=== PATIENT | female | born 1955 | race Caucasian/White ===

== ENCOUNTER 2018-08-01 14:04 | Outpatient (REF) | payer MEDICARE, SELFPAY ==
[2018-08-01 22:12] LABS: HGB 15.3 g/dL (12.0-15.5); Mean Corp. HGB Concentration 32.6 g/dL (32.0-36.0); Mean Corpuscular Hemoglobin 29.4 pg (27.0-33.0); Mean Corpuscular Volume 90.2 fL (80-95); Platelet Count 223 x1000/uL (130-400); RBC 5.21 m/cumm (4.00-5.20); RBC Distribution Width 12.7 % (11.7-14.6); White Blood Cell Count 7.34 k/cumm (4.4-10.8)
[2018-08-01 22:30] LABS: ALT 37 U/L (12-78); AST 24 U/L (15-37); Albumin 3.6 g/dL (3.4-5.0); Alkaline Phosphatase 99 U/L (46-116); BUN 28 mg/dL (7-18); Bilirubin, Total 0.3 mg/dL (0.2-1.0); CREATININE 1.32 mg/dL (0.55-1.02); Calcium 9.5 mg/dL (8.5-10.1); Chloride 100 mmol/L (98-107); Estimated GFR 40.91 (mL/min/1.73m2); Glucose 140 mg/dL (70-100); Potassium 4.2 mmol/L (3.5-5.1); Sodium 139 mmol/L (136-145); TSH (W/Ref FT4) 0.43 uIU/mL (0.358-3.74); Total Protein 7.1 g/dL (6.4-8.2)
== END 2018-08-01 14:24 ==
LOC: NCHCN 14:04
PROVIDERS: PCP Specialist/Technologist Athletic Trainer; Visit Provider Specialist/Technologist Athletic Trainer
DX: I25.10 Atherosclerotic heart disease of native coronary artery without angina pectoris (principal); E11.65 Type 2 diabetes mellitus with hyperglycemia; E78.00 Pure hypercholesterolemia, unspecified; E03.9 Hypothyroidism, unspecified
CPT/HCPCS: 80053; 85027; 84443

== ENCOUNTER → 2018-09-05 12:28 | Outpatient (BNVA) | payer MEDICARE, SELFPAY | PROVIDERS: PCP Specialist/Technologist Athletic Trainer; Visit Provider Internal Medicine Interventional Cardiology | DX: I25.810 Atherosclerosis of coronary artery bypass graft(s) without angina pectoris (principal); R55 Syncope and collapse; I48.91 Unspecified atrial fibrillation; I10 Essential (primary) hypertension; E78.5 Hyperlipidemia, unspecified; E11.9 Type 2 diabetes mellitus without complications; Z79.4 Long term (current) use of insulin | CPT/HCPCS: 99214; 99213 ==

== ENCOUNTER 2018-09-05 13:24 | Outpatient (CLI) | payer MEDICARE, SELFPAY ==
--- NOTE | 2018-10-03 11:14 | ZIOP_ITS ---
ZIO PATCH REPORT Date of Reading: September 27, 2018 Study Indication: Paroxysmal atrial fibrillation. Requesting Provider: Dre Burgess M.D. Findings: The patient was monitored for 13 days. The predominant underlying rhythm was sinus rhythm. Average heart rate in sinus rhythm 66 beats per minute, range of 45-126 beats per minute. There was rare ectopy. There was one atrial run lasting 10 beats, with an average heart rate of 118 beats per minute. There was one ventricular run lasting 5 beats, with an average heart rate of 122 beats per minute. There was no higher degree heart block. There were no p[ auses greater than 3 seconds. There were no patient events. Final Interpretation: Minor tachyarrhythmias.
== END 2018-09-05 13:44 ==
PROVIDERS: PCP Specialist/Technologist Athletic Trainer; Visit Provider Internal Medicine Interventional Cardiology
DX: I48.0 Paroxysmal atrial fibrillation (principal); I47.1 Supraventricular tachycardia; I47.2 Ventricular tachycardia
CPT/HCPCS: 93225; 99214; 99213

== ENCOUNTER 2018-09-27 16:14 | Outpatient (CLI) | payer MEDICARE, SELFPAY | END 2018-09-27 16:34 | PROVIDERS: PCP Specialist/Technologist Athletic Trainer; Referring Provider Internal Medicine Interventional Cardiology; Visit Provider Student in an Organized Health Care Education/Training Program | DX: I48.0 Paroxysmal atrial fibrillation (principal); I47.1 Supraventricular tachycardia; I47.2 Ventricular tachycardia | CPT/HCPCS: 0298T ==

== ENCOUNTER 2019-05-16 11:18 | Outpatient (CLI) | payer MEDICARE, SELFPAY ==
[2019-05-16 13:02] LABS: ALT 37 U/L (12-78); AST 19 U/L (15-37); Albumin 3.6 g/dL (3.4-5.0); Alkaline Phosphatase 98 U/L (46-116); Bilirubin, Total 0.5 mg/dL (0.2-1.0); Calculated LDL 95 mg/dL; Cholesterol 167 mg/dL (50-200); HDL Cholesterol 43 mg/dL (40-60); Total Protein 7.4 g/dL (6.4-8.2); Triglyceride 145 mg/dL (30-150)
[2019-05-16 13:13] LABS: Bilirubin, Direct 0.12 mg/dL (0.00-0.20)
== END 2019-05-16 11:38 ==
PROVIDERS: PCP Specialist/Technologist Athletic Trainer; Visit Provider Internal Medicine Interventional Cardiology
DX: E78.5 Hyperlipidemia, unspecified (principal); I48.91 Unspecified atrial fibrillation
CPT/HCPCS: 36415; 80061; 80076; 83721

== ENCOUNTER 2019-05-22 08:31 | Outpatient (CLI) | payer MEDICARE, SELFPAY | END 2019-05-22 08:51 | PROVIDERS: PCP Specialist/Technologist Athletic Trainer; Visit Provider Internal Medicine Interventional Cardiology | DX: I25.10 Atherosclerotic heart disease of native coronary artery without angina pectoris (principal); R55 Syncope and collapse; I48.91 Unspecified atrial fibrillation; E78.5 Hyperlipidemia, unspecified; E11.9 Type 2 diabetes mellitus without complications; I10 Essential (primary) hypertension; I63.9 Cerebral infarction, unspecified | CPT/HCPCS: 93005; 93010; 99213 ==

== ENCOUNTER → 2019-08-22 10:46 | Outpatient (BNVA) | payer MEDICARE, SELFPAY | PROVIDERS: PCP Specialist/Technologist Athletic Trainer; Referring Provider Specialist/Technologist Athletic Trainer; Visit Provider Internal Medicine Cardiovascular Disease | DX: I25.718 Atherosclerosis of autologous vein coronary artery bypass graft(s) with other forms of angina pectoris (principal); I10 Essential (primary) hypertension; I48.91 Unspecified atrial fibrillation; E11.9 Type 2 diabetes mellitus without complications; Z79.4 Long term (current) use of insulin | CPT/HCPCS: 99205; 99215 ==

== ENCOUNTER 2019-08-29 11:14 | Outpatient (CLI) | payer MEDICARE, SELFPAY ==
[2019-08-29 13:43] LABS: ALT 43 U/L (14-59); AST 17 U/L (15-37); Albumin 3.8 g/dL (3.4-5.0); Alkaline Phosphatase 107 U/L (46-116); Bilirubin, Total 0.5 mg/dL (0.2-1.0); Calculated LDL 96 mg/dL; Cholesterol 170 mg/dL (50-200); HDL Cholesterol 39 mg/dL (40-60); Total Protein 7.9 g/dL (6.4-8.2); Triglyceride 176 mg/dL (30-150)
[2019-08-29 14:23] LABS: Bilirubin, Direct 0.13 mg/dL (0.00-0.20)
== END 2019-08-29 11:34 ==
PROVIDERS: Internal Medicine Interventional Cardiology; PCP Specialist/Technologist Athletic Trainer; Visit Provider Internal Medicine Cardiovascular Disease
DX: I48.91 Unspecified atrial fibrillation (principal); E78.5 Hyperlipidemia, unspecified; I10 Essential (primary) hypertension; I25.718 Atherosclerosis of autologous vein coronary artery bypass graft(s) with other forms of angina pectoris
CPT/HCPCS: 36415; 80061; 80076

== ENCOUNTER 2019-11-21 15:27 | Outpatient (CLI) | payer MEDICARE, SELFPAY ==
[2019-11-21 16:49] LABS: COMMENT (LAB VIEW ONLY) 178.24 mg/dL
[2019-11-21 16:53] LABS: BUN 24 mg/dL (7-18); CREATININE 1.69 mg/dL (0.55-1.02); Calcium 9.7 mg/dL (8.5-10.1); Chloride 100 mmol/L (98-107); Estimated GFR 30.66 (mL/min/1.73m2); Glucose 120 mg/dL (74-106); Potassium 5.4 mmol/L (3.5-5.1); Sodium 139 mmol/L (136-145); TSH 20.47 uIU/mL (0.36-3.74)
== END 2019-11-21 15:47 ==
PROVIDERS: PCP Internal Medicine; Visit Provider Internal Medicine
DX: I10 Essential (primary) hypertension (principal); E03.9 Hypothyroidism, unspecified; E11.8 Type 2 diabetes mellitus with unspecified complications; Z79.4 Long term (current) use of insulin
CPT/HCPCS: 36415; 80048; 82043; 82570; 84443

== ENCOUNTER 2020-02-20 01:55 | Outpatient (CLI) | payer MEDICARE, SELFPAY ==
[2020-02-20 12:58] LABS: Anion Gap 9.3 mmol/L (3-11); BUN 13 mg/dL (7-18); CO2 29.7 mmol/L (21.0-32.0); CREATININE 1.28 mg/dL (0.55-1.02); Calcium 9.5 mg/dL (8.5-10.1); Chloride 101 mmol/L (98-107); Estimated GFR 42.25 (mL/min/1.73m2); Glucose 122 mg/dL (74-106); Potassium 4.4 mmol/L (3.5-5.1); Sodium 140 mmol/L (136-145); TSH (W/Ref FT4) 0.01 uIU/mL (0.36-3.74)
[2020-02-20 13:15] LABS: FREE T4 1.44 ng/dL (0.76-1.46)
== END 2020-02-20 02:15 ==
PROVIDERS: PCP Internal Medicine; Visit Provider Internal Medicine
DX: E03.9 Hypothyroidism, unspecified (principal); E87.5 Hyperkalemia; N18.9 Chronic kidney disease, unspecified
CPT/HCPCS: 36415; 80048; 84439; 84443

== ENCOUNTER 2020-04-05 01:33 | Outpatient (CLI) | payer MEDICARE, SELFPAY ==
[2020-04-05 13:31] LABS: TSH (W/Ref FT4) < 0.01 uIU/mL (0.36-3.74)
[2020-04-05 13:49] LABS: FREE T4 1.52 ng/dL (0.76-1.46)
== END 2020-04-05 01:53 ==
PROVIDERS: PCP Internal Medicine; Visit Provider Internal Medicine
DX: E03.9 Hypothyroidism, unspecified (principal); I25.718 Atherosclerosis of autologous vein coronary artery bypass graft(s) with other forms of angina pectoris; I10 Essential (primary) hypertension; E11.8 Type 2 diabetes mellitus with unspecified complications; Z79.4 Long term (current) use of insulin
CPT/HCPCS: 36410; 84439; 84443; 99213

== ENCOUNTER 2020-05-06 11:43 | Emergency (ER) | payer MEDICARE, SELFPAY ==
[2020-05-06 11:46] VITALS: BP 175/82; PULSE 71; RESP 20; TEMP 36.6; O2SAT 99
--- NOTE | 2020-05-06 11:47 | ED.GENADUL_ITS ---
Discharge Plan Disposition Patient Disposition: HOME Condition: Stable Discharge Details Chief Complaint: DentalOral Clinical Impression: Contusion of face, Complete avulsion of tooth Primary Care Provider: Lynnette Gomez ED Provider: Damaris Tovar Home Meds and New Rx's Prescriptions: Continued Qvar RediHaler 40 mcg/actuation HFA aerosol breath activated 1 puff IH BID RF: 0 cholecalciferol (vitamin D3) [Vitamin D3] 25 mcg (1,000 unit) tablet 50 mcg PO DAILY RF: 0 Levemir FlexTouch U-100 Insuln 100 unit/mL (3 mL) insulin pen 60 unit subcut BID Qty: 5 RF: 6 magnesium 250 mg tablet 500 mg PO TID RF: 0 lisinopril 20 mg tablet 20 mg PO DAILY Qty: 90 RF: 3 (DME) insulin needles (disposable) 30 X 3/4 needle See Rx Instructions .ROUTE .MEDSUPPLY Qty: 1 RF: 0 (DME) pen needle, diabetic [CareFine Pen Needle] 32 gauge x 3/16 needle See Rx Instructions .ROUTE .MEDSUPPLY Qty: 200 RF: 3 levothyroxine 137 mcg tablet 137 mcg PO DAILY Qty: 90 RF: 0 atorvastatin 80 mg tablet 80 mg PO DAILY Qty: 90 RF: 1 citalopram 20 mg tablet 20 mg PO DAILY Qty: 90 RF: 1 metoprolol tartrate 25 mg tablet 25 mg PO BID Qty: 90 RF: 1 metformin 500 mg tablet See Rx Instructions PO BID Qty: 90 RF: 0 aspirin 81 MG tablet,delayed release (DR/EC) 81 mg PO DAILY RF: 0 cyanocobalamin (vitamin B-12) 1,000 MCG tablet, sublingual 500 mcg PO DAILY RF: 0 Discharge Instructions Instructions: Acute Dental Trauma (ED), Contusion in Adults (ED) Additional Instructions: You were given a dental list for follow-up with a dentist in the area who can replace your missing tooth. Take Tylenol as needed and directed for pain. Return to the emergency department if you develop any worsening or new concerning symptoms such as fever, increased pain, redness or swelling. Discharge Data Discharge Date/Time-TO BE ENTERED AT DEPARTURE: 05/06/20 12:58 Discharge Physician: Damaris Tovar Medical Decision Making 65-year-old female presents the ED with a complaint of nose and facial pain as well as tooth avulsion after slip and fall in bathroom striking her face on the bathtub 2 days ago. She presents with request to have the tooth replaced. Denies LOC or vomiting. Tooth #8 completely avulsed with root intact and patient presents with this at bedside. Mucosa at site of former tooth without signs of infection or trauma. She has tenderness to palpation of upper jaw and tenderness to palpation with superficial abrasion to her nose. No facial deformities noted. No midline cervical spine tenderness. No focal deficits. Moving all extremities. Case discussed with [facility] who stated that as tooth has been out longer than several hours, indication is not to replace it at this time but to follow-up with the dentist as outpatient to have cosmetic dental procedure to replace her own tooth. No indication for antibiotics. A CT facial bones was obtained to rule out facial fracture and this was negative. Patient was given dental follow-up list. Usual and customary return precautions given prior to discharge. Medical Records Medical records reviewed: Yes I reviewed the patient's medical records. Imaging Data Radiologic Study: Radiologist's impression: CT FACIAL WO CLINICAL HISTORY: r/o nasal bone, upper jaw fracture. TECHNIQUE: Imaging Protocol: Axial computed tomography images with coronal and sagittal reformatted images were created and reviewed COMPARISON: No exams were available for comparison FINDINGS: Facial Bones: No definite fracture is noted in facial bones. Sinuses and Mastoids: There is mild mucosal thickening in the maxillary sinuses bilaterally. The remaining visualized paranasal sinuses are clear. No fluid levels are seen. The mastoid air cells are well pneumatized. Globes, extraocular muscles, optic nerves and retrobulbar fat: Normal. Upper aerodigestive tract: Normal. Mandible and bilateral temporomandibular joints: Normal. Soft tissues: Normal. IMPRESSION: No evidence of fracture/dislocation in facial bones. HPI General Mode of arrival: ambulatory . Date/Time Provider Initiated Documentation: 05/06/20 11:44 . Limitations to Documentation: no limitations . Information obtained by: patient . HPI Narrative: Patient is a 65-year-old female who presents with facial injury and missing tooth after slip and fall in bathroom 2 days ago. Patient states she slipped and hit her face on the bathtub causing her right front tooth to knock out completely from the root. She admits to some pain in her nose and her upper jaw but otherwise denies any headache, dizziness, blurry vision, neck pain, LOC, nausea, vomiting or any other injuries. She has taken Tylenol for some pain relief. Related Data Home Medications Medication Instructions Recorded Confirmed aspirin 81 mg PO DAILY 01/06/17 05/06/20 cyanocobalamin (vitamin B-12) 500 mcg PO DAILY 01/06/17 05/06/20 beclomethasone dipropionate 40 1 puff IH BID 05/22/19 05/06/20 mcg/actuation HFA breath activated aerosol insulin detemir U-100 100 unit/mL 60 unit SUBCUT BID #5 syringe 01/02/20 05/06/20 (3 mL) subcutaneous pen insulin needles (disposable) 30 X #1 02/08/2001/09 levothyroxine 137 mcg tablet 137 mcg PO DAILY #90 tab 02/20/20 05/06/20 pen needle, diabetic 32 gauge x #200 each 02/20/2001/21 atorvastatin 80 mg tablet 80 mg PO DAILY #90 tab 03/05/20 05/06/20 citalopram 20 mg tablet 20 mg PO DAILY #90 tab 03/05/20 05/06/20 metoprolol tartrate 25 mg tablet 25 mg PO BID #90 tab 03/05/20 05/06/20 cholecalciferol (vitamin D3) 25 50 mcg PO DAILY tab 04/05/20 05/06/20 mcg (1,000 unit) tablet lisinopril 20 mg tablet 20 mg PO DAILY #90 tab 04/05/20 05/06/20 magnesium 250 mg tablet 500 mg PO TID tab 04/05/20 05/06/20 metformin 500 mg tablet See Rx Instructions PO BID #90 tab 04/10/20 05/06/20 Previous Rx's Medication Instructions Recorded insulin detemir U-100 100 unit/mL 60 unit SUBCUT BID #5 syringe 01/02/20 (3 mL) subcutaneous pen levothyroxine 137 mcg tablet 137 mcg PO DAILY #90 tab 02/20/20 pen needle, diabetic 32 gauge x #200 each 02/20/2001/21 atorvastatin 80 mg tablet 80 mg PO DAILY #90 tab 03/05/20 citalopram 20 mg tablet 20 mg PO DAILY #90 tab 03/05/20 metoprolol tartrate 25 mg tablet 25 mg PO BID #90 tab 03/05/20 lisinopril 20 mg tablet 20 mg PO DAILY #90 tab 04/05/20 metformin 500 mg tablet See Rx Instructions PO BID #90 tab 04/10/20 Allergies Allergy/AdvReac Type Severity Reaction Status Date / Time iodine Allergy Severe Verified 04/05/20 11:07 Review of Systems All systems reviewed & are unremarkable except as noted in HPI and below Constitutional Constitutional: Reports as per HPI, Denies chills and Denies fever(s) Eyes Eyes: Denies blurry vision ENT Ears, Nose, Mouth, and Throat: Reports dental pain (dental avulsion), Denies dizziness, Denies sore throat and Denies throat swelling Cardiovascular Cardiovascular: Denies chest pain and Denies dyspnea Respiratory Respiratory: Denies cough and Denies dyspnea Gastrointestinal Gastrointestinal: Denies abdominal pain, Denies diarrhea and Denies vomiting Genitourinary Genitourinary: Denies hematuria and Denies dysuria Musculoskeletal Musculoskeletal: Denies back pain and Denies numbness Integumentary/Breasts Skin/Breast: Denies lesions and Denies rash Neurologic Neurologic: Denies dizziness, Denies localized weakness and Denies numbness Allergic/Immunologic Allergic/Immunologic: Denies throat swelling [facility] Social History Smoking/Tobacco Use Status: Former Tobacco Use Quit Date: 11/08/09 Pack-years: 15 Tobacco: How many years used: 10 Alcohol Intake: former Drug use: Never Substance use type: does not use Household members: none Housing: house Number of Children: 0 Communication Needs: None Do you need help understanding health information?: Often current occupation: Unemployed Pets and animals: Yes Pets and animals: dog(s), bird(s) and farm animals Sexually active: No Do you think of yourself as: straight/heterosexual Current gender identity: female What is your relationship status?: Panel score (0-1 are the most socially isolated patients): 0 What type of physical activity do you participate in: none Seatbelt use: always Working smoke detector in home: Yes Fire extinguisher in home: Yes Carbon monox detector in home: Yes Do you feel safe at home: Yes Do you feel safe in your relationship?: Yes Exam Const General: cooperative, healthy appearing and no acute distress HENMT Head: normal to inspection Ears: hearing grossly normal bilaterally, external ears normal and TM's normal bilaterally Face images: 1. Superficial abrasion and tenderness to palpation. No obvious deformity noted. 2. Tenderness to palpation without evidence of trauma. No edema, erythema, ecchymosis. No open wounds noted. Mouth: oral mucosae normal Teeth image: 1. Tooth #8 missing. Entire tooth including root fully intact at bedside. Mucosa appears soft without erythema, edema, lesions, ecchymoses, bleeding. Throat: posterior oropharynx normal and uvula midline Eyes General: appearance normal, both eyes and all related structures Neck Neck: normal visual inspection Resp Effort & Inspection: normal respiratory effort and able to speak in complete sentences Cardio Rate: regular rate Back/Spine/Pelvis Cervical Spine: pain with cervical ROM and No cervical spinal tenderness Skin General skin exam: no rashes or lesions noted Neuro General: patient alert, patient awake and patient oriented x3 Cranial Nerves: CN's II-XI intact bilaterally Motor: muscle tone normal throughout and strength 5/5 throughout Extrem General: normal to inspection and full ROM Psych Appearance: grossly normal Affect: normal affect
--- NOTE | 2020-05-06 12:15 | DI.CT_ITS ---
EXAM: CT FACIAL WO CLINICAL HISTORY: r/o nasal bone, upper jaw fracture. TECHNIQUE: Imaging Protocol: Axial computed tomography images with coronal and sagittal reformatted images were created and reviewed COMPARISON: No exams were available for comparison FINDINGS: Facial Bones: No definite fracture is noted in facial bones. Sinuses and Mastoids: There is mild mucosal thickening in the maxillary sinuses bilaterally. The re maining visualized paranasal sinuses are clear. No fluid levels are seen. The mastoid air cells are well pneumatized. Globes, extraocular muscles, optic nerves and retrobulbar fat: Normal. Upper aerodigestive tract: Normal. Mandible and bilateral temporomandibular joints: Normal. Soft tissues: Normal. IMPRESSION: No evidence of fracture/dislocation in facial bones. The findings were discussed with the emergency department on the date of the examination. RADIATION DOSE DELIVERED: Total DLP DATA REPOSITORY: All CT scans at this facility are submitted to the National Radiology Data Registry (NRDR) Dose Index Registry (DIR) with the [employer] (ACR). RADIATION OPTIMIZATION: All CT scans at this facility use at least one of these dose optimization te chniques: automated exposure control; mA and/or kV adjustment per patient size (includes targeted exa ms where dose is matched to clinical indication); or iterative reconstruction.
== END 2020-05-06 12:58 | disposition home or self-care (01) ==
LOC: ER 12:58
PROVIDERS: Emergency Provider Physician Assistant; PCP Internal Medicine
DX: S00.83XA Contusion of other part of head, initial encounter (principal); S03.2XXA Dislocation of tooth, initial encounter; W18.2XXA Fall in (into) shower or empty bathtub, initial encounter
CPT/HCPCS: 99284; 70486

== ENCOUNTER 2020-08-16 03:01 | Outpatient (CLI) | payer MEDICARE, SELFPAY ==
[2020-08-16 13:24] LABS: Anion Gap 7.7 mmol/L (3-11); BUN 25 mg/dL (7-18); CO2 32.3 mmol/L (21.0-32.0); Calcium 9.9 mg/dL (8.5-10.1); Calculated LDL 128 mg/dL (<100); Chloride 103 mmol/L (98-107); Cholesterol 204 mg/dL (<200); Estimated GFR 41.37 (mL/min/1.73m2); Glucose 68 mg/dL (74-106); HDL Cholesterol 49 mg/dL (40-60); Potassium 4.8 mmol/L (3.5-5.1); Sodium 143 mmol/L (136-145); TSH (W/Ref FT4) 0.02 uIU/mL (0.36-3.74); Triglyceride 135 mg/dL (<150)
[2020-08-16 14:38] LABS: FREE T4 1.33 ng/dL (0.76-1.46)
== END 2020-08-16 03:21 ==
PROVIDERS: PCP Internal Medicine; Visit Provider Internal Medicine
DX: E78.00 Pure hypercholesterolemia, unspecified (principal); I10 Essential (primary) hypertension; E03.9 Hypothyroidism, unspecified
CPT/HCPCS: 36415; 80048; 80061; 84439; 84443

== ENCOUNTER → 2021-05-27 09:25 | Outpatient (BNVA) | payer MEDICARE, SELFPAY | PROVIDERS: PCP Internal Medicine; Referring Provider Internal Medicine; Visit Provider Internal Medicine Cardiovascular Disease | DX: I25.718 Atherosclerosis of autologous vein coronary artery bypass graft(s) with other forms of angina pectoris (principal); E78.00 Pure hypercholesterolemia, unspecified; I48.91 Unspecified atrial fibrillation; I63.9 Cerebral infarction, unspecified | CPT/HCPCS: 99214; 99213 ==

== ENCOUNTER 2022-01-20 01:42 | Outpatient (CLI) | payer MEDICARE, SELFPAY ==
[2022-01-20 14:07] LABS: HCT 52.4 % (36.0-46.0); HGB 16.6 g/dL (11.2-15.7)
[2022-01-20 14:47] LABS: COMMENT (LAB VIEW ONLY) 68.94 mg/dL
[2022-01-20 15:13] LABS: Anion Gap 10.6 mmol/L (3-11); BUN 38 mg/dL (7-18); CO2 27.4 mmol/L (21.0-32.0); CREATININE 1.4 mg/dL (0.55-1.02); Calcium 9.7 mg/dL (8.5-10.1); Calculated LDL 112 mg/dL (<100); Chloride 98 mmol/L (98-107); Cholesterol 194 mg/dL (<200); Estimated GFR 37.86 (mL/min/1.73m2); Glucose 97 mg/dL (74-106); HDL Cholesterol 68 mg/dL (40-60); Potassium 4.5 mmol/L (3.5-5.1); Sodium 136 mmol/L (136-145); TSH 0.16 uIU/mL (0.36-3.74); Triglyceride 70 mg/dL (<150)
== END 2022-01-20 01:43 | disposition home or self-care (01) ==
LOC: LBO 01:42
PROVIDERS: PCP Internal Medicine; Visit Provider Internal Medicine
DX: E11.9 Type 2 diabetes mellitus without complications (principal); E03.9 Hypothyroidism, unspecified; I10 Essential (primary) hypertension; E78.00 Pure hypercholesterolemia, unspecified; N18.30 Chronic kidney disease, stage 3 unspecified
CPT/HCPCS: 80048; 80061; 82043; 82570; 84443; 85014; 85018

== ENCOUNTER 2022-02-19 01:48 | Outpatient (CLI) | payer MEDICARE, SELFPAY ==
--- NOTE | 2022-02-19 07:15 | DI.MAMMO_ITS ---
Exam(s) MAMMO SCREENING EXAM: MAMMO SCREENING CLINICAL HISTORY: screening,z12.39 TECHNIQUE: Mammograms were interpreted according to the usual protocol including computer analysis w [employer] CAD system, tomosynthesis and C-view imaging. COMPARISON: FINDINGS: The breasts are of moderate density with fairly symmetrical distribution of fibroglandular tissue. N o dominant mass or clumped microcalcification is identified in either breast. The current examinatio n is compared with of September 2017 and there has been no gross interval change in appearance in lizzy peace with the prior study. IMPRESSION: No specific evidence of malignancy at this time. Routine screening examinations are suggested at yea rly intervals in this age group according to the ACS ACR guidelines. BI-RADS Category 1 - Negative Breast Density - Category B - Scattered areas of fibroglandular density
== END 2022-02-19 02:08 ==
PROVIDERS: PCP Internal Medicine; Visit Provider Internal Medicine
DX: Z12.31 Encounter for screening mammogram for malignant neoplasm of breast (principal)
CPT/HCPCS: 77063; 77067

== ENCOUNTER 2022-05-22 01:44 | Outpatient (CLI) | payer MEDICARE, SELFPAY ==
--- OUTSIDE RECORDS SUMMARY | 2022-05-22 01:45 | XMS_ITS | Clinical Summary ---
:1955 Author Organization [facility] Address [place] [id number] Care Team Providers Name Role Phone Unknown Primary Care Provider Unavailable Allergies Active Allergy Reactions Severity Noted Date Comments Iodine Rash High 03/25/2016 Medications Medication Sig Dispensed Refills Start Date End Date Status magnesium citrate Take 100 mg by mouth 0 Active 100 mg Tablet 3 times daily. cyanocobalamin 500 Take 500 mcg by 0 Active mcg Tablet mouth daily. cholecalciferol, Take 1,000 Units by 0 Active Vitamin D3, (VITAMIN mouth daily. D) 1,000 unit Tablet levothyroxine Take 125 mcg by 0 Active (SYNTHROID) 125 mcg mouth daily. Tablet citalopram (CELEXA) Take 20 mg by mouth 0 Active 20 mg Tablet daily. lovastatin (MEVACOR) Take 80 mg by mouth 0 Active 20 mg Tablet nightly. Takes 4 - 20 mg tabs insulin detemir Inject 50 Units 0 Active (LEVEMIR) Insulin subcutaneously 2 Pen times daily. acetaminophen Take 2 tablets by 0 04/04/2016 Active (TYLENOL) 500 mg mouth every 6 hours Tablet as needed for Pain. aspirin 81 mg Take 81 mg by mouth 0 04/04/2016 Active Tablet, Chewable daily. meTOPROLOL tartrate Take 1 tablet by 120 tablet 3 04/04/2016 Active (LOPRESSOR) 25 mg mouth 2 times daily. Tablet Active Problems Problem Noted Date Diabetes mellitus type 2, uncontrolled 04/01/2016 Coronary artery disease 03/27/2016 Social History Tobacco Use Types Packs/Day Years Used Date Former Smoker 11 Alcohol Use Standard Drinks/Week Comments No 0 (1 standard drink = 0.6 oz pure alcoho l) Sex Assigned at Date Recorded Not on file Last Filed Vital Signs Vital Sign Reading Time Taken Comments Blood Pressure 160/88 05/26/2016 2:17 PM EDT Pulse 85 05/26/2016 2:17 PM EDT Temperature 37 ??C (98.6 ??F) 04/04/2016 7:29 AM EDT Respiratory Rate 14 04/04/2016 7:29 AM EDT Oxygen Saturation 96% 05/26/2016 2:17 PM EDT Inhaled Oxygen Concentration - - Weight 96.8 kg (213 lb 8 oz) 05/26/2016 2:17 PM EDT Height 160 cm (5' 3) 05/26/2016 2:17 PM EDT Body Mass Index 37.82 05/26/2016 2:17 PM EDT Plan of Treatment Health Maintenance Due Date Last Done Comments Covid-19 Vaccine (#1) 1962 DM Opthalmology Exam 1967 DM Urine Microalbumin yearly 1967 HIV screen 1975 Hepatitis C Screening 1975 Tdap adult 1976 Tetanus vaccine 1976 HPV test 1987 PAP Smear 1987 Breast Cancer Share Decision Needed 1997 Colonoscopy 2002 Breast Cancer screening 2007 Zoster vaccine (1 of 2) 2007 Advance Directive 2012 DM Hemoglobin A1c 07/01/2016 03/31/2016 DM Creatinine yearly 04/02/2017 04/02/2016, 03/31/2016, 03/26/2016 Bone Density Scan 2022 Pneumoccocal Vaccine: 65+ (1 - PCV) 2022 Influenza (Flu) vaccine (1 of - 07/09/2022 Influenza standard series) Insurance Payer Benefit Plan / Subscriber ID Effective Phone Address T ype Group Dates MEDICARE MEDICARE PART A [id number] 2012-Pres [id number] [place] [address] [facility] [id number] 2015-Prese [phone] [address] [place] [address] Advance Directives Latest Code Status on File Code Status Date Activated Date Inactivated Comments Full Code 04/03/2016 11:21 AM 04/04/2016 6:27 PM Does patient have capacity to make decision: Yes Full Code 03/30/2016 12:09 PM 04/03/2016 11:21 AM Does patient have capacity to make decision: Yes Full Code 03/29/2016 12:51 PM 03/30/2016 12:09 PM Does patient have capacity to make decision: Yes Full Code 03/26/2016 10:24 AM 03/26/2016 6:04 PM Does patient have capacity to make decision: Yes Care Teams Preparation Operator Relationship Specialty Start Date End Date Unknown PCP - General 05/13/21 None
--- OUTSIDE RECORDS SUMMARY | 2022-05-22 01:45 | XMS_ITS | Encounter Summary ---
:1955 Author Organization [facility] Address [address] [place] [address] Care Team Providers Name Role Phone Valentino Hernandez Primary Care Provider Encounter Details Date Type Department Care Team Description 05/26/2016 Hospital Encounter XRay at [facility] Narayan Camacho, S/P CABG x [address] [place] [address] [place] [address] [facility] [phone] CARDIOTHORACIC SURGERY [place], [place] [address] (Wo rk) Social History Tobacco Use Types Packs/Day Years Used Date Former Smoker 11 Alcohol Use Standard Drinks/Week Comments No 0 (1 standard drink = 0.6 oz pure alcoho l) Sex Assigned at Date Recorded Not on file documented as of this encounter Medications at Time of Discharge Medication Sig Dispensed Refills Start Date End Date acetaminophen (TYLENOL) Take 2 tablets by mouth 0 04/04/2016 500 mg Tablet every 6 hours as needed for Pain. aspirin 81 mg Tablet, Take 81 mg by mouth 0 04/04 Chewable daily. meTOPROLOL tartrate Take 1 tablet by mouth 120 tablet 3 03/09 (LOPRESSOR) 25 mg 2 times daily. Tablet insulin detemir Inject 50 Units 0 (LEVEMIR) Insulin Pen subcutaneously 2 times daily. magnesium citrate 100 Take 100 mg by mouth 3 0 mg Tablet times daily. cyanocobalamin 500 mcg Take 500 mcg by mouth 0 Tablet daily. cholecalciferol, Take 1,000 Units by 0 Vitamin D3, (VITAMIN D) mouth daily. 1,000 unit Tablet levothyroxine Take 125 mcg by mouth 0 (SYNTHROID) 125 mcg daily. Tablet citalopram (CELEXA) 20 Take 20 mg by mouth 0 mg Tablet daily. lovastatin (MEVACOR) 20 Take 80 mg by mouth 0 mg Tablet nightly. Takes 4 - 20 mg tabs documented as of this encounter Plan of Treatment Not on filedocumented as of this encounter Procedures Procedure Name Priority Date/Time Associated Diagnosis Comme nts XR CHEST PA AND Routine 05/26/2016 1:53 PM S/P CABG x 3 Result s for this LATERAL EDT procedure are i n the results section. documented in this encounter Results XR Chest PA & Lateral (Generic) (05/26/2016 1:53 PM EDT) Anatomical Region Laterality Modality Chest N/A Digital Radiography Specimen (Source) Anatomical Location Collection Method / Collectio n Time Received Time / Laterality Volume Impressions 05/26/2016 2:44 PM EDT Improved aeration expansion of the lungs. Less prominent mediastinal silhouette co mpared to 04/02/2016. I have personally reviewed the image(s) and the residents interpretation and agree with the findings, Tete kent 05/26/2016 2:44 PM Narrative 05/26/2016 2:44 PM EDT EXAMINATION: XR CHEST ROUTINE PA AND LATERAL CLINICAL HISTORY: s/p cabg TECHNIQUE: Standing PA and lateral chest COMPARISON: Chest radiograph 04/02/2016, 03/30/2016, 03/26/2016 FINDINGS: There is improved aeration and expansion of the lungs, which are clear. Unchanged mild cardiomegaly. The mediast inal silhouette appears less prominent compared to most recent prior radiograph 04/02/2016. No pleural effusion or pneumothorax. Mediastinal clips and inta ct median sternotomy cables are seen. Osseous degenerative changes. Procedure Note Tete Deleon MD - 05/26/2016Formatt ing of this note might be different from the original. EXAMINATION: XR CHEST ROUTINE PA AND LAT ERAL CLINICAL HISTORY: s/p cabg TECHNIQUE: Standing PA and lateral chest COMPARISON: Chest radiograph 04/02/2016, 03/30/2016, 03/26/2016 FINDINGS: There is improved aeration and expansion of the lungs, which are clear. Unchanged mild cardiomegaly. The mediast inal silhouette appears less prominent compared to most recent prior radiograph 04/02/2016. No pleural effusion or pneumothorax. Mediastinal clips and inta ct median sternotomy cables are seen. Osseous degenerative changes. IMPRESSION Improved aeration expansion of the lungs . Less prominent mediastinal silhouette co mpared to 04/02/2016. I have personally reviewed the image(s) and the residents interpretation and agree with the findings, Tete kent 05/26/2016 2:44 PM Narayan Camacho MD IMG DX ORDERABLES documented in this encounter Visit Diagnoses Diagnosis S/P CABG x 3 Postsurgical aortocoronary bypass status documented in this encounter Care Teams Transition Manager Relationship Specialty Start Date End Date Valentino Hernandez PA PCP - General General Internal Medicine 03/29/16 05/12/21 [address] [place] [address] documented as of this encounter
--- OUTSIDE RECORDS SUMMARY | 2022-05-22 01:45 | XMS_ITS | Encounter Summary ---
:1955 Author Organization [facility] [place] [address] Care Team Providers Name Role Phone Valentino Hernandze Primary Care Provider Encounter Details Date Type Department Care Team Description 01/06/2017 Hospital Encounter Radiology Library at Juan Burnham MD [facility] [place] [address] [place] [address] [phone] (Wo rk) Social History Tobacco Use Types [...] Name Priority Date/Time Associated Diagnosis Comme nts FILM LIBRARY Routine 01/06/2017 12:00 AM Pain Results for this STORAGE ONLY CT EST procedure ar e in SPINE the results section. documented in this encounter Results Film Library- Storage Only CT Spine (01/06/2017 12:00 AM EST) Specimen (Source) Anatomical Location Collection Method / Collectio n Time Received Time / Laterality Volume Narrative BERONICA - 01/06/2017 4:29 PM EST This exam is for storage only and is aut o-finalizing. Kurtis Burnham MD [facility] FILM LIBRARY ORDERABLES Performing Organization Address City/State/ZIP Code Phon e Number [place], [place] documented in this encounter Visit Diagnoses Diagnosis Pain Generalized pain documented in this encounter Care Teams Lead Cook Relationship Specialty Start Date End Date Valentino Hernandez PA PCP - General General Internal Medicine 03/29/16 05/12/21 [address] [place] [address] documented as of this encounter
--- OUTSIDE RECORDS SUMMARY | 2022-05-22 01:45 | XMS_ITS | Encounter Summary ---
:1955 Author Organization [facility] [place] [address] Care Team Providers Name Role Phone Valentino Hernandez Primary Care Provider Encounter Details Date Type Department Care Team Description 05/26/2016 [facility] Visit [facility] Narayan Camacho MD S/P CABG x 3 [facility] [place] [address] CARDIOTHORACIC SURGERY [phone] [place] [id number] (Wo rk) Social History Tobacco Use Types Packs/Day Years Used Date Former Smoker 11 Alcohol Use Standard Drinks/Week Comments No 0 (1 standard drink = 0.6 oz pure alcoho l) Sex Assigned at Date Recorded Not on file documented as of this encounter Last Filed Vital Signs Vital Sign Reading Time Taken Comments Blood Pressure 160/88 05/26/2016 2:17 PM EDT Pulse 85 05/26/2016 2:17 PM EDT Temperature - - Respiratory Rate - - Oxygen Saturation 96% 05/26/2016 2:17 PM EDT Inhaled Oxygen Concentration - - Weight 96.8 kg (213 lb 8 oz) 05/26/2016 2:17 PM EDT Height 160 cm (5' 3) 05/26/2016 2:17 PM EDT Body Mass Index 37.82 05/26/2016 2:17 PM EDT documented in this encounter Progress Notes Narayan Camacho MD - 05/26/2016 3:00 PM EDT Mrs. Prieto is here status post her CABG x3. She has little in the way of complaints. She has no recurrent angina or shortness of breath. Her vital signs are stable. Her wound is clean, dry and intact. Her legs have no swelling. Her chest x-ray is clear. EKG shows no acute changes. IMPRESSION: She is recovering well from surgery. She has no restrictions. She can start driving. I have encouraged her to start bathing. documented in this encounter Plan of Treatment Not on filedocumented as of this encounter Procedures Procedure Name Priority Date/Time Associated Diagnosis Comme nts EKG 12-LEAD Routine 05/26/2016 2:42 PM S/P CABG x 3 Results f or this EDT procedure are i n the results section . documented in this encounter Results EKG 12 Lead (05/26/2016 2:42 PM EDT) Component Value Ref Range Test Analysis Performed Pathologis t Method Time At Signature Ventricular rate 80 BPM MUSE SYSTEM Atrial Rate 80 BPM MUSE SYSTEM P-R Interval 166 ms MUSE SYSTEM QRS Duration 90 ms MUSE SYSTEM Q-T Interval 402 ms MUSE SYSTEM QTC Calculated 463 ms MUSE SYSTEM (Bezet) Calculated P [place] 54 degrees MUSE SYSTEM Calculated R [place] -16 degrees MUSE SYSTEM Calculated T [place] 125 degrees MUSE SYSTEM INTERPRETATION Normal sinus rhythm MUSE SYSTEM Possible Left atrial enlargement ST & T wave abnormality, consider lateral ischemia Prolonged QT Abnormal ECG When compared with ECG of 30-MAR-2016 19:03, T wave inversion now evident in Lateral leads QT has shortened Confirmed by MD Angela, Valentino Alvarez ([id number]) on 05/26/2016 3:18:36 PM Specimen Anatomical Collection Method Collection Time Receive d Time (Source) Location / / Volume Laterality 05/26/2016 2:42 PM 6 3:18 EDT PM EDT Narayan Camacho MD ECG ORDERABLES Performing Organization Address City/State/ZIP Code Phon e Number MUSE SYSTEM documented in this encounter Visit Diagnoses Diagnosis S/P CABG x 3 Postsurgical aortocoronary bypass status documented in this encounter Care Teams Director Clinical Data Relationship Specialty Start Date End Date Valentino Hernandez PA PCP - General General Internal Medicine 03/29/16 05/12/21 [address] [place] [address] (work) documented as of this encounter
--- OUTSIDE RECORDS SUMMARY | 2022-05-22 01:46 | XMS_ITS | Encounter Summary ---
:1955 [place] [address] Care Team Providers Name Role Phone Valentino Hernandez Primary Care Provider Reason for Referral Consultation (Routine) - Specialty Diagnoses / Procedures Referred By Contact Refer red To Contact Cardiac Rehabilitation Diagnoses S/P CABG x [address] [facility] [place] [address] Referral ID Status Reason Start Date Expiration Date Visits V isits Requested Authorized [id number] Consult, 04/04/2016 10/01/2016 36 36 Test & Treat Reason for Visit Auth/Cert Specialty Diagnoses / Procedures Referred By Contact Refer red To Contact Diagnoses Atherosclerotic heart disease of teller coronary artery without angina pectoris CAD Procedures PRO CABG, ARTERY-VEIN, THREE PRO CABG, ARTERIAL, SINGLE PRO ENDOSCOPY W/VIDEO-ASST VEIN HARVEST, CABG @CABG; 3 VENOUS GRAFTS & ARTERIAL GRAFT @CABG, USING ARTERIAL GRAFT;SINGLE ARTERIAL GRAFT ENDOSCOPIC HARVEST VEIN(S) FOR CABG Referral ID Status Reason Start Date Expiration Date Visits Requ ested Visits Authorized [id number] 1 1 Encounter Details Date Type Department Care Team Description 03/30/2016 - Hospital Intermediate Cardiac Felix, Coronar y artery disease, angina presence unspecified, unspecified vessel or lesion type, unspecified whether teller or transplanted heart; 04/04/2016 Encounter Care Unit Geovanna Boateng MD S/P CABG x 3 [facility] [place] [id number] [phone] Social History Tobacco Use Types Packs/Day Years Used Date Former Smoker 11 Alcohol Use Standard Drinks/Week Comments No 0 (1 standard drink = 0.6 oz pure alcoho l) Sex Assigned at Date Recorded Not on file documented as of this encounter Last Filed Vital Signs Vital Sign Reading Time Taken Comments Blood Pressure 133/85 04/04/2016 7:29 AM EDT Pulse 64 04/04/2016 5:00 AM EDT Temperature 37 ??C (98.6 ??F) 04/04/2016 7:29 AM EDT Respiratory Rate 14 04/04/2016 7:29 AM EDT Oxygen Saturation 97% 04/04/2016 7:29 AM EDT Inhaled Oxygen Concentration - - Weight 101.7 kg (224 lb 3.3 oz) 04/04/2016 5:00 AM EDT Height 161.3 cm (5' 3.5) 03/30/2016 11:31 AM EDT Body Mass Index 39.09 03/30/2016 11:31 AM EDT documented in this encounter Discharge Summaries Bronson Olmstead PA - 04/03/2016 2:26 PM EDT Inpatient - Discharge Summary Patient Name: Bernardo Peace Patient Age: 60 y.o. Birthdate: 1955 Language: Swedish Race: White Ethnicity: Not nor Admit Date: 03/30/2016 Discharge Date: 04/04/16 Attending Physician: Narayan Washington MD Follow-up Recommendations for Providers: Please continue routine management of cardiovascular risk factors including blood pressure, lipids, glucose, etc. Please note any changes to medications. Patient to follow-up with PCP, JACKELINE BARONE, in 1-2 weeks. Patient to follow-up with Presentation Specialist, Franky Serna MD, in two weeks. Patient to follow-up with Cardiac Surgery, Dr. Narayan Washington, in ~ 4 weeks with CXR and EKG. Inpatient Provider Contact Information: [facility] Section of Cardiac Surgery [facility] [address] FAX [phone] Discharge Diagnoses (Hospital Problems) Primary Diagnoses: CAD/Stable angina, S/P CABG X 3 03/30/2016. Secondary Diagnoses: Post op atrial fibrillation Discharged to: Patient discharged to home Functional and Cognitive Status: At baseline Discharge Conditions/Prognosis: Stable and improving Prior To Admission Medications Prescriptions Prior to Admission Medication Sig Dispense Refill Last Dose ??? insulin detemir (LEVEMIR) Insulin Pen Inject 50 Units subcutaneously 2 times daily. 03/29/2016 atUnknown time ??? OMEGA-3/DHA/EPA/FISH OIL (OMEGA-3 FISH OIL ORAL) Take 360 mg by mouth daily. 03/29/2016 at Unknown time ??? magnesium citrate 100 mg Tablet Take 100 mg by mouth 3 times daily. 03/29/2016 at Unknown time ??? cyanocobalamin 500 mcg Tablet Take 500 mcg by mouth daily. 03/29/2016 at Unknown time ??? Cod Liver Oil Oil Take by mouth 2 times daily. 03/27/2016 at Unknown time ??? cholecalciferol, Vitamin D3, (VITAMIN D) 1,000 unit Tablet Take 1,000 Units by mouth daily. 03/27/2016 at Unknown time ??? levothyroxine (SYNTHROID) 125 mcg Tablet Take 125 mcg by mouth daily. 03/29/2016 at Unknown time ??? citalopram (CELEXA) 20 mg Tablet Take 20 mg by mouth daily. 03/27/2016 at Unknown time ??? lisinopril (PRINIVIL;ZESTRIL) 20 mg Tablet Take 40 mg by mouth daily. 03/29/2016 at Unknown time ??? lovastatin (MEVACOR) 20 mg Tablet Take 80 mg by mouth nightly. Takes 4 - 20 mg tabs 03/29/2016 atUnknown time ??? [DISCONTINUED] aspirin 325 mg Tablet Take 650 mg by mouth daily. 03/27/2016 at Unknown time ??? [DISCONTINUED] chlorhexidine (HIBICLENS) 4 % Liquid Apply topically daily as needed. Shower fromhead to toe with Chlorhexidine the night before surgery . 120 mL 0 03/30/2016 Updated Allergies/ADRs: Allergies Allergen Reactions ??? Iodine Rash History of Presentation: Bernardo Peace is seen at the request of Vipin Paniagua for the evaluation of CAD. She is a 60 year old diabetic woman who has had a history of stable angina. She now is having progressive ESTRADA that is NYHA class III. Recently a stress test was performed and revealed anterior ischemiathat lead to a cath. She has no history of VA and no current rest pain. CATH: severe lad, om2 and occlusion, normal EF. ECHO: no significant valve disease Major Procedures/Operations: 03/30/2016 CABG times 3: MARY to LAD, SVG to diag and svg to pda, EVH from the right leg, and NUNU. Hospital Course: Bernardo Peace was [facility]. She was brought to the operating room where Dr. Narayan Washington performed the above procedures. She tolerated the procedure and was brought to the Cardiovascular Intensive CareUnit for recovery. She initially required the pharmacologic support of intravenous epinephrine. She was extubated from the ventilator on the day of surgery. All drips were weaned to off. Routine postoperative and home medications were started and a diet wasadvanced. She was started on beta blockade and this was optimized. Diuretics were started and she responded appropriately. By postoperative day # 1 she was transferred to the Intermediate Cardiac Care Unit for continued rehabilitation. All tubes, lines, and epicardial pacing wires were removed without incident. She voided normally after her Kilpatrick was removed. POD #3 patient converted into atrial fibrillation and amiodarone therapy was initiated. She resumed sinus rhythm. She was discharged on a 1 month course of amiodarone and in sinus rhythm. She was seen by Physical Therapy and Cardiac Rehabilitation. Sternal precaution education was provided. The remainder of the her hospital course was uneventful and by postoperative day #4 she had met all criteria for discharge. Pain was controlled on oral medications. She had walked 5 minutes and goneup and down stairs. She was tolerating a regular diet and had a bowel movement. Vital Signs at Discharge: Last set of vitals: BP 133/85 (BP Location (NBP): Right arm) Pulse 64 Temp 37 ??C (98.6 ??F) (Oral) Resp 14 Ht 161.3 cm (5' 3.5) Wt (!) 101.7 kg (224 lb 3.3 oz) SpO2 97% BMI 39.09 kg/m2 Patient Vitals for the past 168 hrs: Weight 04/04/16 0500 (!) 101.7 kg (224 lb 3.3 oz) 04/03/16 0619 (!) 103.9 kg (229 lb 0.9 oz) 04/02/16 0643 (!) 105.6 kg (232 lb 12.9 oz) 04/01/16 0647 (!) 106.8 kg (235 lb 6.4 oz) 03/31/16 0600 (!) 106.1 kg (233 lb 14.5 oz) 03/30/16 1131 100 kg (220 lb 6.4 oz) Current weight: 101.7 kg Admit/Preop weight: 100 kg Pertinent physical exam findings prior to discharge: General: sitting up in chair, pleasant conversant Neuro:A&O, NFD ?? Lungs: CTABL, no wheezinG, dim bases ?? Heart: RRR, NO MRG ?? Abdomen: +BS. NT, ND, Obese Ext: WWP, trace b/l LAKHWINDER Incisions: C/D/I Important Studies and Lab Data: Lab Results Component Value Date WBC 13.3 (H) 04/02/2016 RBC 3.67 (L) 04/02/2016 HGB 10.3 (L) 04/02/2016 HCT 33.2 (L) 04/02/2016 HCT 45.0 03/26/2016 PLATELET 152 04/02/2016 Recent Labs 03/30/16 1710 INR 1.6* Lab Results Component Value Date NA 142 04/02/2016 K 3.6 04/04/2016 CL 98 04/02/2016 CO2 33 (H) 04/02/2016 BUN 21 (H) 04/02/2016 CREATININE 1.25 (H) 04/02/2016 Pending Studies and Lab Data: None. Immunizations Given this Hospitalization: There is no immunization history on file for this patient. Smoking Status at Discharge: History Smoking Status ??? Former Smoker ??? Years: 11.00 Smokeless Tobacco ??? Not on file Discharge Medications: Your Medications New Medications Dose Details acetaminophen 500 mg Tab Commonly known as: TYLENOL Take 2 tablets by mouth every 6 hours as needed for Pain. 1000 mg Refills: 0 AMIOdarone 400 mg Tab Commonly known as: PACERONE Take 1 tablet by mouth daily. 400 mg Quantity: 30 tablet Refills: 0 aspirin 81 mg Chew Take 81 mg by mouth daily. Replaces: aspirin 325 mg Tab 81 mg Refills: 0 meTOPROLOL tartrate 25 mg Tab Commonly known as: LOPRESSOR Take 1 tablet by mouth 2 times daily. 25 mg Quantity: 120 tablet Refills: 3 oxyCODONE 5 mg Tab Commonly known as: ROXICODONE Take 1 tablet by mouth every 4 hours as needed for Pain. 5 mg Quantity: 40 tablet Refills: 0 senna-docusate 8.6-50 mg Tab Commonly known as: PERICOLACE Take 1 tablet by mouth daily as needed for Constipation. 1 tablet Refills: 0 Continued medications, unchanged Dose Details citalopram 20 mg Tab Commonly known as: CeleXA Take 20 mg by mouth daily. 20 mg Refills: 0 Cod Liver Oil Oil Take by mouth 2 times daily. Refills: 0 cyanocobalamin 500 mcg Tab Take 500 mcg by mouth daily. 500 mcg Refills: 0 insulin detemir Inpn Commonly known as: LEVEMIR Inject 50 Units subcutaneously 2 times daily. 50 Units Refills: 0 levothyroxine 125 mcg Tab Commonly known as: SYNTHROID Take 125 mcg by mouth daily. 125 mcg Refills: 0 lovastatin 20 mg Tab Commonly known as: MEVACOR Take 80 mg by mouth nightly. Takes 4 - 20 mg tabs 80 mg Refills: 0 magnesium citrate 100 mg Tab Take 100 mg by mouth 3 times daily. 100 mg Refills: 0 Vitamin D 1,000 unit Tab Take 1,000 Units by mouth daily. Generic drug: cholecalciferol (Vitamin D3) 1000 Units Refills: 0 STOPPED Medications aspirin 325 mg Tab Replaced by: aspirin 81 mg Chew chlorhexidine 4 % Liqd Commonly known as: HIBICLENS lisinopril 20 mg Tab Commonly known as: PRINIVIL;ZESTRIL OMEGA-3 FISH OIL ORAL Discharge Instructions: Call your doctor if: You have a fever of greater than 101 degrees, shaking chills, if you develop redness or drainage from your incision sites, or if you have questions. Please call your surgeon's office if you have any discharge or drainage from your chest incision. Your surgeon, Dr. Narayan Washington and/or the Cardiac Surgery Physician [employer] Team may be reached at . Weight: Weigh yourself daily. Please call the office if you notice increasing weight, increasing fluid retention (edema), and/or SOB. Sternal (breast bone) precautions: No lifting greater than 7-10 pounds; no pushing or pulling with upper extremities; no excessive chest stretching for the first 4 weeks. Further instructions will be given to you at your follow-up appointment. Activity level: Walk three times a day. You should continue to increase your walks by 1-2 minutes each day. It is expected that you will be walking 20-30 minutes twice a day within 3-4 weeks after discharge to home. Rest between activities and after meals. Use common sense, don't exhaust yourself. Biking: You may use a stationary bicycle whenever you are comfortable enough to permit this. Tightenthe resistance slightly. Increase the amount of time on the bicycle as you would do for your walks, a minute or two each day. No biking outside until after your return appointment with Dr. Narayan Washington. You may use a Malin Track or treadmill but avoid any pulling motion with the arms. Home activities: You may do light housework, e.g. dusting, setting the table, washing dishes, preparing a meal. Light carpentry and gardening are allowed. Avoid trying to open tight jars and stuck windows. No vacuuming, mopping, raking, shoveling, digging or hoeing until after your return visit with the surgeon. Sexual activity: You may engage in sexual activity when you feel ready. Use a position that protectsyour sternum (breastbone). Do not have your partner lie on your chest. Stairs: There are no restrictions on stair climbing. Use common sense. Don't exhaust yourself. Activities outside the home: After the first week home you may go out to dinner, visit friends, go to a movie, go to sikh, etc. Heavy activities: No hunting, skiing, jogging, snow shoveling, snowmobiling, lawn mowing, swimming, golf or tennis until after your return appointment with the surgeon. Do not ride motorcycles, [employer] [place]'s tractors or horses. Avoid the use of a rifle with kickback against the shoulder for six months. Sleep: Try to establish normal sleep patterns. Long naps during the day may make it hard for you to sleep at night. Use the pain medication at bedtime for the first week at home. If you have nightmares, contact us. Some medications make this worse and these can be changed. Smoking: It is very important that you not smoke after surgery. Smoking cessation education was provided as appropriate. If you need further assistance with this please call and you will be referred toa smoking cessation specialist. Medications: Take only those medications listed on your discharge information. Keep your pain under control so you can be active, do your coughing and breathing exercises and sleep. Contact us if the pain medication isn't working for you. Do not take any herbal preparations until after you return to see the surgeon. Special Physician Instructions: DO NOT USE ANY IBUPROFEN (ADVIL, MOTRIN, ETC) OR OTHER NSAIDS (NONSTEROIDAL ANTI-INFLAMMATORY DRUGS) FOR A TOTAL OF 10 DAYS AFTER SURGERY. PLEASE CONTACT THE CARDIOTHORACIC SURGERY OFFICE IF YOU HAVE QUESTIONS ABOUT WHICH DRUGS YOU SHOULD NOT USE. . Diet: You should follow a regular diet until your appetite returns to normal. At that point in time you should resume a low fat, low cholesterol, [place] Heart [employer] Diet/Diabetic diet. Driving: No driving until cleared by your surgeon. Avoid long trips if possible. If you must go on along trip, stop the car and walk every hour. Shower/Bath: You may shower daily. No baths, soaking, or swimming until cleared by your surgeon. Wound care: Wash your incisions daily with antibacterial soap and rinse well, pat dry. Assess for any signs of infection such as increased redness, pain, warmth or drainage. Please call your surgeon's office if you have any discharge or drainage from your chest incision. If there is a lot of swelling,apply autumn wraps during the day and remove at bedtime. Elevate your legs when you are sitting. REMOVE CHEST TUBE SUTURES ON OR AFTER 04/09/2016. Home oxygen therapy: 2 liters via nasal prongs to keep oxygen saturation greater than 90% Follow up appointments: 1. You should arrange to see your primary care physician, JACKELINE BARONE, in one-to-two weeksor as soon as possible. 2. Cardiology, Dr. Serna, in two weeks. 3. You will return to clinic to see Dr. Narayan Washington or a Cardiac Surgery PA in ~4 weeks and will have a CXR and EKG at that time. A letter will be mailed to you with your appointment information. Cardiac Rehabilitation: [facility] [place] [place] CARDIAC REHABILITATION Bernardo Peace was seen today regarding participation in the outpatient Phase [address] [facility] . The patient agrees to a referral to this program. The referral will be sent at discharge and the patient should be contacted by the ?? Program within 1- 2 weeks from discharge. ? Future Appointments and Orders Future Orders Complete By Expires EKG 12 Lead [EKG1 Custom] 05/04/2016 04/03/2017 Process Instructions: Scheduling Instructions: Questions: Which location will this be performed?: [place] Is a rhythm strip needed?: No If EKG Reason is Pre-op Evaluation, indicate diagnosis for surgery.: Should this service/procedure be billed to the research sponsor?: XR Chest PA & Lateral (Generic) [[id number] Custom] 05/04/2016 04/03/2017 Process Instructions: Scheduling Instructions: Questions: Where will study be performed?: [facility] Portable exam?: Reason for exam and clinical history: s/p cabg Other pertinent information: Stat read required?: Date of injury if applicable: Requested Time: HOME OXYGEN [EQ184 Custom] As directed Process Instructions: Check with vendor to see if additional forms need to be completed. You must submit a copy of the following documents with this Order: 1 - Official results of Pulse Oximetry at Rest and with Exercise that are less than 180 days old 2 - Official results of Nocturnal testing (if performed) 3 - Signed and dated jeig-vb-jtbg evaluation documenting the need for Oxygen Scheduling Instructions: Comments: Bernardo Peace Diagnosis: s/p CABG x 4 Duration of use: Until recovered Frequency of use: Continuous Date Signed 04/04/16 PECOS enrolled: Yes Prescriber Questions: Vendor Name/Contact information: [employer] Rate (LPM): 2 Route: Nasal Hours per day of useage: 24 # months service is needed (99= lifetime): 99 Portable needed: Yes SPO2 performed on Room Air?: Yes Resting Date (Room Air): 04/04/2016 Resting SPO2% (Room Air): 84 Exercise Date (Room Air): Exercise SPO2% (Room Air): SPO2 performed with Supplemental Oxygen?: Yes Resting Date (Supplemental Oxygen): Resting SPO2% (Supplemental Oxygen): Resting Rate - LPM (Supplemental Oxygen): Exercise Date (Supplemental Oxygen): Exercise SPO2% (Supplemental Oxygen): Exercise Rate - LPM (Supplemental Oxygen): Nocturnal testing performed?: Oxygen Conserving Device (OCD) needed?: Referral to Cardiac Rehab [KXN501 Custom] As directed Process Instructions: If no progress note charted, please enter Clinical details in comments. Scheduling Instructions: Questions: My question or request is: CABG- Cardiac rehab at [facility] Referral to Home Health - at DISCHARGE [IWK5302 CPT(R)] As directed Process Instructions: Scheduling Instructions: Comments: DOCUMENTATION FOR VNA SERVICES (INCLUDING THOSE PATIENTS WITH MEDICARE COVERAGE REQUIRING HOME VNA SERVICES AND/OR HOSPICE SERVICES) PATIENT'S LOCATION: Bernardo Peace [address] [facility] [address][note 3[facility] [id number] (home) No relevant phone numbers on file. Ammonia Solution Preparer's Name: self & In discussion with the attending physician, it is certified that this patient is under their care and that they, or a Nurse Practitioner, or Physician [employer] who is working directly with them, had aface to face encounter that meets the physician face to face encounter requirements with this patient on 03/31/2016 The encounter with the patient was in whole, or in part, for the following medical condition, which is the primary reason for home health care services: CABG X 3 on 03-30-16 In discussion with the provider, it is certified that, based on their findings, the following services are medically necessary for home health services. To provide the following care/treatments with the clinical findings supporting the need for servicesas follows: HOME HEALTH AGENCY: [facility]. PHONE: [phone] FAX: [phone] RN orders: Cardiopulmonary assessment, incisional assessment, assess vital signs, assessment of rehab progress, medication management and effectiveness, home safety evaluation. PT ORDERS: Continue rehab for endurance, gait stability and strength with mobility and transfers. Home safety evaluation. Home exercise program if appropriate. Start of Care Date: 24 to 48 hrs. Post discharge SPECIAL INSTRUCTIONS: For any follow up questions, needs, or issues please call the Cardiac Surgery Office at [phone] Home Health agencies which cover the area of patient's residence have been reviewed, either verballyor in writing, and patient/family have chosen the agency as noted. Questions: Agency name and contact information: [facility], [place], [place] Patient location post discharge: home What services are requested: Registered Nurse Physical Therapy Occupational Therapy Start date: Responsible MD post discharge contact info: Cardiac Surgery Team, [place], [place] Arrangements for VNA/home care: As above. VN RN OR PCP TO PLEASE REMOVE CHEST TUBE SUTURES ON OR AFTER 04/09/2016. Signed: Bronson Olmstead PA-C [facility] Section of Cardiac Surgery [facility] [address] FAX [phone] Date: 04/04/2016 CC: JACKELINE BARONE Nathaniel W II, MD [facility] [place] [address] documented in this encounter Discharge Instructions Patient InstructionsCote, JACKELINE Cordova - 04/04/2016 9:46 AM EDT Discharge Instructions: Call your doctor if: You have a fever of greater than 101 degrees, shaking chills, if you develop redness or drainage from your incision sites, or if you have questions. Please call your surgeon's office if you have any discharge or drainage from your chest incision. Your surgeon, Dr. Narayan Boateng. Felix and/or the Cardiac Surgery Physician [employer] Team may be reached at . Weight: Weigh yourself daily. Please call the office if you notice increasing weight, increasing fluid retention (edema), and/or SOB. Sternal (breast bone) precautions: No lifting greater than 7-10 pounds; no pushing or pulling with upper extremities; no excessive chest stretching for the first 4 weeks. Further instructions will be given to you at your follow-up appointment. Activity level: Walk three times a day. You should continue to increase your walks by 1-2 minutes each day. It is expected that you will be walking 20-30 minutes twice a day within 3-4 weeks after discharge to home. Rest between activities and after meals. Use common sense, don't exhaust yourself. Biking: You may use a stationary bicycle whenever you are comfortable enough to permit this. Tightenthe resistance slightly. Increase the amount of time on the bicycle as you would do for your walks, a minute or two each day. No biking outside until after your return appointment with Dr. Narayan Washington. You may use a Malin Track or treadmill but avoid any pulling motion with the arms. Home activities: You may do light housework, e.g. dusting, setting the table, washing dishes, preparing a meal. Light carpentry and gardening are allowed. Avoid trying to open tight jars and stuck windows. No vacuuming, mopping, raking, shoveling, digging or hoeing until after your return visit with the surgeon. Sexual activity: You may engage in sexual activity when you feel ready. Use a position that protectsyour sternum (breastbone). Do not have your partner lie on your chest. Stairs: There are no restrictions on stair climbing. Use common sense. Don't exhaust yourself. Activities outside the home: After the first week home you may go out to dinner, visit friends, go to a movie, go to sikh, etc. Heavy activities: No hunting, skiing, jogging, snow shoveling, snowmobiling, lawn mowing, swimming, golf or tennis until after your return appointment with the surgeon. Do not ride motorcycles, [employer]'s tractors or horses. Avoid the use of a rifle with kickback against the shoulder for six months. Sleep: Try to establish normal sleep patterns. Long naps during the day may make it hard for you to sleep at night. Use the pain medication at bedtime for the first week at home. If you have nightmares, contact us. Some medications make this worse and these can be changed. Smoking: It is very important that you not smoke after surgery. Smoking cessation education was provided as appropriate. If you need further assistance with this please call and you will be referred toa smoking cessation specialist. Medications: Take only those medications listed on your discharge information. Keep your pain under control so you can be active, do your coughing and breathing exercises and sleep. Contact us if the pain medication isn't working for you. Do not take any herbal preparations until after you return to see the surgeon. Special Physician Instructions: DO NOT USE ANY IBUPROFEN (ADVIL, MOTRIN, ETC) OR OTHER NSAIDS (NONSTEROIDAL ANTI-INFLAMMATORY DRUGS) FOR A TOTAL OF 10 DAYS AFTER SURGERY. PLEASE CONTACT THE CARDIOTHORACIC SURGERY OFFICE IF YOU HAVE QUESTIONS ABOUT WHICH DRUGS YOU SHOULD NOT USE. . Diet: You should follow a regular diet until your appetite returns to normal. At that point in time you should resume a low fat, low cholesterol, [place] [employer] Diet/Diabetic diet. Driving: No driving until cleared by your surgeon. Avoid long trips if possible. If you must go on along trip, stop the car and walk every hour. Shower/Bath: You may shower daily. No baths, soaking, or swimming until cleared by your surgeon. Wound care: Wash your incisions daily with antibacterial soap and rinse well, pat dry. Assess for any signs of infection such as increased redness, pain, warmth or drainage. Please call your surgeon's office if you have any discharge or drainage from your chest incision. If there is a lot of swelling,apply autumn wraps during the day and remove at bedtime. Elevate your legs when you are sitting. REMOVE CHEST TUBE SUTURES ON OR AFTER 04/09/2016. Home oxygen therapy: 2 liters via nasal prongs to keep oxygen saturation greater than 90% Follow up appointments: 1. You should arrange to see your primary care physician, JACKELINE BARONE, in one-to-two weeksor as soon as possible. 2. Cardiology, Dr. Serna, in two weeks. 3. You will return to clinic to see Dr. Narayan Washington or a Cardiac Surgery PA in ~4 weeks and will have a CXR and EKG at that time. A letter will be mailed to you with your appointment information. Cardiac Rehabilitation: [facility] [place] CARDIAC [facility]HABILITATION Bernardo Peace was seen today regarding participation in the outpatient Phase [address] [facility] . The patient agrees to a referral to this program. The referral will be sent at discharge and the patient should be contacted by the ?? Program within 1- 2 weeks from discharge. ? documented in this encounter Medications at Time of Discharge Medication Sig Dispensed Refills Start Date End Date acetaminophen Take 2 tablets by 0 04/04/2016 (TYLENOL) 500 mg mouth every 6 hours as Tablet needed for Pain. aspirin 81 mg Tablet, [...] 1,000 Units by 0 Vitamin D3, (VITAMIN mouth daily. D) 1,000 unit Tablet levothyroxine Take 125 mcg by mouth 0 (SYNTHROID) 125 mcg daily. Tablet citalopram (CELEXA) 20 Take 20 mg by mouth 0 mg Tablet daily. lovastatin (MEVACOR) Take 80 mg by mouth 0 20 mg Tablet nightly. Takes 4 - 20 mg tabs AMIOdarone (PACERONE) Take 1 tablet by mouth 30 tablet 0 05/26/2016 400 mg Tablet daily. senna-docusate Take 1 tablet by mouth 0 6 05/26/2016 (PERICOLACE) 8.6-50 mg daily as needed for Tablet Constipation. oxyCODONE (ROXICODONE) Take 1 tablet by mouth 40 tablet 0 0 04/04/2016 05/26/2016 5 mg Tablet every 4 hours as needed for Pain. Cod Liver Oil Oil Take by mouth 2 times 0 05/26/2016 daily. documented as of this encounter Progress Notes Newton Strange RN - 04/04/2016 12:07 PM EDT Discharge orders written, patient understands instructions and follow up visits, patient dischrge tohome with . Alcon Das - 04/03/2016 4:25 PM EDT [employer] Encounter Note Patient Name: Bernardo Peace : [id number] MR#: [id number] Admit Date: 03/30/2016 6:08 AM Hospital Day 4 days Narrative:Visited in response to request for [employer] services. Pt was awake, alert, oriented and in chair near to window. Pt says that she is feeling better and living with . Pt shared that her parents living near and they are living independently. Pt asked for prayers and blessings. Assessment:Patient coping positively with stresses of illness/hospitalization at this time. Pt seemscoping well and has family care and support. Pt shared that she is thankful for her who is caring. Pt family and carlotta are source of courage and strength. Intervention and Outcome: provided emotional, spiritual support and encouraging presence. Chaplaincyservices accepted.Conversation to build trusting relationship.Provided prayer.Provided pastoral presence. Follow-up: yes Time in Direct Care:25 Mins Alcon Das 04/03/2016 Zaida Rust RN - 04/03/2016 2:03 PM EDT Per request of Casandra Geller APRN. Patient on RA (SPO2 84%) Currently on 2LNC (SPO2 94%) 04/03/16 1225 04/03/16 1230 Adult Vital Signs Resp 21 19 SpO2 (!) 84 % 94 % Visual Checks Awake;In chair -- Oxygen Therapy O2 Device RA NC O2 Flow Rate (L/min) -- 2 L/min Sharon Kong RN - 04/03/2016 12:48 PM EDT CM follow up note CM called by Casandra Geller APRN that pt will need Home O2.Duyen stated she will have floorRN obtain with/without O2 rest and exercise readings CM asked pt for choice of O2 vendors. Pt chose [employer]. Orders Pended and shared for SUPPORT ASSOCIATE to sign 1300 SUPPORT ASSOCIATE paged that orders pended. Note routed to RS for [employer] entry DAYANA Jerry,BSN Francisco Bonilla MD - 04/03/2016 11:22 AM EDT Vascular and Interventional Radiology PRE-SEDATION ASSESSMENT / FOCUSED H&P Procedure: LEFT chest tube placement. The patient's history and physical exam have been reviewed and completed. There has been no intervalchange from that of the pre-operative history and physical exam done within the last 30 days. The planned procedure, its benefits and risks were discussed with the patient. The patient consentedto the procedure. I have reviewed the sedation plan for this patient???s case and concur that Fentanyl is an appropriate choice for sedation and will be provided per the protocoled order set for this case. Physical Examination: Chest: Decreased breath sound at the left lung base. Right lung clear to auscultation. Heart: normal rate, regular rhythm. Abdomen: soft, nontender, nondistended. Francisco Bonilla MD [id number] Casandra Geller APRN - 04/03/2016 10:58 AM EDT Cardiac Surgery Progress Note: ID: [id number] with hx of CAD, TIA, DM, RIGO, anxiety/depression POD#4 s/p CABG x 3. EF- 62% 24 Hour Events: AFib rates 90-130's overnight, converted after extra dose of metoprolol. SR now S: Up in chair this AM, slept well last night. No complaints of chest pain or SOB. Ambulating and using IS. Appetite improving. +BM O: Temperature Temp: 36.7 ??C (98.1 ??F) Temp: [36.6 ??C (97.9 ??F)-37.1 ??C (98.8 ??F)] Heart Rate Heart Rate: 81 Heart Rate: [61-95] Blood Pressure BP: 151/82 BP: (134-151)/(67-82) Respiratory Rate Resp: 16 Resp: [16-18] SpO2 SpO2: 93 % SpO2: [90 %-98 %] I/O last 3 completed shifts: In: 2074 [P.O.:2074] Out: 3000 [Urine:3000] I/O this shift: In: 600 [P.O.:600] Out: 1150 [Urine:1150] Admit weight 99.97 kg Current Weight Weight - Scale: (!) 103.9 kg (229 lb 0.9 oz) Physical exam: General: sitting up in chair, pleasant conversant Neuro:A&O, NFD Lungs: CTABL, no wheezinG, dim bases Heart: RRR, NO MRG Abdomen: +BS. NT, ND, Obese Ext: WWP, trace b/l LAKHWINDER Incisions: C/D/I Tubes/Lines/Drains: PIV Assessment/Plan: POD#4 s/p CABG x 3. Still requiring 3L of oxygen. Pt is ambulating. CXR yesterday shows moderate left effusion, plan to have IR u/s and place pigtail if applicable. Also pt started on po amio load, 400mg BID. Duonebs sched and pt encouraged to continue to use IS, Therapep. Neuro: Tylenol, Oxy, Celexa CV: Lopressor 25'', hydralazine prn, amio 400'' Resp: 3L NC, therapep, is, c/db, ambulation, duoneb GI: RBO's, Protonix : voiding Renal: Cr. 1.25, Lasix 20 IV'' ID: [id number] Heme: ASA 81' Endo: SSI levothyroxine 125mcg' Dispo: KAYLIN GELLER APRN Izabela An, FINISHER MACHINE - 04/03/2016 9:51 AM EDT Physical Therapy Note Patient off floor for US and possible L pigtail placement secondary to effusion. Weekend plan: increase ambulation, wean O2 and will closer to D/C for stairs and bed mobility. Izabela An PTA Beeper# [id number] Gisele Alvarez RN - 04/03/2016 9:00 AM EDT [facility] NURSING DATABASE Name: BERNARDO PEACE Date of : 1955 AGE 60 y.o. Address: [address] [address] (home) Mobile: No relevant phone numbers on file. Referring Provider: Paulo Romano II REASON FOR VISIT: U/s left chest, ? pigtail to left effusion/ S/p cabg Indication: Left pleural effusion; ongoing oxygen needs Planned Procedure: LEFT chest tube placement Chief Complaint/Diagnosis: 60 yo woman POD#3 s/p CABG x 3. Still requiring 4L of oxygen. CXR 04/02 showed moderate left pleural effusion. We have been consulted for LEFT chest tube placement. Assessment / Plan: 60 yo woman with history as above who presents for LEFT chest tube placement. Medications to discontinue: none Prophylactic antibiotic: none Planned access site / position: LEFT posterior hemithorax. Allergies Allergen Reactions ??? Iodine Rash Pertinent PMH: Patient Active Problem List Diagnosis Code ??? Coronary artery disease I25.10 ??? Diabetes mellitus type 2, uncontrolled E11.65 Pertinent PSH: Past Surgical History Procedure Laterality Date ??? Pro cabg, artery-vein, two N/A 03/30/2016 @CABG, TWO VENOUS GRAFTS & ARTERIAL GRAFT performed by Narayan Washington MD at [facility] MAIN OR ??? Pro cabg, arterial, single N/A 03/30/2016 @CABG, USING ARTERIAL GRAFT;SINGLE ARTERIAL GRAFT performed by Narayan Washington MD at [facility] MAIN OR ??? Pro endoscopy w/video-asst vein harvest, cabg Right 03/30/2016 ENDOSCOPIC HARVEST VEIN(S) FOR CABG performed by Narayan Washington MD at [facility] MAIN OR Date/Procedure Med's given/comments Laboratory Results: Lab Results Component Value Date INR 1.6 (H) 03/30/2016 Lab Results Component Value Date CREATININE 1.25 (H) 04/02/2016 Lab Results Component Value Date K 3.3 (L) 04/03/2016 Lab Results Component Value Date PLATELET 152 04/02/2016 Medications: Prior to Admission medications Medication Sig Start Date End Date Taking? Authorizing Provider insulin detemir (LEVEMIR) Insulin Pen Inject 50 Units subcutaneously 2 times daily. Yes PROVIDER, HISTORICAL OMEGA-3/DHA/EPA/FISH OIL (OMEGA-3 FISH OIL ORAL) Take 360 mg by mouth daily. Yes PROVIDER, HISTORICAL magnesium citrate 100 mg Tablet Take 100 mg by mouth 3 times daily. Yes PROVIDER, HISTORICAL cyanocobalamin 500 mcg Tablet Take 500 mcg by mouth daily. Yes PROVIDER, HISTORICAL Cod Liver Oil Oil Take by mouth 2 times daily. Yes PROVIDER, HISTORICAL cholecalciferol, Vitamin D3, (VITAMIN D) 1,000 unit Tablet Take 1,000 Units by mouth daily. Yes PROVIDER, HISTORICAL levothyroxine (SYNTHROID) 125 mcg Tablet Take 125 mcg by mouth daily. Yes PROVIDER, HISTORICAL citalopram (CELEXA) 20 mg Tablet Take 20 mg by mouth daily. Yes PROVIDER, HISTORICAL lisinopril (PRINIVIL;ZESTRIL) 20 mg Tablet Take 40 mg by mouth daily. Yes PROVIDER, HISTORICAL lovastatin (MEVACOR) 20 mg Tablet Take 80 mg by mouth nightly. Takes 4 - 20 mg tabs Yes PROVIDER, HISTORICAL Cristobal Cortes APRN - 04/03/2016 8:39 AM EDT Images from the original note were not included. PRE-PROCEDURE VIR NOTE Date of : 1955 Age: 60 y.o. PCP: JACKELINE BARONE Referring Physician (if different): FELIX Indication: Left pleural effusion; ongoing oxygen needs Planned Procedure: LEFT chest tube placement Chief Complaint/Diagnosis: 60 yo woman POD#3 s/p CABG x 3. Still requiring 4L of oxygen. CXR 04/02 showed moderate left pleural effusion. We have been consulted for LEFT chest tube placement. Pertinent Past Medical/Surgical History: Past Medical History Diagnosis Date ??? Diabetes mellitus type 2, uncontrolled 04/01/2016 Allergies Allergen Reactions ??? Iodine Rash Scheduled Meds: ??? potassium chloride 40 mEq Oral Once ??? insulin detemir 40 Units Subcutaneous Q12H ??? insulin aspart 1-12 Units Subcutaneous TID WC ??? insulin aspart 2-12 Units Subcutaneous Q4H RACH ??? meTOPROLOL 25 mg Oral 2 times per day ??? furosemide 20 mg Intravenous BID ??? sodium chloride 0.9 % 5 mL Intravenous Q8H ??? cholecalciferol (Vitamin D3) 1,000 Units Oral Daily ??? citalopram 20 mg Oral Daily ??? cyanocobalamin 500 mcg Oral Daily ??? levothyroxine 125 mcg Oral QAM ??? chlorhexidine 15 mL Oral 2 times per day ??? pantoprazole 40 mg Oral Daily Or ??? pantoprazole 40 mg Intravenous Daily ??? aspirin 81 mg Oral Daily Or ??? aspirin 300 mg Rectal Daily ??? senna-docusate 2 tablet Oral Daily ??? magnesium hydroxide 10 mL Oral Daily ??? acetaminophen 1,000 mg Oral Q6H RACH Continuous Infusions: PRN Meds:.ipratropium-albuterol, dextrose 50% OR glucagon (human recombinant), hydrALAZINE, verapamil, vancomycin, calcium chloride, cardioplegic solution, cardioplegic solution, cardioplegic solution, cefUROXime, heparin (porcine), lidocaine (PF), magnesium sulfate, bisacodyl, oxyCODONE Pertinent ROS: as per HPI Pertinent Family History: non contributory Social History: n/a Labs: Lab Results Component Value Date WBC 13.3 (H) 04/02/2016 HCT 33.2 (L) 04/02/2016 HCT 45.0 03/26/2016 PLATELET 152 04/02/2016 INR 1.6 (H) 03/30/2016 BUN 21 (H) 04/02/2016 Imaging: Assessment / Plan: 60 yo woman with history as above who presents for LEFT chest tube placement. Medications to discontinue: none Prophylactic antibiotic: none Planned access site / position: LEFT posterior hemithorax. Newton Strange RN - 04/02/2016 6:32 PM EDT Patient converted to A-fib heart rates in 90's , CT team notified. BP 124/54. Patient a-symptomatic.One time dose of metoprolol given. Geovanna Ellington RN - 04/02/2016 4:35 PM EDT Diabetes Clinical Nurse Specialist Mrs. Peace reports ~ 7 year Hx type 2 diabetes. She was initially treated with pills and switched to BID Levemir about a year ago. In addition to taking basal insulin, she tries to walk for exercise (although recent hip pain has limited this) and tries to eat a healthy diet, although her does the cooking and it's not always healthy. Reports AM BG's of ~ 100, however her HbA1c is 9.3% (average glucose 220). Explained that her post-prandial BG's are responsible for the high HbA1c and thus the recommendation to take rapid-acting insulin with meals. Pt voices her willingness to do this. Discussed hypoglycemia and weight gain as the risks of insulin. She reports one hypoglycemic episodein the past year that woke her from sleep and that she treated appropriately. Provided a copy of the Diabetes Toolkit. Will follow. Izabela An PTA - 04/02/2016 10:07 AM EDT Physical Therapy Treatment Note Visit #: 3 Patient Dx: Bernardo Peace is a 60 y.o. female of Narayan Chaves MD, admitted on 03/30/2016with Class 3 angina, 3vd. Patient underwent CABG x3 on 03/30/16. Post-op course uneventful thus far. On pathway. Precautions: Sternal (no lifting >7-10 lbs.; no pushing or pulling with UE's; no excessive chest stretching). Staff communication/Mobility Recommendations: ?? Pt. to utilize rolling walker and modified indep for ambulation with nursing. ? Please encourage up to chair for meal times as able. ? Pt encouraged to ambulate with staff, getting into the bathroom for toileting and walking out in the lubin >/= 3 times daily as able. Interval History: no acute events S: I am doing ok, I am work on the deep breathing. O: Patient seen for 23 mins for functional mobility to address goals. Pt demonstrated the following:On 3L O2 at 94%. ?? Review of therex and sternal precautions ?? Pt ed: extensive time spent with use of IS, needed verbal cues and modelling to demonstrate correctly. ?? Sit to stand indep within sternal precautions. ?? Sit to supine with HOB flat, within sternal precautions indep. ?? Positioned for comfort ?? ELECTRICAL MANUFACTURING TECHNICIAN in room for patient to shower. ?? All needs met. Pain: 02/15 Education: Pt/family education ongoing for precautions, mobility and safety A: Able to perform bed mobility indep. Continues to ambulated several times daily with nursing. Patient needed extensive pt ed for use of IS. Pt will benefit from ongoing therapeutic interventions to achieve therapy goals Physical Therapy Goals: To be achieved by 04/02/16.. 1. Pt will ambulate I'ly 300 ft. without an assistive device to allow for a safe d/c. 2. Pt will perform all post op cardiac surgery exercises adequately. MET 3. Pt will demonstrate independence with incentive spirometer and/or threshold PEP to promote lung function. MET 4. Pt will demonstrate understanding of sternal precautions to allow for a safe d/c. MET 5. Pt will be able to transfer sit <-> stand I'ly while maintaining sternal precautions to allow for a safe d/c. MET 6. Pt will be able to go supine <-> sit I'ly while maintaining sternal precautions to allow for a safe d/c. MET 7. Pt will be able to go up and down 1 flight of stairs using a rail for balance only to prepare fora safe d/c. Discharge Recommendations: Based on the current findings noted during this evaluation, patient couldbenefit from when medically ready for hospital discharge. This recommendation is based on the patient's current functional mobility and potential to make functional gains and may change based on patient progress during this hospitalization. P: Cont per POC as outlined on 03/31/16. Will see 1 more visit for stairs and ambulation without AD. Total time spent with patient: 23 minutes Total timed interventions: 23 minutes Pager: [phone] IZABELA AN PTA Physical Therapy Rehabilitation Department Casandra Geller, SUPPORT ASSOCIATE - 04/02/2016 8:54 AM EDT Cardiac Surgery Progress Note: ID: [id number] with hx of CAD, TIA, DM, RIGO, anxiety/depression POD#3 s/p CABG x 3. EF- 62% 24 Hour Events: YADIRA S: Up in chair this AM, slept well last night. No complaints of chest pain or SOB. Ambulating and using IS. Appetite improving. No BM yet. +flatus O: Temperature Temp: 37.3 ??C (99.1 ??F) Temp: [36.6 ??C (97.9 ??F)-37.3 ??C (99.1 ??F)] Heart Rate Heart Rate: 60 Heart Rate: [60-75] Blood Pressure BP: 112/57 BP: (112-143)/(57-70) Respiratory Rate Resp: 18 Resp: [16-18] SpO2 SpO2: 92 % SpO2: [90 %-97 %] I/O last 3 completed shifts: In: 1533.3 [P.O.:1335; I.V.:198.3] Out: 2875 [Urine:2875] I/O this shift: In: 350 [P.O.:350] Out: 550 [Urine:550] Admit weight 99.97 kg Current Weight Weight - Scale: (!) 105.6 kg (232 lb 12.9 oz) Physical exam: General: sitting up in chair, pleasant conversant Neuro:A&O, NFD Lungs: CTABL, no wheezinG, dim bases Heart: RRR, NO MRG Abdomen: +BS. NT, ND, Obese Ext: WWP, trace b/l LAKHWINDER Incisions: C/D/I Tubes/Lines/Drains: PIV Assessment/Plan: POD#3 s/p CABG x 3. Still requiring 4L of oxygen. Pt is ambulating, day 3 xray thisam and day 3 labs reviewed. Will give dose of metolazone this am. Encourage is/therapep use. Ambulation. Needs BM Neuro: Tylenol, Oxy, Celexa CV: Lopressor 25'', hydralazine prn, Resp: 4L NC, therapep, is, c/db, ambulation, duoneb prn GI: RBO's, Protonix : Kilpatrick Renal: Cr. 1.25, Lasix 20 IV'', one time metolazone dose ID: [id number] Heme: ASA 81' Endo: SSI levothyroxine 125mcg' Dispo: KAYLIN GELLER APRN Danna Felder APRN - 04/01/2016 3:50 PM EDT Follow Up Diabetes Consult Patient Interview Bernardo has BG levels trending down. States she is eating and tolerating diet. Objective Temp: [36.7 ??C (98.1 ??F)-37 ??C (98.6 ??F)] Heart Rate: [68-78] Resp: [16-19] BP: (113-143)/(59-76) SpO2: [92 %-93 %] Current Regimen Levemir 50 units every 12 hours Novolog 1:6 insulin to carbohydrate ratio Novolog for correction q 4 hours using custom sliding scale CF 10 Recent Glucose Levels Recent Labs 04/01/16 1434 04/01/16 1336 04/01/16 1238 04/01/16 1133 04/01/16 1033 04/01/16 0936 04/01/16 0836 04/01/16 0725 04/01/16 0628 04/01/16 0529 04/01/16 0431 04/01/16 0333 POCGLU 192 205* 210* 214* 220* 213* 148 152 140 136 124 142 ASSESSMENT Patient is a 60 y.o. years old female with PMH significant for DM (Last A1C of 9.3) who was admittedon 03/30/2016 for CABG. Diabetes suboptimally controlled and complicated by stress of surgery and lack of exercise. Currently with variability of blood glucose levels while hospitalized requiring adjustment of insulin regimen and DM medications. Decreased levemir to prevent hypoglycemia, fasting BG low. Asked Geovanna VELASQUEZ to provide teaching on how to use meal associated and sliding scale. PLAN Levemir 40 units every 12 hours Novolog 1:6 insulin to carbohydrate ratio Novolog for correction q 4 hours using custom sliding scale CF 10 Danna Perez. JAYLA Felder [facility] – [place] Endocrinology Diabetes Management 20 minutes of this 35 minute visit was spent with the patient in counseling on diabetes and treatment plan, reviewing all glucose and insulin data as well as relevant laboratory results with the patient, and coordination of care on the inpatient unit including nursing and primary team. Izabela An PTA - 04/01/2016 11:53 AM EDT Physical Therapy Treatment Note Visit #: 2 Patient Dx: Bernardo Peace is a 60 y.o. female of Narayan Chaves MD, admitted on 03/30/2016with Class 3 angina, 3vd. Patient underwent CABG x3 on 03/30/16. Post-op course uneventful thus far. On pathway. Precautions: Sternal (no lifting >7-10 lbs.; no pushing or pulling with UE's; no excessive chest stretching). Staff communication/Mobility Recommendations: ?? Pt. to utilize rolling walker and modified indep for ambulation with nursing. ? Please encourage up to chair for meal times as able. ? Pt encouraged to ambulate with staff, getting into the bathroom for toileting and walking out in the lubin >/= 3 times daily as able. Interval History: no acute events S: I am feeling the extra fluid today. O: Patient seen for 23 mins for functional mobility to address goals. Pt demonstrated the following:On 3L O2 at 94%. ?? Sit to stand X 3 without U/E indep ?? Pt had one slight LOB when standing but able to self correct ?? Ambulated 160 feet with O2 cart, with supervision, gait speed fast ?? Review therex per sheet and sternal precautions with patient. ?? Therapist demonstrated bed mobility and proper techniques, may need assist given patients body habitus. ?? Positioned for comfort ?? All needs met. Pain: 02/15 Education: Pt/family education ongoing for precautions, mobility and safety A: Improved ambulation, 1 LOB but able to self correct. Understand sternal precautions. Bed mobilitymay be challenging for patient. Pt will benefit from ongoing therapeutic interventions to achieve therapy goals Physical Therapy Goals: To be achieved by 04/02/16.. 1. Pt will ambulate I'ly 300 ft. without an assistive device to allow for a safe d/c. 2. Pt will perform all post op cardiac surgery exercises adequately. 3. Pt will demonstrate independence with incentive spirometer and/or threshold PEP to promote lung function. 4. Pt will demonstrate understanding of sternal precautions to allow for a safe d/c. 5. Pt will be able to transfer sit <-> stand I'ly while maintaining sternal precautions to allow for a safe d/c. 6. Pt will be able to go supine <-> sit I'ly while maintaining sternal precautions to allow for a safe d/c. 7. Pt will be able to go up and down 1 flight of stairs using a rail for balance only to prepare fora safe d/c. Discharge Recommendations: Based on the current findings noted during this evaluation, patient couldbenefit from when medically ready for hospital discharge. This recommendation is based on the patient's current functional mobility and potential to make functional gains and may change based on patient progress during this hospitalization. P: Cont per POC as outlined on 03/31/16. Total time spent with patient: 23 minutes Total timed interventions: 23 minutes Pager: [phone] IZABELA AN [facility] Physical Therapy Rehabilitation Department Flora Huffman PA - 04/01/2016 9:41 AM EDT Cardiac Surgery Progress Note: ID: [id number] with hx of CAD, TIA, DM, RIGO, anxiety/depression POD#2 s/p CABG x 3. EF- 62% 24 Hour Events: Transferred to [facility] S: Up in chair this AM, slept well last night. No complaints of chest pain or SOB. Ambulating and using IS. Appetite improving. No BM yet. O: Temperature Temp: 36.8 ??C (98.2 ??F) Temp: [36.7 ??C (98.1 ??F)-37.1 ??C (98.8 ??F)] Heart Rate Heart Rate: 78 Heart Rate: [68-88] Blood Pressure BP: 133/65 BP: (113-155)/(59-86) Respiratory Rate Resp: 19 Resp: [16-23] SpO2 SpO2: 92 % SpO2: [91 %-100 %] I/O last 3 completed shifts: In: 7465.8 [P.O.:810; I.V.:5955.8; Other:500; IV Piggyback:200] Out: 5605 [Urine:5035; Other:570] I/O this shift: In: - Out: 250 [Urine:250] Admit weight 99.97 kg Current Weight Weight - Scale: (!) 106.8 kg (235 lb 6.4 oz) Patient Vitals for the past 168 hrs: Weight 04/01/16 0647 (!) 106.8 kg (235 lb 6.4 oz) 03/31/16 0600 (!) 106.1 kg (233 lb 14.5 oz) 03/30/16 1131 100 kg (220 lb 6.4 oz) Physical exam: General: A&Ox3. NAD Neuro: CN2-12 intact PERRLA Lungs: CTABL, no wheezing Heart: RRR Abdomen: +hypoactive BS. NT, ND, Obese Ext: moves all extremities. Incisions: C/D/I Tubes/Lines/Drains: PIV, Kilpatrick LABS: Recent Labs 03/31/16 03403/30/16 2300 03/30/16 1710 03/30/16 1610 WBC 10.2* -- 17.7* -- HGB 11.1* 12.2 9.0* -- HCT 35.1 -- 28.7* -- PLATELET 141* -- 158 161 PT -- -- 19.6* -- INR -- -- 1.6* -- PTT -- -- 31 -- FIBRINOGEN -- -- 162* 158* Recent Labs 03/31/16 0340 03/30/16 2300 K 5.0 4.6 BUN 20* -- CREATININE 1.46* -- ABG (Arterial Blood Gas) No results found for: PHART, PO2ART, DTA5ORE Assessment/Plan: POD#2 s/p CABG x 3. Transferred to [facility]U yesterday. Will discontinue kilpatrick and PW's today. Encourage aggressive IS use. Encourage ambulation. Neuro: Tylenol, Oxy, Celexa CV: Lopressor 25'', hydralazine prn, Resp: HFNC, wean as sukhwinder GI: RBO's, Protonix : Kilpatrick Renal: Cr. 1.46 (at baseline), Lasix 20 IV'' ID: Periop cefuroxime Heme: ASA 81', Endo: Insulin gtt, endocrine consult, levothyroxine 125mcg' Dispo: [facility], poss transfer to [facility] this afternoon DW Attending Surgeon on rounds. Signed: JACKELINE Fisher [facility] Section of Cardiac Surgery Date: 04/01/2016 Charisse Burnham RN - 03/31/2016 12:59 PM EDT Office of Care Management (OCM) / Machine Silk Screen Printer(CM)/ Initial Assessment Discussed patient with Provider Team and in multidisciplinary discharge-planning rounds. Reviewed record and interviewed patient. Introduced/reviewed CM role and services accepted. REASON for HOSPITALIZATION: CABG X 3 on 03-30-16 No past medical history on file. No past surgical history on file. PREVIOUS FUNCTIONAL STATUS: physically & cognitively independent CURRENT FUNCTIONAL STATUS: 2 assist/pivot to chair, cognitively independent SOCIAL / FAMILY SUPPORTS: Patient lives with her [place] in single family home, 1 flight stairs in home, 4 steps up deck to enter. Her is retired and available to assist with her care. Her parents live close by and are support persons in her life as well as neighbors & friends. ADVANCE DIRECTIVES: None on file in [facility] [place], pt would like help from TRESTLE MECHANIC to complete prior to discharge HEALTH /PRESCRIPTION COVERAGE: [facility] CURRENT HOME/COMMUNITY SERVICES/EQUIPMENT: none TRESTLE MECHANIC REFERRAL: Paola Pantoja Notified for assistance with [place] Advance Directives PRIMARY CARE PHYSICIAN: JACKELINE BARONE [address] / [place] [address] POTENTIAL DISCHARGE NEEDS: Patient will need VNA services at discharge: [facility] Care [employer] [facility]. PHONE: [phone] FAX: [phone] ANTICIPATED BARRIERS TO DISCHARGE: none anticipated at this time TRANSPORTATION @ D/C: Private vehicle transport to home with Edward PLAN: CM will continue to monitor progress, follow for continuity of care and assist with discharge planning while hospitalized CM Charisse Burnham RN, BS, pager [phone] . Abdifatah Montana MD - 03/31/2016 10:44 AM EDT STAFF PROGRESS NOTE Critical Care Medicine Author: ABDIFATAH MONTANA MD Patient seen and examined on critical care rounds. Bernardo Peace is a 60 y.o. female with the following active issues:: Active Hospital Problems Diagnosis ??? Coronary artery disease Resolved Hospital Problems Diagnosis Date Resolved No resolved problems to display. ASSESSMENT, MANAGEMENT, and DECISION MAKING: POD1 from CABG with hypoxemia on high flow 02 at 50%. Resolving metabolic acidosis Requiring nicardipine, now off Hypoxemia, follow this AM, is improving with OOB and early mobility EXAM: Physical Exam Constitutional: No distress. Eyes: Pupils are equal, round, and reactive to light. Cardiovascular: Normal rate. Exam reveals friction rub. Pulmonary/Chest: Effort normal. No respiratory distress. She has no wheezes. She has no rales. She exhibits tenderness. Abdominal: Soft. She exhibits no distension. Musculoskeletal: She exhibits edema. Neurological: She is alert. She has normal strength. Skin: Skin is warm. No erythema. Last value Range last 24 hrs Temperature Temp: 36.8 ??C (98.2 ??F) Temp: [36.1 ??C (97 ??F)-37.3 ??C (99.1 ??F)] Heart Rate Heart Rate: 85 Heart Rate: [58-93] Blood Pressure BP: 155/86 BP: (98-180)/(48-86) Respiratory Rate Resp: 20 Resp: [12-29] SpO2 SpO2: 94 % SpO2: [92 %-100 %] Art BP BP (Arterial Line): 139/66 BP (Arterial Line): (95-162)/(50-72) Last Ht 03/30/16 161.3 cm (5' 3.5) Last Wt 03/31/16 (!) 106.1 kg (233 lb 14.5 oz) Body mass index is 40.79 kg/(m^2). IS PATIENT CRITICALLY ILL ? Is there a high potential of sudden, clinically significant, or life threatening deterioration? Yes Is there a need for direct personal assessment and management to treat/prevent multiple vital organfailure/deterioration? Yes If this patient is not critically ill, the reason for continued hospitalization is cardiac surgery. PATIENT IS CRITICALLY ILL WITH THESE DIAGNOSES BEING MANAGED BY [facility] TEAM: Acidosis Metabolic Hypertension/Hypertensive Postoperative Respiratory Failure Acute with hypoxia Postprocedural, Acute I personally performed .. of aggregate critical care time exclusive of procedures and teaching. Thisincludes time spent during direct patient evaluation and reassessment, interpreting diagnostic tests, directing life and/or organ supporting interventions and documentation on the unit. ABDIFATAH MONTANA MD 03/31/2016 Zac Collier PA - 03/31/2016 8:41 AM EDT Cardiac Surgery Progress Note: ID: [id number] EF- 62% 24 Hour Events: Extubated this AM at 0530. Initial resp acidosis resolved with bicarb admin. On nicardipine this AM, weaned off after lopressor and lasix began. S: Feels okay this AM. Groggy. Breathing is OK. Coughing up thick pink sputum. Sukhwinder ice chips. -Flatus/BM. Denies n/v, fever, chills, SOB, Abd pain. O: Temperature Temp: 37.1 ??C (98.8 ??F) Temp: [36.1 ??C (97 ??F)-37.3 ??C (99.1 ??F)] Heart Rate Heart Rate: 89 Heart Rate: [58-93] Blood Pressure BP: 147/79 BP: (98-180)/(48-82) Respiratory Rate Resp: 21 Resp: [12-29] SpO2 SpO2: 96 % SpO2: [92 %-100 %] I/O last 3 completed shifts: In: 6469 [I.V.:5869; Other:500; IV Piggyback:100] Out: 0 [Urine:1610; Other:270] Admit weight 99.97 kg Current Weight Weight - Scale: (!) 106.1 kg (233 lb 14.5 oz) Patient Vitals for the past 168 hrs: Weight 03/31/16 0600 (!) 106.1 kg (233 lb 14.5 oz) 03/30/16 1131 100 kg (220 lb 6.4 oz) Physical exam: General: A&Ox3. NAD Neuro: CN2-12 intact PERRLA Lungs: CTABL Heart: RRR Abdomen: +hypoactive BS. NT, ND, Obese Ext: moves all extremities. Incisions: C/D/I Tubes/Lines/Drains: PIV, Shonna bland, CT's, PW LABS: Recent Labs 03/31/16 0340 03/30/16 2300 03/30/16 1710 03/30/16 1610 WBC 10.2* -- 17.7* -- HGB 11.1* 12.2 9.0* -- HCT 35.1 -- 28.7* -- PLATELET 141* -- 158 161 PT -- -- 19.6* -- INR -- -- 1.6* -- PTT -- -- 31 -- FIBRINOGEN -- -- 162* 158* Recent Labs 03/31/16 0340 03/30/16 2300 K 5.0 4.6 BUN 20* -- CREATININE 1.46* -- ABG (Arterial Blood Gas) Lab Results Component Value Date PH ART 7.37 03/31/2016 PO2 ART 67 (L) 03/31/2016 PCO2 ART 48 (H) 03/31/2016 Assessment/Plan: POD#1 s/p CABG x 3. Extubated this AM. Will plan on removing CT's this afternoon. Off nicardipine. Begin lopressor 25'', Lasix 20 IV'', hydralazine prn. [facility] [place] [facility] afternoonif stable and off HFNC. Neuro: Tylenol, Oxy, Celexa CV: Lopressor 25'', hydralazine prn, Resp: HFNC, wean as sukhwinder GI: RBO's, Protonix : Kilpatrick Renal: Cr. 1.46 (at baseline), Lasix 20 IV'' ID: Periop cefuroxime Heme: ASA 81', Endo: Insulin gtt, endocrine consult, levothyroxine 125mcg' Dispo: [facility], poss transfer to [facility] this afternoon DW Attending Surgeon on rounds. Signed: JACKELINE RODRIGUEZ [facility] Section of Cardiac Surgery Date: 03/31/2016 Domingo Flores RCP - 03/31/2016 2:31 AM EDT Received PT this shift on SIMV Vol + PS 450 x 14 + 5 PEEP on 100% FiO2. AB.28/38/229/17. Weaned FiO2 to 40%. PT is orally intubated with size 8 ETT secured 22 @ the teeth. CTICU protocol: yes CXR: Tube placement confirmed. Medications: No respiratory meds at this time. BS: Diminished bilaterally. 0000 AB.25/45/78/19 on 40% FiO2. Increased VT to 500 as per MD order. 0425: initiated SBT on PS 5/5. PT is awake and alert following commands. ?? ABG on SBT: 7.36/47/66/26 on 40% FiO2. Order placed to extubate. 0510: PT extubated to 6L/min NC without complications. Transitioned to 50% venti mask to keep sats > 92%. Had + cuff leak, no post extubatory stridor and was able to phonate. PT has weak congested cough and has moderate amount of oral secretions. THERAPY COORDINATOR will continue to monitor closely. Vipin Fritz RCP - 03/30/2016 6:20 PM EDT 03/30/16 1807 Ventilator Settings Servo I Ventilator Mode SIMV Vol + PS Resp. Rate Set 14 Tidal Volume Set 450 VT/Kg 8 Set FiO2 100 % Received pt from OR s/p CABG X 3 and placed on the above vent settings documented in this encounter H&P Notes Narayan Washington MD - 03/30/2016 12:08 PM EDT No interval change, pt ready for surgery. Source Note - Narayan Washington MD - 03/30/2016 7:13 AM EDT Cardiothoracic Surgery H and P Bernardo Peace is seen at the request of Vipin Paniagua for the evaluation of CAD. HPI: Bernardo Peace is a 60 y.o. year old female who has had a history of stable angina. She now is having progressive ESTRADA that is NYHA class III. Recently a stress test was performed and revealed anteriorischemia that lead to a cath. She has no history of VA and no current rest pain. Problem List: Patient Active Problem List Diagnosis ??? Coronary artery disease Past Medical History: No past medical history on file. Past Surgical History: No past surgical history on file. Family History: No family history on file. Social History: History Social History ??? Marital status: Spouse name: N/A ??? Number of children: N/A ??? Years of education: N/A Social History Main Topics ??? Smoking status: Former Smoker Years: 11.00 ??? Smokeless tobacco: Not on file ??? Alcohol use: No ??? Drug use: No ??? Sexual activity: Not on file Other Topics Concern ??? Not on file Social History Narrative Review of Systems: Constitutional - no weakness, fatigue, fevers HEENT - no visual changes; no hearing changes; no recent URI sx Neck - no new pain, limitation of motion Cardiovascular - no mur Pulmonary - no dyspnea, cough, bronchitis, pneumonias GI - no abdominal pain, constipation, diarrhea - no frequency, nocturia, dysuria Musculoskeletal - no muscle pain, new limitation of motion Extremities - no edema Neuro - no confusion, weakness, syncope, paresthesias Hematologic - no bruising, excessive bleeding Allergies: Allergies Allergen Reactions ??? Iodine Rash Meds: Outpatient Prescriptions Marked as Taking for the 03/30/16 encounter (Hospital Encounter) Medication Sig Dispense Refill ??? aspirin 325 mg Tablet Take 650 mg by mouth daily. ??? Cod Liver Oil Oil Take by mouth 2 times daily. ??? cholecalciferol, Vitamin D3, (VITAMIN D) 1,000 unit Tablet Take 1,000 Units by mouth daily. ??? citalopram (CELEXA) 20 mg Tablet Take 20 mg by mouth daily. Physical Exam: There were no vitals filed for this visit. @LASTENCWT@ Constitutional:Well appearing in no acute distress. Skin: Warm, well perfused. HEENT: within normal limits. NC/AT EOMI Neck: supple, no JVD, no bruit. Heart: regular rate and rhythm, without murmurs. Lungs: clear bilaterally. Abdomen: soft, nontender, active bowel sounds, no masses noted. Extremities: full range of motion; no clubbing, cyanosis, or edema. Neuro exam: Alert and oriented x 3. Strength grossly normal. Diagnositcs: No results for input(s): WBC, NA, K, CL, CO2, GLUCOSE in the last 72 hours. Invalid input(s): HBG, HCT, PLATELETS, , BUN, CREATININE, TROP CATH: severe lad, om2 and occlusion., nl ef ECHO: no sig valve disease Assessment and Plan: Bernardo Peace is a young obese diabetic who has severe symptomatic 3VD. We had a long discussion regarding the risks and benefits of surgery. The risks include but are not limited to stroke, damage to any organ (heart, lung, liver, kidneys, brain, etc.), infection, need for blood transfusion with the concomitant risks of AIDS and hepatitis, renal failure resulting in dialysis, prolonged respiratory failure requiring mechanical ventilation, graft failure, and the possibility of . She seems to understand and wishes to proceed. Narayan Washington MD - 03/30/2016 7:13 AM EDT Cardiothoracic Surgery H and P Bernardo Peace is seen at the request of Vipin Paniagua for the evaluation of CAD. HPI: Bernardo Peace is a 60 y.o. year old female who has had a history of stable angina. She now is having progressive ESTRADA that is NYHA class III. Recently a stress test was performed and revealed anteriorischemia that lead to a cath. She has no history of VA and no current rest pain. Problem List: Patient Active Problem List Diagnosis ??? Coronary artery disease Past Medical History: No past medical history on file. Past Surgical History: No past surgical history on file. Family History: No family history on file. Social History: History Social History ??? Marital status: Spouse name: N/A ??? Number of children: N/A ??? Years of education: N/A Social History Main Topics ??? Smoking status: Former Smoker Years: 11.00 ??? Smokeless tobacco: Not on file ??? Alcohol use: No ??? Drug use: No ??? Sexual activity: Not on file Other Topics Concern ??? Not on file Social History Narrative Review of Systems: Constitutional - no weakness, fatigue, fevers HEENT - no visual changes; no hearing changes; no recent URI sx Neck - no new pain, limitation of motion Cardiovascular - no mur Pulmonary - no dyspnea, cough, bronchitis, pneumonias GI - no abdominal pain, constipation, diarrhea - no frequency, nocturia, dysuria Musculoskeletal - no muscle pain, new limitation of motion Extremities - no edema Neuro - no confusion, weakness, syncope, paresthesias Hematologic - no bruising, excessive bleeding Allergies: Allergies Allergen Reactions ??? Iodine Rash Meds: Outpatient Prescriptions Marked as Taking for the 03/30/16 encounter (Hospital Encounter) Medication Sig Dispense Refill ??? aspirin 325 mg Tablet Take 650 mg by mouth daily. ??? Cod Liver Oil Oil Take by mouth 2 times daily. ??? cholecalciferol, Vitamin D3, (VITAMIN D) 1,000 unit Tablet Take 1,000 Units by mouth daily. ??? citalopram (CELEXA) 20 mg Tablet Take 20 mg by mouth daily. Physical Exam: There were no vitals filed for this visit. @LASTENCWT@ Constitutional:Well appearing in no acute distress. Skin: Warm, well perfused. HEENT: within normal limits. NC/AT EOMI Neck: supple, no JVD, no bruit. Heart: regular rate and rhythm, without murmurs. Lungs: clear bilaterally. Abdomen: soft, nontender, active bowel sounds, no masses noted. Extremities: full range of motion; no clubbing, cyanosis, or edema. Neuro exam: Alert and oriented x 3. Strength grossly normal. Diagnositcs: No results for input(s): WBC, NA, K, CL, CO2, GLUCOSE in the last 72 hours. Invalid input(s): HBG, HCT, PLATELETS, , BUN, CREATININE, TROP CATH: severe lad, om2 and occlusion., nl ef ECHO: no sig valve disease Assessment and Plan: Bernardo Peace is a young obese diabetic who has severe symptomatic 3VD. We had a long discussion regarding the risks and benefits of surgery. The risks include but are not limited to stroke, damage to any organ (heart, lung, liver, kidneys, brain, etc.), infection, need for blood transfusion with the concomitant risks of AIDS and hepatitis, renal failure resulting in dialysis, prolonged respiratory failure requiring mechanical ventilation, graft failure, and the possibility of . She seems to understand and wishes to proceed. documented in this encounter Nursing Notes Gina Dee RN - 03/30/2016 3:50 PM EDT Defibrillator pads applied to patient prior to induction. 20ml Nitroglycerin (200mcg/ml) diluted with 20ml NS and delivered to the surgical field to bed used PRN topically by MD Felix. documented in this encounter Miscellaneous Notes Plan of Care - Free, Kerry Gann RN - 04/04/2016 4:53 AM EDT Problem: Skin Integrity Impairment, Risk/Actual (Adult, Obstetrics) Intervention: Pressure Reduction Techniques 04/04/16450 Skin Interventions Pressure Reduction Techniques heels elevated off bed Intervention: Wound Healing Promotion 04/04/16450 Skin Interventions Wound Healing Promotion adequate fluids provided Goal: Skin Integrity/Wound Healing Patient will demonstrate the desired outcomes. 04/04/16450 Skin Integrity Impairment, Risk/Actual (Adult, Obstetrics) Skin Integrity/Wound Healing achieves outcome Comments: OUTCOME EVALUATION NOTE: OUTCOME SUMMARY: PLAN MOVING FORWARD: INDIVIDUALIZED FALL PREVENTION INTERVENTIONS: Patient-specific fall risk factors per assessment: [current deficits]: Assistance [level of assistance required for transfers and ambulation]: Supervision [direct monitoring required during toileting and ADLs]: Surveillance [continuous indirect monitoring]: Patient-specific fall prevention interventions for sensory deficits provided, if applicable: CPG GOAL OUTCOME EVALUATION: Plan of Care - Zaida Rust RN - 04/03/2016 5:39 PM EDT Problem: General Plan of Care Goal: Plan of Care Review 03/31/16 0556 04/03/16 1100 Plan of Care Review Plan of Care Outcome Status ongoing (interventions implemented as appropriate) -- Coping/Psychosocial Response Interventions Plan of Care Reviewed with -- patient Goal: Fall Prevention-Safe Patient Handling 03/31/16 1945 04/02/16 0700 04/02/16 2030 Safety Interventions Safety Precautions/Fall Reduction -- -- -- Activity and Safety Assistive Device -- Standard walker -- Musculoskeletal Interventions Activity/Level of Assistance -- -- ambulated;with stand by assist Positioning independent -- -- Self-Care Promotion -- -- -- Briseno Fall Risk History of Falling -- -- -- Secondary Diagnosis -- -- -- Ambulatory Aids -- -- -- Intravenous Therapy/Heparin/Saline Lock -- -- -- Gait/Transferring -- -- -- Mental Status -- -- -- Score -- -- -- OTHER Briseno Fall Risk -- -- -- 04/03/16 1000 04/03/16 1733 Safety Interventions Safety Precautions/Fall Reduction lighting adjusted for task/safety;low bed;muscle strengthening facilitated;nonskid shoes/slippers when out of bed;room near unit station -- Activity and Safety Assistive Device -- -- Musculoskeletal Interventions Activity/Level of Assistance -- -- Positioning -- -- Self-Care Promotion -- toileting scheduled;toileting offered Briseno Fall Risk History of Falling 0 -- Secondary Diagnosis 15 -- Ambulatory Aids 0 -- Intravenous Therapy/Heparin/Saline Lock 20 -- Gait/Transferring 0 -- Mental Status 0 -- Score 35 -- OTHER Briseno Fall Risk Med -- OUTCOME EVALUATION NOTE: OUTCOME SUMMARY: SR/ST on tele w/ rare pvs/pacs. Remains on 2LNC. Ambulated several times throughout the day, with only minor fatigued noted. Patient able to have several bowel movements today. PLAN MOVING FORWARD: D/c this ? Continue CT pathway INDIVIDUALIZED FALL PREVENTION INTERVENTIONS: Patient-specific fall risk factors per assessment: [current deficits]: Weakness, Telemetry, Oxygen Assistance [level of assistance required for transfers and ambulation]: SBA Supervision [direct monitoring required during toileting and ADLs]: Call landis within reach, rings approprietly Surveillance [continuous indirect monitoring]: Continue purposeful hourly rounding Patient-specific fall prevention interventions for sensory deficits provided, if applicable: Yes CPG GOAL OUTCOME EVALUATION: Consult Note - Christel Mobley RN - 04/03/2016 10:15 AM EDT [facility] [place] [place] CARDIAC REHABILITATION Bernardo Peace was seen today regarding participation in the outpatient Phase [address] [facility] . The patient agrees to a referral to this program. The referral will be sent at discharge and the patient should be contacted by the Program within 1- 2 weeks from discharge. Plan of Care - Kerry Hamlin RN - 04/03/2016 3:12 AM EDT Problem: General Plan of Care Goal: Fall Prevention-Safe Patient Handling 03/31/16 1945 04/02/16 0700 04/02/162029 Safety Interventions Safety Precautions/Fall Reduction -- -- assistive device;lighting adjusted for task/safety;sensory aid;product safety compliance leader Activity and Safety Assistive Device -- Standard walker -- Briseno Fall Risk History of Falling -- -- 0 Secondary Diagnosis -- -- 15 Ambulatory Aids -- -- 0 Intravenous Therapy/Heparin/Saline Lock -- -- 20 Gait/Transferring -- -- 0 Mental Status -- -- 0 Score -- -- 35 OTHER Briseno Fall Risk -- -- Med Musculoskeletal Interventions Activity/Level of Assistance -- -- ambulated;with stand by assist Positioning independent -- -- Comments: OUTCOME EVALUATION NOTE: OUTCOME SUMMARY: pt. Ambulated with staff. Pt. Continues to use IS and therapep. Pt tolerated being wean down to 3 Lof oxygen. PLAN MOVING FORWARD: pt. Will continue to be wean off oxygen. Increase mobility. Increase bowel regiment to aid in patient having a BM . INDIVIDUALIZED FALL PREVENTION INTERVENTIONS: Patient-specific fall risk factors per assessment: [current deficits]: No current deficits Assistance [level of assistance required for transfers and ambulation]: sba Supervision [direct monitoring required during toileting and ADLs]: sba Surveillance [continuous indirect monitoring]: sba Patient-specific fall prevention interventions for sensory deficits provided, if applicable: Pt. Will use call landis if needs assisatance CPG GOAL OUTCOME EVALUATION: Pt. Vital signs were stable . Pt. Converted from afib to sinus rhythm. MD aware. Pt. Denies chest pain . Plan of Care - Newton Strange RN - 04/02/2016 5:46 PM EDT Problem: General Plan of Care Goal: Plan of Care Review Outcome: Ongoing (Interventions Implemented as Appropriate) 03/31/16 0556 04/01/16 1950 Plan of Care Review Plan of Care Outcome Status ongoing (interventions implemented as appropriate) -- Coping/Psychosocial Response Interventions Plan of Care Reviewed with -- patient OUTCOME EVALUATION NOTE: OUTCOME SUMMARY: Patient post op day 3 from a CABG times 3 ambulates unit with 3 units of oxygen and tolerates well. Patients pain under control, voids ample amounts in hat. Patient does desat on room air. PLAN MOVING FORWARD: Cont to try and wean patient off oxygen using the therapep and incentive spirometer. Patient also needs a bowel movement INDIVIDUALIZED FALL PREVENTION INTERVENTIONS: Patient-specific fall risk factors per assessment: [current deficits]: Patient at risk to fall whilebeing hooked to oxygen and tubing. Assistance [level of assistance required for transfers and ambulation]: Standby assist. Supervision [direct monitoring required during toileting and ADLs]: Call landis Surveillance [continuous indirect monitoring]: Hourly rounds Patient-specific fall prevention interventions for sensory deficits provided, if applicable: CPG GOAL OUTCOME EVALUATION: Plan of Care - Kerry Hamlin RN - 04/01/2016 11:08 PM EDT Problem: General Plan of Care Goal: Plan of Care Review 03/31/1655504/01/161949 Plan of Care Review Plan of Care Outcome Status ongoing (interventions implemented as appropriate) -- Coping/Psychosocial Response Interventions Plan of Care Reviewed with -- patient Goal: Fall Prevention-Safe Patient Handling 03/31/16194404/01/16 1400 04/01/161949 Safety Interventions Safety Precautions/Fall Reduction -- -- assistive device;product safety compliance leader;low bed Activity and Safety Assistive Device -- Front wheel walker -- Briseon Fall Risk History of Falling -- -- 0 Secondary Diagnosis -- -- 15 Ambulatory Aids -- -- 15 Intravenous Therapy/Heparin/Saline Lock -- -- 20 Gait/Transferring -- -- 0 Mental Status -- -- 0 Score -- -- 50 OTHER Briseno Fall Risk -- -- Med Musculoskeletal Interventions Activity/Level of Assistance -- -- ambulated;with walker;with 1-person assist Positioning independent -- -- Goal: Infection Control 03/31/16194404/01/161949 Safety Interventions Isolation Precautions -- standard precautions maintained Infection Prevention -- rest/sleep promoted;promote handwashing;nutrition promoted;hydration promoted Coping/Psychosocial Response Interventions Counseling emotional support provided -- Goal: Discharge Needs Assessment 04/01/16 0434 Discharge Needs Assessment Concerns to be Addressed no discharge needs identified Readmission Within the Last 30 Days no previous admission in last 30 days Equipment Needed After Discharge none Current Health Anticipated Changes Related to Illness inability to care for self;inability to care for someone else;inability to work Self-Care Equipment Currently Used at Home none Living Environment Transportation Available family or friend will provide;agency transportation Problem: Cardiac Surgery (Adult) Intervention: Pacer Wire Maintenance 04/01/16 1700 Cardiac Interventions Pacer Wire Maintenance other (see comments) (wires removed today) Intervention: Airway/Ventilation Management 04/01/161949 Respiratory Interventions Airway/Ventilation Management bronchial hygiene promoted;activity adjusted to patient tolerance;hydration promoted Intervention: Bowel Function Promotion 04/01/16 0800 Gastrointestinal Interventions Bowel Function Promotion activity promoted;laxative given Intervention: Skin/Mucous Membrane Protection 03/31/161944 Skin Interventions Skin/Mucous Membrane Protection incontinence pad utilized;tubing/devices free from under/on patient Problem: Skin Integrity Impairment, Risk/Actual (Adult, Obstetrics) Intervention: Pressure Reduction Devices 03/31/161944 Skin Interventions Pressure Reduction Devices pressure-redistributing mattress utilized Intervention: Wound Healing Promotion 03/31/161944 Skin Interventions Wound Healing Promotion adequate fluids provided;adequate nutrition provided;glycemic control maintained;sleep/rest promoted Goal: Identify Signs and Symptoms and Related Risk Factors Signs and symptoms and related risk factors are identified upon initiation of Human Response Clinical Practice Guideline (CPG) 03/31/1655504/01/16 0434 Skin Integrity Impairment, Risk/Actual Personal Related Risk Factors (Skin Integrity Impairment, Risk/Actual) -- sleep deprivation;stress Physiological Related Risk Factors (Skin Integrity Impairment, Risk/Actual) edema -- Treatment Related Related Risk Factors (Skin Integrity Impairment, Risk/Actual) invasive catheters -- Goal: Skin Integrity/Wound Healing Patient will demonstrate the desired outcomes. 03/31/16555 Skin Integrity Impairment, Risk/Actual (Adult, Obstetrics) Skin Integrity/Wound Healing making progress toward outcome Comments: OUTCOME EVALUATION NOTE: OUTCOME SUMMARY INCREASE AMBULATION AND USE INCENTIVE SPIROMETER PLAN MOVING FORWARD: XRAY TODAY WEAN OFF OXYGEN INDIVIDUALIZED FALL PREVENTION INTERVENTIONS: Patient-specific fall risk factors per assessment: [current deficits]: Equipment Assistance [level of assistance required for transfers and ambulation]: SBA with walker Supervision [direct monitoring required during toileting and ADLs]: SBA Surveillance [continuous indirect monitoring]: SBA Patient-specific fall prevention interventions for sensory deficits provided, if applicable: Pt. Uses the call landis to call for assistance. SBA CPG GOAL OUTCOME EVALUATION: Pt. Vital signs remained stable. Pt. Used the incentive spirometry with encouragement . Today we will begin wean patient off oxygen. Pt. Denies pain. Pt. Pulse Read 95-97 % on ear. Pt. Was sinus rhythm with rare pvc Plan of Care - Tish Kelolgg RN - 04/01/2016 4:45 AM EDT Problem: General Plan of Care Goal: Plan of Care Review Outcome: Ongoing (Interventions Implemented as Appropriate) 03/31/1655503/31/161944 Plan of Care Review Plan of Care Outcome Status ongoing (interventions implemented as appropriate) -- Coping/Psychosocial Response Interventions Plan of Care Reviewed with -- patient OUTCOME EVALUATION NOTE: OUTCOME SUMMARY: Pt has been SR w/ rates 70-80's. Pt denies CP, SOB and mid-sternal pain. Pacing wires are intact andcapped. Pt has been Q1 BS check per insulin gtt protocol; gtt has been titrated per orders. PLAN MOVING FORWARD: Continue pathway. Begin bowel meds. INDIVIDUALIZED FALL PREVENTION INTERVENTIONS: Patient-specific fall risk factors per assessment: [current deficits]: Post surgery Assistance [level of assistance required for transfers and ambulation]: SBA Supervision [direct monitoring required during toileting and ADLs]: Purposeful hourly rounding. Callbell w/i reach. Q1 BS check; Q4 vitals. Surveillance [continuous indirect monitoring]: Telemetry Patient-specific fall prevention interventions for sensory deficits provided, if applicable: Yes CPG GOAL OUTCOME EVALUATION: Goal: Fall Prevention-Safe Patient Handling Outcome: Ongoing (Interventions Implemented as Appropriate) 03/31/16194404/01/16433 Safety Interventions Safety Precautions/Fall Reduction room near unit station;nonskid shoes/slippers when out of bed;low bed;lighting adjusted for task/safety;fall reduction program maintained;environmental modification -- Activity and Safety Assistive Device -- Oxygen Briseno Fall Risk History of Falling 0 -- Secondary Diagnosis 15 -- Ambulatory Aids 0 -- Intravenous Therapy/Heparin/Saline Lock 20 -- Gait/Transferring 0 -- Mental Status 0 -- Score 35 -- OTHER Briseno Fall Risk Med -- Musculoskeletal Interventions Activity/Level of Assistance up in lubin;up in room;with stand by assist (minimal assistance needed. very good on feet.) -- Positioning independent -- Goal: Infection Control Outcome: Ongoing (Interventions Implemented as Appropriate) 03/31/161944 Safety Interventions Isolation Precautions standard precautions maintained Infection Prevention rest/sleep promoted;blood glucose management;hydration promoted;nutrition promoted Coping/Psychosocial Response Interventions Counseling emotional support provided Goal: Discharge Needs Assessment Outcome: Ongoing (Interventions Implemented as Appropriate) 04/01/16433 Discharge Needs Assessment Concerns to be Addressed no discharge needs identified Readmission Within the Last 30 Days no previous admission in last 30 days Equipment Needed After Discharge none Current Health Anticipated Changes Related to Illness inability to care for self;inability to care for someone else;inability to work Self-Care Equipment Currently Used at Home none Living Environment Transportation Available family or friend will provide;agency transportation Problem: Cardiac Surgery (Adult) Goal: Signs and symptoms of listed potential problems will be absent or manageable (reference (Cardiac Surgery (Adult)) CPG) Outcome: Ongoing (Interventions Implemented as Appropriate) 03/31/16 0556 Cardiac Surgery Problems Assessed (Cardiac Surgery) acute pain;electrolyte imbalance;hemodynamic instability;hypoxia/hypoxemia Problem: Skin Integrity Impairment, Risk/Actual (Adult, Obstetrics) Goal: Identify Signs and Symptoms and Related Risk Factors Signs and symptoms and related risk factors are identified upon initiation of Human Response Clinical Practice Guideline (CPG) Outcome: Ongoing (Interventions Implemented as Appropriate) 03/31/16 0556 04/01/16 0434 Skin Integrity Impairment, Risk/Actual Personal Related Risk Factors (Skin Integrity Impairment, Risk/Actual) -- sleep deprivation;stress Physiological Related Risk Factors (Skin Integrity Impairment, Risk/Actual) edema -- Treatment Related Related Risk Factors (Skin Integrity Impairment, Risk/Actual) invasive catheters -- Goal: Skin Integrity/Wound Healing Patient will demonstrate the desired outcomes. Outcome: Ongoing (Interventions Implemented as Appropriate) 03/31/16 0556 Skin Integrity Impairment, Risk/Actual (Adult, Obstetrics) Skin Integrity/Wound Healing making progress toward outcome Initial Assessments - Ashlee Montana, PT - 03/31/2016 10:30 PM EDT Physical Therapy Evaluation Cardiac Surgery Patient Profile: Bernardo Peace is a 60 y.o. female of Narayan Chaves MD, admitted on 03/30/2016 with Class 3 angina, 3vd. Patient underwent CABG x3 on 03/30/16. Post-op course uneventful thus far. On pathway. Precautions: sternal (no lifting >7-10 lbs.; no pushing or pulling with UE's; no excessive chest stretching). PMH: No past medical history on file. Past Surgical History Procedure Laterality Date ??? Pro cabg, artery-vein, two N/A 03/30/2016 @CABG, TWO VENOUS GRAFTS & ARTERIAL GRAFT performed by Narayan Washington MD at [facility] MAIN OR ??? Pro cabg, arterial, single N/A 03/30/2016 @CABG, USING ARTERIAL GRAFT;SINGLE ARTERIAL GRAFT performed by Narayan Washington MD at [facility] MAIN OR ??? Pro endoscopy w/video-asst vein harvest, cabg Right 03/30/2016 ENDOSCOPIC HARVEST VEIN(S) FOR CABG performed by Narayan Washington MD at [facility] MAIN OR Social History: Patient lives with her Stairs: 4 steps on deck and 1 flight within home Baseline Mobility:independent Equipment at home:none Subjective: I don't have any pain. Objective: pt seen this pm for initial evaluation Pain: denies Vital Signs/Cardiopulmonary Status: SpO2:95 % on 4L NC HR:70's-80's BP:has been stable this afternoon 120's/60's Incentive Spirometer: Volume:1000 ml Quality: fair, good cough, dry Mental Status/Behavior: alert, oriented, motivated Skin: incision (chest and R medial knee) with dressing c/d/i Sensation: normal ROM: wnl Strength: wnl Bed Mobility: Supine to Sit: NT Sit to Supine: NT Transfers: Sit to Stand:supervision Stand to Sit: supervision Pt needed cues to maintain sternal precautions. Gait: Distance: 150 ft Device used: pushed IV pole (light support) Level of assist: supervision Gait pattern:normal Balance:good Informed Consent: The patirent agrees to and understands the PT treatment plan and goals. Education: Pt was educated on post-op sternal precautions, use of incentive spirometer, the importance of deep breathing, and post-op cardiac exercises. Pt performed 3-5 reps of the following exercises today: head nod, head twist, shoulder flexion, kneeextension, ankle circles, and ankle pumps. Pt was given a written list of exercises and precautions. Pt's status, treatment, and mobility recommendations were discussed with the nursing staff. Assessment: Pt is s/p cabg. Functional mobility is limited by sternal precautions, general discomfort. Pt would benefit from continued physical therapy to maximize functional mobility, independence andsafety. Pt has goodrehab potential. Expect she will progress quickly from a PT standpoint and be able to return home. Equipment needs:none Goals: To be achieved by 04/02/16.. 1. Pt will ambulate I'ly 300 ft. without an assistive device to allow for a safe d/c. 2. Pt will perform all post op cardiac surgery exercises adequately. 3. Pt will demonstrate independence with incentive spirometer and/or threshold PEP to promote lung function. 4. Pt will demonstrate understanding of sternal precautions to allow for a safe d/c. 5. Pt will be able to transfer sit <-> stand I'ly while maintaining sternal precautions to allow for a safe d/c. 6. Pt will be able to go supine <-> sit I'ly while maintaining sternal precautions to allow for a safe d/c. 7. Pt will be able to go up and down 1 flight of stairs using a rail for balance only to prepare fora safe d/c. Treatment Plan: Pt to be seen 1-2 more times for patient and family/caregiver education and trainingon sternal precautions, functional mobility, gait, stairs, exercise, safety awareness, endurance & energy conservation, and d/c planning. outpt cardiac rehab Tentative D/C Plan: Discharge Recommendations: Based on the current findings noted during this evaluation, patient could benefit from when medically ready for hospital discharge. This recommendation is based on the patient's current functional mobility and potential to make functional gains and may change based on patient progress during this hospitalization. Consult Recommendations: none Equipment needs: none Pt understands and agrees with PT plan, goals, and tentative discharge plan: yes Total time spent with patient: 36 minutes Total timed interventions: 0 minutes ASHLEE MONTANA PT Pager:[phone] Physical Therapy Rehabilitation Department Consult Note - Danna Felder APRN - 03/31/2016 10:19 AM EDT Diabetes Management Team Inpatient Consult Date of Consultation: 03/31/2016 Consult Requested by: cardiac surgery Reason for Consultation: Bernardo Peace is a 60 y.o. years old female with PMH significant for CAD,T2DM, TIA (reports 2 strokes in 2008 and 2009) who was admitted on 03/30/2016 currently being treatedfor CABG. We are being consulted to assist with diabetes management and to provide a review of supervisor intermediates diabetes care. Diabetes History: Bernardo Peace has had diabetes for about 4 years.She was on januvia and metformin until this past July when these were both stopped and levemir was started. She checks her BG every morning, her BG levels range 95 - 105. She has had one low of 57 she attributes to skipping dinner. She uses the insulin pens. Current outpatient diabetes regimen: Medications: levemir 50 units twice daily Monitoring is done once a day Most recent HA1c was done on 03/31/16 and was 9.4%, suggesting an average glucose of 220 mg/dL for the past 6-8 weeks. Typical diet is: 3 meals and no snacks a day Breakfast- 2 slices of toast with butter and water Lunch- a yogurt or a slice of ham Supper- meat rice and veggie Typical exercise regimen is none due to ESTRADA plans on starting Trouble with hypoglycemia as above Diabetes Complications Status: Eyes: None known, last eye exam 2010 Kidneys: CKD Feet: None Sensory: None Autonomic: None Cardiac: ASCVD Current Hospital Diabetes Care: Medications: Continuous insulin infusion Monitoring: q 1 hour Diet: level 2 carb control ROS: Constitutional: No recent weight change Endocrine: No increased thirst or urination Eyes: No recent vision change ENT: No dysphagia, dental issues Cardiovascular: No chest pain Respiratory: No wheezing , shortness of breath GI: No nausea, vomiting, diarrhea, constipation : No frequent urinary tract infections Neurological: No weakness or numbness PMH No past medical history on file. Current Hospital Medications: ??? meTOPROLOL 25 mg Oral 2 times per day ??? furosemide 20 mg Intravenous BID ??? cholecalciferol (Vitamin D3) 1,000 Units Oral Daily ??? citalopram 20 mg Oral Daily ??? cyanocobalamin 500 mcg Oral Daily ??? levothyroxine 125 mcg Oral QAM ??? insulin aspart 3-6 Units Subcutaneous TID WC ??? chlorhexidine 15 mL Oral 2 times per day ??? pantoprazole 40 mg Oral Daily Or ??? pantoprazole 40 mg Intravenous Daily ??? aspirin 81 mg Oral Daily Or ??? aspirin 300 mg Rectal Daily ??? senna-docusate 2 tablet Oral Daily ??? [START ON 04/01/2016] magnesium hydroxide 10 mL Oral Daily ??? cefUROXime 750 mg Intravenous Q8H ??? acetaminophen 1,000 mg Oral Q6H RACH ??? insulin regular human 0.5-16 Units/hr Intravenous Change bag every evening Infusions: ??? dexmedetomidine ??? sodium chloride 0.9% 200 mL/hr (03/31/16 0800) ??? propofol Stopped (03/31/16 0400) ??? fentaNYL Stopped (03/31/16 0845) ??? nitroGLYcerin Stopped (03/31/16 0730) ??? NORepinephrine NS 1 mcg/min (03/31/16 0400) PRN: hydrALAZINE, verapamil, vancomycin, calcium chloride, cardioplegic solution, cardioplegic solution, cardioplegic solution, cefUROXime, heparin (porcine), lidocaine (PF), magnesium sulfate, dextrose 50%, sodium chloride 0.9%, sodium chloride 0.9%, ondansetron, [START ON 04/02/2016] bisacodyl, fentaNYL Citrate (PF) OR fentaNYL, fentaNYL (PF) OR fentaNYL, insulin regular human, potassium chlorideOR potassium chloride OR potassium chloride, oxyCODONE Allergy: Allergies Allergen Reactions ??? Iodine Rash Social history: History Substance Use Topics ??? Smoking status: Former Smoker Years: 11.00 ??? Smokeless tobacco: Not on file ??? Alcohol use: No Family history: No family history on file. Vitals Last value Range last 24 hrs Temperature Temp: 36.8 ??C (98.2 ??F) Temp: [36.1 ??C (97 ??F)-37.3 ??C (99.1 ??F)] Heart Rate Heart Rate: 82 Heart Rate: [58-93] Blood Pressure BP: 156/74 BP: (98-180)/(48-82) Respiratory Rate Resp: 21 Resp: [12-29] SpO2 SpO2: 95 % SpO2: [92 %-100 %] Physical Exam: Gen: NAD, talking in clear sentences. Laying in bed comfortably HEENT: no LAD, oral mucus membranes moist no obvious inflammation NECK: no thyromegaly Heart: RRR, no murmurs. Radial pulses +2. Lungs: CTAB, breathing non-labored. No wheezes or rhonchi. Good aeration Abd: Soft, non-distended, non-tender x4 quadrants, +bs SKIN: No open areas or redness to both feet Neuro: Moving all extremities. Grossly non-focal Labs: Recent Labs 03/31/16 0340 03/30/16 2300 03/30/16 1710 03/30/16 1610 03/26/16 1635 WBC 10.2* -- 17.7* -- 6.9 HGB 11.1* 12.2 9.0* -- 15.4 HCT 35.1 -- 28.7* -- 46.6* PLATELET 141* -- 158 161 226 NEUTROABS 8.96* -- -- -- 5.73 Recent Labs 03/31/16 0340 03/30/16 2300 03/26/16 1635 NA -- -- 138 K 5.0 4.6 4.6 CL -- -- 100 CO2 -- -- 23 BUN 20* -- 29* CREATININE 1.46* -- 1.45* GLUCOSE -- -- 135 Recent Labs 03/26/16 1635 CALCIUM 9.6 No results for input(s): PROT, ALBUMIN, AST, ALT, ALKPHOS, BILITOT, BILIDIR in the last 168 hours. Recent Labs 03/30/16 1710 INR 1.6* PT 19.6* PTT 31 Recent Labs 03/31/16 0340 TROPONINT 1.02* CK 427* Recent Labs 03/26/16 1635 GLUCOSE 135 [id number]: Patient is a 60 y.o. years old female with PMH significant for DM (Last A1C of 9.3) who was admittedon 03/30/2016 for CABG. Diabetes suboptimally controlled and complicated by stress of surgery and lack of exercise. Currently with variability of blood glucose levels while hospitalized requiring adjustment of insulin regimen and DM medications. Using the insulin infusion for dose finding, from midnight to 4 am her insulin infusion requirementswere 4 units per hour suggesting a basal requirement of 96 units. Will start with 40 units of levemir and continue infusion overnight. Plan: 1. Levemir 40 units tonight 2. Continue insulin infusion group home diabetes care: Medications - Outpatient treatment regimen recommendations pending based on the hospital course. Monitoring - continue BG tid ac & hs Diet - low fat/low carb diet Exercise - weight-bearing exercise 30 min/day, as tolerated Thank you for allowing us to provide care for your patient Plan of Care - Zach Reardon RN - 03/31/2016 6:29 AM EDT Problem: General Plan of Care Goal: Plan of Care Review Outcome: Ongoing (Interventions Implemented as Appropriate) 03/31/16 05 Plan of Care Review Plan of Care Outcome Status ongoing (interventions implemented as appropriate) Coping/Psychosocial Response Interventions Plan of Care Reviewed with patient;spouse OUTCOME EVALUATION NOTE: OUTCOME SUMMARY:Severe metabolic acidosis which was resolved with insulin drip and sodium bicarb. Needed NTG drip when awakening pt For hypertension which created shunting effect. Extubated to 50% venturi face mask. Spo2 92-94%. Pt alert orientated but extremely anxious Pt trying very hard to improve her resp. Status with lots of coughing up of thick pink tinged mucus.Weaned off levophed and epinephrine with excellent CI, 2hrs after being off epi . Chest tube drain sero sang drainage no air leaks. Urine output 50-75cc/hr. Fentanyl for pain with adequate relief. PLAN MOVING FORWARD:Good pain control,good pulmonary toilet,OOB to chair, INDIVIDUALIZED FALL PREVENTION INTERVENTIONS: Patient-specific fall risk factors per assessment: [current deficits]: surgery Assistance [level of assistance required for transfers and ambulation]: [email or web address] Supervision [direct monitoring required during toileting and ADLs]: Assist with ADL'S Surveillance [continuous indirect monitoring]: Close observation Patient-specific fall prevention interventions for sensory deficits provided, if applicable: Yes CPG GOAL OUTCOME EVALUATION: Goal: Fall Prevention-Safe Patient Handling 03/31/16 05 Safety Interventions Safety Precautions/Fall Reduction environmental modification;nonskid shoes/slippers when out of bed Goal: Infection Control Outcome: Ongoing (Interventions Implemented as Appropriate) 03/31/16 05 Safety Interventions Isolation Precautions standard precautions maintained Infection Prevention environmental surveillance;blood glucose management;rest/sleep promoted Problem: Cardiac Surgery (Adult) Goal: Signs and symptoms of listed potential problems will be absent or manageable (reference (Cardiac Surgery (Adult)) CPG) Outcome: Ongoing (Interventions Implemented as Appropriate) 03/31/16 05 Cardiac Surgery Problems Assessed (Cardiac Surgery) acute pain;electrolyte imbalance;hemodynamic instability;hypoxia/hypoxemia Problem: Skin Integrity Impairment, Risk/Actual (Adult, Obstetrics) Goal: Identify Signs and Symptoms and Related Risk Factors Signs and symptoms and related risk factors are identified upon initiation of Human Response Clinical Practice Guideline (CPG) Outcome: Ongoing (Interventions Implemented as Appropriate) 03/31/16 0556 Skin Integrity Impairment, Risk/Actual Physiological Related Risk Factors (Skin Integrity Impairment, Risk/Actual) edema Treatment Related Related Risk Factors (Skin Integrity Impairment, Risk/Actual) invasive catheters Goal: Skin Integrity/Wound Healing Patient will demonstrate the desired outcomes. Outcome: Ongoing (Interventions Implemented as Appropriate) 03/31/16 0556 Skin Integrity Impairment, Risk/Actual (Adult, Obstetrics) Skin Integrity/Wound Healing making progress toward outcome Op Note - Narayan Washington MD - 03/30/2016 5:19 PM EDT 03/30/2016 Bernardo Martinez Ida 1955 [id number] Preoperative Diagnosis: Coronary artery disease Unstable Angina Postoperative Diagnosis: Coronary artery diseaseUnstable Angina Procedure: CABG times 3: MARY to LAD, SVG to diag and svg to pda. Endoscopic vein harvest Surgeon: Narayan Washington M.D. [employer]ode [employer] Tube Salvage Processor: David PEREZ Anesthesia: General endotracheal anesthesia Drains: Two mediastinal tubes Pacing Wires: Two A-wires, two V-wires. EBL: 300 mL Findings: small diseased targets, preserved function, om branch was a poor target Procedure: The patient was taken to the Operating Room and had a radial A-line placed. All the proper lines and monitors were placed by Anesthesia. The patient was then prepped and draped in the normalsterile fashion. The right leg was used to harvest the greater saphenous vein using an endoscopic technique. A vertical incision was made on the medial aspect of the knee. The [employer] XB7 system was used to dissect out the vein anterior and posteriorly. All the side branches were cauterized. The vein was ligated distally and proximally. It was removed through the incision at the knee. The vein was flushed with heparinized saline in a reverse direction. All the side branches were clipped. The vein was untwisted and striped with a sterile pen. The leg had a SUNDEEP drain placed in it. It was irrigated out with antibiotic solution and closed immediately. The chest was opened along the midline. Cautery was used on the sternal edges and bone wax was lightly applied to the divided marrow of the sternum. The left bhaskar-sternum was elevated. The pleura were taken down, and the mammary artery was dissected free clipping all side branches. Heparin was given. Several minutes later the distal end of the mammary was clipped and tied on the chest wall, and the bleeding end had a bulldog placed across it. It was prepared for bypass by spatulating it open, injecting it with verapamil, and rolling it up into a nitroglycerin-soaked sponge. The MECHE had excellent flow. The Rultract was removed. Two antibiotic-soaked towels were used to bumper the sternum. The sternal retractor was used to openthe sternum. The overlying pericardium was opened in an inverse-T fashion and hung to the edge of the sternal retractor. Full-dose heparin was given. The aorta was cannulated. The right atrium had the venous cannula placed through the IVC. A retrograde was placed through the right atrium into the coronary sinus. The antegrade was place mid ascending aorta which also doubled as the root vent. With theACT above 450, we went on bypass. The targets were inspected. The aorta was crossclamped and the heart was arrested with cold blood cardioplegia antegrade and retrograde. We drifted to 32 degrees Celsius. The bypasses were as follows: The pda target was identified and opened and in an end to side fashion the SVG was anastomosed with a running 7.0 prolene. Cardiopelegia was given down the graft and there were no leaks. The heart was filled and the graft was measured for length and trimmed. A punch was made in the aorta and a proximal anastomosis was created with a 6-0. A washer was used to identify the proximal. The same procedures was completed for diag and cardioplegia was given between all bypasses. The meche was taken out of the left chest and a slit was created in the L side of the pericardium making sure to identify the L phrenic nerve. The meche was anastomosed to the LAD with a running 8-0 prolene. The bulldog was removed to test the graft then replaced. At this point, hotshots were given. The heart began beating in a sinus rhythm. The crossclamp was removed. The grafts were inspected. The heart was allowed to re-perfuse. The retrograde was removed andoversewn; so was the antegrade. An angled chest tube was placed behind the heart. Both chests were suctioned out, and the lungs were re-inflated. After a period of rewarming and allowing the heart to re-perfuse, we from bypass. The venous cannula was removed and the pursestring was tied downand oversewn. Protamine was given. The aortic cannula was removed. Both pursestrings were tied down and oversewn. We had no further bleeding. A straight chest tube was placed in front of the heart. Vanco paste was applied to the sternum. Interrupted steel cables were used to close the chest, several layers of Vicryl, and a 4-0 Monocryl were used to close the overlying soft tissue. Glue and clean dry sterile dressings were applied. The patient was transported to the CV on epi. All counts were correct. OR Attestation - Narayan Washington MD - 03/30/2016 5:19 PM EDT Attestation: Case Date: 03/30/2016 I was present and I participated during the entire procedure (does not need to include opening and closing). 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 Findings: small diseased targets, om extremely poor target, preserved function Complications: none Fluids: 1L ns Estimated Blood Loss: * No values recorded between 03/30/2016 2:18 PM and 03/30/2016 5:17 PM * Drains: 2 med tubes Disposition: taken directly to the ICU, intubated and in a critical condition. Condition: doing well without problems (Please see the Surgical Encounter Summary for any Implant and Specimen details pertinent to this patient.) Infection Bundle used? No documented in this encounter Plan of Treatment Scheduled Referrals Name Type Priority Associated Diagnoses Order S chedule Referral to Outpatient Referral Routine S/P CABG x 3 Ordered: Cardiac Rehab 04/04/2016 documented as of this encounter Procedures Procedure Name Priority Date/Time Associated Diagnosis Comme nts LAB SCAN 04/05/2016 12:00 AM EDT ASSISTANT MANAGER AIRSIDE OPERATIONS SCAN 04/05/2016 12:00 AM EDT POCT GLUCOSE Routine 04/04/2016 12:11 Results for this PM EDT procedure are i n the results section. POCT GLUCOSE Routine 04/04/2016 7:32 AM Results f or this EDT procedure are i n the results section. POTASSIUM Routine 04/04/2016 5:32 AM Results f or this EDT procedure are i n the results section. POCT GLUCOSE Routine 04/04/2016 5:16 AM Results f or this EDT procedure are i n the results section. POCT GLUCOSE Routine 04/03/2016 11:23 Results for this PM EDT procedure are i n the results section. POCT GLUCOSE Routine 04/03/2016 8:32 PM Results f or this EDT procedure are i n the results section. POCT GLUCOSE Routine 04/03/2016 3:28 PM Results f or this EDT procedure are i n the results section. POCT GLUCOSE Routine 04/03/2016 12:12 Results for this PM EDT procedure are i n the results section. IR OTHER RELATED Routine 04/03/2016 12:08 Results for this PROCEDURES PM EDT procedure are i n the results section. POCT GLUCOSE Routine 04/03/2016 8:29 AM Results f or this EDT procedure are i n the results section. POTASSIUM Routine 04/03/2016 5:34 AM Results f or this EDT procedure are i n the results section. POCT GLUCOSE Routine 04/03/2016 5:27 AM Results f or this EDT procedure are i n the results section. POCT GLUCOSE Routine 04/03/2016 3:58 AM Results f or this EDT procedure are i n the results section. POCT GLUCOSE Routine 04/03/2016 3:38 AM Results f or this EDT procedure are i n the results section. POCT GLUCOSE Routine 04/02/2016 11:25 Results for this PM EDT procedure are i n the results section. POCT GLUCOSE Routine 04/02/2016 8:16 PM Results f or this EDT procedure are i n the results section. POCT GLUCOSE Routine 04/02/2016 4:15 PM Results f or this EDT procedure are i n the results section. POCT GLUCOSE Routine 04/02/2016 11:47 Results for this AM EDT procedure are i n the results section. POCT GLUCOSE Routine 04/02/2016 7:41 AM Results f or this EDT procedure are i n the results section. XR CHEST PA AND Routine 04/02/2016 7:39 AM Result s for this LATERAL EDT procedure are i n the results section. POCT GLUCOSE Routine 04/02/2016 3:49 AM Results f or this EDT procedure are i n the results section. HEMOGRAM Routine 04/02/2016 3:26 AM Results f or this EDT procedure are i n the results section. DIFFERENTIAL, Routine 04/02/2016 3:26 AM Results for this AUTOMATED EDT procedure are i n the results section. CBC (WITH DIFF) Routine 04/02/2016 3:26 AM EDT BASIC METABOLIC PANEL Routine 04/02/2016 3:26 AM Results for this (NON-FASTING) EDT procedure are in the results section. POCT GLUCOSE Routine 04/01/2016 11:22 Results for this PM EDT procedure are i n the results section. POCT GLUCOSE Routine 04/01/2016 8:04 PM Results f or this EDT procedure are i n the results section. POCT GLUCOSE Routine 04/01/2016 3:43 PM Results f or this EDT procedure are i n the results section. POCT GLUCOSE Routine 04/01/2016 2:34 PM Results f or this EDT procedure are i n the results section. POCT GLUCOSE Routine 04/01/2016 1:36 PM Results f or this EDT procedure are i n the results section. POCT GLUCOSE Routine 04/01/2016 12:38 Results for this PM EDT procedure are i n the results section. POCT GLUCOSE Routine 04/01/2016 11:33 Results for this AM EDT procedure are i n the results section. POCT GLUCOSE Routine 04/01/2016 10:33 Results for this AM EDT procedure are i n the results section. POCT GLUCOSE Routine 04/01/2016 9:36 AM Results f or this EDT procedure are i n the results section. POCT GLUCOSE Routine 04/01/2016 8:36 AM Results f or this EDT procedure are i n the results section. POCT GLUCOSE Routine 04/01/2016 7:25 AM Results f or this EDT procedure are i n the results section. POCT GLUCOSE Routine 04/01/2016 6:28 AM Results f or this EDT procedure are i n the results section. POCT GLUCOSE Routine 04/01/2016 5:29 AM Results f or this EDT procedure are i n the results section. POCT GLUCOSE Routine 04/01/2016 4:31 AM Results f or this EDT procedure are i n the results section. POCT GLUCOSE Routine 04/01/2016 3:33 AM Results f or this EDT procedure are i n the results section. POCT GLUCOSE Routine 04/01/2016 2:28 AM Results f or this EDT procedure are i n the results section. POCT GLUCOSE Routine 04/01/2016 1:34 AM Results f or this EDT procedure are i n the results section. POCT GLUCOSE Routine 04/01/2016 12:45 Results for this AM EDT procedure are i n the results section. POCT GLUCOSE Routine 03/31/2016 11:28 Results for this PM EDT procedure are i n the results section. POCT GLUCOSE Routine 03/31/2016 10:37 Results for this PM EDT procedure are i n the results section. POCT GLUCOSE Routine 03/31/2016 9:23 PM Results f or this EDT procedure are i n the results section. POCT GLUCOSE Routine 03/31/2016 8:09 PM Results f or this EDT procedure are i n the results section. POCT GLUCOSE Routine 03/31/2016 6:18 PM Results f or this EDT procedure are i n the results section. POCT GLUCOSE Routine 03/31/2016 5:29 PM Results f or this EDT procedure are i n the results section. POCT GLUCOSE Routine 03/31/2016 4:07 PM Results f or this EDT procedure are i n the results section. POCT GLUCOSE Routine 03/31/2016 2:42 PM Results f or this EDT procedure are i n the results section. POCT GLUCOSE Routine 03/31/2016 12:24 Results for this PM EDT procedure are i n the results section. POCT GLUCOSE Routine 03/31/2016 10:28 Results for this AM EDT procedure are i n the results section. POCT GLUCOSE Routine 03/31/2016 8:06 AM Results f or this EDT procedure are i n the results section. POCT GLUCOSE Routine 03/31/2016 7:03 AM Results f or this EDT procedure are i n the results section. POCT GLUCOSE Routine 03/31/2016 5:43 AM Results f or this EDT procedure are i n the results section. EXTUBATE Routine 03/31/2016 5:03 AM EDT BLOOD GAS 2 ARTERIAL Routine 03/31/2016 4:53 AM R esults for this EDT procedure are i n the results section. POCT GLUCOSE Routine 03/31/2016 3:41 AM Results f or this EDT procedure are i n the results section. HEMOGRAM Routine 03/31/2016 3:40 AM Results f or this EDT procedure are i n the results section. DIFFERENTIAL, Routine 03/31/2016 3:40 AM Results for this AUTOMATED EDT procedure are i n the results section. CARDIAC ENZYMES Routine 03/31/2016 3:40 AM Result s for this ([facility] [place] EDT procedure are i n the results section. CREATININE Routine 03/31/2016 3:40 AM Results f or this EDT procedure are i n the results section. CBC (WITH DIFF) Routine 03/31/2016 3:40 AM EDT BUN Routine 03/31/2016 3:40 AM Results f or this EDT procedure are i n the results section. POTASSIUM Routine 03/31/2016 3:40 AM Results f or this EDT procedure are i n the results section. HEMOGLOBIN A1C Routine 03/31/2016 3:40 AM Results for this EDT procedure are i n the results section. GLUCOSE, FASTING Routine 03/31/2016 3:40 AM Resul ts for this EDT procedure are i n the results section. BLOOD GAS 2 ARTERIAL Routine 03/31/2016 3:01 AM R esults for this EDT procedure are i n the results section. POCT GLUCOSE Routine 03/31/2016 2:59 AM Results f or this EDT procedure are i n the results section. POCT GLUCOSE Routine 03/31/2016 2:01 AM Results f or this EDT procedure are i n the results section. POCT GLUCOSE Routine 03/31/2016 1:15 AM Results f or this EDT procedure are i n the results section. BLOOD GAS 2 VENOUS Routine 03/31/2016 12:33 Resul ts for this AM EDT procedure are i n the results section. POCT GLUCOSE Routine 03/31/2016 12:08 Results for this AM EDT procedure are i n the results section. BLOOD GAS 2 ARTERIAL Routine 03/31/2016 12:04 Res ults for this AM EDT procedure are i n the results section. POCT GLUCOSE Routine 03/30/2016 11:04 Results for this PM EDT procedure are i n the results section. HEMOGLOBIN Routine 03/30/2016 11:00 Results for this PM EDT procedure are i n the results section. POTASSIUM Routine 03/30/2016 11:00 Results for this PM EDT procedure are i n the results section. POCT GLUCOSE Routine 03/30/2016 9:57 PM Results f or this EDT procedure are i n the results section. BLOOD GAS 2 ARTERIAL Routine 03/30/2016 9:53 PM R esults for this EDT procedure are i n the results section. POCT GLUCOSE Routine 03/30/2016 9:23 PM Results f or this EDT procedure are i n the results section. POCT GLUCOSE Routine 03/30/2016 8:08 PM Results f or this EDT procedure are i n the results section. EKG 12-LEAD STAT 03/30/2016 7:03 PM S/P CABG x 3 Results f or this EDT procedure are i n the results section. XR CHEST ONE VIEW STAT 03/30/2016 6:39 PM Resu lts for this EDT procedure are i n the results section. BLOOD GAS 2 ARTERIAL Routine 03/30/2016 6:31 PM R esults for this EDT procedure are i n the results section. BLOOD GAS 2 ARTERIAL Routine 03/30/2016 5:11 PM R esults for this EDT procedure are i n the results section. HEMOGRAM STAT 03/30/2016 5:10 PM Results f or this EDT procedure are i n the results section. APTT STAT 03/30/2016 5:10 PM Results f or this EDT procedure are i n the results section. PROTHROMBIN TIME STAT 03/30/2016 5:10 PM Resul ts for this EDT procedure are i n the results section. FIBRINOGEN STAT 03/30/2016 5:10 PM Results f or this EDT procedure are i n the results section. ANTITHROMBIN STAT 03/30/2016 5:10 PM Results f or this EDT procedure are i n the results section. BLOOD GAS 2 ARTERIAL Routine 03/30/2016 4:31 PM R esults for this EDT procedure are i n the results section. @CABG,TWO VENOUS Routine 03/30/2016 4:13 PM Coronary artery GRAFTS & ARTERIAL EDT disease, angina GRAFT presence unspecified, unspecified vessel or lesion type, unspecified whether teller or transplanted heart FIBRINOGEN STAT 03/30/2016 4:10 PM Results f or this EDT procedure are i n the results section. PLATELET COUNT STAT 03/30/2016 4:10 PM Results for this EDT procedure are i n the results section. BLOOD GAS 2 ARTERIAL Routine 03/30/2016 3:50 PM R esults for this EDT procedure are i n the results section. BLOOD GAS 2 ARTERIAL Routine 03/30/2016 3:17 PM R esults for this EDT procedure are i n the results section. BLOOD GAS 2 ARTERIAL Routine 03/30/2016 2:12 PM R esults for this EDT procedure are i n the results section. ENDOSCOPIC HARVEST 03/30/2016 1:30 PM Coronary artery VEIN(S) FOR CABG EDT disease, angina (WRVU 0.31) presence unspecified, unspecified vessel or lesion type, unspecified whether teller or transplanted heart @CABG, USING ARTERIAL 03/30/2016 1:30 PM Coronary matilde ry GRAFT;SINGLE ARTERIAL EDT disease, angina GRAFT (WRVU 33.75) presence unspecified, unspecified vessel or lesion type, unspecified whether teller or transplanted heart @CABG, TWO VENOUS 03/30/2016 1:30 PM Coronary artery GRAFTS & ARTERIAL EDT disease, angina GRAFT (WRVU 7.93) presence unspecified, unspecified vessel or lesion type, unspecified whether teller or transplanted heart PREPARE RBC STAT 03/30/2016 1:10 PM Results f or this EDT procedure are i n the results section. POCT GLUCOSE Routine 03/30/2016 11:48 Results for this AM EDT procedure are i n the results section. documented in this encounter Results EKG 12 [...] 463 ms MUSE SYSTEM (Bezet) Calculated P [place] 54 degrees MUSE SYSTEM Calculated R [place] -16 degrees MUSE SYSTEM Calculated T [place] 125 degrees MUSE SYSTEM INTERPRETATION Normal sinus [...] PM 6 3:18 EDT PM EDT Narayan Washington MD ECG ORDERABLES Performing Organization Address City/State/ZIP Code Phon e Number MUSE SYSTEM XR Chest PA & Lateral (Generic) (05/26/2016 [...] interpretation and agree with the findings, Tete alvarez t 05/26/2016 2:44 PM Narayan Washington MD IMG DX ORDERABLES SCAN DOC: ASSISTANT MANAGER AIRSIDE OPERATIONS (04/05/2016 12:00 AM EDT) Narrative This result has an attachment that is no t available. Scanning Provider MEDIA MGR SCAN EXT ORDR/RSLT SCAN DOC: LAB (04/05/2016 12:00 AM EDT) Narrative This result has an attachment that is no t available. Scanning Provider MEDIA MGR SCAN EXT ORDR/RSLT POCT Glucose (04/04/2016 12:11 PM EDT) athologist Signature POC Glucose 148 65 - 199 [facility] mg/dL [facility] Comment: Supplemental ranges: <140 mg/dL before meals <180 mg/dL all other times of the day Specimen Anatomical Collection Method Collection Time Receive d Time (Source) Location / / Volume Laterality Blood specimen 04/04/2016 12:11 6 (specimen) PM EDT 12:11 PM EDT Narayan Washington MD POINT OF CARE TEST ORDERABLE S Performing Organization Address City/State/ZIP Code Phon e Number [address] POCT Glucose (04/04/2016 7:32 AM EDT) athologist Signature POC Glucose 96 65 - 199 [facility] mg/dL [facility] Comment: Supplemental ranges: <140 mg/dL before meals <180 mg/dL all other times of the day Specimen Anatomical Collection Method Collection Time Receive d Time (Source) Location / / Volume Laterality Blood specimen 04/04/2016 7:32 AM 016 7:32 (specimen) EDT AM EDT Narayan Washington MD POINT OF CARE TEST ORDERABLE S Performing Organization Address City/State/ZIP Code Phon e Number [address] Potassium (04/04/2016 5:32 AM EDT) athologist Signature Potassium 3.6 3.5 - 5.0 [facility] mmol/L [facility] Comment: Please note: ??Patients with WBC >100,00 0 may have falsely elevated Potassium levels. ??For accurate Potassium quantif ication in these patients send serum separator tube (gold top) for subsequent determinations. ??Contact the Clinical Chemistry Laboratory if there are any qu estions. Specimen Anatomical Collection Method Collection Time Receive d Time (Source) Location / / Volume Laterality Blood specimen 04/04/2016 5:32 AM 016 5:52 (specimen) EDT AM EDT Resulting Agency Comment Spec In Lab Narayan Washington MD CHEMISTRY ORDERABLES Performing Organization Address City/State/ZIP Code Phon e Number [address] POCT Glucose (04/04/2016 5:16 AM EDT) athologist Signature POC Glucose 82 65 - 199 [facility] mg/dL [facility] Comment: Supplemental ranges: <140 mg/dL before meals <180 mg/dL all other times of the day Specimen Anatomical Collection Method Collection Time Receive d Time (Source) Location / / Volume Laterality Blood specimen 04/04/2016 5:16 AM 016 5:16 (specimen) EDT AM EDT Narayan Washington MD POINT OF CARE TEST ORDERABLE S Performing Organization Address City/State/[place] [address] POCT Glucose (04/03/2016 11:23 PM EDT) athologist Signature POC Glucose 149 65 - 199 [place] mg/dL [facility] Comment: Supplemental ranges: <140 mg/dL before meals <180 mg/dL all other times of the day Specimen Anatomical Collection Method Collection Time Receive d Time (Source) Location / / Volume Laterality Blood specimen 04/03/2016 11:23 6 (specimen) PM EDT 11:23 PM EDT Narayan Washington MD POINT OF CARE TEST ORDERABLE S Performing Organization Address City/State/[place] [address] POCT Glucose (04/03/2016 8:32 PM EDT) athologist Signature POC Glucose 180 65 - 199 [place] mg/dL [facility] Comment: Supplemental ranges: <140 mg/dL before meals <180 mg/dL all other times of the day Specimen Anatomical Collection Method Collection Time Receive d Time (Source) Location / / Volume Laterality Blood specimen 04/03/2016 8:32 PM 016 8:32 (specimen) EDT PM EDT Narayan Washington MD POINT OF CARE TEST ORDERABLE S Performing Organization Address City/State/[place] [address] POCT Glucose (04/03/2016 3:28 PM EDT) athologist Signature POC Glucose 100 65 - 199 [place] mg/dL [facility] Comment: Supplemental ranges: <140 mg/dL before meals <180 mg/dL all other times of the day Specimen Anatomical Collection Method Collection Time Receive d Time (Source) Location / / Volume Laterality Blood specimen 04/03/2016 3:28 PM 016 3:28 (specimen) EDT PM EDT Narayan Washington MD POINT OF CARE TEST ORDERABLE S Performing Organization Address City/State/ZIP Code Phon e Number [address] POCT Glucose (04/03/2016 12:12 PM EDT) athologist Signature POC Glucose 92 65 - 199 [facility] Comment: Supplemental ranges: <140 mg/dL before meals <180 mg/dL all other times of the day Specimen Anatomical Collection Method Collection Time Receive d Time (Source) Location / / Volume Laterality Blood specimen 04/03/2016 12:12 6 (specimen) PM EDT 12:12 PM EDT Narayan Washington MD POINT OF CARE TEST ORDERABLE S Performing Organization Address City/[facility] [address]/[place] [address] IR other related procedures (04/03/2016 12:08 PM EDT) Anatomical Region Laterality Modality X-Ray Angiography Specimen (Source) Anatomical Location Collection Method / Collectio n Time Received Time / Laterality Volume Narrative 04/03/2016 4:19 PM EDT VIR NOTE Study: Left chest US evaluation Indication: Left pleural fluid, ongoing O2 requirement Findings: US evaluation of the left ches t demonstrated small amount of pleural fluid. Impression: Small volume of left pleural fluid. Discussed with Casandra Geller, no chest tube placed given small volume of fluid. Fellow: Bari Calvo MD(pager#[phone] ) I, Dr. Rosales, was NOT present throughou t the procedure. Narayan Washington MD IMG IR ORDERABLES POCT Glucose (04/03/2016 8:29 AM EDT) athologist Signature POC Glucose 90 65 - 199 [facility] Comment: Supplemental ranges: <140 mg/dL before meals <180 mg/dL all other times of the day Specimen Anatomical Collection Method Collection Time Receive d Time (Source) Location / / Volume Laterality Blood specimen 04/03/2016 8:29 AM 016 8:29 (specimen) EDT AM EDT Narayan Washington MD POINT OF CARE TEST ORDERABLE S Performing Organization Address City/[facility] [address]/[place] [address] (ABNORMAL) Potassium (04/03/2016 5:34 AM EDT) athologist Signature Potassium 3.3 (L) 3.5 - 5.0 [facility] mmol/L [facility] Comment: Please note: ??Patients with WBC >100,00 0 may have falsely elevated Potassium levels. ??For accurate Potassium quantif ication in these patients send serum separator tube (gold top) for subsequent determinations. ??Contact the Clinical Chemistry Laboratory if there are any qu estions. Specimen Anatomical Collection Method Collection Time Receive d Time (Source) Location / / Volume Laterality Blood specimen 04/03/2016 5:34 AM 016 5:49 (specimen) EDT AM EDT Resulting Agency Comment Spec In Lab Narayan Washington MD CHEMISTRY ORDERABLES Performing Organization Address City/[facility] [address]/[place] [address] POCT Glucose (04/03/2016 5:27 AM EDT) athologist Signature POC Glucose 108 65 - 199 [facility] mg/dL [facility] Comment: Supplemental ranges: <140 mg/dL before meals <180 mg/dL all other times of the day Specimen Anatomical Collection Method Collection Time Receive d Time (Source) Location / / Volume Laterality Blood specimen 04/03/2016 5:27 AM 016 5:27 (specimen) EDT AM EDT Narayan Washington MD POINT OF CARE TEST ORDERABLE S Performing Organization Address City/[facility] [address]/[place] [address] POCT Glucose (04/03/2016 3:58 AM EDT) athologist Signature POC Glucose 72 65 - 199 [facility] mg/dL [facility] Comment: Supplemental ranges: <140 mg/dL before meals <180 mg/dL all other times of the day Specimen Anatomical Collection Method Collection Time Receive d Time (Source) Location / / Volume Laterality Blood specimen 04/03/2016 3:58 AM 016 3:58 (specimen) EDT AM EDT Narayan Washington MD POINT OF CARE TEST ORDERABLE S Performing Organization Address City/State/[place] [address] [facility] [facility] Drive (ABNORMAL) POCT Glucose (04/03/2016 3:38 AM EDT) athologist Signature POC Glucose 55 (L) 65 - 199 [place] CAROL mg/dL [facility] Comment: Supplemental ranges: <140 mg/dL before meals <180 mg/dL all other times of the day Specimen Anatomical Collection Method Collection Time Receive d Time (Source) Location / / Volume Laterality Blood specimen 04/03/2016 3:38 AM 016 3:38 (specimen) EDT AM EDT Narayan Washington MD POINT OF CARE TEST ORDERABLE S Performing Organization Address City/State/[place] [address] POCT Glucose (04/02/2016 11:25 PM EDT) athologist Signature POC Glucose 85 65 - 199 [place] CAROL mg/dL [facility] Comment: Supplemental ranges: <140 mg/dL before meals <180 mg/dL all other times of the day Specimen Anatomical Collection Method Collection Time Receive d Time (Source) Location / / Volume Laterality Blood specimen 04/02/2016 11:25 6 (specimen) PM EDT 11:25 PM EDT Narayan Washington MD POINT OF CARE TEST ORDERABLE S Performing Organization Address City/State/[place] [address] POCT Glucose (04/02/2016 8:16 PM EDT) athologist Signature POC Glucose 129 65 - 199 [place] CAROL mg/dL [facility] Comment: Supplemental ranges: <140 mg/dL before meals <180 mg/dL all other times of the day Specimen Anatomical Collection Method Collection Time Receive d Time (Source) Location / / Volume Laterality Blood specimen 04/02/2016 8:16 PM 016 8:16 (specimen) EDT PM EDT Narayan Washington MD POINT OF CARE TEST ORDERABLE S Performing Organization Address City/State/ZIP Code Phon e Number [address] POCT Glucose (04/02/2016 4:15 PM EDT) athologist Signature POC Glucose 81 65 - 199 [place] CAROL mg/dL [facility] Comment: Supplemental ranges: <140 mg/dL before meals <180 mg/dL all other times of the day Specimen Anatomical Collection Method Collection Time Receive d Time (Source) Location / / Volume Laterality Blood specimen 04/02/2016 4:15 PM 016 4:15 (specimen) EDT PM EDT Narayan Washington MD POINT OF CARE TEST ORDERABLE S Performing Organization Address City/State/[place] [address] POCT Glucose (04/02/2016 11:47 AM EDT) athologist Signature POC Glucose 113 65 - 199 GE[place] ZAVALACAROL mg/dL [facility] Comment: Supplemental ranges: <140 mg/dL before meals <180 mg/dL all other times of the day Specimen Anatomical Collection Method Collection Time Receive d Time (Source) Location / / Volume Laterality Blood specimen 04/02/2016 11:47 6 (specimen) AM EDT 11:47 AM EDT Narayan Washington MD POINT OF CARE TEST ORDERABLE S Performing Organization Address City/State/[place] [address] POCT Glucose (04/02/2016 7:41 AM EDT) athologist Signature POC Glucose 91 65 - 199 GE[place] ZAVALACAROL mg/dL [facility] Comment: Supplemental ranges: <140 mg/dL before meals <180 mg/dL all other times of the day Specimen Anatomical Collection Method Collection Time Receive d Time (Source) Location / / Volume Laterality Blood specimen 04/02/2016 7:41 AM 016 7:41 (specimen) EDT AM EDT Narayan Washington MD POINT OF CARE TEST ORDERABLE S Performing Organization Address City/State/ZIP Code Phon e Number [place] [id number] XR Chest PA & Lateral (Generic) (04/02/2016 7:39 AM EDT) Anatomical Region Laterality Modality Chest N/A Digital Radiography Specimen (Source) Anatomical Location Collection Method / Collectio n Time Received Time / Laterality Volume Impressions 04/02/2016 7:45 AM EDT Persistent cardiac and mediastinal enlargement. Bilateral pleural effusions left greater than right. Central pulmonary va scular congestion and subsegmental atelectasis. No pneumothorax Narrative 04/02/2016 7:45 AM EDT EXAMINATION: XR CHEST ROUTINE PA AND LATERAL CLINICAL HISTORY: s/p cabg x 3 TECHNIQUE: PA and lateral chest COMPARISON: 03/26 and 03/30/2016. FINDINGS: Median sternotomy wires are intact. Comp ared to previous epicardial pacing wires and support tubes and lines been removed . Patient extubated. There remains cardiac and mediastinal enlargement. Pro minence of the right descending aortic segment and right atrium. Moderate-sized left pleural effusion and small to moderate right pleural effusion with flu id tracking in the minor fissure. Mild central pulmonary vascular congestion. Procedure Note Fidelia Dixon MD - 04/02/2016Forma tting of this note might be different from the original. EXAMINATION: XR CHEST ROUTINE PA AND LAT ERAL CLINICAL HISTORY: s/p cabg x 3 TECHNIQUE: PA and lateral chest COMPARISON: 03/26 and 03/30/2016. FINDINGS: Median sternotomy wires are intact. Comp ared to previous epicardial pacing wires and support tubes and lines been removed . Patient extubated. There remains cardiac and mediastinal enlargement. Pro minence of the right descending aortic segment and right atrium. Moderate-sized left pleural effusion and small to moderate right pleural effusion with flu id tracking in the minor fissure. Mild central pulmonary vascular congestion. IMPRESSION Persistent cardiac and mediastinal enlar gement. Bilateral pleural effusions left greater than right. Central pulmonary va scular congestion and subsegmental atelectasis. No pneumothorax Narayan Washington MD IMG DX ORDERABLES POCT Glucose (04/02/2016 3:49 AM EDT) P athologist Signature POC Glucose 88 65 - 199 [facility] mg/dL [facility] Comment: Supplemental ranges: <140 mg/dL before meals <180 mg/dL all other times of the day Specimen Anatomical Collection Method Collection Time Receive d Time (Source) Location / / Volume Laterality Blood specimen 04/02/2016 3:49 AM 016 3:49 (specimen) EDT AM EDT Narayan Washington MD POINT OF CARE TEST ORDERABLE S Performing Organization Address City/State/[place] [address] (ABNORMAL) Differential, Automated (04/02/2016 3:26 AM EDT) Patholo gist Method Time Signature Neutrophils % 84.0 % [facility] Neutr Abs (ANC) 11.20 (H) 1.50 - [facility] 6.30 [facility] x10(3)/[facility] L LABORATORY Lymphocytes % 6.1 % [facility] Lymphocytes Abs 0.8 (L) 1.0 - 3.6 [facility] x10(3)/[facility] LABORATORY Monocytes % 9.5 % [facility] Monocyte Abs 1.3 (H) 0.2 - 1.0 [facility] x10(3)/[facility] LABORATORY Eosinophils % 0.0 % [facility] Eosinophils Abs 0.0 0.0 - 0.5 [facility] x10(3)/[facility] LABORATORY Basophils % 0.1 % [facility] Basophils Abs 0.0 0.0 - 0.2 [facility] x10(3)/[facility] LABORATORY Immature Gran % 0.30 % [facility] Comment: Immature granulocytes(IG's)percentage an d absolute count will include metamyelocytes, myelocytes, and promyelo cytes. Blood smears from CBCs yielding IG's will be scanned manually for concor dance. If this scan disagrees with the automated IG or if promyelocytes are not ed, a manual differential will be performed. Chandni Gran Abs 0.04 0.00 - 0.05 x10(3)/[facility] MAR Y [facility] Specimen Anatomical Collection Method Collection Time Receive d Time (Source) Location / / Volume Laterality Blood specimen 04/02/2016 3:26 AM 016 4:02 (specimen) EDT AM EDT Resulting Agency Comment Spec In Lab Narayan Washington MD HEMATOLOGY ORDERABLES Performing Organization Address City/State/[place] [address] (ABNORMAL) Hemogram (04/02/2016 3:26 AM EDT) athologist Signature WBC 13.3 (H) 4.0 - 10.0 [facility]ATORY RBC 3.67 (L) 3.93 - [facility] 5.22 [facility] x10(6)/[facility] LABORATORY Hemoglobin 10.3 (L) 11.2 - [facility] 15.7 gm/dL [facility] Hematocrit 33.2 (L) 34.0 - [facility] 45.0 % [facility] MCV 90.5 79.0 - [facility] 94.0 [facility] LABORATORY MCH 28.1 26.6 - [facility] 32.2 pg [facility] MCHC 31.0 (L) 32.0 - [facility] 36.5 gm/dL [facility] Platelets 152 145 - 370 [facility] x10(3)/[facility] LABORATORY RDWSD 47.3 (H) 35.0 - [facility] 46.0 [facility] LABORATORY RDWCV 14.4 10.9 - [facility] CAROL 14.4 % [facility] MPV 11.8 9.0 - 12.0 [facility] Specimen Anatomical Collection Method Collection Time Receive d Time (Source) Location / / Volume Laterality Blood specimen 04/02/2016 3:26 AM 016 4:02 (specimen) EDT AM EDT Resulting Agency Comment Spec In Lab Narayan Washington MD HEMATOLOGY ORDERABLES Performing Organization Address City/[facility] [address]/[place] [address] (ABNORMAL) Basic Metabolic Panel (non-fasting) (04/02/2016 3:26 AM EDT) P athologist Signature Glucose Lvl 92 65 - 199 [facility] mg/dL [facility] Comment: Diabetes: >=200 mg/dL plus symp toms BUN 21 (H) 8 - 18 mg/dL [facility] Creatinine 1.25 (H) 0.70 - 1.20 mg/dL [facility] Comment: Please note that the pediatric reference intervals supplied above were not validated at [facility] [place]. Results from pediatri c patients should be interpreted in conjunction to the patient's age, height and muscle mass. Sodium 142 135 - 145 mmol/L [facility] Potassium 3.5 3.5 - 5.0 mmol/L [facility] Comment: result rechecked-[id number] Please note: ??Patients with WBC >100,00 0 may have falsely elevated Potassium levels. ??For accurate Potassium quantif ication in these patients send serum separator tube (gold top) for subsequent determinations. ??Contact the Clinical Chemistry Laboratory if there are any qu estions. Chloride 98 98 - 107 mmol/L [facility] CO2 33 (H) 22 - 31 mmol/L [facility] Anion Gap 11 5 - 15 mmol/L [facility] Calcium 8.2 (L) 8.5 - 10.5 mg/dL [facility] Estimated GFR 44 (L) >=60 [facility] Comment: This estimated GFR (eGFR) value was calc ulated using the MDRD equation which has been validated on patients between t he ages of 18 and 70. The MDRD should not be used to assess kidney function in patients < 18 years of age or in patients with extremes of body mass, or in patients with acute kidney failure. This value should be multiplied by 1.2 f or patients. For further information please copy and past e the following links into your internet browser. [email or web address] [email or web address] Specimen Anatomical Collection Method Collection Time Receive d Time (Source) Location / / Volume Laterality Blood specimen 04/02/2016 3:26 AM 016 4:02 (specimen) EDT AM EDT Resulting Agency Comment Spec In Lab Narayan Washington MD CHEMISTRY ORDERABLES Performing Organization Address City/State/ZIP Code Phon e Number [address] POCT Glucose (04/01/2016 11:22 PM EDT) athologist Signature POC Glucose 96 65 - 199 [place] CAROL mg/dL [facility] Comment: Supplemental ranges: <140 mg/dL before meals <180 mg/dL all other times of the day Specimen Anatomical Collection Method Collection Time Receive d Time (Source) Location / / Volume Laterality Blood specimen 04/01/2016 11:22 6 (specimen) PM EDT 11:22 PM EDT Narayan Washington MD POINT OF CARE TEST ORDERABLE S Performing Organization Address City/[facility] [address]/ZIP Code Phon e Number [address] POCT Glucose (04/01/2016 8:04 PM EDT) athologist Signature POC Glucose 87 65 - 199 [facility] mg/dL [facility] Comment: Supplemental ranges: <140 mg/dL before meals <180 mg/dL all other times of the day Specimen Anatomical Collection Method Collection Time Receive d Time (Source) Location / / Volume Laterality Blood specimen 04/01/2016 8:04 PM 016 8:04 (specimen) EDT PM EDT aNrayan Washington MD POINT OF CARE TEST ORDERABLE S Performing Organization Address City/State/ZIP Code Phon e Number [address] POCT Glucose (04/01/2016 3:43 PM EDT) athologist Signature POC Glucose 179 65 - 199 [place] CAROL mg/dL [facility] Comment: Supplemental ranges: <140 mg/dL before meals <180 mg/dL all other times of the day Specimen Anatomical Collection Method Collection Time Receive d Time (Source) Location / / Volume Laterality Blood specimen 04/01/2016 3:43 PM 016 3:43 (specimen) EDT PM EDT Narayan Washington MD POINT OF CARE TEST ORDERABLE S Performing Organization Address City/State/[place] [address] POCT Glucose (04/01/2016 2:34 PM EDT) athologist Signature POC Glucose 192 65 - 199 [place] CAROL mg/dL [facility] Comment: Supplemental ranges: <140 mg/dL before meals <180 mg/dL all other times of the day Specimen Anatomical Collection Method Collection Time Receive d Time (Source) Location / / Volume Laterality Blood specimen 04/01/2016 2:34 PM 016 2:34 (specimen) EDT PM EDT Narayan Washington MD POINT OF CARE TEST ORDERABLE S Performing Organization Address City/State/[place] [address] (ABNORMAL) POCT Glucose (04/01/2016 1:36 PM EDT) athologist Signature POC Glucose 205 (H) 65 - 199 [place] CAROL mg/dL [facility] Comment: Supplemental ranges: <140 mg/dL before meals <180 mg/dL all other times of the day Specimen Anatomical Collection Method Collection Time Receive d Time (Source) Location / / Volume Laterality Blood specimen 04/01/2016 1:36 PM 016 1:36 (specimen) EDT PM EDT Narayan Washington MD POINT OF CARE TEST ORDERABLE S Performing Organization Address City/State/[place] [address] (ABNORMAL) POCT Glucose (04/01/2016 12:38 PM EDT) athologist Signature POC Glucose 210 (H) 65 - 199 [place] CAROL mg/dL [facility] Comment: Supplemental ranges: <140 mg/dL before meals <180 mg/dL all other times of the day Specimen Anatomical Collection Method Collection Time Receive d Time (Source) Location / / Volume Laterality Blood specimen 04/01/2016 12:38 6 (specimen) PM EDT 12:38 PM EDT Narayan Washington MD POINT OF CARE TEST ORDERABLE S Performing Organization Address City/State/[place] [address] (ABNORMAL) POCT Glucose (04/01/2016 11:33 AM EDT) P athologist Signature POC Glucose 214 (H) 65 - 199 [place] CAROL mg/dL [facility] Comment: Supplemental ranges: <140 mg/dL before meals <180 mg/dL all other times of the day Specimen Anatomical Collection Method Collection Time Receive d Time (Source) Location / / Volume Laterality Blood specimen 04/01/2016 11:33 6 (specimen) AM EDT 11:33 AM EDT Narayan Washington MD POINT OF CARE TEST ORDERABLE S Performing Organization Address City/State/[place] [address] (ABNORMAL) POCT Glucose (04/01/2016 10:33 AM EDT) P athologist Signature POC Glucose 220 (H) 65 - 199 [place] CAROL mg/dL [facility] Comment: Supplemental ranges: <140 mg/dL before meals <180 mg/dL all other times of the day Specimen Anatomical Collection Method Collection Time Receive d Time (Source) Location / / Volume Laterality Blood specimen 04/01/2016 10:33 6 (specimen) AM EDT 10:33 AM EDT Narayan Washington MD POINT OF CARE TEST ORDERABLE S Performing Organization Address City/State/[place] [address] (ABNORMAL) POCT Glucose (04/01/2016 9:36 AM EDT) P athologist Signature POC Glucose 213 (H) 65 - 199 [place] CAROL mg/dL [facility] Comment: Supplemental ranges: <140 mg/dL before meals <180 mg/dL all other times of the day Specimen Anatomical Collection Method Collection Time Receive d Time (Source) Location / / Volume Laterality Blood specimen 04/01/2016 9:36 AM 016 9:36 (specimen) EDT AM EDT Narayan Washington MD POINT OF CARE TEST ORDERABLE S Performing Organization Address City/State/ZIP Code Phon e Number [address] POCT Glucose (04/01/2016 8:36 AM EDT) athologist Signature POC Glucose 148 65 - 199 [place] CAROL mg/dL [facility] Comment: Supplemental ranges: <140 mg/dL before meals <180 mg/dL all other times of the day Specimen Anatomical Collection Method Collection Time Receive d Time (Source) Location / / Volume Laterality Blood specimen 04/01/2016 8:36 AM 016 8:36 (specimen) EDT AM EDT Narayan Washington MD POINT OF CARE TEST ORDERABLE S Performing Organization Address City/State/ZIP Code Phon e Number [address] POCT Glucose (04/01/2016 7:25 AM EDT) athologist Signature POC Glucose 152 65 - 199 [place] CAROL mg/dL [facility] Comment: Supplemental ranges: <140 mg/dL before meals <180 mg/dL all other times of the day Specimen Anatomical Collection Method Collection Time Receive d Time (Source) Location / / Volume Laterality Blood specimen 04/01/2016 7:25 AM 016 7:25 (specimen) EDT AM EDT Narayan Washington MD POINT OF CARE TEST ORDERABLE S Performing Organization Address City/State/ZIP Code Phon e Number [address] POCT Glucose (04/01/2016 6:28 AM EDT) athologist Signature POC Glucose 140 65 - 199 [facility] mg/dL [facility] Comment: Supplemental ranges: <140 mg/dL before meals <180 mg/dL all other times of the day Specimen Anatomical Collection Method Collection Time Receive d Time (Source) Location / / Volume Laterality Blood specimen 04/01/2016 6:28 AM 016 6:28 (specimen) EDT AM EDT Narayan Washington MD POINT OF CARE TEST ORDERABLE S Performing Organization Address City/State/ZIP Code Phon e Number [address] POCT Glucose (04/01/2016 5:29 AM EDT) athologist Signature POC Glucose 136 65 - 199 [place] CAROL mg/dL [facility] Comment: Supplemental ranges: <140 mg/dL before meals <180 mg/dL all other times of the day Specimen Anatomical Collection Method Collection Time Receive d Time (Source) Location / / Volume Laterality Blood specimen 04/01/2016 5:29 AM 016 5:29 (specimen) EDT AM EDT Narayan Washington MD POINT OF CARE TEST ORDERABLE S Performing Organization Address City/State/ZIP Code Phon e Number [address] POCT Glucose (04/01/2016 4:31 AM EDT) athologist Signature POC Glucose 124 65 - 199 [place] CAROL mg/dL [facility] Comment: Supplemental ranges: <140 mg/dL before meals <180 mg/dL all other times of the day Specimen Anatomical Collection Method Collection Time Receive d Time (Source) Location / / Volume Laterality Blood specimen 04/01/2016 4:31 AM 016 4:31 (specimen) EDT AM EDT Narayan Washington MD POINT OF CARE TEST ORDERABLE S Performing Organization Address City/State/ZIP Code Phon e Number [address] POCT Glucose (04/01/2016 3:33 AM EDT) athologist Signature POC Glucose 142 65 - 199 [place] CAROL mg/dL [facility] Comment: Supplemental ranges: <140 mg/dL before meals <180 mg/dL all other times of the day Specimen Anatomical Collection Method Collection Time Receive d Time (Source) Location / / Volume Laterality Blood specimen 04/01/2016 3:33 AM 016 3:33 (specimen) EDT AM EDT Narayan Washington MD POINT OF CARE TEST ORDERABLE S Performing Organization Address City/State/ZIP Code Phon e Number [address] POCT Glucose (04/01/2016 2:28 AM EDT) athologist Signature POC Glucose 180 65 - 199 [place] CAROL mg/dL [facility] Comment: Supplemental ranges: <140 mg/dL before meals <180 mg/dL all other times of the day Specimen Anatomical Collection Method Collection Time Receive d Time (Source) Location / / Volume Laterality Blood specimen 04/01/2016 2:28 AM 016 2:28 (specimen) EDT AM EDT Narayan Washington MD POINT OF CARE TEST ORDERABLE S Performing Organization Address City/State/[place] [address] POCT Glucose (04/01/2016 1:34 AM EDT) athologist Signature POC Glucose 154 65 - 199 [place] CAROL mg/dL [facility] Comment: Supplemental ranges: <140 mg/dL before meals <180 mg/dL all other times of the day Specimen Anatomical Collection Method Collection Time Receive d Time (Source) Location / / Volume Laterality Blood specimen 04/01/2016 1:34 AM 016 1:34 (specimen) EDT AM EDT Narayan Washington MD POINT OF CARE TEST ORDERABLE S Performing Organization Address City/State/ZIP Code Phon e Number [address] POCT Glucose (04/01/2016 12:45 AM EDT) athologist Signature POC Glucose 164 65 - 199 [place] CAROL mg/dL [facility] Comment: Supplemental ranges: <140 mg/dL before meals <180 mg/dL all other times of the day Specimen Anatomical Collection Method Collection Time Receive d Time (Source) Location / / Volume Laterality Blood specimen 04/01/2016 12:45 6 (specimen) AM EDT 12:45 AM EDT Narayan Washington MD POINT OF CARE TEST ORDERABLE S Performing Organization Address City/State/[place] [address] POCT Glucose (03/31/2016 11:28 PM EDT) athologist Signature POC Glucose 184 65 - 199 [place] CAROL mg/dL [facility] Comment: Supplemental ranges: <140 mg/dL before meals <180 mg/dL all other times of the day Specimen Anatomical Collection Method Collection Time Receive d Time (Source) Location / / Volume Laterality Blood specimen 03/31/2016 11:28 6 (specimen) PM EDT 11:28 PM EDT Narayan Washington MD POINT OF CARE TEST ORDERABLE S Performing Organization Address City/State/[place] [address] (ABNORMAL) POCT Glucose (03/31/2016 10:37 PM EDT) athologist Signature POC Glucose 202 (H) 65 - 199 [place] CAROL mg/dL [facility] Comment: Supplemental ranges: <140 mg/dL before meals <180 mg/dL all other times of the day Specimen Anatomical Collection Method Collection Time Receive d Time (Source) Location / / Volume Laterality Blood specimen 03/31/2016 10:37 6 (specimen) PM EDT 10:37 PM EDT Narayan Washington MD POINT OF CARE TEST ORDERABLE S Performing Organization Address City/State/[place] [address] POCT Glucose (03/31/2016 9:23 PM EDT) athologist Signature POC Glucose 193 65 - 199 [place] CAROL mg/dL [facility] Comment: Supplemental ranges: <140 mg/dL before meals <180 mg/dL all other times of the day Specimen Anatomical Collection Method Collection Time Receive d Time (Source) Location / / Volume Laterality Blood specimen 03/31/2016 9:23 PM 016 9:23 (specimen) EDT PM EDT Narayan Washington MD POINT OF CARE TEST ORDERABLE S Performing Organization Address City/State/ZIP Code Phon e Number [address] POCT Glucose (03/31/2016 8:09 PM EDT) athologist Signature POC Glucose 187 65 - 199 [place] CAROL mg/dL [facility] Comment: Supplemental ranges: <140 mg/dL before meals <180 mg/dL all other times of the day Specimen Anatomical Collection Method Collection Time Receive d Time (Source) Location / / Volume Laterality Blood specimen 03/31/2016 8:09 PM 016 8:09 (specimen) EDT PM EDT Narayan Washington MD POINT OF CARE TEST ORDERABLE S Performing Organization Address City/[facility] [address]/[place] [address] POCT Glucose (03/31/2016 6:18 PM EDT) athologist Signature POC Glucose 163 65 - 199 GEOV[place]NA CAROL mg/dL [facility] Comment: Supplemental ranges: <140 mg/dL before meals <180 mg/dL all other times of the day Specimen Anatomical Collection Method Collection Time Receive d Time (Source) Location / / Volume Laterality Blood specimen 03/31/2016 6:18 PM 016 6:18 (specimen) EDT PM EDT Narayan Washington MD POINT OF CARE TEST ORDERABLE S Performing Organization Address City/State/ZIP Code Phon e Number [address] POCT Glucose (03/31/2016 5:29 PM EDT) athologist Signature POC Glucose 130 65 - 199 GEOVANNA CAROL mg/dL [facility] Comment: Supplemental ranges: <140 mg/dL before meals <180 mg/dL all other times of the day Specimen Anatomical Collection Method Collection Time Receive d Time (Source) Location / / Volume Laterality Blood specimen 03/31/2016 5:29 PM 016 5:29 (specimen) EDT PM EDT Narayan Washington MD POINT OF CARE TEST ORDERABLE S Performing Organization Address City/State/ZIP Code Phon e Number [address] POCT Glucose (03/31/2016 4:07 PM EDT) athologist Signature POC Glucose 136 65 - 199 GE[place]ANNA CAROL mg/dL [facility] Comment: Supplemental ranges: <140 mg/dL before meals <180 mg/dL all other times of the day Specimen Anatomical Collection Method Collection Time Receive d Time (Source) Location / / Volume Laterality Blood specimen 03/31/2016 4:07 PM 016 4:07 (specimen) EDT PM EDT Narayan Washington MD POINT OF CARE TEST ORDERABLE S Performing Organization Address City/[facility] [address]/[place] [address] POCT Glucose (03/31/2016 2:42 PM EDT) athologist Signature POC Glucose 135 65 - 199 GEOVANNA CAROL mg/dL [facility] Comment: Supplemental ranges: <140 mg/dL before meals <180 mg/dL all other times of the day Specimen Anatomical Collection Method Collection Time Receive d Time (Source) Location / / Volume Laterality Blood specimen 03/31/2016 2:42 PM 016 2:42 (specimen) EDT PM EDT Narayan Washington MD POINT OF CARE TEST ORDERABLE S Performing Organization Address City/State/[place] [address] POCT Glucose (03/31/2016 12:24 PM EDT) athologist Signature POC Glucose 139 65 - 199 GEOVANNA CAROL mg/dL [facility] Comment: Supplemental ranges: <140 mg/dL before meals <180 mg/dL all other times of the day Specimen Anatomical Collection Method Collection Time Receive d Time (Source) Location / / Volume Laterality Blood specimen 03/31/2016 12:24 6 (specimen) PM EDT 12:24 PM EDT Narayan Washington MD POINT OF CARE TEST ORDERABLE S Performing Organization Address City/State/ZIP Code Phon e Number [address] POCT Glucose (03/31/2016 10:28 AM EDT) athologist Signature POC Glucose 118 65 - 199 GEOVANNA ZAVALACAROL mg/dL [facility] Comment: Supplemental ranges: <140 mg/dL before meals <180 mg/dL all other times of the day Specimen Anatomical Collection Method Collection Time Receive d Time (Source) Location / / Volume Laterality Blood specimen 03/31/2016 10:28 6 (specimen) AM EDT 10:28 AM EDT Narayan Washington MD POINT OF CARE TEST ORDERABLE S Performing Organization Address City/State/[place] [address] POCT Glucose (03/31/2016 8:06 AM EDT) athologist Signature POC Glucose 116 65 - 199 GEOVANNA ZAVALACAROL mg/dL [facility] Comment: Supplemental ranges: <140 mg/dL before meals <180 mg/dL all other times of the day Specimen Anatomical Collection Method Collection Time Receive d Time (Source) Location / / Volume Laterality Blood specimen 03/31/2016 8:06 AM 016 8:06 (specimen) EDT AM EDT Narayan Washington MD POINT OF CARE TEST ORDERABLE S Performing Organization Address City/State/ZIP Code Phon e Number [address] POCT Glucose (03/31/2016 7:03 AM EDT) athologist Signature POC Glucose 128 65 - 199 [facility] CAROL mg/dL [facility] Comment: Supplemental ranges: <140 mg/dL before meals <180 mg/dL all other times of the day Specimen Anatomical Collection Method Collection Time Receive d Time (Source) Location / / Volume Laterality Blood specimen 03/31/2016 7:03 AM 05/24/2 016 7:03 (specimen) EDT AM EDT Narayan Washington MD POINT OF CARE TEST ORDERABLE S Performing Organization Address City/State/[place] [address] POCT Glucose (03/31/2016 5:43 AM EDT) P athologist Signature POC Glucose 143 65 - 199 [facility] mg/dL [facility] Comment: Supplemental ranges: <140 mg/dL before meals <180 mg/dL all other times of the day Specimen Anatomical Collection Method Collection Time Receive d Time (Source) Location / / Volume Laterality Blood specimen 03/31/2016 5:43 AM 016 5:43 (specimen) EDT AM EDT Narayan Washington MD POINT OF CARE TEST ORDERABLE S Performing Organization Address City/[facility] [address]/[place] [address] (ABNORMAL) BLOOD GAS 2 ARTERIAL (03/31/2016 4:53 AM EDT) Analysis Performed At Patho logist Time Signature pH Art 7.37 7.35 - [facility] 7.45 [facility] pCO2 Art 48 (H) 35 - 45 [facility] LABORATORY pO2 Art 67 (L) 85 - 104 [facility] LABORATORY HCO3 Art 26.7 (H) 20.0 - [facility] 26.0 [facility] mmol/L [facility] BE Art 1.4 -3.0 - 3.0 [facility] mmol/L [facility] Hgb Blood Gas 12.6 11.2 - [facility] 15.7 gm/dL [facility] O2HB Art 90.9 (L) 94.0 - [facility] 97.0 % [facility] COHB Art 0.7 % [facility] Comment: Nonsmokers: 0.5-1.5% COHB Smokers: Variable, but usually less than 10% Toxic: 20-30% COHB Lethal: Greater than 60% COHB METHB Art 0.8 <=1.5 % [facility] Na Whole Blood 141 135 - 145 mmol/L [facility] K Whole Blood 4.4 3.5 - 5.0 mmol/L [facility] Comment: Please note: Patients with WBC >100,000 may have falsely elevated Potassium levels. Contact the Clinical Chemistry L aboratory if there are any questions. ICa Whole Blood 1.10 (L) 1.15 - 1.33 mmol/L [facility] Comment: Note: ??Total bilirubin higher than 20 m g/dL may lead to falsely low ionized calcium. CL Whole Blood 104 98 - 107 mmol/L [facility] Gluc Whole Bld 172 65 - 199 mg/dL [facility] Comment: Diabetes: >=200 mg/dL plus symp toms. Lactate WB 2.9 (H) 0.5 - 2.2 mmol/L [facility] FIO2 Art 40 % [facility] PF Ratio Art 168 [facility] Specimen Anatomical Collection Method Collection Time Receive d Time (Source) Location / / Volume Laterality Blood specimen 03/31/2016 4:53 AM 016 4:53 (specimen) EDT AM EDT Narayan Washington MD CHEMISTRY ORDERABLES Performing Organization Address City/State/ZIP Code Phon e Number [address] POCT Glucose (03/31/2016 3:41 AM EDT) P athologist Signature POC Glucose 178 65 - 199 [facility] mg/dL [facility] Comment: Supplemental ranges: <140 mg/dL before meals <180 mg/dL all other times of the day Specimen Anatomical Collection Method Collection Time Receive d Time (Source) Location / / Volume Laterality Blood specimen 03/31/2016 3:41 AM 016 3:41 (specimen) EDT AM EDT Narayan Washington MD POINT OF CARE TEST ORDERABLE S Performing Organization Address City/State/[place] [address] (ABNORMAL) Hemoglobin A1c (03/31/2016 3:40 AM EDT) Analysis Performed At Patho logist Time Signature Hemoglobin A1C 9.3 (H) 4.3 - 5.6 [facility] Comment: Reference Range: 4.3 - 5.6% 5.7 - 6.4% - Increased Risk of Developin g Diabetes Mellitus >= 6.5% - Consistent with diagnosis of D iabetes Mellitus In the absence of hyperglycemia (i.e. pl asma glucose > 200 mg/dL) or classic symptoms of hyperglycemia a repeat measu rement of HbA1c should be performed on a separate sample to confirm the diagnos is. Diagnosis and Classification of Diabetes Mellitus, Diabetes Care 2013; 36: Suppl. 1, S67-20 Est Avg Gluc 220 mg/dL [facility] Comment: eAG equivalents for HbA1c percentages: HbA1c(%) ?eAG(mg/dL) 6.0 ?126 6.5 ?140 7.0 ?154 7.5 ?169 8.0 ?183 8.5 ?197 9.0 ?212 9.5 ?226 10.0 ? 240 Limitations: The eAG calculation has not been validated on women, individuals below 18 years old and above 70 years old, and individuals with hemoglobinopathies. Additional resources are available on [facility] website: [email or web address] [place] Kaveh GALLARDO, Cindy J, Uriel R, et al. ??Tr anslating the A1C assay into estimated average glucose values. ??Diabetes Care 2008:31(8):9731-5448. Specimen Anatomical Collection Method Collection Time Receive d Time (Source) Location / / Volume Laterality Blood specimen Venous Draw / 03/31/2016 3:40 AM 2015 (specimen) Unknown EDT 10:39 AM EDT Resulting Agency Comment Spec In Lab Narayan Washington MD CHEMISTRY ORDERABLES Performing Organization Address City/State/[place] [address] (ABNORMAL) Differential, Automated (03/31/2016 3:40 AM EDT) [facility] Method Time Signature Neutrophils % 87.6 % [facility]ORY Neutr Abs (ANC) 8.96 (H) 1.50 - [facility] 6.30 [facility] x10(3)/[facility] L LABORATORY Lymphocytes % 4.2 % [facility] LABORATORY Lymphocytes Abs 0.4 (L) 1.0 - 3.6 [facility] x10(3)/[facility] LABORATORY Monocytes % 7.8 % [facility] LABORATORY Monocyte Abs 0.8 0.2 - 1.0 [facility] x10(3)/[facility] LABORATORY Eosinophils % 0.0 % [facility] LABORATORY Eosinophils Abs 0.0 0.0 - 0.5 [facility] x10(3)/[facility] LABORATORY Basophils % 0.2 % [facility] LABORATORY Basophils Abs 0.0 0.0 - 0.2 [facility] x10(3)/[facility] LABORATORY Immature Gran % 0.20 % [facility] Comment: Immature granulocytes(IG's)percentage an d absolute count will include metamyelocytes, myelocytes, and promyelo cytes. Blood smears from CBCs yielding IG's will be scanned manually for concor dance. If this scan disagrees with the automated IG or if promyelocytes are not ed, a manual differential will be performed. Chandni Gran Abs 0.02 0.00 - 0.05 x10(3)/[facility] MAR Y [facility] LABORATORY Specimen Anatomical Collection Method Collection Time Receive d Time (Source) Location / / Volume Laterality Blood specimen 03/31/2016 3:40 AM 016 3:50 (specimen) EDT AM EDT Resulting Agency Comment Spec In Lab Narayan Washington MD HEMATOLOGY ORDERABLES Performing Organization Address City/State/[place] [address] (ABNORMAL) Hemogram (03/31/2016 3:40 AM EDT) athologist Signature WBC 10.2 (H) 4.0 - 10.0 [place] CAROL x10(3)/[facility] LABORATORY RBC 3.98 3.93 - [place] CAROL 5.22 [facility] x10(6)/[facility] LABORATORY Hemoglobin 11.1 (L) 11.2 - GE[place]NA CAROL 15.7 gm/dL [facility] Hematocrit 35.1 34.0 - GE[place]NA CAROL 45.0 % [facility] MCV 88.2 79.0 - [place] CAROL 94.0 [facility] LABORATORY MCH 27.9 26.6 - GE[place]NA CAROL 32.2 pg [facility] MCHC 31.6 (L) 32.0 - [place] CAROL 36.5 gm/dL [facility] Platelets 141 (L) 145 - 370 GE[place]ANNA CAROL x10(3)/[facility] LABORATORY RDWSD 44.9 35.0 - GE[place] CAROL 46.0 [facility] LABORATORY RDWCV 13.9 10.9 - GE[place]NA CAROL 14.4 % [facility] MPV 11.2 9.0 - 12.0 [place] CAROL [facility] LABORATORY Specimen Anatomical Collection Method Collection Time Receive d Time (Source) Location / / Volume Laterality Blood specimen 03/31/2016 3:40 AM 016 3:50 (specimen) EDT AM EDT Resulting Agency Comment Spec In Lab Narayan Washington MD HEMATOLOGY ORDERABLES Performing Organization Address City/[facility] [address]/[place] [address] (ABNORMAL) Cardiac Enzymes (03/31/2016 3:40 AM EDT) athologist Signature Troponin-T 1.02 (H) <=0.03 [employer] ng/mL [facility] Comment: 0.03 ng/mL: Represents the 99th percenti le upper reference limit for normals. >0.03 ng/mL: Elevated cardiac troponin T level indicative of myocardial damage. Diagnosis of acute, evolving or recent M I requires a typical rise and gradual fall of cTnT with at least ONE of the fo llowing: a) Ischemic symptoms b) Development of pathologic Q waves on the ECG c) ECG changes indicative of eschemia (S -T segment elevation/depression) d) Coronary artery intervention Serial bloods should be obtained for drea ting on admission, at 6 to 9 hrs and again at 12 to 24 hrs if earlier samples are negative and the clinical index of suspicion is high. Reference: [Myocardial infarction redefined? a consensus document of the Joint Society of Cardiology/[place] [employer] f [employer] Committee for the redefinition of myocardial infarction. ? ?Journal of the [place] [employer] 2000; 36: 959-969] CK, Total 427 (H) 0 - 160 unit/L [facility] LABORATORY Specimen Anatomical Collection Method Collection Time Receive d Time (Source) Location / / Volume Laterality Blood specimen 03/31/2016 3:40 AM 016 3:50 (specimen) EDT AM EDT Resulting Agency Comment Spec In Lab Narayan Washington MD CHEMISTRY ORDERABLES Performing Organization Address City/[facility] [address]/[place] [address] Potassium (03/31/2016 3:40 AM EDT) athologist Signature Potassium 5.0 3.5 - 5.0 [facility] mmol/L [facility] Comment: Please note: ??Patients with WBC >100,00 0 may have falsely elevated Potassium levels. ??For accurate Potassium quantif ication in these patients send serum separator tube (gold top) for subsequent determinations. ??Contact the Clinical Chemistry Laboratory if there are any qu estions. Specimen Anatomical Collection Method Collection Time Receive d Time (Source) Location / / Volume Laterality Blood specimen 03/31/2016 3:40 AM 016 3:50 (specimen) EDT AM EDT Resulting Agency Comment Spec In Lab Narayan Washington MD CHEMISTRY ORDERABLES Performing Organization Address City/[facility] [address]/[place] [address] (ABNORMAL) Glucose, fasting (03/31/2016 3:40 AM EDT) athologist Signature Glucose 200 (H) 65 - 99 [facility] Fasting mg/dL [facility] Comment: ?Fasting* Glucose Interpretive C riteria Normal ?65-99 mg/dL Impaired Fasting glucose ?100-125 mg/dL Consistent with Diabetes Mellitus ? >or= 126 mg/dL *Fasting is defined as no caloric intake for at least 8 hours In the absence of unequivocal hypergly cemia a plasma glucose value of >or= 126 mg/dL should be repeated on a subseq uent day. Diagnosis and Classification of Diabetes Mellitus, Position Statement from the [place] [employer]. ??Diabete s Care, Volume 33, Supplement 1, Nov 2009 Specimen Anatomical Collection Method Collection Time Receive d Time (Source) Location / / Volume Laterality Blood specimen 03/31/2016 3:40 AM 016 3:50 (specimen) EDT AM EDT Resulting Agency Comment Spec In Lab Narayan Washington MD CHEMISTRY ORDERABLES Performing Organization Address City/State/ZIP Code Phon e Number [place] [id number] [address] (ABNORMAL) Creatinine (03/31/2016 3:40 AM EDT) athologist Signature Creatinine 1.46 (H) 0.70 - GE[place]NA CAROL 1.20 mg/dL [facility] Comment: Please note that the pediatric reference intervals supplied above were not validated at [facility] [place] [place]. Results from pediatri c patients should be interpreted in conjunction to the patient's age, height and muscle mass. Estimated GFR 37 (L) >=60 [facility] Comment: This estimated GFR (eGFR) value was calc ulated using the MDRD equation which has been validated on patients between t he ages of 18 and 70. The MDRD should not be used to assess kidney function in patients < 18 years of age or in patients with extremes of body mass, or in patients with acute kidney failure. This value should be multiplied by 1.2 f or patients. For further information please copy and past e the following links into your internet browser. [email or web address] [email or web address] Specimen Anatomical Collection Method Collection Time Receive d Time (Source) Location / / Volume Laterality Blood specimen 03/31/2016 3:40 AM 016 3:50 (specimen) EDT AM EDT Resulting Agency Comment Spec In Lab Narayan Washington MD CHEMISTRY ORDERABLES Performing Organization Address City/[facility] [address]/ZIP Code Phon e Number [address] (ABNORMAL) BUN (03/31/2016 3:40 AM EDT) athologist Signature BUN 20 (H) 8 - 18 [facility] Specimen Anatomical Collection Method Collection Time Receive d Time (Source) Location / / Volume Laterality Blood specimen 03/31/2016 3:40 AM 016 3:50 (specimen) EDT AM EDT Resulting Agency Comment Spec In Lab Narayan Washington MD CHEMISTRY ORDERABLES Performing Organization Address City/[facility] [address]/ZIP [facility] [place] [address] (ABNORMAL) BLOOD GAS 2 ARTERIAL (03/31/2016 3:01 AM EDT) athologist Signature pH Art 7.42 7.35 - [facility] 7.45 [facility] pCO2 Art 39 35 - 45 [facility] mmHg [facility] pO2 Art 85 85 - 104 [facility] LABORATORY HCO3 Art 24.8 20.0 - [facility] 26.0 [facility] mmol/L [facility] LABOR[facility] BE Art 0.4 -3.0 - 3.0 [facility] mmol/L [facility] Hgb Blood Gas 12.3 11.2 - [facility] 15.7 gm/dL [facility] O2HB Art 95.1 94.0 - [facility] 97.0 % [facility] COHB Art 0.6 % [facility] Comment: Nonsmokers: 0.5-1.5% COHB Smokers: Variable, but usually less than 10% Toxic: 20-30% COHB Lethal: Greater than 60% COHB METHB Art 0.8 <=1.5 % [facility] Na Whole Blood 139 135 - 145 mmol/L [facility] K Whole Blood 4.9 3.5 - 5.0 mmol/L [facility] Comment: Please note: Patients with WBC >100,000 may have falsely elevated Potassium levels. Contact the Clinical Chemistry L aboratory if there are any questions. ICa Whole Blood 1.07 (L) 1.15 - 1.33 mmol/L [facility] Comment: Note: ??Total bilirubin higher than 20 m g/dL may lead to falsely low ionized calcium. CL Whole Blood 103 98 - 107 mmol/L [facility] LABORATORY Gluc Whole Bld 207 (H) 65 - 199 mg/dL [facility] Comment: Diabetes: >=200 mg/dL plus symp toms. Lactate WB 3.7 (H) 0.5 - 2.2 mmol/L [facility]ORY FIO2 Art 40 % [facility] PF Ratio Art 212 [facility]ORY Specimen Anatomical Collection Method Collection Time Receive d Time (Source) Location / / Volume Laterality Blood specimen 03/31/2016 3:01 AM 016 3:01 (specimen) EDT AM EDT Narayan Washington MD CHEMISTRY ORDERABLES Performing Organization Address City/State/[place] [address] POCT Glucose (03/31/2016 2:59 AM EDT) athologist Signature POC Glucose 184 65 - 199 [facility] mg/dL [facility] Comment: Supplemental ranges: <140 mg/dL before meals <180 mg/dL all other times of the day Specimen Anatomical Collection Method Collection Time Receive d Time (Source) Location / / Volume Laterality Blood specimen 03/31/2016 2:59 AM 016 2:59 (specimen) EDT AM EDT Narayan Washington MD POINT OF CARE TEST ORDERABLE S Performing Organization Address City/[facility] [address]/[place] [address] (ABNORMAL) POCT Glucose (03/31/2016 2:01 AM EDT) athologist Signature POC Glucose 200 (H) 65 - 199 [facility] mg[facility]dL [facility] Comment: Supplemental ranges: <140 mg/dL before meals <180 mg/dL all other times of the day Specimen Anatomical Collection Method Collection Time Receive d Time (Source) Location / / Volume Laterality Blood specimen 03/31/2016 2:01 AM 016 2:01 (specimen) EDT AM EDT Narayan Washington MD POINT OF CARE TEST ORDERABLE S Performing Organization Address City/[facility] [address]/[place] [address] (ABNORMAL) POCT Glucose (03/31/2016 1:15 AM EDT) athologist Signature POC Glucose 219 (H) 65 - 199 [facility] mg/dL [facility] Comment: Supplemental ranges: <140 mg/dL before meals <180 mg/dL all other times of the day Specimen Anatomical Collection Method Collection Time Receive d Time (Source) Location / / Volume Laterality Blood specimen 03/31/2016 1:15 AM 016 1:15 (specimen) EDT AM EDT Narayan Washington MD POINT OF CARE TEST ORDERABLE S Performing Organization Address City/[facility] [address]/[place] [address] (ABNORMAL) BLOOD GAS 2 VENOUS (03/31/2016 12:33 AM EDT) athologist Signature pH Dequan 7.24 7.32 - [facility] (Critical) 7.42 [facility] Comment: Noted by instrumentation and controls technician. pCO2 Dequan 50 41 - 51 mmHg [facility]ORY pO2 Dequan 39 25 - 40 mmHg [facility] LAB[facility]ORY HCO3 Dequan 20.8 mmol/L [facility] BE Dequan -6.7 mmol/L [facility] Hgb Blood Gas 12.7 11.2 - 15.7 gm/dL [facility] Comment: Reference Interval: Total Hemoglobin (in g/dL) Based [facility] [place] [place] He matology Ranges: ? Age Less than 3 days ?14.5 ? 22.5 3 days to 2 weeks ? 12.5 ? 20.5 2 weeks to 1 month ?10.0 ? 18.0 1 to 6 months ? 9.4 ? 14.0 6 months to 2 years ? 10.5 ? 13.5 2 to 6 years ?11.5 ? 13.5 6 to 12 years ? 11.5 - 15.5 12 to 18 years ?female ?12.0 ? 16.0 ?male ?13.0 ? 16.0 Greater than 18 years ?female ?11.2 ? 15.7 ?male ?13.7 ? 17.5 O2HB Dequan 67.4 % [facility] COHB Dequan 1.2 % [facility] Comment: Nonsmokers: 0.5-1.5% COHB Smokers: Variable, but usually less than 10% Toxic: 20-30% COHB Lethal: Greater than 60% COHB METHB Dequan 0.9 <=1.5 % [facility] Na Whole Blood 138 135 - 145 mmol/L [facility] K Whole Blood 4.7 3.5 - 5.0 mmol/L [facility] Comment: Please note: Patients with WBC >100,000 may have falsely elevated Potassium levels. Contact the Clinical Chemistry L aboratory if there are any questions. ICa Whole Blood 1.09 (L) 1.15 - 1.33 mmol/L [facility] Comment: Note: ??Total bilirubin higher than 20 m g/dL may lead to falsely low ionized calcium. CL Whole Blood 103 98 - 107 mmol/L [facility] Gluc Whole Bld 271 (H) 65 - 199 mg/dL [facility] Comment: Diabetes: >=200 mg/dL plus symp toms Lactate WB 5.7 (Critical) 0.5 - 2.2 mmol/L [facility] Comment: Noted by instrumentation and controls technician. FIO2 Dequan 40 % [facility] BGas Source Mixed Venous [facility] Specimen Anatomical Collection Method Collection Time Receive d Time (Source) Location / / Volume Laterality Blood specimen 03/31/2016 12:33 6 (specimen) AM EDT 12:33 AM EDT Narayan Washington MD CHEMISTRY ORDERABLES Performing Organization Address City/State/[place] [address] (ABNORMAL) POCT Glucose (03/31/2016 12:08 AM EDT) athologist Signature POC Glucose 240 (H) 65 - 199 [facility] mg/dL [facility] Comment: Supplemental ranges: <140 mg/dL before meals <180 mg/dL all other times of the day Specimen Anatomical Collection Method Collection Time Receive d Time (Source) Location / / Volume Laterality Blood specimen 03/31/2016 12:08 6 (specimen) AM EDT 12:08 AM EDT Narayan Washington MD POINT OF CARE TEST ORDERABLE S Performing Organization Address City/State/[place] [address] (ABNORMAL) BLOOD GAS 2 ARTERIAL (03/31/2016 12:04 AM EDT) athologist Signature pH Art 7.25 7.35 - [facility] (Critical) 7.45 [facility] Comment: Noted by instrumentation and controls technician. pCO2 Art 45 35 - 45 mmHg [facility] pO2 Art 78 (L) 85 - 104 mmHg [facility] HCO3 Art 19.2 (L) 20.0 - 26.0 mmol/L [facility] BE Art -8.1 (L) -3.0 - 3.0 mmol/L [facility] Hgb Blood Gas 12.8 11.2 - 15.7 gm/dL [facility] O2HB Art 91.9 (L) 94.0 - 97.0 % [facility] COHB Art 1.0 % [facility] Comment: Nonsmokers: 0.5-1.5% COHB Smokers: Variable, but usually less than 10% Toxic: 20-30% COHB Lethal: Greater than 60% COHB METHB Art 0.9 <=1.5 % [facility] Na Whole Blood 138 135 - 145 mmol/L [facility] K Whole Blood 4.7 3.5 - 5.0 mmol/L [facility] Comment: Please note: Patients with WBC >100,000 may have falsely elevated Potassium levels. Contact the Clinical Chemistry L aboratory if there are any questions. ICa Whole Blood 1.09 (L) 1.15 - 1.33 mmol/L [facility] Comment: Note: ??Total bilirubin higher than 20 m g/dL may lead to falsely low ionized calcium. CL Whole Blood 103 98 - 107 mmol/L [facility] Gluc Whole Bld 264 (H) 65 - 199 mg/dL [facility] Comment: Diabetes: >=200 mg/dL plus symp toms. Lactate WB 5.7 (Critical) 0.5 - 2.2 mmol/L [facility] Comment: Noted by instrumentation and controls technician. FIO2 Art 40 % [facility] PF Ratio Art 195 [facility] Temp Art 37.0 Celsius [facility] Specimen Anatomical Collection Method Collection Time Receive d Time (Source) Location / / Volume Laterality Blood specimen 03/31/2016 12:04 6 (specimen) AM EDT 12:04 AM EDT Narayan Washington MD CHEMISTRY ORDERABLES Performing Organization Address City/[facility] [address]/ZIP Code Phon e Number [address] (ABNORMAL) POCT Glucose (03/30/2016 11:04 PM EDT) athologist Signature POC Glucose 244 (H) 65 - 199 [facility] Comment: Supplemental ranges: <140 mg/dL before meals <180 mg/dL all other times of the day Specimen Anatomical Collection Method Collection Time Receive d Time (Source) Location / / Volume Laterality Blood specimen 03/30/2016 11:04 6 (specimen) PM EDT 11:04 PM EDT Narayan Washington MD POINT OF CARE TEST ORDERABLE S Performing Organization Address City/[facility] [address]/[place] [address] Hemoglobin (03/30/2016 11:00 PM EDT) athologist Signature Hemoglobin 12.2 11.2 - 15.7 [facility] gm/dL [facility] Specimen Anatomical Collection Method Collection Time Receive d Time (Source) Location / / Volume Laterality Blood specimen 03/30/2016 11:00 6 (specimen) PM EDT 11:07 PM EDT Resulting Agency Comment Spec In Lab Narayan Washington MD HEMATOLOGY ORDERABLES Performing Organization Address City/[facility] [address]/[place] [address] Potassium (03/30/2016 11:00 PM EDT) athologist Signature Potassium 4.6 3.5 - 5.0 [facility]/L [facility] Comment: Please note: ??Patients with WBC >100,00 0 may have falsely elevated Potassium levels. ??For accurate Potassium quantif ication in these patients send serum separator tube (gold top) for subsequent determinations. ??Contact the Clinical Chemistry Laboratory if there are any qu estions. Specimen Anatomical Collection Method Collection Time Receive d Time (Source) Location / / Volume Laterality Blood specimen 03/30/2016 11:00 6 (specimen) PM EDT 11:07 PM EDT Resulting Agency Comment Spec In Lab Narayan Washington MD CHEMISTRY ORDERABLES Performing Organization Address City/[facility] [address]/[place] [address] POCT Glucose (03/30/2016 9:57 PM EDT) athologist Signature POC Glucose 199 65 - 199 [facility] mg/dL [facility] Comment: Supplemental ranges: <140 mg/dL before meals <180 mg/dL all other times of the day Specimen Anatomical Collection Method Collection Time Receive d Time (Source) Location / / Volume Laterality Blood specimen 03/30/2016 9:57 PM 016 9:57 (specimen) EDT PM EDT Narayan Washington MD POINT OF CARE TEST ORDERABLE S Performing Organization Address City/[facility] [address]/[place] [address] (ABNORMAL) BLOOD GAS 2 ARTERIAL (03/30/2016 9:53 PM EDT) athologist Signature pH Art 7.24 7.35 - [facility] (Critical) 7.45 [facility] Comment: Noted by instrumentation and controls technician. pCO2 Art 39 35 - 45 mmHg [facility] pO2 Art 92 85 - 104 mmHg [facility] HCO3 Art 16.3 (L) 20.0 - 26.0 mmol/L [facility] BE Art -11.1 (L) -3.0 - 3.0 mmol/L [facility] Hgb Blood Gas 14.0 11.2 - 15.7 gm/dL [facility] O2HB Art 94.1 94.0 - 97.0 % [facility] COHB Art 1.0 % [facility] Comment: Nonsmokers: 0.5-1.5% COHB Smokers: Variable, but usually less than 10% Toxic: 20-30% COHB Lethal: Greater than 60% COHB METHB Art 0.9 <=1.5 % [facility] Na Whole Blood 137 135 - 145 mmol/L [facility] K Whole Blood 4.2 3.5 - 5.0 mmol/L [facility] Comment: Please note: Patients with WBC >100,000 may have falsely elevated Potassium levels. Contact the Clinical Chemistry L aboratory if there are any questions. ICa Whole Blood 1.10 (L) 1.15 - 1.33 mmol/L [facility] Comment: Note: ??Total bilirubin higher than 20 m g/dL may lead to falsely low ionized calcium. CL Whole Blood 104 98 - 107 mmol/L [facility] Gluc Whole Bld 308 (H) 65 - 199 mg/dL [facility] Comment: Diabetes: >=200 mg/dL plus symp toms. Lactate WB 6.6 (Critical) 0.5 - 2.2 mmol/L [facility] Comment: Noted by instrumentation and controls technician. FIO2 Art 40 % [facility] PF Ratio Art 230 [facility] Specimen Anatomical Collection Method Collection Time Receive d Time (Source) Location / / Volume Laterality Blood specimen 03/30/2016 9:53 PM 016 9:53 (specimen) EDT PM EDT Narayan Washington MD CHEMISTRY ORDERABLES Performing Organization Address City/State/[place] [address] (ABNORMAL) POCT Glucose (03/30/2016 9:23 PM EDT) athologist Signature POC Glucose 255 (H) 65 - 199 [facility] mg/dL [facility] Comment: Supplemental ranges: <140 mg/dL before meals <180 mg/dL all other times of the day Specimen Anatomical Collection Method Collection Time Receive d Time (Source) Location / / Volume Laterality Blood specimen 03/30/2016 9:23 PM 016 9:23 (specimen) EDT PM EDT Narayan Washington MD POINT OF CARE TEST ORDERABLE S Performing Organization Address City/State/ZIP Code Phon e Number [address] (ABNORMAL) POCT Glucose (03/30/2016 8:08 PM EDT) P athologist Signature POC Glucose 257 (H) 65 - 199 [facility] mg/dL [facility] Comment: Supplemental ranges: <140 mg/dL before meals <180 mg/dL all other times of the day Specimen Anatomical Collection Method Collection Time Receive d Time (Source) Location / / Volume Laterality Blood specimen 03/30/2016 8:08 PM 016 8:08 (specimen) EDT PM EDT Narayan Washington MD POINT OF CARE TEST ORDERABLE S Performing Organization Address [facility] [address] [facility] [place] [address] EKG 12 Lead (03/30/2016 7:03 PM EDT) Component Value Ref Range Test Analysis Performed Pathologis t Method Time At Signature Ventricular rate 81 BPM MUSE SYSTEM Atrial Rate 81 BPM MUSE SYSTEM P-R Interval 182 ms MUSE SYSTEM QRS Duration 94 ms MUSE SYSTEM Q-T Interval 448 ms MUSE SYSTEM QTC Calculated 520 ms MUSE SYSTEM (Bezet) Calculated P [place] 55 degrees MUSE SYSTEM Calculated R [place] -24 degrees MUSE SYSTEM Calculated T [place] 108 degrees MUSE SYSTEM INTERPRETATION Normal sinus rhythm MUSE SYSTEM Nonspecific ST and T wave abnormality Prolonged QT Abnormal ECG When compared with ECG of 26-MAR-2016 10:16, Vent. rate has increased BY ??28 BPM QT has lengthened Confirmed by MD RUSSELL, ESE ([id number]) on 03/31/2016 6:41:37 AM Specimen Anatomical Collection Method Collection Time Receive d Time (Source) Location / / Volume Laterality 03/30/2016 7:03 PM 6 6:41 EDT AM EDT Narayan Washington MD ECG ORDERABLES Performing Organization Address City/[facility] [address]/ZIP Code Phon e Number MUSE SYSTEM XR Chest Pa or AP- 1 View (03/30/2016 6:39 PM EDT) Anatomical Region Laterality Modality Chest N/A Digital Radiography Specimen (Source) Anatomical Location Collection Method / Collectio n Time Received Time / Laterality Volume Impressions 03/30/2016 6:51 PM EDT 1. ??No tube or line malposition, status post interval median sternotomy. 2. ??Mild lung hypoinflation. 3. ??Diffuse widening of the cardiomedia stinal silhouette; details above. Attention to this on follow-up studies i s recommended. Narrative 03/30/2016 6:51 PM EDT EXAMINATION: XR CHEST PA OR AP 1 VIEW CLINICAL HISTORY: s/p cabg x 3 TECHNIQUE: Semiupright portable chest at 1830 hours COMPARISON: 03/26/2016 FINDINGS: There has been interval median sternotom y, with multiple mediastinal surgical clips now present, epicardial pacing wir e and mediastinal drainage tube. Nasogastric tube tip is within the stoma ch, with the proximal side-port at the GE junction. Endotracheal tube tip termi nates approximately 4 cm above the janessa. Right internal jugular Malone-Anton catheter tip terminates in the mid right pulmonary artery. No definite pneu mothorax. Right percutaneous pacer/defibrillator pad is in place, obs curing part of the right hemithorax. Lungs are mildly hypoinflated. Allowing for this, with resultant crowding, no superimposed alveolar or interstitial pr ocess is identified. No layering pleural effusions are seen. Diffuse enlargement of the cardio-perica rdial silhouette is likely a combination of radiographic technique, near supine p osition, and postsurgical change. Procedure Note Sandra Thibodeaux MD - 03/30/2016Formatt ing of this note might be different from the original. EXAMINATION: XR CHEST PA OR AP 1 VIEW CLINICAL HISTORY: s/p cabg x 3 TECHNIQUE: Semiupright portable chest at 1830 hours COMPARISON: 03/26/2016 FINDINGS: There has been interval median sternotom y, with multiple mediastinal surgical clips now present, epicardial pacing wir e and mediastinal drainage tube. Nasogastric tube tip is within the stoma ch, with the proximal side-port at the GE junction. Endotracheal tube tip termi nates approximately 4 cm above the janessa. Right internal jugular Malone-Anton catheter tip terminates in the mid right pulmonary artery. No definite pneu mothorax. Right percutaneous pacer/defibrillator pad is in place, obs curing part of the right hemithorax. Lungs are mildly hypoinflated. Allowing for this, with resultant crowding, no superimposed alveolar or interstitial pr ocess is identified. No layering pleural effusions are seen. Diffuse enlargement of the cardio-perica rdial silhouette is likely a combination of radiographic technique, near supine p osition, and postsurgical change. IMPRESSION 1. No tube or line malposition, status p ost interval median sternotomy. 2. Mild lung hypoinflation. 3. Diffuse widening of the cardiomediast inal silhouette; details above. Attention to this on follow-up studies i s recommended. Narayan Washington MD IMG DX ORDERABLES (ABNORMAL) BLOOD GAS 2 ARTERIAL (03/30/2016 6:31 PM EDT) [facility] Method Time Signature pH Art 7.28 7.35 - [facility] (Critical) 7.45 [facility] pCO2 Art 38 35 - 45 [facility] mmHg [facility] pO2 Art 229 (H) 85 - 104 [facility] mmHg [facility] HCO3 Art 17.8 (L) 20.0 - [facility] 26.0 [facility] mmol/L [facility] BE Art -8.9 (L) -3.0 - 3.0 [facility] mmol/L [facility] Hgb Blood Gas 13.1 11.2 - [facility] 15.7 gm/dL [facility] O2HB Art 97.4 (H) 94.0 - [facility] 97.0 % [facility] COHB Art 0.7 % [facility] Comment: Nonsmokers: 0.5-1.5% COHB Smokers: Variable, but usually less than 10% Toxic: 20-30% COHB Lethal: Greater than 60% COHB METHB Art 0.9 <=1.5 % [facility] Na Whole Blood 135 135 - 145 mmol/L [facility] K Whole Blood 3.8 3.5 - 5.0 mmol/L [facility] Comment: Please note: Patients with WBC >100,000 may have falsely elevated Potassium levels. Contact the Clinical Chemistry L aboratory if there are any questions. ICa Whole Blood 1.08 (L) 1.15 - 1.33 mmol/L [facility] Comment: Note: ??Total bilirubin higher than 20 m g/dL may lead to falsely low ionized calcium. CL Whole Blood 103 98 - 107 mmol/L [facility] Gluc Whole Bld 262 (H) 65 - 199 mg/dL [facility] Comment: Diabetes: >=200 mg/dL plus symp toms. Lactate WB 2.7 (H) 0.5 - 2.2 mmol/L [facility] FIO2 Art 100 % [facility] PF Ratio Art 229 [facility] Specimen Anatomical Collection Method Collection Time Receive d Time (Source) Location / / Volume Laterality Blood specimen 03/30/2016 6:31 PM 016 6:31 (specimen) EDT PM EDT Narayan Washington MD CHEMISTRY ORDERABLES Performing Organization Address City/State/[place] [address] (ABNORMAL) BLOOD GAS 2 ARTERIAL (03/30/2016 5:11 PM EDT) Analysis Performed At Patho logist Time Signature pH Art 7.33 (L) 7.35 - [facility] 7.45 [facility] pCO2 Art 43 35 - 45 [facility] pO2 Art 74 (L) 85 - 104 [facility] HCO3 Art 22.3 20.0 - [facility] 26.0 [facility] mmol/L [facility] BE Art -3.6 (L) -3.0 - 3.0 [facility] mmol/L [facility] Hgb Blood Gas 9.8 (L) 11.2 - [facility] 15.7 gm/dL [facility] O2HB Art 93.1 (L) 94.0 - [facility] 97.0 % [facility] COHB Art 0.5 % [facility] Comment: Nonsmokers: 0.5-1.5% COHB Smokers: Variable, but usually less than 10% Toxic: 20-30% COHB Lethal: Greater than 60% COHB METHB Art 0.2 <=1.5 % [facility] Na Whole Blood 131 (L) 135 - 145 mmol/L [facility] K Whole Blood 4.2 3.5 - 5.0 mmol/L [facility] Comment: Please note: Patients with WBC >100,000 may have falsely elevated Potassium levels. Contact the Clinical Chemistry L aboratory if there are any questions. ICa Whole Blood 1.13 (L) 1.15 - 1.33 mmol/L [facility] Comment: Note: ??Total bilirubin higher than 20 m g/dL may lead to falsely low ionized calcium. CL Whole Blood 102 98 - 107 mmol/L [facility] Gluc Whole Bld 276 (H) 65 - 199 mg/dL [facility] Comment: Diabetes: >=200 mg/dL plus symp toms. FIO2 Art 71 % [facility] PF Ratio Art 104 [facility] Specimen Anatomical Collection Method Collection Time Receive d Time (Source) Location / / Volume Laterality Blood specimen 03/30/2016 5:11 PM 016 5:11 (specimen) EDT PM EDT Narayan Washington MD CHEMISTRY ORDERABLES Performing Organization Address City/[facility] [address]/[place] [address] (ABNORMAL) Antithrombin (03/30/2016 5:10 PM EDT) athologist Signature Antithrombin 49 (L) 80 - 120 % [facility] Comment: OR16 Called by: IDA, Read back by: GEOVANNA Montano, Date/Time:03/30/16 17:30. Specimen Anatomical Collection Method Collection Time Receive d Time (Source) Location / / Volume Laterality Blood specimen Venous Draw / 03/30/2016 5:10 PM 2015 5:15 (specimen) Unknown EDT PM EDT Resulting Agency Comment Spec In Lab Gentry De Los Santos MD HEMATOLOGY ORDERABLES Performing Organization Address City/[facility] [address]/[place] [address] (ABNORMAL) Hemogram (03/30/2016 5:10 PM EDT) athologist Signature WBC 17.7 (H) 4.0 - 10.0 [facility] x10(3)/[facility] Comment: WBC, H-H and Plt called to Geovanna Okeefe (OR16) @ 17:21 5-23-16. RBC 3.21 (L) 3.93 - 5.22 x10(6)/[facility] LABORATORY Hemoglobin 9.0 (L) 11.2 - 15.7 gm/dL [facility] Hematocrit 28.7 (L) 34.0 - 45.0 % [facility] MCV 89.4 79.0 - 94.0 fL [facility] MCH 28.0 26.6 - 32.2 pg [facility] MCHC 31.4 (L) 32.0 - 36.5 gm/dL [facility] Platelets 158 145 - 370 x10(3)/[facility] LABORATORY RDWSD 45.4 35.0 - 46.0 fL [facility] RDWCV 13.8 10.9 - 14.4 % [facility] MPV 11.3 9.0 - 12.0 fL [facility] Specimen Anatomical Collection Method Collection Time Receive d Time (Source) Location / / Volume Laterality Blood specimen 03/30/2016 5:10 PM 016 5:15 (specimen) EDT PM EDT Resulting Agency Comment Spec In Lab Gentry De Los Santos MD HEMATOLOGY ORDERABLES Performing Organization Address City/State/[place] [address] APTT (03/30/2016 5:10 PM EDT) athologist Signature PTT 31 25 - 35 sec [facility] Comment: The recommended therapeutic range for fu ll dose, unfractionated heparin at [facility] [place] [place] is 80 ? 114 seconds. The use of the anti-Xa (heparin) level rather than the PTT is recommended for monitoring anticoagul ation intensity in critically ill patients receiving unfractionated hepari n by continuous IV infusion. Specimen Anatomical Collection Method Collection Time Receive d Time (Source) Location / / Volume Laterality Blood specimen 03/30/2016 5:10 PM 016 5:15 (specimen) EDT PM EDT Resulting Agency Comment Spec In Lab Gentry De Los Santos MD HEMATOLOGY ORDERABLES Performing Organization Address City/[facility] [address]/[place] [address] (ABNORMAL) Prothrombin Time (03/30/2016 5:10 PM EDT) P athologist Signature PT 19.6 (H) 12.0 - 15.0 [facility] LABORATORY Comment: An INR <2.0 indicates adequate procoagul ant activity for hemostasis in most patients without underlying bleeding dis orders, though the INR may not adequately reflect hemostatic capacity i n patients with liver disease and synthetic impairment. The recommended ta rget INR range for therapeutic anticoagulation is 2.0 ? 3.0 for most applications, though lower and higher ranges may be appropriate depending on c linical circumstances. INR 1.6 (H) 0.9 - 1.1 [facility] Specimen Anatomical Collection Method Collection Time Receive d Time (Source) Location / / Volume Laterality Blood specimen 03/30/2016 5:10 PM 016 5:15 (specimen) EDT PM EDT Resulting Agency Comment Spec In Lab Gentry De Los Santos MD HEMATOLOGY ORDERABLES Performing Organization Address City/[facility] [address]/[facility] [place] [address] (ABNORMAL) Fibrinogen (03/30/2016 5:10 PM EDT) P athologist Signature Fibrinogen 162 (L) 175 - 450 [facility] mg/dL [facility] Comment: [id number] Called by: IDA, Read back by: GEOVANNA Montano, Date/Time:03/30/16 17:30. A fibrinogen level >100 mg/dL is adequat e for hemostasis in most patients without underlying bleeding disorders. Specimen Anatomical Collection Method Collection Time Receive d Time (Source) Location / / Volume Laterality Blood specimen 03/30/2016 5:10 PM 016 5:15 (specimen) EDT PM EDT Resulting Agency Comment Spec In Lab Gentry De Los Santos MD HEMATOLOGY ORDERABLES Performing Organization Address City/State/[place] [address] (ABNORMAL) BLOOD GAS 2 ARTERIAL (03/30/2016 4:31 PM EDT) Analysis Performed At Patho logist Time Signature pH Art 7.35 (L) 7.35 - [facility] 7.45 [facility] pCO2 Art 41 35 - 45 [facility] mmHg [facility] pO2 Art 201 (H) 85 - 104 [facility] LABORATORY HCO3 Art 21.8 20.0 - [facility] 26.0 [facility] mmol/L [facility] BE Art -3.9 (L) -3.0 - 3.0 [facility] mmol/L [facility] Hgb Blood Gas 9.3 (L) 11.2 - [facility] 15.7 gm/dL [facility] O2HB Art 98.2 (H) 94.0 - [facility] 97.0 % [facility] COHB Art 0.7 % [facility] Comment: Nonsmokers: 0.5-1.5% COHB Smokers: Variable, but usually less than 10% Toxic: 20-30% COHB Lethal: Greater than 60% COHB METHB Art 0.2 <=1.5 % [facility] Na Whole Blood 125 (L) 135 - 145 mmol/L [facility] K Whole Blood 6.4 (Critical) 3.5 - 5.0 mmol/L [facility] Comment: Please note: Patients with WBC >100,000 may have falsely elevated Potassium levels. Contact the Clinical Chemistry L aboratory if there are any questions. ICa Whole Blood 1.19 1.15 - 1.33 mmol/L [facility] Comment: Note: ??Total bilirubin higher than 20 m g/dL may lead to falsely low ionized calcium. CL Whole Blood 99 98 - 107 mmol/L [facility] Gluc Whole Bld 282 (H) 65 - 199 mg/dL [facility] Comment: Diabetes: >=200 mg/dL plus symp toms. Specimen Anatomical Collection Method Collection Time Receive d Time (Source) Location / / Volume Laterality Blood specimen 03/30/2016 4:31 PM 016 4:31 (specimen) EDT PM EDT Narayan Washington MD CHEMISTRY ORDERABLES Performing Organization Address City/[facility] [address]/[place] [address] Platelet count (03/30/2016 4:10 PM EDT) athologist Signature Platelets 161 145 - 370 [facility] x10(3)/[facility] Comment: CALL TO SAM POTTER (OR 16) @ 16:30 03-30-16. Specimen Anatomical Collection Method Collection Time Receive d Time (Source) Location / / Volume Laterality Blood specimen 03/30/2016 4:10 PM 016 4:17 (specimen) EDT PM EDT Resulting Agency Comment Spec In Lab Narayan Washington MD HEMATOLOGY ORDERABLES Performing Organization Address City/[facility] [address]/[place] [address] (ABNORMAL) Fibrinogen (03/30/2016 4:10 PM EDT) P athologist Signature Fibrinogen 158 (L) 175 - 450 [facility]dL [facility] Comment: A fibrinogen level >100 mg/dL is adequat e for hemostasis in most patients without underlying bleeding disorders. Specimen Anatomical Collection Method Collection Time Receive d Time (Source) Location / / Volume Laterality Blood specimen 03/30/2016 4:10 PM 016 4:17 (specimen) EDT PM EDT Resulting Agency Comment Spec In Lab Narayan Washington MD HEMATOLOGY ORDERABLES Performing Organization Address City/[facility] [address]/[place] [address] (ABNORMAL) BLOOD GAS 2 ARTERIAL (03/30/2016 3:50 PM EDT) Analysis Performed At Patho logist Time Signature pH Art 7.38 7.35 - [facility] 7.45 [facility] pCO2 Art 43 35 - 45 [facility] pO2 Art 286 (H) 85 - 104 [facility] HCO3 Art 24.4 20.0 - [facility] 26.0 [facility] mmol/L [facility] BE Art -0.8 -3.0 - 3.0 [facility] mmol/L [facility] Hgb Blood Gas 10.0 (L) 11.2 - [facility] 15.7 gm/dL [facility] O2HB Art 98.7 (H) 94.0 - [facility] 97.0 % [facility] COHB Art 0.6 % [facility] Comment: Nonsmokers: 0.5-1.5% COHB Smokers: Variable, but usually less than 10% Toxic: 20-30% COHB Lethal: Greater than 60% COHB METHB Art 0.3 <=1.5 % [facility] Na Whole Blood 129 (L) 135 - 145 mmol/L [facility] K Whole Blood 5.7 (H) 3.5 - 5.0 mmol/L [facility] Comment: Please note: Patients with WBC >100,000 may have falsely elevated Potassium levels. Contact the Clinical Chemistry L aboratory if there are any questions. ICa Whole Blood 0.92 (Critical) 1.15 - 1.33 mmol/L [facility] Comment: Note: ??Total bilirubin higher than 20 m g/dL may lead to falsely low ionized calcium. CL Whole Blood 100 98 - 107 mmol/L [facility] Gluc Whole Bld 217 (H) 65 - 199 mg/dL [facility] Comment: Diabetes: >=200 mg/dL plus symp toms. Specimen Anatomical Collection Method Collection Time Receive d Time (Source) Location / / Volume Laterality Blood specimen 03/30/2016 3:50 PM 016 3:50 (specimen) EDT PM EDT Narayan Washington MD CHEMISTRY ORDERABLES Performing Organization Address City/State/[place] [address] (ABNORMAL) BLOOD GAS 2 ARTERIAL (03/30/2016 3:17 PM EDT) Analysis Performed At Patho logist Time Signature pH Art 7.34 (L) 7.35 - [facility] 7.45 [facility] pCO2 Art 42 35 - 45 [facility] mmHg [facility] pO2 Art 262 (H) 85 - 104 [facility] mmHg [facility] HCO3 Art 21.9 20.0 - [facility] 26.0 [facility] mmol/L [facility] BE Art -3.8 (L) -3.0 - 3.0 [facility] mmol/L [facility] Hgb Blood Gas 11.8 11.2 - [facility] 15.7 gm/dL [facility] O2HB Art 98.5 (H) 94.0 - [facility] 97.0 % [facility] COHB Art 0.9 % [facility] Comment: Nonsmokers: 0.5-1.5% COHB Smokers: Variable, but usually less than 10% Toxic: 20-30% COHB Lethal: Greater than 60% COHB METHB Art 0.3 <=1.5 % [facility] Na Whole Blood 134 (L) 135 - 145 mmol/L [facility] K Whole Blood 4.1 3.5 - 5.0 mmol/L [facility] Comment: Please note: Patients with WBC >100,000 may have falsely elevated Potassium levels. Contact the Clinical Chemistry L aboratory if there are any questions. ICa Whole Blood 1.04 (L) 1.15 - 1.33 mmol/L [facility] Comment: Note: ??Total bilirubin higher than 20 m g/dL may lead to falsely low ionized calcium. CL Whole Blood 102 98 - 107 mmol/L [facility] Gluc Whole Bld 123 65 - 199 mg/dL [facility] Comment: Diabetes: >=200 mg/dL plus symp toms. Specimen Anatomical Collection Method Collection Time Receive d Time (Source) Location / / Volume Laterality Blood specimen 03/30/2016 3:17 PM 016 3:17 (specimen) EDT PM EDT Narayan Washington MD CHEMISTRY ORDERABLES Performing Organization Address City/State/[place] [address] (ABNORMAL) BLOOD GAS 2 ARTERIAL (03/30/2016 2:12 PM EDT) Analysis Performed At Patho logist Time Signature pH Art 7.40 7.35 - [facility] 7.45 [facility] pCO2 Art 42 35 - 45 [facility] pO2 Art 428 (H) 85 - 104 [facility] HCO3 Art 25.4 20.0 - [facility] 26.0 [facility] mmol/L [facility] BE Art 0.6 -3.0 - 3.0 [facility] mmol/L [facility] Hgb Blood Gas 15.0 11.2 - [facility] 15.7 gm/dL [facility] O2HB Art 98.6 (H) 94.0 - [facility] 97.0 % [facility] COHB Art 1.0 % [facility] Comment: Nonsmokers: 0.5-1.5% COHB Smokers: Variable, but usually less than 10% Toxic: 20-30% COHB Lethal: Greater than 60% COHB METHB Art 0.3 <=1.5 % [facility] Na Whole Blood 137 135 - 145 mmol/L [facility] K Whole Blood 4.3 3.5 - 5.0 mmol/L [facility] Comment: Please note: Patients with WBC >100,000 may have falsely elevated Potassium levels. Contact the Clinical Chemistry L aboratory if there are any questions. ICa Whole Blood 1.22 1.15 - 1.33 mmol/L [facility] Comment: Note: ??Total bilirubin higher than 20 m g/dL may lead to falsely low ionized calcium. CL Whole Blood 103 98 - 107 mmol/L [facility] Gluc Whole Bld 102 65 - 199 mg/dL [facility] Comment: Diabetes: >=200 mg/dL plus symp toms. FIO2 Art 92 % [facility] PF Ratio Art 465 [facility] Specimen Anatomical Collection Method Collection Time Receive d Time (Source) Location / / Volume Laterality Blood specimen 03/30/2016 2:12 PM 016 2:12 (specimen) EDT PM EDT Authorizing Provider Result Annie Washington MD CHEMISTRY ORDERABLES Performing Organization Address City/[facility] [address]/ZIP Code Phon e Number [address] Prepare RBC (03/30/2016 1:10 PM EDT) athologist Signature Dispensed? Yes [facility] Specimen Anatomical Collection Method Collection Time Receive d Time (Source) Location / / Volume Laterality Blood specimen 03/30/2016 1:10 PM 016 1:09 (specimen) EDT PM EDT Narayan Washington MD BLOOD BANK ORDERABLES Performing Organization Address [facility] [address]/ZIP [facility] [place] [address] POCT Glucose (03/30/2016 11:48 AM EDT) athologist Signature POC Glucose 91 65 - 199 [facility] mg/dL [facility] Comment: Supplemental ranges: <140 mg/dL before meals <180 mg/dL all other times of the day Specimen Anatomical Collection Method Collection Time Receive d Time (Source) Location / / Volume Laterality Blood specimen 03/30/2016 11:48 6 (specimen) AM EDT 11:48 AM EDT Authorizing Provider Result Annie Washington MD POINT OF CARE TEST ORDERABLE S Performing Organization Address City/[facility] [address]/ZIP Code Phon e Number [address] documented in this encounter Visit Diagnoses Diagnosis Coronary artery disease, angina presence unspecified, unspecified vessel or lesion type, unspecified whether teller or thurman splanted heart S/P CABG x 3 Postsurgical aortocoronary bypass status Diabetes mellitus type 2, uncontrolled Type II or unspecified type diabetes ana maría litus without mention of complication, uncontrolled S/P CABG x 3 Postsurgical aortocoronary bypass status documented in this encounter Admitting Diagnoses Diagnosis Coronary artery disease Coronary atherosclerosis of unspecified type of vessel, teller or graft documented in this encounter Administered Medications Inactive Administered Medications - up to 3 most recent administrations Medication Order MAR Action Action Date Dose Rate Site acetaminophen (OFIRMEV) Given 03/30/2016 11:35 PM 1,000 mg 400 mL/hr injection 1,000 mg EDT 1,000 mg, Intravenous, at 400 mL/hr, EVERY 6 HOURS SCHEDULED, 1 dose, First dose on Wed03/30/16 at 2000, Maximum dose of acetaminophen is 4000 mg from all sources in 24 hours., Routine acetaminophen (TYLENOL) tablet 1,000 mg Given 04/04/2016 12:31 PM EDT 1,000 mg 1,000 mg, Oral, EVERY 6 HOURS SCHEDULED, First dose on Wed03/31/16 at 0000, Until Discontinued, For pain when taking by mouth , Routine Given 04/04/2016 5:52 AM EDT 1,000 mg Given 04/04/2016 1:17 AM EDT 1,000 mg albumin, human 5% 250 mL bottle Given 03/30/2016 10:30 PM EDT 25 g Intravenous, ONCE, 1 dose, On Wed03/30/16 at 1830, PRN as needed for volume replacement to maintain cardiac index greater than or equal to 2.0 L/min/M2, Recovery (Recovery-Hospital Unit), STAT AMIOdarone (CORDARONE; PACERONE) tablet 400 Given 04/04/2016 8:51 AM EDT 400 mg mg 400 mg, Oral, 2 TIMES DAILY, First dose on Wed04/03/16 at 0945, Until Discontinued, Routine Given 04/03/2016 8:50 PM EDT 400 mg Given 04/03/2016 10:10 AM EDT 400 mg aspirin 81 mg chewable tablet 1 dose, Starting on Wed03/31/16 at 0757, Until 03/09 at 0808, DIEGO HERMOSILLO: cabinet override aspirin chewable tablet 81 mg Given 04/04/2016 8:52 AM EDT 81 mg 81 mg, Oral, DAILY, First dose on Wed03/31/16 at 0900, Until Discontinued, Start on post-op day 1 in the AM., Routine Given 04/03/2016 8:32 AM EDT 81 mg Given 04/02/2016 8:10 AM EDT 81 mg aspirin suppository 300 mg 300 mg, Rectal, DAILY, First dose on Wed03/31/16 at 0900, Until Discontinued, Start on post-op day 1 in the AM, Routine cefUROXime (ZINACEF) 750mg vial Given 03/31/2016 8:17 PM EDT 750 mg 200 mL/hr attach to sodium chloride 0.9% 100 mL Mini-Bag Plus 750 mg, Intravenous, EVERY 8 HOURS, 3 doses, First dose on Wed03/31/16 at 0100, Last dose on Wed03/31/16 at 1700, Administer over 30 Minutes, Attach to 100 mL sodium Chloride Mini-bag Plus. Give first dose at 8 hours after dose in operating room., Indication for (Active or Suspected): Prophylaxis Given 03/31/2016 8:09 AM EDT 750 mg 200 mL/hr Given 03/31/2016 1:18 AM EDT 750 mg 200 mL/hr chlorhexidine (PERIDEX) 0.12 % oral solution Given 8:48 PM EDT 15 mLs 15 mL 15 mL, Oral, EVERY 12 HOURS SCHEDULED (2 times per day), First dose on Wed03/30/16 at 2100, Until Discontinued, [place] teeth, Routine Given 04/03/2016 9:00 AM EDT 15 mLs Given 04/02/2016 8:38 PM EDT 15 mLs cholecalciferol (Vitamin D3) tablet Given 04/04/2016 8:51 AM EDT 1,000 Units 1,000 Units 1,000 Units, Oral, DAILY, First dose on Wed03/31/16 at 0900, Until Discontinued, Routine Given 04/03/2016 8:31 AM EDT 1,000 Units Given 04/02/2016 8:09 AM EDT 1,000 Units citalopram (CeleXA) tablet 20 mg Given 04/04/2016 8:51 AM EDT 20 mg 20 mg, Oral, DAILY, First dose on Wed03/31/16 at 0900, Until Discontinued, Routine Given 04/03/2016 8:31 AM EDT 20 mg Given 04/02/2016 8:09 AM EDT 20 mg cyanocobalamin (vitamin B-12) tablet 500 mcg Given 04/04/2016 8:51 AM EDT 500 mcg 500 mcg, Oral, DAILY, First dose on Wed03/31/16 at 0900, Until Discontinued, Routine Given 04/03/2016 8:30 AM EDT 500 mcg Given 04/02/2016 8:09 AM EDT 500 mcg dextrose 50% injection 25-50 mL 25-50 mL (12.5-25 g), Intravenous, EVERY 1 HOUR PRN, S tarting on 04/01/16 at 1557, Until 04/04/16 at 1827, Low blo od sugar, For BG 50-70: 120 mL Juice or Regular (not diet) soda OR 12.5 gram (25 mL) Dextrose 50% IV OR, if no IV access, 1 mg Glucagon IM. Recheck BG in 30 minut es. May repeat juice, dextrose or glucagon once per episode For BG less than 50: 240 mL Juice or Regular (not diet) soda OR 25 grams (50 mL) Dextrose 50% IV OR, if no IV access, 1 mg Glucagon IM. Recheck BG in 30 minutes. May repeat juice, dext tee, or glucagon once per episode. To avoid extravasation, push Dextrose 50% SLOWLY (3 mL ov er 1 minute) in a patent, running IV, preferably a central line. For persisten t hypoglycemia, consider longer-acting treatment for the duration of the active insulin., Routine EPINEPHrine 2 mg in Rate/Dose Verify 03/30/2016 11:00 PM 1 mcg/min 7 .5 mL/hr dextrose 5% 250 mL EDT infusion 0-2 mcg/min (0-15 mL/hr), Intravenous, CONTINUOUS, Starting on Wed03/30/16 at 1830, Until Wed03/31/16 at 0718, Titrate to keep systolic blood pressure greater than 90 mmHg. Start at 1 mcg/min, adjust by 1 mcg/min every 3 minutes. Dose not to exceed 10 mcg/min. Use if phenylephrine or vasopressin or norepinephrine is ineffective. Call pager # [phone] if initiated. Rate/Dose Change 03/30/2016 10:00 PM EDT 1 mcg/min 7.5 mL/hr Rate/Dose Verify 03/30/2016 9:00 PM EDT 2 mcg/min 15 mL/hr fentaNYL 50 mcg/mL Rate/Dose Verify 03/31/2016 8:00 AM 25 mcg/hr 0.5 mL/hr infusion EDT 0-100 mcg/hr (0-2 mL/hr), Intravenous, CONTINUOUS, Starting on Wed03/30/16 at 1830, Until Wed03/31/16 at 1326, Titrate to patient comfort, pain scale 1-3. Start at 25 mcg/hr, adjust by 25 mcg/hr every 15 minutes. Dose not to exceed 100 mcg/hour. Rate/Dose Verify 03/31/2016 7:00 AM EDT 25 mcg/hr 0.5 mL/hr Rate/Dose Verify 03/31/2016 6:00 AM EDT 25 mcg/hr 0.5 mL/hr fentaNYL 50 mcg/mL multi-dose injection 25-50 mcg, Intravenous, EVERY 5 MIN PRN, Starting on Wed04/03/16 at 1114, Until Wed04/04/16 at 1827, Pain, per unit protocol , - Start dose 50 mcg (reduce dose to 25 mcg if history of sedation sensitivity). - Titration dose 25-50 mcg IV, (based on patient response) every 3 minutes PRN, t o maintain procedural pain less than 2 per pain Scale. Maximum dose: 50 mcg/dose, 250 mcg/hour Fo r use in Interventional Radiology (IR) only for procedural sedat ion with direct provider supervision and verbal order., Angio/IR (Intra-Procedure), Routine flumazenil (ROMAZICON) injection 0.2 mg 0.2 mg, Intravenous, EVERY 2 MIN PRN, 5 doses, Startin g on Wed04/03/16 at 1114, Until 04/04/16 at 1827, for respiratory rate less t mercer 8, SpO2 less than 90% despite supplement O2, or patient unable to arouse., Give every 2 minutes IV PRN for total of 5 doses for respiratory rat e less than 8, SpO2 less than 90% despite supplement O2, or patient unable to arouse. , Routine furosemide (LASIX) injection 20 mg Given 04/04/2016 8:56 AM EDT 20 mg 20 mg, Intravenous, 2 TIMES DAILY, First dose on Wed03/31/16 at 0745, Until Discontinued Given 04/03/2016 4:55 PM EDT 20 mg Given 04/03/2016 8:33 AM EDT 20 mg glucagon (human recombinant) injection 1 mg 1 mg, Intramuscular, EVERY 1 HOUR PRN, L ow blood sugar, Starting on Wed04/01/16 at 1557, Until 04/04/16 at 1827, For B G 50-70: 120 mL Juice or Regular (not diet) soda OR 12.5 gram (25 mL) Dextrose 50% I V OR, if no IV access, 1 mg Glucagon IM. Recheck BG in 30 minutes. May repeat j uice, dextrose or glucagon once per episode For BG less than 50: 240 mL Juice or R egular (not diet) soda OR 25 grams (50 mL) Dextrose 50% IV OR, if no IV access, 1 m g Glucagon IM. Recheck BG in 30 minutes. May repeat juice, dextrose, or glucagon once per episode. To avoid extravasation, push Dextrose 50% SLOWLY (3 mL over 1 mi nute) in a patent, running IV, preferably a central line. For persistent hypoglyce wicho, consider longer-acting treatment for the duration of the active insulin. hydrALAZINE (APRESOLINE) injection 10 mg 10 mg, Intravenous, EVERY 2 HOURS PRN, S tarting on Wed03/31/16 at 0723, Until 04/04/16 at 1827, for sbp > 150 insulin aspart (NovoLOG) VIAL injection 1-12 Given 8:47 AM EDT 2 Units Units 1-12 Units, Subcutaneous, 3 TIMES DAILY WITH MEALS, First dose (after last modification) on Wed04/01/16 at 1200, Until Discontinued, ME[employer] 1 unit of insulin for every 6 grams of carbohydrates Hold if not eating Given 04/03/2016 4:55 PM EDT 4 Units Given 04/03/2016 12:44 PM EDT 3 Units insulin aspart (NovoLOG) VIAL injection Given 04/04/2016 12:31 P M EDT 2 Units 2-12 Units 2-12 Units, Subcutaneous, EVERY 4 HOURS SCHEDULED, First dose on Wed04/01/16 at 1630, Until Discontinued, Correction Factor 10 BG 140 - 160 Give 2 units BG 161 - 180 Give 4 units BG 181 - 200 Give 6 units BG 201 - 220 Give 8 units BG 221 - 240 Give 10 units BG greater than 240, give 12 units and recheck BG in 2 hours. If BG remains greater than 240, GIVE 12 (twelve)units (no more than TWO times) & call for new basal insulin orders. If less than 240 after two hours, give no insulin and resume prior schedule. Given 04/04/2016 1:18 AM EDT 2 Units Given 04/03/2016 8:51 PM EDT 4 Units insulin aspart (NovoLOG) VIAL injection 3-6 Given 03/09 8:49 AM EDT 6 Units Units 3-6 Units, Subcutaneous, 3 TIMES DAILY WITH MEALS, First dose on Wed03/30/16 at 2000, Until Discontinued, If 50% or less of the meal is eaten, give 3 units immediately following the meal. If more than 50% of the meal is eaten, give 6 units immediately following the meal. insulin aspart (NovoLOG) VIAL injection 8 Given 04/01/2016 2:10 PM EDT 8 Units Units 8 Units, Subcutaneous, ONCE, On Wed04/01/16 at 1400, 1 dose insulin detemir (LEVEMIR) VIAL injection 30 Given 03/09 8:47 AM EDT 30 Units Units 30 Units, Subcutaneous, EVERY 12 HOURS, First dose (after last modification) on Wed04/03/16 at 2100, Until Discontinued, Please continue insulin infusion, Routine Given 04/03/2016 8:52 PM EDT 30 Units insulin detemir (LEVEMIR) VIAL injection 40 Given 03/09 9:48 PM EDT 40 Units Units 40 Units, Subcutaneous, NIGHTLY, First dose on Wed03/31/16 at 2100, Until Discontinued, Please continue insulin infusion, Routine insulin detemir (LEVEMIR) VIAL injection 40 Given 03/09 8:49 AM EDT 40 Units Units 40 Units, Subcutaneous, EVERY 12 HOURS, First dose (after last modification) on Wed04/01/16 at 0900, Until Discontinued, Please continue insulin infusion, Routine insulin detemir (LEVEMIR) VIAL injection 40 Given 03/09 8:33 AM EDT 40 Units Units 40 Units, Subcutaneous, EVERY 12 HOURS, First dose (after last modification) on Wed04/02/16 at 2100, Until Discontinued, Please continue insulin infusion, Routine Given 04/02/2016 8:38 PM EDT 40 Units insulin detemir (LEVEMIR) VIAL injection 50 Given 03/09 8:08 AM EDT 50 Units Units 50 Units, Subcutaneous, EVERY 12 HOURS, First dose (after last modification) on Wed04/01/16 at 2100, Until Discontinued, Please continue insulin infusion, Routine Given 04/01/2016 9:11 PM EDT 50 Units insulin regular human Bolus from Bag 03/31/2016 12:17 AM EDT 8 Units (HumuLIN;NovoLIN) 1 unit/mL 150 Units in sodium chloride 0.9%150 mL BOLUS 0-16 Units 0-16 Units, Intravenous, PER INSULIN PROTOCOL, Starting on Wed03/30/16 at 1812, Until Wed04/01/16 at 1556, Per Protocol, BOLUS order. Type 2 No Initial bolus. Adjustment bolus per insulin infusion protocol: IV insulin Bolus scale: For BG in mg/dL (250-299 = 8 units, 300-359 = 12 units, greater than 360 = 16 units), Routine Bolus from Bag 03/30/2016 11:15 PM EDT 8 Units insulin regular human Rate/Dose Change 04/01/2016 10:36 2.5 Units/hr 2.5 mL/hr (HumuLIN;NovoLIN) AM EDT 1unit/mL 150 Units in sodium chloride 0.9% 150 mL infusion 0.5-16 Units/hr (0.5-16 mL/hr), Intravenous, CHANGE BAG EVERY EVENING, First dose on Wed03/30/16 at 1830, Until Discontinued, Type 2 diabetes. Current blood glucose 140 - 179 Titration- aim for target range of 140 - 180 mg/dL. Check BG every hour unless otherwise indicated. [[ No initial bolus. Begin continuous infusion at 2 units/hour. ]] Current BG less than 80 - Stop insulin. Re-check BG in 30 minutes and as soon as BG is greater than 80, restart with rate 50% of previous rate. If BG less than 70, treat per hypoglycemia protocol. If infusion stopped after previous rate had been 0.5 unit/hour, recheck every hour and when BG greater than 100 and higher than last test restart at 0.5 unit/hour. Current BG 80 - 139 - If BG dropped 10 mg/dL or more since last test, decrease rate by 50% and re-check in 30 minutes. Otherwise, decrease rate by 0.5 units/hour. Current BG 140 - 180 - If BG dropped 50 mg/dL or more since last test, decrease rate by 1 unit/hour. Otherwise, maintain same rate. Current BG 181 - 220 - If BG is lower than last test, maintain same rate. Otherwise, increase rate by 0.5 units/hour. Current BG 221 - 250 - If BG dropped 30 mg/dL or more since last test, maintain same rate. Otherwise, increase rate by 1 unit/hour. Current BG greater than 250 - Increase rate by 1 unit/hour AND bolus with Regular insulin IV as per IV Bolus Scale. Re-check BG in 30 minutes., Routine Rate/Dose Change 04/01/2016 9:38 AM EDT 2 Units/hr 2 mL/hr Rate/Dose Change 04/01/2016 5:31 AM EDT 1.5 Units/hr 1.5 mL/hr ipratropium-albuterol (DUONEB) 0.5 mg-3 mg(2.5 Given 0 04/04/2016 5:51 AM EDT 3 mLs mg base)/3 mL nebulizer solution 3 mL 3 mL, Nebulization, EVERY 4 HOURS, First dose (after last modification) on Wed04/03/16 at 1000, Until Discontinued, Routine Given 04/04/2016 1:17 AM EDT 3 mLs Given 04/03/2016 9:00 PM EDT 3 mLs levothyroxine (SYNTHROID) tablet 125 mcg Given 04/04/2016 5:52 AM EDT 125 mcg 125 mcg, Oral, EVERY MORNING, First dose on Wed03/31/16 at 0600, Until Discontinued, Routine Given 04/03/2016 6:51 AM EDT 125 mcg Given 04/02/2016 5:47 AM EDT 125 mcg magnesium hydroxide (MILK OF MAGNESIA) oral Given 04/03/2016 8:33 AM EDT 10 mLs suspension 10 mL 10 mL, Oral, DAILY, First dose on Wed04/01/16 at 0900, Until Discontinued, Post-op day 2. Do not use with renal insufficiency., Routine Given 04/02/2016 8:11 AM EDT 10 mLs Given 04/01/2016 8:55 AM EDT 10 mLs metolazone (ZAROXOLYN) tablet 2.5 mg Given 04/02/2016 10:16 AM EDT 2.5 mg 2.5 mg, Oral, ONCE, 1 dose, On Wed04/02/16 at 0900, Routine meTOPROLOL (LOPRESSOR) injection 5 mg Given 03/31/2016 7:07 AM EDT 5 mg 5 mg, Intravenous, ONCE, 1 dose, On Wed03/31/16 at 0715 meTOPROLOL tartrate (LOPRESSOR) tablet 2 5 mg Given 04/03/2016 8:31 AM EDT 25 mg 25 mg, Oral, EVERY 12 HOURS SCHEDULED (2 times per day), First dose on Wed03/31/16 at 0745, Until Discontinued, Hold for sbp < 90 or HR < 50, Routine Given 04/02/2016 8:38 PM EDT 25 mg Given 04/02/2016 8:11 AM EDT 25 mg meTOPROLOL tartrate (LOPRESSOR) tablet 2 5 mg Given 04/02/2016 6:26 PM EDT 25 mg 25 mg, Oral, ONCE, 1 dose, On Maggie 04/02/16 at 1845, Routine meTOPROLOL tartrate (LOPRESSOR) tablet 2 5 mg Given 04/04/2016 5:52 AM EDT 25 mg 25 mg, Oral, EVERY 8 HOURS SCHEDULED, First dose (after last modification) on Wed04/03/16 at 1500, Until Discontinued, Hold for sbp < 90 or HR < 50, Routine Given 04/03/2016 9:00 PM EDT 25 mg Given 04/03/2016 3:29 PM EDT 25 mg nalOXone (NARCAN) injection 0.1 mg 0.1 mg, Intravenous, EVERY 2 MIN PRN, St arting on Wed04/03/16 at 1114, Until 04/04/16 at 1827, Opioid Reversal, Give e very 2 minutes PRN for opioid reversal, for respiratory rate less than 8 per minute, SpO2 less than 90% despite supplement O2, or patient unable to arouse. Maximum dose of 0.8 mg in tra-procedure. , Routine nitroGLYcerin 50 mg in Rate/Dose Verify 03/31/2016 7:00 AM 50 mcg/min 15 mL/hr dextrose 5% 250 mL EDT infusion 0-200 mcg/min (0-60 mL/hr), Intravenous, CONTINUOUS, Starting on Wed03/30/16 at 1830, Until Wed03/31/16 at 1326, For hypertension. Titrate to keep systolic blood pressure less than 120 mmHg. Initiate at 25 mcg/min. Adjust by 25 mcg/min every 5 minutes. Dose not to exceed 200 mcg/minute., Routine Rate/Dose Verify 03/31/2016 6:00 AM EDT 50 mcg/min 15 mL/hr Rate/Dose Change 03/31/2016 5:00 AM EDT 50 mcg/min 15 mL/hr NORepinephrine 16 mcg/mL Rate/Dose Verify 03/31/2016 4:00 AM 1 mcg/ min 3.8 mL/hr (standard ADULT and Barbara EDT greater than 20 kg) infusion 0-30 mcg/min (0-112.5 mL/hr), Intravenous, CONTINUOUS, Starting on Wed03/30/16 at 1830, Until Wed03/31/16 at 1326, Titrate to keep systolic blood pressure greater than 90 mmHg. Start at 2 mcg/minute and adjust by 2 mcg/min every 3 minutes. Dose not to exceed 30 mcg/minute. Begin if phenyleprine and/or vasopressin ineffective.Call pager # [phone] if initiated., Routine Rate/Dose Verify 03/31/2016 3:00 AM EDT 1 mcg/min 3.8 mL/hr Rate/Dose Verify 03/31/2016 2:00 AM EDT 1 mcg/min 3.8 mL/hr oxyCODONE (ROXICODONE) immediate release Given 04/01/2016 6:14 P M EDT 10 mg tablet 5-10 mg 5-10 mg, Oral, EVERY 4 HOURS PRN, Starting on Wed03/30/16 at 1812, Until 04/04/16 at 1827, Pain, Give 5 mg 1 tab PO Q 4 hours PRN for pain >/= to 3-5/10. Give 5 mg 2 tabs PO Q 4 hours PRN for pain >/= to 6-10/10. Call provider for new pain management orders if pain not relieved after an appropriate amount of time or if regimen is not tolerated. Hold if patient appears over sedated. , Routine Given 04/01/2016 6:41 AM EDT 10 mg Given 03/31/2016 1:33 PM EDT 10 mg pantoprazole (PROTONIX) injection 40 mg Given 03/31/2016 8:12 AM EDT 40 mg 40 mg, Intravenous, DAILY, First dose on Wed03/30/16 at 2000, Until Discontinued, Reconstitute with 10 mL of normal saline to a concentration of 4 mg/mL and infuse slowly over 2 minutes., Routine Given 03/30/2016 9:39 PM EDT 40 mg pantoprazole (PROTONIX) tablet 40 mg Given 04/04/2016 8:52 AM EDT 40 mg 40 mg, Oral, DAILY, First dose on Wed03/30/16 at 2000, Until Discontinued, DO NOT CRUSH OR OPEN If unable to take PO, may give IV, Routine Given 04/03/2016 8:31 AM EDT 40 mg Given 04/02/2016 8:10 AM EDT 40 mg potassium chloride (K-DUR/KLOR-CON) extended Given 12:46 PM EDT 20 mEq release tablet 20 mEq 20 mEq, Oral, ONCE, 1 dose, On Wed04/02/16 at 1200, Routine potassium chloride (K-DUR/KLOR-CON) extended Given 6:52 AM EDT 30 mEq release tablet 30 mEq 30 mEq, Oral, ONCE, 1 dose, On Wed04/02/16 at 0700, Routine potassium chloride (K-DUR/KLOR-CON) extended Given 8:32 AM EDT 40 mEq release tablet 40 mEq 40 mEq, Oral, ONCE, 1 dose, On Wed04/03/16 at 0800, Routine potassium chloride (K-DUR/KLOR-CON) extended Given 10:10 AM EDT 40 mEq release tablet 40 mEq 40 mEq, Oral, ONCE, 1 dose, On Wed04/03/16 at 1100, Routine propofol (DIPRIVAN) infusion New Bag 03/31/2016 3:34 AM EDT 30 mcg/kg/min 18 mL/hr 0-50 mcg/kg/min ? 100 kg (0-30 mL/hr), Intravenous, CONTINUOUS, Starting on Wed03/30/16 at 1830, Until Wed03/31/16 at 1326, Titrate to sedation level of RASS Goal (-) 1. Start at 10 mcg/kg/min, adjust rate by 5 mcg/kg/min every 3 minutes. Dose not to exceed 50 mcg/kg/minute. Discontinue upon extubation., Routine Rate/Dose Verify 03/31/2016 3:00 AM EDT 45 mcg/kg/min 27 mL/hr Rate/Dose Verify 03/31/2016 2:00 AM EDT 45 mcg/kg/min 27 mL/hr senna-docusate (PERICOLACE) 8.6-50 mg per Given 2015 8:48 PM EDT 2 tablets tablet 2 tablet 2 tablet, Oral, DAILY, First dose on Wed03/31/16 at 2100, Until Discontinued, Post-op day 1, Routine Given 04/02/2016 8:38 PM EDT 2 tablets Given 04/01/2016 9:10 PM EDT 2 tablets sodium bicarbonate 1 mEq/mL (8.4 %) IV Given 03/30/2016 10:29 PM EDT 100 mEq solution 100 mEq 100 mEq, Intravenous, ONCE, 1 dose, On Wed03/30/16 at 2230, Routine sodium bicarbonate 1 mEq/mL (8.4 %) IV Given 03/31/2016 1:17 AM EDT 100 mEq solution 100 mEq 100 mEq, Intravenous, ONCE, 1 dose, On Wed03/31/16 at 0045, Routine sodium bicarbonate 1 mEq/mL (8.4 %) IV Given 03/30/2016 6:59 PM EDT 50 mEq solution 50 mEq 50 mEq, Intravenous, ONCE, 1 dose, On Wed03/30/16 at 1900, Routine sodium chloride 0.9 % flush 5 mL Given 04/04/2016 5:45 AM EDT 5 mLs 5 mL, Intravenous, EVERY 8 HOURS, First dose on Wed03/31/16 at 1345, Until Discontinued, Routine Given 04/03/2016 8:52 PM EDT 5 mLs Given 04/03/2016 12:51 PM EDT 5 mLs sodium chloride 0.9% Rate/Dose Verify 03/31/2016 8:00 AM 200 mL/hr 2 00 mL/hr infusion EDT 0-500 mL/hr, Intravenous, CONTINUOUS, Starting on Wed03/30/16 at 1830, Until Wed03/31/16 at 1326, Bolus 250 mL every 5 minutes as needed for volume replacement to maintain cardiac index greater than or equal to 2.0 L/min/M2. Maximum volume 2 L. Call house mover helper for additional fluid orders: pager #[phone]. New Bag 03/30/2016 8:55 PM EDT 200 mL/hr 200 mL/hr sodium chloride 0.9% Rate/Dose Verify 03/31/2016 8:00 AM 30 mL/hr 3 0 mL/hr infusion EDT 10-30 mL/hr, Intravenous, DAILY PRN, Starting on Wed03/30/16 at 1812, Until Wed03/31/16 at 1326, Side port TKO rate, per [facility] nursing protocol. Rate/Dose Verify 03/31/2016 7:00 AM EDT 30 mL/hr 30 mL/hr Rate/Dose Verify 03/31/2016 6:00 AM EDT 30 mL/hr 30 mL/hr sodium chloride 0.9% Rate/Dose Verify 03/31/2016 8:00 AM 30 mL/hr 3 0 mL/hr infusion EDT 10-30 mL/hr, Intravenous, DAILY PRN, Starting on Wed03/30/16 at 1812, Until Wed03/31/16 at 1326, Side port TKO rate, per [facility] nrusing protocol. Rate/Dose Verify 03/31/2016 7:00 AM EDT 30 mL/hr 30 mL/hr Rate/Dose Verify 03/31/2016 6:00 AM EDT 30 mL/hr 30 mL/hr documented in this encounter Active and Recently Administered Medications Times are shown in EDT. Scheduled Medication Order 04/02/2016 04/03/2016 04/04/2016 acetaminophen (TYLENOL) tablet 1,000 mg 0547 (Given - Provider: Kerry Gann RN)1146 (Given - Provider: Newton Strange RN)1808 (Given - Provider: Newton Strange RN)2338 (Given - Provider: Kerry Gann RN) 0528 (Given - Provider: Kerry Gann RN)1244 (Given - Provider: Zaida Rust RN)1753 (Given - Provider: Zaida Rust RN) 0117 (Given - Provider: Kerry Gann RN)0552 (Given - Provider: Kerry Hamlin I, DAYANA)1231 (Given - Provider: Newton Strange RN) 1,000 mg, Oral, EVERY 6 HOURS SCHEDULED, First dose on Wed03/31/16 at 0000, Until Discontinued, For pain when taking by mouth , Routine AMIOdarone (CORDARONE; PACERONE) tablet 400 mg 1010 (Given - Provider: Zaida Rust RN)2050 (Given - Provider: Kerry Gann RN) 0851 (Given - Provider: Newton Strange RN) 400 mg, Oral, 2 TIMES DAILY, First dose on Wed04/03/16 at 0945, Until Discontinued, Routine aspirin chewable tablet 81 mg(Linked Group 1) 0810 (Gi dequan - Provider: Newton Srtange RN) 0832 (Given - Provider: Zaida Rust RN) 0852 (Give n - Provider: Newton Strange RN) 81 mg, Oral, DAILY, First dose on Wed at 0900, Until Discontinued, Start on post-op day 1 in the AM., Routine aspirin suppository 300 mg(Linked Group 1) 0810 (See A lternative - Provider: Newton Strange RN) 0832 (See Alternative - Provider: Zaida Rust RN) 0852 (See Alternative - Provider: Newton Strange RN) 300 mg, Rectal, DAILY, First dose on Wed03/31/16 at 0900, Until Discontinued, Start on post-op day 1 in the AM, Routine chlorhexidine (PERIDEX) 0.12 % oral solution 15 mL 090 0 (Not Given - Provider: Newton Strange RN - Reason: Patient/family refused)2037 (Given - Provider: Kerry Gann RN) 0900 (Given - Provider: Zaida Rust RN)2047 (Given - Provider: Kerry Gann RN) 0900 (Not Given - Provider: Newton salmeron RN - Reason: Patient/family refused) 15 mL, Oral, EVERY 12 HOURS SCHEDULED (2 times per day), First dose on Wed03/30/16 at 2100, Until Discontinued, [place] teeth, Routine cholecalciferol (Vitamin D3) tablet 1,000 Units 08 ( Given - Provider: Newton Strange RN) 0831 (Given - Provider: Zaida Rust RN) 0851 (Give n - Provider: Newton Strange RN) 1,000 Units, Oral, DAILY, First dose on Wed03/31/16 at 0900, Until Discontinued, Routine citalopram (CeleXA) tablet 20 mg 0809 (Given - Provider: Suzanne Strange RN) 0831 (Given - Provider: Zaida Rust RN) 0851 (Given - Provider: Newton Strange RN) 20 mg, Oral, DAILY, First dose on Wed at 0900, Until Discontinued, Routine cyanocobalamin (vitamin B-12) tablet 500 mcg 0809 (Giv en - Provider: Newton Strange RN) 0830 (Given - Provider: Zaida Rust RN) 0851 (Give n - Provider: Newton Strange RN) 500 mcg, Oral, DAILY, First dose on Wed03/31/16 at 0900, Until Discontinued, Routine furosemide (LASIX) injection 20 mg 0806 (Given - Provi olga: Newton Strange RN)1637 (Given - Provider: Newton Strange RN) 0833 (Given - Provider: Zaida Rust RN)1655 (Given - Provider: Zaida Rust RN) 0856 (Given - Provider: Newton Strange RN) 20 mg, Intravenous, 2 TIMES DAILY, First dose on Wed03/31/16 at 0745, Until Discontinued insulin aspart (NovoLOG) VIAL injection 1-12 Units 080 0 (Not Given - Provider: Newton Strange RN - Reason: Order parameters not met)1200 (Not Given - Provider: Newton Strange RN - Reason: Order parameters not met)1725 (Given - Provider: Newton Strange RN) 0834 (Given - Provider: Zaida Rust RN)1244 (Given - Provider: Zaida Rust RN)1655 (Given - Provider: Zaida Rust RN) 0847 (Given - Provider: Newton Strange RN)1200 (Not Given - Provider: Newton Strange RN - Reason: Order parameters not met) 1-12 Units, Subcutaneous, 3 TIMES DAILY WITH MEALS, First dose on Wed04/01/16 at 1200, Until Discontinued, [employer] 1 unit of insulin for every 6 grams of carbohydrates Hold if not eating, Routine insulin aspart (NovoLOG) VIAL injection 2-12 Units(Jaylin presley Group 2) 0000 (Not Given - Provider: Kerry Gann RN - Reason: See comment)0400 (Not Given - Provider: Kerry Gann RN - Reason: Order parameters not met)0800 (Not Given - Provider: Newton Strange RN - Reason: Order parameters not met) 0000 (Not Given - Provider: Kerry Gann RN - Reason: Order parameters not met)0400 (Not Given - Provider: Kerry Gann RN - Reason: Order parameters not met)0800 (Not Given - Provider: Zaida Rust RN - Reason: Order parameters not met) 0118 (Given - Provider: Kerry Gann RN)0400 (Not Given - Provider: Kerry Gann RN - Reason: Order parameters not met)0800 (Not Given - Provider: Newton Strange RN - Reason: Order parameters not met) 2-12 Units, Subcutaneous, EVERY 4 HOURS SCHEDULED, First dose on Wed04/01/16 at 1630, Until Discontinued, Correction Factor 10 BG 140 - 160 Give 2 units BG 161 - 180 Give 4 units BG 181 - 200 Give 6 uni 1200 (Not Given - Provider: Newton Strange RN - Reason: Order parameters not met)1600 (Not Given - Provider: Newton Strange RN - Reason: Order parameters not met) 1200 (Not Given - Provider: Zaida Rust RN - Reason: Order parameters not met)1600 (Not Given - Provider: Zaida Rust RN - Reason: Order parameters not met)205 (Given - Provider: Kerry Gann RN) 1231 (Given - Provider: Newton Strange RN)1600 (Due) ts BG 201 - 220 Give 8 units BG 221 - 24 0 Give 10 units BG greater than 240, give 12 units and recheck BG in 2 hours. If BG remains greater than 240, GIVE 12 (twelve)units (no more than TWO times) & 2000 (Not Given - Provider: Kerry Gann RN - Reason: Order parameters not met) call for new basal insulin orders. If l ess than 240 after two hours, give no insulin and resume prior schedule., Routine insulin detemir (LEVEMIR) VIAL injection 30 Units 2051 (Given - Provider: Kerry Gann RN) 0847 (Given - Provider: Newton Strange RN) 30 Units, Subcutaneous, EVERY 12 HOURS, First dose on Wed04/03/16 at 2100, Until Discontinued, Please continue insulin infusion, Routine insulin detemir (LEVEMIR) VIAL injection 40 Units (CAN CELED) 2037 (Given - Provider: Kerry Gann RN) 0833 (Given - Provider: Zaida Rust RN) 40 Units, Subcutaneous, EVERY 12 HOURS, First dose on Wed04/02/16 at 2100, Until Discontinued, Please continue insulin infusion, Routine insulin detemir (LEVEMIR) VIAL injection 50 Units (CAN CELED) 0808 (Given - Provider: Newton Strange RN) 50 Units, Subcutaneous, EVERY 12 HOURS, First dose on Wed04/01/16 at 2100, Until Discontinued, Please continue insulin infusion, Routine ipratropium-albuterol (DUONEB) 0.5 mg-3 mg(2.5 mg base)/3 mL nebulizer solution 3 mL 1011 (Given - Provider: Kenisha Rust RN)1529 (Given - Provider: Zaida Rust RN)1753 (Given - Provider: Zaida Rust RN)2100 (Given - Provider: Kerry Gann RN) 0117 (Given - Provider: Kerry Gann RN)0551 (Given - Provider: Kerry Gann RN)1000 (Not Given - Provider: Newton Strange RN - Reason: Patient/family refused)1400 (Due) 3 mL, Nebulization, EVERY 4 HOURS, First dose on Wed04/03/16 at 1000, Until Discontinued, Routine levothyroxine (SYNTHROID) tablet 125 mcg 0547 (Given - Provider: Kerry Gann RN) 0651 (Given - Provider: Kerry Gann RN) 0552 (Giv en - Provider: Kerry Gann RN) 125 mcg, Oral, EVERY MORNING, First dose on Wed03/31/16 at 0600, Until Discontinued, Routine magnesium hydroxide (MILK OF MAGNESIA) oral suspension 10 mL 0811 (Given - Provider: Newton Strange RN) 0833 (Given - Provider: Zaida Rust RN) 0900 (Not Given - Provider: Newton Strange RN - Reason: Patient/family refused) 10 mL, Oral, DAILY, First dose on Wed at 0900, Until Discontinued, Post- op day 2. Do not use with renal insufficiency., Routine metolazone (ZAROXOLYN) tablet 2.5 mg (COMPLETED) 1016 (Given - Provider: Newton Strange RN) 2.5 mg, Oral, ONCE, 1 dose, Maggie 04/02/16 at 0900, Routine meTOPROLOL tartrate (LOPRESSOR) tablet 25 mg (CANCELED ) 0811 (Given - Provider: Newton Strange RN)2037 (Given - Provider: Kerry Gann RN) 0831 (Given - Provider: Zaida Rust RN) 25 mg, Oral, EVERY 12 HOURS SCHEDULED (2 times per day), First dose on Wed03/31/16 at 0745, Until Discontinued, Hold for sbp < 90 or HR < 50, Routine meTOPROLOL tartrate (LOPRESSOR) tablet 25 mg (COMPLETE D) 1826 (Given - Provider: Newton Strange RN) 25 mg, Oral, ONCE, 1 dose, Wed04/02/16 at 1845, Routine meTOPROLOL tartrate (LOPRESSOR) tablet 25 mg 1529 (Given - Provider: Zaida Rust RN)2100 (Given - Provider: Kerry Gann RN) 0552 (Given - Provider: Kerry Gann RN)1400 (Due) 25 mg, Oral, EVERY 8 HOURS SCHEDULED, Fi rst dose on Wed04/03/16 at 1500, Until Discontinued, Hold for sbp < 90 or HR < 50, Routine pantoprazole (PROTONIX) injection 40 mg(Linked Group 3 ) 0810 (See Alternative - Provider: Newton Strange RN) 0831 (See Alternative - Provider: Zaida Rust RN) 0852 (See Alternative - Provider: Kenney Strange RN) 40 mg, Intravenous, DAILY, First dose on Wed03/30/16 at 2000, Until Discontinued, Reconstitute with 10 mL of normal saline to a concentration of 4 mg/mL and infuse slowly over 2 minutes., Routine pantoprazole (PROTONIX) tablet 40 mg(Linked Group 3) 0 810 (Given - Provider: Newton Strange RN) 0831 (Given - Provider: Zaida Rust RN) 0852 (Give n - Provider: Newton Strange RN) 40 mg, Oral, DAILY, First dose on Wed at 2000, Until Discontinued, DO NOT CRUSH OR OPEN If unable to take PO, may give IV, Routine potassium chloride (K-DUR/KLOR-CON) extended release t ablet 20 mEq (COMPLETED) 1246 (Given - Provider: Newton Strange RN) 20 mEq, Oral, ONCE, 1 dose, Wed04/02/16 at 1200, Routine potassium chloride (K-DUR/KLOR-CON) extended release t ablet 30 mEq (COMPLETED) 0652 (Given - Provider: Kerry Gann RN) 30 mEq, Oral, ONCE, 1 dose, Wed04/02/16 at 0700, Routine potassium chloride (K-DUR/KLOR-CON) extended release tablet 40 mEq (COMPLETED) 0832 (Given - Provider: Zaida Rust RN) 40 mEq, Oral, ONCE, 1 dose, Wed04/03/16 at 0800, Routine potassium chloride (K-DUR/KLOR-CON) extended release tablet 40 mEq (COMPLETED) 1010 (Given - Provider: Zaida Rust RN) 40 mEq, Oral, ONCE, 1 dose, Wed04/03/16 at 1100, Routine senna-docusate (PERICOLACE) 8.6-50 mg per tablet 2 tab let 2037 (Given - Provider: Kerry Gann RN) 2047 (Given - Provider: Kerry Gann RN) 2 tablet, Oral, DAILY, First dose on Wed03/31/16 at 2100, Until Discontinued, Post-op day 1, Routine sodium chloride 0.9 % flush 5 mL 0545 (Given - Provide r: Kerry Gann RN)1345 (Not Given - Provider: Newton Strange RN - Reason: See comment - Comment: allready flushed)2144 (Given - Provider: Kerry Gann RN) 0545 (Given - Provider: Kerry Gann RN)1251 (Given - Provider: Zaida Rust RN)2051 (Given - Provider: Kerry Gann RN) 0545 (Given - Provider: Kerry Gann RN)1345 (Due) 5 mL, Intravenous, EVERY 8 HOURS, First dose on Wed03/31/16 at 1345, Until Discontinued, Routine PRN Medication Order 04/02/2016 04/03/2016 04/04/2016 bisacodyl (DULCOLAX) suppository 10 mg 10 mg, Rectal, DAILY PRN, Starting Maggie 5 /26/16 at 0000, Until 04/04/16 at 1827, Constipation, Starting post-op day 3., Routine dextrose 50% injection 25-50 mL(Linked Group 4) 25-50 mL (12.5-25 g), Intravenous, EVERY 1 HOUR PRN, Starting 04/01/16 at 1557, Until 04/04/16 at 1827, Low blood sugar, For BG 50-70: 120 mL Juice or Regular (not diet) soda OR 12.5 gram (25 mL ) Dextrose 50% IV OR, if no IV access, 1 mg Glucagon IM. Recheck BG in 30 minutes. May repeat juice, dextrose or glucagon once per episode For BG less than 50: 240 mL Juice or Regular (not diet) sod a OR 25 grams (50 mL) Dextrose 50% IV OR , if no IV access, 1 mg Glucagon IM. Recheck BG in 30 minutes. May repeat juice, dextrose, or glucagon once per episode. To avoid extravasation, push Dextrose 50% SLOWLY (3 mL over 1 minute) in a pa tent, running IV, preferably a central line. For persistent hypoglycemia, consider longer-acting treatment for the duration of the active insulin., Routine fentaNYL 50 mcg/mL multi-dose injection 25-50 mcg, Intravenous, EVERY 5 MIN PRN, Starting Wed04/03/16 at 1114, Until 04/04/16 at 1827, Pain, per unit protocol, - Start dose 50 mcg (reduce dose to 25 mcg if history of sedation sensitivity). - Titration dose 25-50 mcg IV, (based o n patient response) every 3 minutes PRN, to maintain procedural pain less than 2 per pain Scale. Maximum dose: 50 mcg/dose, 250 mcg/hour For use in Interventional Radiology (IR) only for procedural arina tion with direct provider supervision and verbal order., Angio/IR (Intra-Procedure), Routine flumazenil (ROMAZICON) injection 0.2 mg 0.2 mg, Intravenous, EVERY 2 MIN PRN, 5 doses, Starting Wed04/03/16 at 1114, Until 04/04/16 at 1827, for respiratory rate less than 8, SpO2 less than 90% despite supplement O2, or patient unable to a rouse., Give every 2 minutes IV PRN for total of 5 doses for respiratory rate less than 8, SpO2 less than 90% despite supplement O2, or patient unable to arouse. , Routine glucagon (human recombinant) injection 1 mg(Linked Group 4) 1 mg, Intramuscular, EVERY 1 HOUR PRN, S tarting 04/01/16 at 1557, Until 04/04/16 at 1827, Low blood sugar, For BG 50-70: 120 mL Juice or Regular (not diet) soda OR 12.5 gram (25 mL) Dextrose 50% IV OR, if no IV access, 1 mg Glucagon I M. Recheck BG in 30 minutes. May repeat juice, dextrose or glucagon once per episode For BG less than 50: 240 mL Juice or Regular (not diet) soda OR 25 grams (50 mL) Dextrose 50% IV OR, if no IV acc ess, 1 mg Glucagon IM. Recheck BG in 30 minutes. May repeat juice, dextrose, or glucagon once per episode. To avoid extravasation, push Dextrose 50% SLOWLY (3 mL over 1 minute) in a patent, running IV, preferably a central line. For persistent hypoglycemia, consider longer-acting treatment for the duration of the active insulin. , Routine hydrALAZINE (APRESOLINE) injection 10 mg 10 mg, Intravenous, EVERY 2 HOURS PRN, S tarting 03/31/16 at 0723, Until 04/04/16 at 1827, for sbp > 150 nalOXone (NARCAN) injection 0.1 mg 0.1 mg, Intravenous, EVERY 2 [address]N, St arting 04/03/16 at 1114, Until 04/04/16 at 1827, Opioid Reversal, Give every 2 minutes PRN for opioid reversal, for respiratory rate less than 8 per minute, SpO2 less than 90% despite supplement O 2, or patient unable to arouse. Maximum dose of 0.8 mg intra-procedure. , Routine oxyCODONE (ROXICODONE) immediate release tablet 5-10 mg 5-10 mg, Oral, EVERY 4 HOURS PRN, Starti ng Mon 03/30/16 at 1812, Until 04/04/16 at 1827, Pain, Give 5 mg 1 tab PO Q 4 hours PRN for pain >/= to 3-5/10. Give 5 mg 2 tabs PO Q 4 hours PRN for pain &g t;/= to 6-10/10. Call provider for new p ain management orders if pain not relieved after an appropriate amount of time or if regimen is not tolerated. Hold if patient appears over sedated. , Routine Linked Groups Order Group 1: aspirin chewable tablet 81 mgJump to med 81 mg, Oral, DAILY, First dose on Wed at 0900, Until Discontinued
Start on post-op day 1 in the AM.
Routine Or aspirin suppository 300 mgJump to med 300 mg, Rectal, DAILY, First dose on Wed03/31/16 at 0900, Until Discontinued
Start on post-op day 1 in the AM
Routine Group 2: POCT Fingerstick Glucose (CANCELED) Routine, EVERY 4 HOURS, First occurrence on Wed04/01/16 at 1999, Until Specified
Consider choosing EVERY 4 HOURS as frequency for: - Type 1 Diabetes - At least 24 hours after coming off an insu jaylin drip - At least 24 hours after admis juliane for DKA - Hypoglycemia unawareness - Patients who are otherwise unstable Select the same frequency for the correction bolus insulin order And insulin aspart (NovoLOG) VIAL injection 2-12 UnitsJump to med 2-12 Units, Subcutaneous, EVERY 4 HOURS SCHEDULED, First dose on Wed04/01/16 at 1630, Until Discontinued
Correction Factor 10 BG 140 - 160 Give 2 units BG 161 - 180 Give 4 un its BG 181 - 200 Give 6 units &nbs p;BG 201 - 220 Give 8 units BG 221 - 240 Give 10 units BG greater than 240, give 12 units and recheck BG in 2 hours. If BG remains great er than 240, GIVE 12 (twelve)units (no m ore than TWO times) & call for new basal insulin orders. If less than 240 after two hours, give no insulin and resume prior schedule.
Routine Group 3: pantoprazole (PROTONIX) tablet 40 mgJump to med 40 mg, Oral, DAILY, First dose on Wed at 2000, Until Discontinued
DO NOT CRUSH OR OPEN If unable to take PO, may give IV
Routine Or pantoprazole (PROTONIX) injection 40 mgJump to med 40 mg, Intravenous, DAILY, First dose on 03/30/16 at 2000, Until Discontinued
Reconstitute with 10 mL of normal saline to a concentration of 4 mg/mL and infuse slowly over 2 minutes.
Routine Group 4: dextrose 50% injection 25-50 mLJump to med 25-50 mL (12.5-25 g), Intravenous, EVERY 1 HOUR PRN, Starting Wed04/01/16 at 1557, Until 04/04/16 at 1827, Low blood sugar
For BG 50- 70: 120 mL Juice or Regular (not t) soda OR 12.5 gram (25 mL) Dextrose 50 % IV OR, if no IV access, 1 mg Glucagon IM. Recheck BG in 30 minutes. May repeat juice, dextrose or glucagon once per epis ode For BG less than 50: 240 mL J uice or Regular (not diet) soda OR 25 grams (50 mL) Dextrose 50% IV OR, if no IV access, 1 mg Glucagon IM. Recheck BG in 30 minutes. & nbsp;May repeat juice, dextrose, or gluc agon once per episode. To avoid extravasation, push Dextrose 50% SLOWLY (3 mL over 1 minute) in a patent, running IV, preferably a central line.&nb sp;For persistent hypoglycemia, consid er longer-acting treatment for the duration of the active insulin.
Routine Or glucagon (human recombinant) injection 1 mgJump to med 1 mg, Intramuscular, EVERY 1 HOUR PRN, S tarting Wed04/01/16 at 1557, Until 04/04/16 at 1827, Low blood sugar
For BG 50-70: 120 mL Juice or Regular (not diet) soda OR 12. 5 gram (25 mL) Dextrose 50% IV OR, if no IV access, 1 mg Glucagon IM. Recheck BG in 30 minutes. May repeat juice, dextrose or glucagon once per episode * *For BG less than 50: 240 mL Juice or Re gular (not diet) soda OR 25 grams (50 mL) Dextrose 50% IV OR, if no IV access, 1 mg Glucagon IM. Recheck BG in 30 minutes. May repea t juice, dextrose, or glucagon once per episode. To avoid extravasation, push Dextrose 50% SLOWLY (3 mL over 1 minute) in a patent, running IV, preferably a central line. For persi stent hypoglycemia, consider longer-acti ng treatment for the duration of the active insulin.
Routine documented in this encounter Care Teams Practice Administrator Relationship Specialty Start Date End Date Valentino Hernandez PA PCP - General General Internal Medicine 03/29/16 05/12/21 [address] [place] [address] documented as of this encounter
--- OUTSIDE RECORDS SUMMARY | 2022-05-22 01:47 | XMS_ITS | Encounter Summary ---
:1955 Author Organization [facility] [address] Care Team Providers Name Role Phone Valentino Hernandez Primary Care Provider Reason for Visit Auth/Cert Specialty Diagnoses / Procedures Referred By Contact Refer red To Contact Diagnoses Atherosclerotic heart disease of [place] coronary artery without angina pectoris CAD Procedures PRO CABG, ARTERY-VEIN, THREE PRO CABG, ARTERIAL, SINGLE PRO ENDOSCOPY W/VIDEO-ASST VEIN HARVEST, CABG @CABG; 3 VENOUS GRAFTS & ARTERIAL GRAFT @CABG, USING ARTERIAL GRAFT;SINGLE ARTERIAL GRAFT ENDOSCOPIC HARVEST VEIN(S) FOR CABG Referral ID Status Reason Start Date Expiration Date Visits Requ ested Visits Authorized [id number] 1 1 Encounter Details Date Type Department Care Team Description 03/30/2016 Anesthesia Event Main Operating Room Anup Velasquez MD [facility] [place] [address] [facility] Arelis Flores MD [facility] [place] [address] [place] [address] Anesthesia Record Procedure Summary Procedure Name Responsible Anesthesia Start Anesthesia Stop Time Anesthesiologist Time @CABG, TWO VENOUS Anup Carrasco MD 03/30/16 1331 03/30/16 1818 GRAFTS & ARTERIAL GRAFT (WRVU 7.93) (N/A Chest) Events Date Time Event Comment 03/30/2016 1315 1331 AN Verify 1331 Start 1331 An Start Data 1334 An Induction 1340 An Intubation 1352 NUNU PROBE ONLY 1356 Anesthesia Ready 1422 Sternotomy 1440 Heparin 1509 CV Bypass init 1513 An Clamp start 1627 Rewarming 1628 Latex Fashions Designer 1630 An Clamp Remove 1647 CP Bypass Ended 1652 Protamine 1724 Chest Closed 1754 an stop data 1818 Recovery or ICU Handoff Patient care was transferred to the destination unit staff after review of the patient's medica l history, current anesthetic/surgi victoria status and plan, according to the Provider Handoff Checklist. 181 Stop Name Total Midazolam 5 mg fentaNYL 1,250 mcg Propofol 150 mg Propofol INF 153 mg PHENYLephrine 320 mcg Vecuronium 10 mg Heparin 30,000 Units Protamine 200 mg Tranexamic Acid 1,000 mg Tranexamic Acid INF 385 mg Insulin Regular Human 5 Units NORepinephrine INF 449 mcg ceFURoxime 3 g Rocuronium 100 mg EPINEPHrine INF 86 mcg Sodium Chloride 0.9% 1,000 mL Lactated Ringers 800 mL Agents Name O2 Air Isoflurane (et) Blood No blood administrations on file. Lines, Drains, and Airways Type Details Placement Removal Incision 03/30/16; sternal; 03/30/16 0000 by vertical Gina Dee RN Incision 03/30/16; knee; 03/30/16 0000 by laparoscopic puncture; Андрей Gina Dee RN of endoscopic vein harvest. Incision 03/30/16; thigh; 03/30/16 0000 by laparoscopic puncture; Gina Dee RN Site of endoscopic vein harvest. Urethral Catheter 03/30/16; Surgery longer 03/30/16 0000 by 03/09 03/23 0909 by than 2 hours, Need for Gina Dee RN Baran, Taylor M, RN intraoperative urine output monitoring; Physician order; indwelling catheter with core temperature probe; latex; 14; inserted at this facility (by DAYANA Robert.); 1; 5; 10; none; drainage bag to dependent drainage; 04/01/16; 0909 Lumbar/CSF Drain 03/30/16; Right; upper; 03/30/16 0000 by Telida, 0 03/31/16 0700 by leg; collapsible closed DAYANA Milton Veronica device; size 7mm josef drain Chris RN with bulb reservoir; 03/31/16; 0700 Chest Tube 03/30/16; Right; anterior; 03/30/16 0000 by Telida, 03/31/16 1355 by mediastinal; size 28 Geovanna C, DAYANA Boone, V eronica straight; 03/31/16; 1355 L, RN NG/OG Tube 03/30/16; Armstrong sump; 100; 03/30/16 0000 by 03/09 02/21 0500 by 03/31/16; 0500 Zach Reardon RN [place], Ve jamie Perez RN PIV 03/30/16; 1150; cephalic 03/30/16 1150 by 0921 by vein left (lateral side of Mihir Bhat RN Epic, User arm); [id number] catheter system; 20 gauge; mihir b; distraction, intradermal injection; 0; 02/21/18 (Auto removal via utility); 0921 (Auto removal via utility) Arterial Line 03/30/16; 1331; radial 03/30/16 1331 by 03/31/16 1354 by artery; 20 gauge; Rubén Flores Aaron J, MD Shanika bright MD; Sterile Prep, Sterile DAYANA Perez Gloves; 03/31/16; 1354 PA Catheter 03/30/16; 1331; Right; 03/30/16 1331 by 03/31/16 0900 by internal jugular vein; Jose Luis [facility]; 8 Fr; CVC Protocol Chris, RN Performed; MD Ricki; 03/31/16; 0900 CVC Single/Intro. 03/30/16; 1331; internal 03/30/16 1331 by 03/09 02/21 1354 by jugular vein, right; Jose Luis Montana MD Hastin Shanika Ultrasound Guidance; Yes; Chris RN 8.5 Fr; MD Ricki; NUNU; CVC Protocol Performed; no longer indicated; 03/31/16; 1354 ETT Mask Ventilation: Adjunct 03/30/16 1340 by 03/31 0512 by (2); ETT Type: Cuffed, Jose Luis Montana MD Gabe rt, Domingo Martinez, Oral; ETT Size: 8 mm; Mac VENEER SAWYER Blade: 4; Notes: Asleep, Pre-O2, Stylette; Attempts: 2 (First attempt by CA-3, second by attending); Laryngoscopy Grade: 2; ETT Placement Verified By: Auscultation, Visual, Capnometry; Secured at Teeth: 22 cm; Inserted by: MD Rubén Chest Tube 03/30/16; 1650; Left; 03/30/16 1650 by Telida, 03/09 02/21 1355 by posterior; mediastinal; DAYANA Milton Shanika size 28 angled; 03/31/16; L, DAYANA 1355 documented in this encounter Social History Tobacco Use Types Packs/Day Years Used Date Former Smoker 11 Alcohol Use Standard Drinks/Week Comments No 0 (1 standard drink = 0.6 oz pure alcoho l) Sex Assigned at Date Recorded Not on file documented as of this encounter OR Notes Anesthesia Postprocedure Evaluation - Anup Carrasco MD - 04/01/2016 6:43 AM EDT [facility] [place] Department of Anesthesiology Post-procedure Note Patient: Carrie Prieto Procedure Summary Date Anesthesia Start Anesthesia Stop Room / Location 03/30/16 1331 1818 [facility] OR [facility] MAIN OR Procedure Diagnosis Surgeon Responsible Provider @CABG, TWO VENOUS GRAFTS & ARTERIAL GRAFT (N/A Chest); @CABG, USING ARTERIAL GRAFT;SINGLE ARTERIAL GRAFT (N/A Chest); ENDOSCOPIC HARVEST VEIN(S) FOR CABG (Right Leg) Coronary artery disease, angina presence unspecified, unspecified vessel or lesion type, unspecified whether [place] or transplantedheart (CAD) Narayan Ornelas MD Clark, Jeffrey A, MD All Anesthesia Providers: Anesthesiologist: Anup Carrasco MD; Jose Luis Montana MD Tester Regulator: Arelis Flores MD Last (1hr) Vitals: BP Temp Pulse Resp SpO2 Patient Location: Floor Level of Consciousness: Awake and Alert Pain Management: Satisfactory Analgesia PONV: None Cardiovascular Status: At Baseline and Hemodynamically Stable Respiratory Status: At Baseline and Room Air Postoperative Fluid Status: Intravascular EUvolemia Possible Anesthetic Complications: NONE apparent at time of evaluation Final Primary Anesthesia Type: General (The anesthetic type performed was the same as planned.) Comments: ANUP CARRASCO MD Anesthesia Preprocedure Evaluation - Arelis Flores MD - 03/29/2016 12:56 PM EDT Pre-Anesthesia Evaluation for: Carrie ramirez 60 y.o. female. Procedure(s): @CABG; 3 VENOUS GRAFTS & ARTERIAL GRAFT @CABG, USING ARTERIAL GRAFT;SINGLE ARTERIAL GRAFT ENDOSCOPIC HARVEST VEIN(S) FOR CABG Patient Active Problem List Diagnosis ??? Coronary artery disease No past medical history on file. No past surgical history on file. History Substance Use Topics ??? Smoking status: Former Smoker Years: 11.00 ??? Smokeless tobacco: Not on file ??? Alcohol use: No History Drug Use No Allergies Allergen Reactions ??? Iodine Rash Medications: MAR and/or home medications have been reviewed. Physical Exam: There were no vitals filed for this visit. There is no height or weight on file to calculate BMI. Anesthesia Physical Exam Anesthesia Plan: ASA 4 General, with a(n) intravenous induction 60yo woman 99kg (IBW 53kg) c history of CAD to OR c Dr. Ornelas for coronary artery bypass graft Chart reviewed. Patient to be seen on day of procedure. THIS IS A PRELIMINARY NOTE BASED ON CHART REVIEW PMHx: CAD, TIA, DM, RIGO, active smoking, anxiety/depression, Cr 1.45 ECG: SB c LA deviation and ST and T wave abnormalities Echo: EF 62%, no wall motion abnormalities, mildly dilated RA, no valvular disease Cath: LAD c D1 stenosis, LCX c OM2 stenosis, and diffuse RCA disease Denies: SOB Endorses: CP Fair exercise tolerance PMH negative for RAD, liver disease, excessive bleeding No URI symptoms. No uncontrolled GERD. No history of esophageal stricture, tracheoesophageal fistula, recent esophageal surgery or esophageal trauma. Plan Pre-induction arterial line GA c ETT Central venous access Intraoperative transesophageal echocardiogram Standard ASA monitors ARELIS FLORES MD 1948 [place]-1 Region - Intrathoracic Cardiac Informed Consent: PAT Staff Note documented in this encounter Plan of Treatment Not on filedocumented as of this encounter Visit Diagnoses Not on filedocumented in this encounter Administered Medications Inactive Administered Medications - up to 3 most recent administrations Medication Order MAR Action Action Date Dose Rate Site cefUROXime (ZINACEF) injection 1.5 Given 03/30/2016 4:58 PM EDT 1.5 g g PRN, Starting on Wed03/30/16 at 1356, Until Wed03/30/16 at 1818, Anesthesia Intra-op, Routine Given 03/30/2016 1:56 PM EDT 1.5 g EPINEPHrine 2 mg in dextrose Rate/Dose Change 03/30/2016 4:50 PM 1 mcg/min 7.5 mL/hr 5% 250 mL infusion EDT CONTINUOUS PRN, Starting on Wed03/30/16 at 1616, Until Wed03/30/16 at 1818, Anesthesia Intra-op Rate/Dose Change 03/30/2016 4:45 PM EDT 4 mcg/min 30 mL/hr New Bag 03/30/2016 4:16 PM EDT 2 mcg/min 15 mL/hr fentaNYL 50 mcg/mL multi-dose injection Given 03/30/2016 4:58 PM EDT 250 mcg PRN, Starting on Wed03/30/16 at 1334, Until Wed03/30/16 at 1818, Pain, Anesthesia Intra-op, Routine Given 03/30/2016 2:22 PM EDT 250 mcg Given 03/30/2016 2:16 PM EDT 250 mcg heparin (porcine) injection Given 03/30/2016 2:49 PM EDT 25,000 Units PRN, Starting on Wed03/30/16 at 1440, Until Wed03/30/16 at 1818, Anesthesia Intra-op, Routine Given 03/30/2016 2:40 PM EDT 5,000 Units insulin regular human VIAL injection Given 03/30/2016 4:39 PM EDT 5 Units PRN, Starting on Wed03/30/16 at 1639, Until Wed03/30/16 at 1818, Anesthesia Intra-op, Routine lactated ringers infusion New Bag 03/30/2016 1:31 PM EDT CONTINUOUS PRN, Starting on Wed03/30/16 at 1331, Until Wed03/30/16 at 1818, Anesthesia Intra-op midazolam (PF) (VERSED) 1 mg/mL multi-dose Given 03/30/2016 4:53 PM EDT 2 mg injection PRN, Starting on Wed03/30/16 at 1333, Until Wed03/30/16 at 1818, Sleep, Anesthesia Intra-op, Routine Given 03/30/2016 1:33 PM EDT 3 mg NORepinephrine 16 mcg/mL Rate/Dose Change 03/30/2016 4:57 PM 4 mcg/mi n 15 mL/hr (standard ADULT and Barbara EDT greater than 20 kg) infusion CONTINUOUS PRN, Starting on Wed03/30/16 at 1350, Until Wed03/30/16 at 1818, Anesthesia Intra-op, Routine Rate/Dose Change 03/30/2016 4:53 PM EDT 1 mcg/min 3.8 mL/hr Restarted 03/30/2016 4:45 PM EDT 2 mcg/min 7.5 mL/hr PHENYLephrine HCl in NS (PF) (GIRMA-SYNEPHRINE) Given 5:19 PM EDT 80 mcg 0.8 mg/10 mL (80 mcg/mL) multi-dose injection Syrg PRN, Starting on Wed03/30/16 at 1719, Until Wed03/30/16 at 1818, Anesthesia Intra-op, Routine Given 03/30/2016 5:14 PM EDT 160 mcg Given 03/30/2016 5:08 PM EDT 80 mcg propofol (DIPRIVAN) 10 mg/mL bolus injection Given 6 2:22 PM EDT 40 mg (Anesthesia) PRN, Starting on Wed03/30/16 at 1334, Until Wed03/30/16 at 1818, Anesthesia Intra-op Given 03/30/2016 2:16 PM EDT 50 mg Given 03/30/2016 1:34 PM EDT 60 mg propofol (DIPRIVAN) infusion New Bag 03/30/2016 5:27 PM 30 mcg/kg/min 18 mL/hr CONTINUOUS PRN, Starting on Wed EDT 03/30/16 at 1727, Until Wed03/30/16 at 1818, Anesthesia Intra-op, Routine protamine injection Given 03/30/2016 4:52 PM EDT 200 mg PRN, Starting on Wed03/30/16 at 1652, Until Wed03/30/16 at 1818, Anesthesia Intra-op, Routine rocuronium (ZEMURON) multi-dose injectio n Given 03/30/2016 3:31 PM EDT 50 mg PRN, Starting on Wed03/30/16 at 1453, Until Wed03/30/16 at 1818, Anesthesia Intra-op, Routine Given 03/30/2016 2:53 PM EDT 50 mg sodium chloride 0.9% infusion New Bag 03/30/2016 5:33 PM EDT CONTINUOUS PRN, Starting on Wed03/30/16 at 1331, Until Wed03/30/16 at 1818, Anesthesia Intra-op New Bag 03/30/2016 1:31 PM EDT tranexamic acid (CYKLOKAPRON) 100 mg/mL Given 03/30/2016 1:57 PM EDT 1,000 mg bolus injection (Anesthesia) PRN, Starting on Wed03/30/16 at 1357, Until Wed03/30/16 at 1818, Anesthesia Intra-op, Routine tranexamic acid (CYKLOKAPRON) New Bag 03/30/2016 2:27 PM EDT 1 mg/ kg/hr 1 mL/hr injection CONTINUOUS PRN, Starting on Wed03/30/16 at 1427, Until Wed03/30/16 at 1818, Anesthesia Intra-op, Routine vecuronium (NORCURON) injection Given 03/30/2016 1:34 PM EDT 10 mg PRN, Starting on Wed03/30/16 at 1334, Until Wed03/30/16 at 1818, Anesthesia Intra-op, Routine documented in this encounter Care Teams Sequins Stringer Relationship Specialty Start Date End Date Valentino Hernandez PA PCP - General General Internal Medicine 03/29/16 05/12/21 [address] [place] [address] documented as of this encounter
--- OUTSIDE RECORDS SUMMARY | 2022-05-22 01:47 | XMS_ITS | Encounter Summary ---
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 [place] [id number] [phone] [id number] [phone] Social History Tobacco Use Types Packs/Day Years Used Date Former Smoker 11 Alcohol Use Standard Drinks/Week Comments No 0 (1 standard drink = 0.6 oz pure alcoho l) Sex Assigned at Date Recorded Not on file documented as of this encounter Last Filed Vital Signs Vital Sign Reading Time Taken Comments Blood Pressure 129/65 03/26/2016 1:51 PM EDT Pulse 48 03/26/2016 1:51 PM EDT Temperature 36.3 ??C (97.3 ??F) 03/26/2016 1:51 PM EDT Respiratory Rate 16 03/26/2016 1:51 PM EDT Oxygen Saturation 92% 03/26/2016 1:51 PM EDT Inhaled Oxygen Concentration - - Weight - - Height 160 cm (5' 3) 03/26/2016 10:08 AM EDT Body Mass Index - - documented in this encounter Discharge Instructions Discharge InstructionsTrish Bhat RN - 03/26/2016 2:02 PM EDT Radial Access for Heart Cath Activity If you are discharged the same day as your procedure, do not drive yourself home. Arrange to have another person drive. You may walk around when you get home, but keep your activity at a minimum until the morning. Try to avoid bending your wrist for the first 12-24 hours after the procedure to allow the artery tofully heal. Do not participate in active sports for 48 hours. Do not lift anything greater than 5 lbs. You may engage in sexual activity after 48 hours. Catheter Insertion Area Care Take the dressing off of the catheter insertion site the morning following the procedure. Leave the site open to air. If the site is oozing you may cover it with a band aid. You may take a shower if you wish. Look for signs of infection over the next several days. It is uncommon to have any visible blood at the site, any obvious bleeding is abnormal. A bruise around the wrist or small lump under the skin is normal: they generally disappear in 3-5 days. Expect some mild tenderness over the area where the catheter was inserted. You will notice this after the local anesthetic (numbing medicine) wears off. This should improve during the 24-48 hours afterthe procedure. You may use acetaminophen (tylenol) if needed. Contact your doctor if the discomfort w orsens. Problems to Watch for If there is bright red blood flowing from the catheter insertion area: *stop what you are doing *hold pressure steadily on the area for 15 minutes *call for help *if the bleeding does not stop in 15 minutes call 911 for an ambulance. If there is swelling with black and blue color at the catheter insertion site, there may be bleeding inside. Contact the doctor if there is any increase in size. Look at the insertion site for the first few days at home. Signs of infection are: *redness *swelling *yellow, white, green or brown foul smelling drainage. *increased soreness If you think there is an infection, take your temperature. Then call your doctor. The limb on the side where you had your catheterization should look and feel normal in color, sensation, and temperature. If your hand or fingers become cool, pale, blue or change color contact your doctor. If you are having numbness or tingling in your fingers or hand contact your doctor. If you feel faint or dizzy, lie down with your feet elevated. Have someone call the doctor. If you are alert, drink fluids. How to Deal with Chest Pain If you had only the cardiac catheterization, treat any angina or chest discomfort as instructed. Stop what you are doing, and sit or lie down. If prescribed, take nitroglycerin under your tongue. If the angina isn't relieved, take another nitroglycerin in 5 minutes. After another 5 minutes, a third nit roglycerin may be taken. If the angina isn't improved you should call for an ambulance to bring you to the nearest hospital emergency room. If your angina is more frequent or severe than before, contact your doctor. We usually would not expect you to have angina after an angioplasty. If you do get angina, treat it as you did before, but also contact your doctor. Return to Work The doctor will usually have told you when to return to work. If you do not perform heavy physical labor, most people can return to work in a few days. Diet Follow your previous diet unless otherwise instructed. Cardiac Risk Factor If you have coronary artery disease, it is important that you help control it by reducing your cardiac risk factors. If you smoke, we urge you to stop now. If you think this is going to be a problem, let us know so that we may help you. We have dieticians who can help you learn about a low fat, low cholesterol diet. Cardiac rehabilitation programs can help you set up a regular exercise program. Work with your doctor if you have high blood pressure or sugar diabetes to keep these under control. Medications Take your usual medications medication changes If you are taking medications prescribed by your doctor, do not take any [id number] medicines or herbal preparations without first discussing this with your doctor or pharmacist. There is the possibility of side effects and interactions when these are combined. Follow Up Care Who to call with questions or problems If there are any questions or problems that you think might be related to your cardiac cath or angioplasty, contact the mechanical technologist cement mason highways and streets by calling [facility] at . documented in this encounter Medications at Time [...] tablet 0 05/26/2016 400 mg Tablet daily. oxyCODONE (ROXICODONE) Take 1 tablet by mouth 40 tablet 0 0 04/04/2016 04/04/2016 5 mg Tablet every 4 hours as needed for Pain. senna-docusate Take 1 tablet by mouth 0 6 05/26/2016 (PERICOLACE) 8.6-50 mg daily as needed for Tablet Constipation. oxyCODONE (ROXICODONE) Take 1 tablet by mouth 40 tablet 0 0 04/04/2016 04/04/2016 5 mg Tablet every 4 hours as needed for Pain. oxyCODONE (ROXICODONE) Take 1 tablet by mouth 40 tablet 0 0 04/04/2016 05/26/2016 5 mg Tablet every 4 hours as needed for Pain. chlorhexidine Apply topically daily 120 mL 0 03/26/2016 03/30/2016 (HIBICLENS) 4 % as needed. Shower from LiquidIndications: head to toe with Coronary artery Chlorhexidine the disease, angina night before surgery . presence unspecified, unspecified vessel or lesion type, unspecified whether hamilton or transplanted heart OMEGA-3/DHA/EPA/FISH Take 360 mg by mouth 0 04/04/2016 OIL (OMEGA-3 FISH OIL daily. ORAL) aspirin 325 mg Tablet Take 650 mg by mouth 0 03/30/2016 daily. Cod Liver Oil Oil Take by mouth 2 times 0 05/26/2016 daily. lisinopril Take 40 mg by mouth 0 04/04 (PRINIVIL;ZESTRIL) 20 daily. mg Tablet documented as of this encounter H&P Notes Ella Fernandez MD - 03/26/2016 10:25 AM EDT Patient Name: Carrie Prieto Patient Age: 60 y.o. Birthdate: 1955 Admit date: 03/26/2016 Attending Physician: Paulo Romano II, MD Carrie Prieto is a 60 y.o. female who was referred for cardiac catheterization in the setting of abnormal stress test with anterior and ischemia mid-apex, LVEF 38%. There have not been any changes in health status since last seen in clinic. No fevers, no chills, no bleeding. Outpatient Prescriptions Marked as Taking for the 03/26/16 encounter (Hospital Encounter) Medication Sig Dispense Refill ??? insulin detemir (LEVEMIR) Insulin Pen Inject 50 Units subcutaneously 2 times daily. ??? OMEGA-3/DHA/EPA/FISH OIL (OMEGA-3 FISH OIL ORAL) Take 360 mg by mouth daily. ??? magnesium citrate 100 mg Tablet Take 100 mg by mouth 3 times daily. ??? aspirin 325 mg Tablet Take 650 mg by mouth daily. ??? cyanocobalamin 500 mcg Tablet Take 500 mcg by mouth daily. ??? Cod Liver Oil Oil Take by mouth 2 times daily. ??? cholecalciferol, Vitamin D3, (VITAMIN D) 1,000 unit Tablet Take 1,000 Units by mouth daily. ??? levothyroxine (SYNTHROID) 125 mcg Tablet Take 125 mcg by mouth daily. ??? citalopram (CELEXA) 20 mg Tablet Take 20 mg by mouth daily. ??? lisinopril (PRINIVIL;ZESTRIL) 20 mg Tablet Take 40 mg by mouth daily. ??? lovastatin (MEVACOR) 20 mg Tablet Take 80 mg by mouth nightly. Takes 4 - 20 mg tabs Visit Vitals ??? BP 168/75 ??? Pulse 51 ??? Temp 36.8 ??C (98.2 ??F) (Oral) ??? Resp 16 ??? Ht 160 cm (5' 3) ??? SpO2 99% PE NAD CV: RRR, S1 S2 physiologic, JVP estimated @ 8 cm H2O Pulm: CTAB, no w/r/r Abd: soft, NT, ND, +BS, no bruits Vasc: 2+ bilat radial with favorable Lam's test on the R, 2+ bilat femoral pulses, 1+ bilat DP pulses Extr: wwp, no edema Labs reviewed and notable for: Scanned in, notable for nl Hgb and creat 1.5 A/P 60 y.o. female here for cardiac catheterization. - proceed as planned, notable ALL to iodine with no pretreatment - consent signed - no obvious CI to DAPT - FULL code documented in this encounter Plan of Treatment Not on filedocumented as of this encounter Procedures Procedure Name Priority Date/Time Associated Diagnosis Comme nts ECHOCARDIOGRAM Routine 03/26/2016 3:59 ASCVD Results fo r this COMPLETE W CONTRAST PM EDT (arteriosclerotic pro cedure are in cardiovascular the results disease) section. POCT GLUCOSE Routine 03/26/2016 2:23 Results for this PM EDT procedure are i n the results section. POCT GLUCOSE Routine 03/26/2016 11:14 Results for this AM EDT procedure are i n the results section. POINT OF CARE BLOOD Routine 03/26/2016 11:12 Resu lts for this GAS HISTORICAL AM EDT procedure are in the results section. POCT GLUCOSE Routine 03/26/2016 10:31 Results for this AM EDT procedure are i n the results section. EKG 12-LEAD Routine 03/26/2016 10:16 ASCVD Results for this AM EDT (arteriosclerotic procedure are in cardiovascular the results disease) section. documented in this encounter Results ECHOCARDIOGRAM COMPLETE W CONTRAST (03/26/2016 3:59 PM EDT) P athologist Signature EF 62 HEARTLAB SYSTEM Specimen (Source) Anatomical Location Collection Method / Collectio n Time Received Time / Laterality Volume 03/26/2016 Narrative HEARTLAB SYSTEM - 03/26/2016 4:10 PM EDT Procedure: ?Transthoracic Echocardiogram Patient: ?PRIETO CARRIE ? (Age): 1955(60y) Med Rec#: ? [id number] ?Sex: ?F ? Site Loc: ? [facility] ?Ht / Wt: ??160(cm)/99.79(k Pt. Loc: ?BSA: ?2.01 Study Date: ?? 03/26/2016 ?Pt. Type: Inpatient Tape: ? Referring: MAIA CASAS Referring: Paulo Romano Reading: Elroy Mendenhall ([id number]) Ornamental Rail Installer: Liv Cedeño [facility] Diagnosis: *ICD-10-PCS Atherosclerotic heart disea se of ham[place] coronary artery without angina pectoris (I25.10) CPT Codes: *Echo Full (90742) *Spectral Doppler (63140) *Color Doppler (87340) *Optison (42604OQ) Rhythm: ? Bradycardia BP: ? 129/65 SUMMARY: 1. The left ventricular chamber size is normal. Moderate concentric left ventricular hypertrophy is observed. The re is normal global left ventricular systolic function. The quant itative left ventricular ejection fraction by biplane Lion's m ethod is 62%. There are no left ventricular segmental wall motion abnorm alities. 2. The left atrium is normal in size. 3. Right ventricular chamber size, wall thickness, and systolic function are within normal limits. 4. Pulmonary artery hypertension could n ot be assessed due to inadequate tricuspid regurgitation jet. 5. There is no hemodynamically significa nt valve disease. Findings ? : Study Quality: ? Adequate Left Ventricle: ? The left ventricul ar chamber size is normal. ?Moderate concentric left ventricul ar hypertrophy is observed. ?There is no evidence of LVOT obstr uction. ?No ventricular septal defect is vi sualized. ?There is normal global left ventri cular systolic function. ?The quantitative left ventricular ejection fraction by biplane Lion's method is 62%. ?There are no left ventricular segm ental wall motion abnormalities. ?Doppler assessment is consistent w ith normal left sided filling pressure. Left Atrium: ? The left atrium is no rmal in size. ?There is no patent foramen ovale v isualized. Right Ventricle: ? Right ventricular chamber size, wall thickness, and systolic function are within normal limi ts. ?Pulmonary artery hypertension coul d not be assessed due to inadequate tricuspid regurgitation jet. ?The estimated right atrial pressur e is 8 mmHg. Right Atrium: ? The right atrium is mildly dilated. Aortic Valve: ? The aortic valve is tricuspid. ?The aortic valve leaflets are mild ly thickened. ?Systolic excursion of the aortic v alve is normal. ?There is no evidence of aortic mattie ve stenosis. ?There is no evidence of aortic reg urgitation. Mitral Valve: ? The mitral valve adrianna ears normal in structure and function. ?There is no evidence of mitral marly nosis. ?There is trace mitral regurgitatio n present. Tricuspid Valve: ? The tricuspid mattie ve appears normal in structure and function. ?There is no evidence of tricuspid valve regurgitation present. Pulmonic Valve: ? The pulmonic valve appears normal in structure and function. ?There is trace pulmonic regurgitat ion present. Pericardium: ? The pericardium appea rs normal and there is no evidence of a pericardial effusion. ?A pericardial fat pad is visualize d. Aorta: ? The aortic root is normal i n size. ?The ascending aorta is normal in s hannahe. Pulmonary Artery: ? The main pulmona ry artery appears normal. Venous: ? The inferior vena cava adrianna ears normal in size. ?There is less than 50% respiratory change in the inferior vena cava dimension consistent with elevated right atrial pressure. Misc: ? There is no hemodynamically significant valve disease. ?See remainder of report for additi onal findings. ?Two-dimensional echo, spectral Dop pler and color Doppler performed. ?Optison contrast (one 3 ml vial) w as used to enhance endocardial definition. Excess contrast was discarde d. Chambers 2D ?Value ?Units (Range) ? IVSd (2D) ? 1.4 ?cm ? LVPWd (2D) ?1.4 ?cm ? IVS:LVPW ratio (2D) 1 ?ratio ? LVIDd (2D) ?4.9 ?cm ? LVIDs (2D) ?3.6 ?cm ? LVIDd (2D) index ?2.4 ?cm/m2 ? LVIDs (2D) index ?1.8 ?cm/m2 ? LV FS (2D) ?25 ? % ? EF Teichholz (2D) ?? 50 ? % ? Ao root diameter (2D2.9 ?cm (2.1 - 3.6) ? Ascending Ao ?3 ?cm (2 - 3.5) ? Volumes/Mass ?Value ?Units (Range) ? LA Area 4 CH ?22.1 ? cm2 (<21) ? RA AREA 4CH ? 21.1 ? cm2 ? LA ESV SP 4CH (MOD) 60 ? ml ? LA ESV SP 2CH (MOD) 52 ? ml ? LA ESV BP (MOD) ? 61 ? ml ? LA ESV BP (MOD) inde30.4 ? ml/m2 ? LV ESV SP 4CH (MOD) 51 ? ml ? LV ESV SP 2CH (MOD) 37 ? ml ? LV EDV BP ? 113 ?ml ? LV ESV BP ? 43 ? ml ? BP EF (MOD) ? 62 ? % ? LV mass (2D) ?270.9 ?g ? LV mass (2D) index ??134.8 ?g/m2 ? Diastolic/Systolic Function ?Value ?Units (Range) ? MV E-wave Vmax ?0.7 ?m/sec ? MV deceleration [id number] ?msec ? MV A-wave Vmax ?0.5 ?m/sec ? MV E:A ratio ?1.4 ?ratio ? LV septal e' Vmax ?? 0.1 ?m/sec ? LV E:e' septal ratio12.9 ? ratio ? Tricuspid Valve ?Value ?Units (Range) ? RAP ? 8 ?mmHg ? Pulmonic Valve/Qp:Qs ?Value ?Units (Range) ? AL end-diastolic Vma1.1 ?m/sec ? PA end-diastolic pre12.6 ? mmHg ? Measurement Trending Name ? 03/26/2016 ? LV EDV BP ?1 13 LVIDd (2D) ? 4. 85 LV ESV BP ?4 3 LA ESV BP (MOD) ?61 LVIDs (2D) ? 3. 62 Wall Motion: Segment Name ?Rest ? Base-Anteroseptal ?? Normal ? Base-Anterior ? Normal ? Base-Anterolateral ??Normal ? Base-Posterolateral Normal ? Base-Inferior ? Normal ? Base-Inferoseptal ?? Normal ? Mid-Anteroseptal ?Normal ? Mid-Anterior ?Normal ? Mid-Anterolateral ?? Normal ? Mid-Posterolateral ??Normal ? Mid-Inferior ?Normal ? Mid-Inferoseptal ?Normal ? [place]-Septal ? Normal ? [place]-Anterior ? Normal ? [place]-Lateral ?Normal ? [place]-Inferior ? Normal ? [place]-Tip ?Normal ? This report has been electronically sign ed by: _ Elroy Mendenhall MD ? 03/26/2016 16:09 :40 Images reviewed and interpretation verif ied [facility] Cardiac Ultrasound Laboratory Procedure Note Elroy Mendenhall MD - 03/26/2016Formattnabila quinones of this note might be different from the original. Procedure: Transthoracic Echocardiogram Patient: KOBI MAYO(Age): [birth year](60y) Med Rec#: [id number] Sex: F Site Loc: [facility] Ht / Wt: 160(cm)/99.79(k Pt. Loc: BSA: 2.01 Study Date: 03/26/2016 Pt. Type: Inpatie nt Tape: Referring: MAIA CASAS Referring: Paulo Romano Reading: Elroy Mendenhall ([id number]) Ornamental Rail Installer: Liv Cedeño [facility] Diagnosis: *ICD-10-PCS Atherosclerotic heart disea se of [place] coronary artery without angina pectoris (I25.10) CPT Codes: *Echo Full (74375) *Spectral Doppler (23076) *Color Doppler (39743) *Optison (27501LH) Rhythm: Bradycardia BP: 129/65 SUMMARY: 1. The left ventricular chamber size is normal. Moderate concentric left ventricular hypertrophy is observed. The re is normal global left ventricular systolic function. The quant itative left ventricular ejection fraction by biplane Lion's m ethod is 62%. There are no left ventricular segmental wall motion abnorm alities. 2. The left atrium is normal in size. 3. Right ventricular chamber size, wall thickness, and systolic function are within normal limits. 4. Pulmonary artery hypertension could n ot be assessed due to inadequate tricuspid regurgitation jet. 5. There is no hemodynamically significa nt valve disease. Findings : Study Quality: Adequate Left Ventricle: The left ventricular marky mber size is normal. Moderate concentric left ventricular hy pertrophy is observed. There is no evidence of LVOT obstructio n. No ventricular septal defect is visuali zed. There is normal global left ventricular systolic function. The quantitative left ventricular eject ion fraction by biplane Lion's method is 62%. There are no left ventricular segmental wall motion abnormalities. Doppler assessment is consistent with n ormal left sided filling pressure. Left Atrium: The left atrium is normal i n size. There is no patent foramen ovale visual ized. Right Ventricle: Right ventricular chamb er size, wall thickness, and systolic function are within normal limi ts. Pulmonary artery hypertension could not be assessed due to inadequate tricuspid regurgitation jet. The estimated right atrial pressure is 8 mmHg. Right Atrium: The right atrium is mildly dilated. Aortic Valve: The aortic valve is tricus pid. The aortic valve leaflets are mildly th ickened. Systolic excursion of the aortic valve is normal. There is no evidence of aortic valve st enosis. There is no evidence of aortic regurgit ation. Mitral Valve: The mitral valve appears n ormal in structure and function. There is no evidence of mitral stenosis . There is trace mitral regurgitation pre sent. Tricuspid Valve: The tricuspid valve adrianna ears normal in structure and function. There is no evidence of tricuspid valve regurgitation present. Pulmonic Valve: The pulmonic valve appea rs normal in structure and function. There is trace pulmonic regurgitation p resent. Pericardium: The pericardium appears nor mal and there is no evidence of a pericardial effusion. A pericardial fat pad is visualized. Aorta: The aortic root is normal in size . The ascending aorta is normal in size. Pulmonary Artery: The main pulmonary art tad appears normal. Venous: The inferior vena cava appears n ormal in size. There is less than 50% respiratory hirsch ge in the inferior vena cava dimension consistent with elevated right atrial pressure. Misc: There is no hemodynamically signif icant valve disease. See remainder of report for additional findings. Two-dimensional echo, spectral Doppler and color Doppler performed. Optison contrast (one 3 ml vial) was us ed to enhance endocardial definition. Excess contrast was discarde d. Chambers 2D Value Units (Range) IVSd (2D) 1.4 cm LVPWd (2D) 1.4 cm IVS:LVPW ratio (2D) 1 ratio LVIDd (2D) 4.9 cm LVIDs (2D) 3.6 cm LVIDd (2D) index 2.4 cm/m2 LVIDs (2D) index 1.8 cm/m2 LV FS (2D) 25 % EF Teichholz (2D) 50 % Ao root diameter (2D2.9 cm (2.1 - 3.6) Ascending Ao 3 cm (2 - 3.5) Volumes/Mass Value Units (Range) LA Area 4 CH 22.1 cm2 (<21) RA AREA 4CH 21.1 cm2 LA ESV SP 4CH (MOD) 60 ml LA ESV SP 2CH (MOD) 52 ml LA ESV BP (MOD) 61 ml LA ESV BP (MOD) inde30.4 ml/m2 LV ESV SP 4CH (MOD) 51 ml LV ESV SP 2CH (MOD) 37 ml LV EDV BP 113 ml LV ESV BP 43 ml BP EF (MOD) 62 % LV mass (2D) 270.9 g LV mass (2D) index 134.8 g/m2 Diastolic/Systolic Function Value Units (Range) MV E-wave Vmax 0.7 m/sec MV deceleration [id number] msec MV A-wave Vmax 0.5 m/sec MV E:A ratio 1.4 ratio LV septal e' Vmax 0.1 m/sec LV E:e' septal ratio12.9 ratio Tricuspid Valve Value Units (Range) RAP 8 mmHg Pulmonic Valve/Qp:Qs Value Units (Range) AL end-diastolic Vma1.1 m/sec PA end-diastolic pre12.6 mmHg Measurement Trending Name 03/26/2016 LV EDV BP 113 LVIDd (2D) 4.85 LV ESV BP 43 LA ESV BP (MOD) 61 LVIDs (2D) 3.62 Wall Motion: Segment Name Rest Base-Anteroseptal Normal Base-Anterior Normal Base-Anterolateral Normal Base-Posterolateral Normal Base-Inferior Normal Base-Inferoseptal Normal Mid-Anteroseptal Normal Mid-Anterior Normal Mid-Anterolateral Normal Mid-Posterolateral Normal Mid-Inferior Normal Mid-Inferoseptal Normal [place]-Septal Normal [place]-Anterior Normal [place]-Lateral Normal [place]-Inferior Normal [place]-Tip Normal This report has been electronically sign ed by: _ Elroy Mendenhall MD 03/26/2016 16:09:40 Images reviewed and interpretation verif ied [facility] Cardiac Ultrasound Laboratory Paulo Romano II, MD ECHO ORDERABLES Performing Organization Address City/State/ZIP Code Phon e Number HEARTLAB SYSTEM POCT Glucose (03/26/2016 2:23 PM EDT) athologist Signature POC Glucose 104 65 - 199 [facility] Comment: Supplemental ranges: <140 mg/dL before meals <180 mg/dL all other times of the day Specimen Anatomical Collection Method Collection Time Receive d Time (Source) Location / / Volume Laterality Blood specimen 03/26/2016 2:23 PM 016 2:23 (specimen) EDT PM EDT Paulo Romano II, MD POINT OF CARE TEST ORDERABLE S Performing Organization Address City/State/ZIP Code Phon e Number [address] POCT Glucose (03/26/2016 11:14 AM EDT) athologist Signature POC Glucose 159 65 - 199 [facility] Comment: Supplemental ranges: <140 mg/dL before meals <180 mg/dL all other times of the day Specimen Anatomical Collection Method Collection Time Receive d Time (Source) Location / / Volume Laterality Blood specimen 03/26/2016 11:14 6 (specimen) AM EDT 11:14 AM EDT Paulo Romano II, MD POINT OF CARE TEST ORDERABLE S Performing Organization Address City/State/[place] [address] (ABNORMAL) Point of Care Blood Gas Historical (03/26/2016 11:12 AM EDT) athologist Signature POC pH 7.36 7.35 - [facility] 7.45 [facility] POC PCO2 43 35 - 45 [facility] LABORATORY POC PO2 62 (L) 85 - 104 [facility] LABORATORY POC Base Excess -1.0 -3.0 - 3.0 [facility] K mmol/L [facility] POC HCO3 24.7 20.0 - [facility] 26.0 [facility] mmol/[facility] LABORATORY POC Sodium 138 135 - 145 [facility] mmol/L [facility] POC Potassium 4.1 3.5 - 5.0 [facility] mmol/L [facility] POC Ionized Ca 1.28 1.15 - [facility] 1.33 [facility] mmol/[facility] HOSPITAL LABORATORY POC [facility] 45.0 34.0 - [facility] % [facility] POC Calc Hgb 15.3 11.2 - [facility] 15.7 gm/dL [facility] LAB[facility] Comment: The calculation of hemoglobin f rom hematocrit assumes a normal MCHC. POC Bgas Loc Critical Care Educator [facility] LABORATORY Specimen Anatomical Collection Method Collection Time Receive d Time (Source) Location / / Volume Laterality Blood specimen 03/26/2016 11:12 6 3:18 (specimen) AM EDT PM EDT Paulo Romano II, MD CHEMISTRY ORDERABLES Performing Organization Address City/[facility]/ZIP [facility] Phon e Number [address] POCT Glucose (03/26/2016 10:31 AM EDT) P athologist Signature POC Glucose 78 65 - 199 [facility] mg/dL [facility] LABOR[facility]ORY Comment: Supplemental ranges: <140 mg/dL before meals <180 mg/dL all other times of the day Specimen Anatomical Collection Method Collection Time Receive d Time (Source) Location / / Volume Laterality Blood specimen 03/26/2016 10:31 6 (specimen) AM EDT 10:31 AM EDT Paulo Romano II, MD POINT OF CARE TEST ORDERABLE S Performing Organization Address City/[facility]/[place] [address] EKG 12 Lead (03/26/2016 10:16 AM EDT) Component Value Ref Range Test Analysis Performed Pathologis t Method Time At Signature Ventricular rate 53 BPM MUSE SYSTEM Atrial Rate 53 BPM MUSE SYSTEM P-R Interval 172 ms MUSE SYSTEM QRS Duration 96 ms MUSE SYSTEM Q-T Interval 456 ms MUSE SYSTEM QTC Calculated 427 ms MUSE SYSTEM (Bezet) Calculated P [place] 14 degrees MUSE SYSTEM Calculated R [place] -42 degrees MUSE SYSTEM Calculated T [place] 131 degrees MUSE SYSTEM INTERPRETATION Sinus bradycardia MUSE SY STEM Left axis deviation ST & T wave abnormality, consider lateral ischemia Abnormal ECG No previous ECGs available Confirmed by MD Anna, Juancarlos ([id number]) on 03/26/2016 1:23:07 PM Specimen Anatomical Collection Method Collection Time Receive d Time (Source) Location / / Volume Laterality 03/26/2016 10:16 03/26/2016 1:23 AM EDT PM EDT Paulo Romano II, MD ECG ORDERABLES Performing Organization Address City/State/ZIP Code Phon e Number CitySourced SYSTEM documented in this encounter Visit Diagnoses Diagnosis ASCVD (arteriosclerotic cardiovascular d isease) Unspecified cardiovascular disease documented in this encounter Administered Medications Inactive Administered Medications - up to 3 most recent administrations Medication Order MAR Action Action Date Dose Rate Site diphenhydrAMINE (BENADRYL) capsule Given 03/26/2016 10:40 AM EDT 25 mg 25 mg 25 mg, Oral, ONCE, 1 dose, On Maggie 03/26/16 at 1100, Routine nitroGLYcerin (NITROSTAT) SL tablet 0.4 mg 0.4 mg, Sublingual, EVERY 5 MIN PRN, Starting on Maggie at 1150, Until Maggie 03/26/16 at 1700, Chest pain, May repeat every 5 minutes for a total of three doses. Notify provider if chest pain not reliev ed with nitroglycerin. Do not administer nitroglycerin if the patinet has received or taken damion sphodiesterase (PDE-5) inhibitors such as sildenafil, tadalafil or vardenafil within the last 24 to 72 hours., Recovery (Recovery-Hospital Unit), Routine perflutren protein-A microspheres (OPTISON) Given 03/26/2016 4:3 5 PM EDT 3 mLs 0.22 mg/mL injection 3 mL 3 mL, Intravenous, ONCE PRN, 1 dose, Starting on Maggie 03/26/16 at 1600, Until Maggie 03/26/16 at 1635, for enhancement of sub-optimal echo images, Echo Lab (Intra-Procedure), Routine sodium chloride 0.9% infusion New Bag 03/26/2016 10:47 AM EDT 50 mL/hr 50 mL/hr 50 mL/hr, Intravenous, CONTINUOUS, Starting on Maggie 03/26/16 at 1015, Until Maggie 03/26/16 at 1148, Cath (Day of Procedure) sodium chloride 0.9% infusion New Bag 03/26/2016 12:00 PM EDT 125 mL/hr 125 mL/hr 125 mL/hr, Intravenous, CONTINUOUS, Starting on Maggie 03/26/16 at 1215, Until Maggie 03/26/16 at 1700, Recovery (Recovery-Hospital Unit) documented in this encounter Active and Recently Administered Medications Times are shown in EDT. Scheduled Medication Order 03/24/2016 03/25/2016 03/26/2016 diphenhydrAMINE (BENADRYL) capsule 25 mg (COMPLETED) 1040 (Given - Provider: Kacey Rod, DAYANA)1100 (Due) 25 mg, Oral, ONCE, 1 dose, Maggie 03/26/16 at 1100, Routine Continuous Medication Order 03/24/2016 03/25/2016 03/26/2016 sodium chloride 0.9% infusion (CANCELED) 1047 (New Bag - Provider: Kacey Rod RN) 50 mL/hr, at 50 mL/hr, Intravenous, CONT INUOUS, Starting Maggie 03/26/16 at 1015, Until Maggie 03/26/16 at 1148, Cath (Day of Procedure) sodium chloride 0.9% infusion 12 00 (New Bag - Provider: Christine Galindo RN) 125 mL/hr, at 125 mL/hr, Intravenous, CO NTINUOUS, Starting Maggie 03/26/16 at 1215, Until Maggie 03/26/16 at 1700, Recovery (Recovery-Hospital Unit) PRN Medication Order 03/24/2016 03/25/2016 03/26/2016 dextrose 50% injection (CANCELED) 1051 (Given - Provider: Billy Gerardo, DAYANA) ONCE PRN, Starting Maggie 03/26/16 at 1051, Until Maggie 03/26/16 at 1148, Cath (Intra- Procedure), Routine fentaNYL 50 mcg/mL multi-dose injection (CANCELED) 1105 (Given - Provider: Billy Gerardo, DAYANA) ONCE PRN, Starting Maggie 03/26/16 at 1105, Until Maggie 03/26/16 at 1148, Intra- Operative (Intra-Procedure), Routine heparin (porcine) injection (CANCELED) 1113 (Given - Provider: Ronny Orr RN) ONCE PRN, Starting Maggie 03/26/16 at 1113, Until Maggie 03/26/16 at 1148, Cath (Intra- Procedure), Routine hydrocortisone sodium succinate (PF) (Solu-CORTEF) injection (CA NCELED) 1101 (Given - Provider: Billy Gerardo, DAYANA) ONCE PRN, Starting Maggie 03/26/16 at 1101, Until Maggie 03/26/16 at 1148, Cath (Intra- Procedure), Routine midazolam (PF) (VERSED) 1 mg/mL multi-dose injection (CANCELED) 1105 (Given - Provider: Billy Gerardo, DAYANA) ONCE PRN, Starting Maggie 03/26/16 at 1105, Until Maggie 03/26/16 at 1148, Cath (Intra- Procedure), Routine nitroGLYcerin (NITROSTAT) SL tablet 0.4 mg 0.4 mg, Sublingual, EVERY 5 MIN PRN, Sta rting Maggie 03/26/16 at 1150, Until Maggie 03/26/16 at 1700, Chest pain, May repeat every 5 minutes for a total of three doses. Notify provider if chest pain not relieve d with nitroglycerin. Do not administer nitroglycerin if the patinet has received or taken phosphodiesterase (PDE-5) inhibitors such as sildenafil, tadalafil or vardenafil within the last 24 to 72 hours., Recovery (Recovery- Hospital Unit), Routine nitroGLYcerin 100 mcg/mL intracoronary dilution (CANCELED) 1111 (Given - Provider: Ella Fernandez MD) ONCE PRN, Starting Maggie 03/26/16 at 1111, Until Maggie 03/26/16 at 1148, Cath (Intra- Procedure), Routine perflutren protein-A microspheres (OPTIS ON) 0.22 mg/mL injection 3 mL (COMPLETED) 1635 (Given - Provid er: Liv Cedeño) 3 mL, Intravenous, ONCE PRN, 1 dose, Sta rting on Maggie 03/26/16 at 1600, Until Maggie 03/26/16 at 1635, for enhancement of sub-optimal echo images, Echo Lab (Intra- Procedure), Routine verapamil (ISOPTIN) injection (CANCELED) 1111 (Given - Provider: Ella Fernandez MD) ONCE PRN, Starting Maggie 03/26/16 at 1111, Until Maggie 03/26/16 at 1148, for 2 Minutes, Cath (Intra-Procedure) documented in this encounter Care Teams Biofuels Production Technician Relationship Specialty Start Date End Date Unknown PCP - General 03/08/16 03/28/16 None documented as of this encounter
--- OUTSIDE RECORDS SUMMARY | 2022-05-22 01:47 | XMS_ITS | Encounter Summary ---
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 ASCVD Procedures PRO CATH PLMT LEFT HEART CATH & ARTS W/INJ & ANGIO IMG S&I CARDIAC CATHETERIZATION Referral ID Status Reason Start Date Expiration Date Visits Requ ested Visits Authorized [id number] 1 1 Encounter Details Date Type Department Care Team Description 03/26/2016 Clinical Support Same Day at [facility] Coronary artery disease, [facility] angina pr [address] unspecified, [place] [address] vessel or lesion type, unspecified whe ther quechan or trans planted heart Social History Tobacco Use Types Packs/Day Years Used Date Former Smoker 11 Alcohol Use Standard Drinks/Week Comments No 0 (1 standard drink = 0.6 oz pure alcoho l) Sex Assigned at Date Recorded Not on file documented as of this encounter Last Filed Vital Signs Vital Sign Reading Time Taken Comments Blood Pressure - - Pulse - - Temperature - - Respiratory Rate - - Oxygen Saturation - - Inhaled Oxygen Concentration - - Weight 99.8 kg (220 lb) 03/26/2016 4:00 PM EDT Height - - Body Mass Index 38.97 03/26/2016 10:08 AM EDT documented in this encounter Progress Notes Flora Kline RN - 03/26/2016 4:30 PM EDT PAT questionnaire reviewed with patient and while in Pre Admission testing. No problems withanesthesia in the past. TIA in 2008 and 2010 - fully resolved. SOB with exertion. HTN and DM well controlled with medications. Pre-operative instruction booklet reviewed with patient. Reviewed importance of pain control and cough and deep breathing exercise during the post-operative period. Instructed patient on use of Hibiclens soap to shower with the night before surgery or the morning of surgery. Pt verbalizes good understanding of all information reviewed. PLAN Testing: Labs and CXR Special medication instructions: Hold Levimir on DOS - her BS went too low when she had her cath done Procedure date: 03/30/16 documented in this encounter Plan of Treatment Not on filedocumented as of this encounter Procedures Procedure Name Priority Date/Time Associated Diagnosis Comme nts XR CHEST PA AND Routine 03/26/2016 5:08 PM Coronary artery Res ults for this LATERAL EDT disease, angina procedure ar e in presence unspecified, the re sults unspecified vessel or sectio n. lesion type, unspecified whether quechan or transplanted heart HEMOGRAM Routine 03/26/2016 4:35 PM Coronary artery Result s for this EDT disease, angina procedure ar e in presence unspecified, the re sults unspecified vessel or sectio n. lesion type, unspecified whether quechan or transplanted heart DIFFERENTIAL, Routine 03/26/2016 4:35 PM Coronary artery Resul ts for this AUTOMATED EDT disease, angina procedure ar e in presence unspecified, the re sults unspecified vessel or sectio n. lesion type, unspecified whether quechan or transplanted heart TYPE AND SCREEN, Routine 03/26/2016 4:35 PM Coronary artery SDP (FUTURE EDT disease, angina SURGERY, [facility] SAME presence unspecified, DAY PROGRAM ONLY) unspecified vessel or lesion type, unspecified whether quechan or transplanted heart ABO/RH TYPING Routine 03/26/2016 4:35 PM Coronary artery Resul ts for this EDT disease, angina procedure ar e in presence unspecified, the re sults unspecified vessel or sectio n. lesion type, unspecified whether quechan or transplanted heart CBC (WITH DIFF) Routine 03/26/2016 4:35 PM Coronary artery EDT disease, angina presence unspecified, unspecified vessel or lesion type, unspecified whether quechan or transplanted heart ANTIBODY SCREEN Routine 03/26/2016 4:35 PM Coronary artery Res ults for this EDT disease, angina procedure ar e in presence unspecified, the re sults unspecified vessel or sectio n. lesion type, unspecified whether quechan or transplanted heart BASIC METABOLIC Routine 03/26/2016 4:35 PM Coronary artery Res ults for this PANEL (NON-FASTING) EDT disease, angina proce dure are in presence unspecified, the re sults unspecified vessel or sectio n. lesion type, unspecified whether quechan or transplanted heart documented in this encounter Results XR Chest PA & Lateral (Generic) (03/26/2016 5:08 PM EDT) Anatomical Region Laterality Modality Chest N/A Digital Radiography Specimen (Source) Anatomical Location Collection Method / Collectio n Time Received Time / Laterality Volume Impressions 03/26/2016 6:19 PM EDT Mild cardiomegaly. Otherwise normal chest. Narrative 03/26/2016 6:19 PM EDT EXAMINATION: XR CHEST ROUTINE PA AND LATERAL CLINICAL HISTORY: pre op TECHNIQUE: PA and lateral chest x-ray COMPARISON: None FINDINGS: The lungs are symmetrically expanded and clear. There are no pleural effusions. The heart is mildly enlarged however, th ere is no venous congestion or signs of CHF. There is multilevel degenerative di sc disease throughout the thoracic spine. Procedure Note Whitney Gillette MD - 03/08 EXAMINATION: XR CHEST ROUTINE PA AND LAT ERAL CLINICAL HISTORY: pre op TECHNIQUE: PA and lateral chest x-ray COMPARISON: None FINDINGS: The lungs are symmetrically expanded and clear. There are no pleural effusions. The heart is mildly enlarged however, th ere is no venous congestion or signs of CHF. There is multilevel degenerative di sc disease throughout the thoracic spine. IMPRESSION Mild cardiomegaly. Otherwise normal ches t. Narayan Camacho MD IMG DX ORDERABLES (ABNORMAL) Differential, Automated (03/26/2016 4:35 PM EDT) [facility] Method Time Signature Neutrophils % 83.0 % [facility] LABORATORY Neutr Abs (ANC) 5.73 1.50 - [facility] 6.30 [facility] x10(3)/[facility] LABORATORY Lymphocytes % 14.3 % [facility] LABORATORY Lymphocytes Abs 1.0 1.0 - 3.6 [facility] x10(3)/[facility] LABORATORY Monocytes % 2.0 % [facility] LABORATORY Monocyte Abs 0.1 (L) 0.2 - 1.0 [facility] x10(3)/[facility] LABORATORY Eosinophils % 0.1 % [facility] LABORATORY Eosinophils Abs 0.0 0.0 - 0.5 [facility] x10(3)/[facility] LABORATORY Basophils % 0.3 % [facility] LABORATORY Basophils Abs 0.0 0.0 - 0.2 [facility] x10(3)/[facility] LABORATORY Immature Gran % 0.30 % [facility] LABORATORY Comment: Immature granulocytes(IG's)percentage an d absolute count will include metamyelocytes, myelocytes, and promyelo cytes. Blood smears from CBCs yielding IG's will be scanned manually for concor dance. If this scan disagrees with the automated IG or if promyelocytes are not ed, a manual differential will be performed. Chandni Gran Abs 0.02 0.00 - 0.05 x10(3)/[facility] LABORATORY Specimen Anatomical Collection Method Collection Time Receive d Time (Source) Location / / Volume Laterality Blood specimen 03/26/2016 4:35 PM 016 4:41 (specimen) EDT PM EDT Resulting Agency Comment Spec In Lab Narayan Camacho MD HEMATOLOGY ORDERABLES Performing Organization Address City/State/[place] [address] (ABNORMAL) Hemogram (03/26/2016 4:35 PM EDT) athologist Signature WBC 6.9 4.0 - 10.0 [facility] x10(3)/[facility] LABORATORY RBC 5.36 (H) 3.93 - [facility] 5.22 [facility] x10(6)/[facility] LABORATORY Hemoglobin 15.4 11.2 - [facility] 15.7 gm/dL [facility] LABORATORY Hematocrit 46.6 (H) 34.0 - [facility] 45.0 % [facility] LABORATORY MCV 86.9 79.0 - [facility] 94.0 fL [facility] MCH 28.7 26.6 - [facility] 32.2 pg [facility] LABORATORY MCHC 33.0 32.0 - [facility] 36.5 gm/dL [facility] LABORATORY Platelets 226 145 - 370 [facility] x10(3)/[facility] LABORATORY RDWSD 43.3 35.0 - [facility] 46.0 [facility] LABORATORY RDWCV 13.8 10.9 - [facility] 14.4 % [facility] LABORATORY MPV 12.1 (H) 9.0 - 12.0 [facility] LABORATORY Specimen Anatomical Collection Method Collection Time Receive d Time (Source) Location / / Volume Laterality Blood specimen 03/26/2016 4:35 PM 016 4:41 (specimen) EDT PM EDT Resulting Agency Comment Spec In Lab Narayan Camacho MD HEMATOLOGY ORDERABLES Performing Organization Address [facility] [place] [address] Antibody screen (03/26/2016 4:35 PM EDT) Patholo gist Method Time Signature Ab Screen Negative [facility] LABORATORY Expires at 04/02/2016 [facility] CAR[place] [id number] on: [facility] LABORATORY Specimen Anatomical Collection Method Collection Time Receive d Time (Source) Location / / Volume Laterality Blood specimen 03/26/2016 4:35 PM 016 4:48 (specimen) EDT PM EDT Resulting Agency Comment Spec In Lab Narayan Camacho MD BLOOD BANK ORDERABLES Performing Organization Address City/[facility]/[place] [address] ABO/Rh Typing (03/26/2016 4:35 PM EDT) P athologist Signature ABORh Type A Pos [facility] LABORATORY Specimen Anatomical Collection Method Collection Time Receive d Time (Source) Location / / Volume Laterality Blood specimen 03/26/2016 4:35 PM 016 4:48 (specimen) EDT PM EDT Resulting Agency Comment Spec In Lab Narayan Camacho MD BLOOD BANK ORDERABLES Performing Organization Address City/State/[place] [address] (ABNORMAL) Basic Metabolic Panel (non-fasting) (03/26/2016 4:35 PM EDT) athologist Signature Glucose Lvl 135 65 - 199 [facility] mg/dL [facility] LABORATORY Comment: Diabetes: >=200 mg/dL plus symp toms BUN 29 (H) 8 - 18 mg/dL [facility] LABORATORY Creatinine 1.45 (H) 0.70 - 1.20 mg/dL [facility] LAB[facility]ATORY Comment: Please note that the pediatric reference intervals supplied above were not validated at [facility]. Results from pediatri c patients should be interpreted in conjunction to the patient's age, height and muscle mass. Sodium 138 135 - 145 mmol/L [facility] LABORATORY Potassium 4.6 3.5 - 5.0 mmol/L [facility] Comment: Please note: ??Patients with WBC >100,00 0 may have falsely elevated Potassium levels. ??For accurate Potassium quantif ication in these patients send serum separator tube (gold top) for subsequent determinations. ??Contact the Clinical Chemistry Laboratory if there are any qu estions. Chloride 100 98 - 107 mmol/L [facility]ORATORY CO2 23 22 - 31 mmol/L [facility]OR[facility] Anion Gap 15 5 - 15 mmol/L [facility] LABORATORY Calcium 9.6 8.5 - 10.5 mg/dL [facility] LABOR[facility]ORY Estimated GFR 37 (L) >=60 [facility] LABORATORY Comment: This estimated GFR (eGFR) [...] the following links into your internet browser. [email or web address] Specimen Anatomical Collection Method Collection Time Receive d Time (Source) Location / / Volume Laterality Blood specimen 03/26/2016 4:35 PM 016 4:41 (specimen) EDT PM EDT Resulting Agency Comment Spec In Lab Narayan Camacho MD CHEMISTRY ORDERABLES Performing Organization Address City/State/[place] [address] documented in this encounter Visit Diagnoses Diagnosis Coronary artery disease, angina presence unspecified, unspecified vessel or lesion type, unspecified whether quechan or thurman splanted heart documented in this encounter Care Teams Credit Risk Specialist Relationship Specialty Start Date End Date Unknown PCP - General 03/08/16 03/28/16 None documented as of this encounter
--- OUTSIDE RECORDS SUMMARY | 2022-05-22 01:47 | XMS_ITS | Encounter Summary ---
:1955 [place] [address] Care Team Providers Name Role Phone Unknown Primary Care Provider Unavailable Reason for Visit Auth/Cert Specialty Diagnoses / Procedures Referred By Contact Refer red To Contact Diagnoses Atherosclerotic heart disease of [place] coronary artery without angina pectoris ASCVD Procedures PRO CATH PLMT LEFT HEART CATH & ARTS W/INJ & ANGIO IMG S&I CARDIAC CATHETERIZATION Referral ID Status Reason Start Date Expiration Date Visits Requ ested Visits Authorized [id number] 1 1 Encounter Details Date Type Department Care Team Description 03/26/2016 Surgery Medical Anthropology Director Paulo Miller CARDIAC CATHETERIZATION [facility] [place] [address] [place] [address] [phone] (Wo rk) Social History Tobacco Use Types Packs/Day Years Used Date Former Smoker 11 Alcohol Use Standard Drinks/Week Comments No 0 (1 standard drink = 0.6 oz pure alcoho l) Sex Assigned at Date Recorded Not on file documented as of this encounter Last Filed Vital Signs Vital Sign Reading Time Taken Comments Blood Pressure 168/75 03/26/2016 10:08 AM EDT Pulse 51 03/26/2016 10:08 AM EDT Temperature 36.8 ??C (98.2 ??F) 03/26/2016 10:08 AM EDT Respiratory Rate 16 03/26/2016 10:08 AM EDT Oxygen Saturation 99% 03/26/2016 10:08 AM EDT Inhaled Oxygen Concentration - - [...] by your doctor, do not take any ctdo-tzc-auokbea medicines or herbal preparations without first discussing this with your doctor or pharmacist. There is the possibility of side effects and interactions when these are combined. Follow Up Care Who to call with questions or problems If there are any questions or problems that you think might be related to your cardiac cath or angioplasty, contact the set up mold technician premix operator concentrate by calling [facility] at . documented in this encounter Medications [...] unspecified vessel or lesion type, unspecified whether [place] or transplanted heart OMEGA-3/DHA/EPA/FISH Take 360 mg [...] 4:10 PM EDT Procedure: ?Transthoracic Echocardiogram Patient: ?KOBI CHANG ? (Age): 1955(60y) Med Rec#: ? [id number] ?Sex: ?F ? Site Loc: ? [facility] ?Ht / Wt: ??160(cm)/99.79(k Pt. Loc: ?BSA: ?2.01 Study Date: ?? 03/26/2016 ?Pt. Type: Inpatient Tape: ? Referring: MAIA CASAS Referring: Paulo Romano Reading: Elroy Mendenhall ([id number]) Measurement Operator: Liv Cedeño [facility] Diagnosis: *ICD-10-PCS Atherosclerotic heart disea se of [place] coronary artery without angina pectoris (I25.10) CPT Codes: *Echo Full (90339) *Spectral Doppler (44642) *Color Doppler (96183) *Optison ([id number]) Rhythm: ? Bradycardia BP: ? 129/65 SUMMARY: [...] ?The ascending aorta is normal in s sepideh. Pulmonary Artery: ? The main pulmona ry [...] E-wave Vmax ?0.7 ?m/sec ? MV deceleration [id number] ?msec ? MV A-wave Vmax ?0.5 ?m/sec ? MV E:A ratio ?1.4 ?ratio ? LV septal e' Vmax ?? 0.1 ?m/sec ? LV E:e' septal ratio12.9 ? ratio ? Tricuspid Valve ?Value ?Units (Range) ? RAP ? 8 ?mmHg ? Pulmonic Valve/Qp:Qs ?Value ?Units (Range) ? CA end-diastolic Vma1.1 ?m/sec ? PA end-diastolic pre12.6 [...] ? Mid-Inferior ?Normal ? Mid-Inferoseptal ?Normal ? [place]-Septal ? Normal ? [place]-Anterior ? Normal ? [place]-Lateral ?Normal ? [place]-Inferior ? Normal ? [place]-Tip ?Normal ? This report has been electronically sign ed by: _ Elroy Mendenhall MD ? 03/26/2016 16:09 :40 Images reviewed and interpretation verif ied [facility] Cardiac Ultrasound Laboratory Procedure Note Elroy Mendenhall MD - 03/26/2016Formattnabila quinones of this note might be different from the original. Procedure: Transthoracic Echocardiogram Patient: KOBI MAYO(Age): [birth year](60y) Med Rec#: [id number] Sex: F [facility] Loc: [facility] Ht / Wt: 160(cm)/99.79(k Pt. Loc: BSA: 2.01 Study Date: 03/26/2016 Pt. Type: Inpatie nt Tape: Referring: MAIA CASAS Referring: Paulo Romano Reading: Elroy Mendenhall ([id number]) Measurement Operator: Liv Cedeño [facility] Diagnosis: *ICD-10-PCS Atherosclerotic heart disea se of [place] coronary artery without angina pectoris (I25.10) CPT Codes: *Echo Full (51399) *Spectral Doppler (13578) *Color Doppler (13185) *Optison ([id number]) Rhythm: Bradycardia BP: 129/65 SUMMARY: 1. The [...] size. Pulmonary Artery: The main pulmonary art tda appears normal. Venous: The inferior vena cava [...] MV E-wave Vmax 0.7 m/sec MV deceleration [id number] msec MV A-wave Vmax 0.5 m/sec MV E:A ratio 1.4 ratio LV septal e' Vmax 0.1 m/sec LV E:e' septal ratio12.9 ratio Tricuspid Valve Value Units (Range) RAP 8 mmHg Pulmonic Valve/Qp:Qs Value Units (Range) CA end-diastolic Vma1.1 m/sec PA end-diastolic pre12.6 mmHg Measurement Trending Name 03/26/2016 LV EDV BP 113 LVIDd (2D) 4.85 LV ESV BP 43 LA ESV BP (MOD) 61 LVIDs (2D) 3.62 Wall Motion: Segment Name Rest Base-Anteroseptal Normal Base-Anterior Normal Base-Anterolateral Normal Base-Posterolateral Normal Base-Inferior Normal Base-Inferoseptal Normal Mid-Anteroseptal Normal Mid-Anterior Normal Mid-Anterolateral Normal Mid-Posterolateral Normal Mid-Inferior Normal Mid-Inferoseptal Normal [place]-Septal Normal [place]-Anterior Normal [place]-Lateral Normal [place]-Inferior Normal [place]-Tip Normal This report has been electronically sign ed by: _ Elroy Mendenhall MD 03/26/2016 16:09:40 Images reviewed and interpretation faith orr [facility] Cardiac Ultrasound Laboratory Paulo Romano II, MD ECHO ORDERABLES Performing Organization Address City/State/ZIP Code Phon e Number [facility] POCT Glucose (03/26/2016 2:23 PM EDT) athologist Signature POC Glucose 104 65 - 199 [facility] LABORATORY Comment: Supplemental ranges: <140 mg/dL before meals <180 mg/dL all other times of the day Specimen Anatomical Collection Method Collection Time Receive d Time (Source) Location / / Volume Laterality Blood specimen 03/26/2016 2:23 PM 016 2:23 (specimen) EDT PM EDT Paulo Romano II, MD POINT OF CARE TEST ORDERABLE S Performing Organization Address City/State/ZIP Code Phon e Number [address] POCT Glucose (03/26/2016 11:14 AM EDT) athologist Signature POC Glucose 159 65 - 199 [facility] Comment: Supplemental ranges: <140 mg/dL before meals <180 mg/dL all other times of the day Specimen Anatomical Collection Method Collection Time Receive d Time (Source) Location / / Volume Laterality Blood specimen 03/26/2016 11:14 6 (specimen) AM EDT 11:14 AM EDT Paulo Romano II, MD POINT OF CARE TEST ORDERABLE S Performing Organization Address City/State/[place] [address] (ABNORMAL) Point of Care Blood Gas Historical (03/26/2016 11:12 AM EDT) athologist Signature POC pH 7.36 7.35 - [facility] 7.45 [facility] POC PCO2 43 35 - 45 [facility] LABORATORY POC PO2 62 (L) 85 - 104 [facility] LABORATORY POC Base Excess -1.0 -3.0 - [address].0 [facility] K mmol/L [facility] LABORATORY POC HCO3 24.7 20.0 - [facility] 26.0 [facility] mmol/L HOSPITAL LABORATORY POC Sodium 138 135 - 145 [facility] mmol/L [facility] LABORATORY POC Potassium 4.1 3.5 - 5.0 [facility] mmol/L [facility] LABORATORY POC Ionized Ca 1.28 1.15 - [facility] 1.33 [facility] mmol/[facility] LABORATORY POC Hematocrit 45.0 34.0 - [facility] 45.0 % [facility] LABORATORY POC Calc Hgb 15.3 11.2 - [facility] 15.7 gm/dL [facility] Comment: The calculation of hemoglobin f rom hematocrit assumes a normal MCHC. POC Bgas Loc Medical Anthropology Director [facility] LABORATORY Specimen Anatomical Collection Method Collection Time Receive d Time (Source) Location / / Volume Laterality Blood specimen 03/26/2016 11:12 6 3:18 (specimen) AM EDT PM EDT Paulo Romano II, MD CHEMISTRY ORDERABLES Performing Organization Address City/[facility]/ZIP [place] [address] POCT Glucose (03/26/2016 10:31 AM EDT) P athologist Signature POC Glucose 78 65 - 199 [facility] mg/dL [facility] LAB[facility] Comment: Supplemental ranges: <140 mg/dL before meals <180 mg/dL all other times of the day Specimen Anatomical Collection Method Collection Time Receive d Time (Source) Location / / Volume Laterality Blood specimen 03/26/2016 10:31 6 (specimen) AM EDT 10:31 AM EDT Paulo Romano II, MD POINT OF CARE TEST ORDERABLE S Performing Organization Address City/[facility]/[place]IP [place] [address] EKG 12 Lead (03/26/2016 10:16 AM EDT) Component Value Ref Range Test Analysis Performed Pathologis t Method Time At Signature Ventricular rate 53 BPM MUSE SYSTEM Atrial Rate 53 BPM MUSE SYSTEM P-R Interval 172 ms MUSE SYSTEM QRS Duration 96 ms MUSE SYSTEM Q-T Interval 456 ms MUSE SYSTEM QTC Calculated 427 ms MUSE SYSTEM (Bezet) Calculated P [place] 14 degrees MUSE SYSTEM Calculated R [place] -42 degrees MUSE SYSTEM Calculated T [place] 131 degrees MUSE SYSTEM INTERPRETATION Sinus bradycardia [...] (arteriosclerotic cardiovascular d isease) Unspecified cardiovascular disease ASCVD (arteriosclerotic cardiovascular d isease) Unspecified cardiovascular disease documented in this encounter Administered Medications Inactive Administered Medications - up to 3 most recent administrations Medication Order MAR Action Action Date Dose Rate Site dextrose 50% injection Given 03/26/2016 10:51 AM EDT 25 mLs ONCE PRN, Starting on Maggie 03/26/16 at 1051, Until Maggie 03/26/16 at 1148, Cath (Intra-Procedure), Routine diphenhydrAMINE (BENADRYL) capsule 25 mg Given 03/26/2016 10:40 AM EDT 25 mg 25 mg, Oral, ONCE, 1 dose, On Maggie 03/26/16 at 1100, Routine fentaNYL 50 mcg/mL multi-dose injection Given 03/26/2016 11:05 AM EDT 25 mcg ONCE PRN, Starting on Maggie 03/26/16 at 1105, Until Maggie 03/26/16 at 1148, Intra-Operative (Intra-Procedure), Routine heparin (porcine) injection Given 03/26/2016 11:13 AM EDT 5,000 Units ONCE PRN, Starting on Maggie 03/26/16 at 1113, Until Maggie 03/26/16 at 1148, Cath (Intra-Procedure), Routine hydrocortisone sodium succinate (PF) Given 03/26/2016 11:01 AM E DT 100 mg (Solu-CORTEF) injection ONCE PRN, Starting on Maggie 03/26/16 at 1101, Until Maggie 03/26/16 at 1148, Cath (Intra-Procedure), Routine midazolam (PF) (VERSED) 1 mg/mL multi-dose Given 03/26/2016 11:0 5 AM EDT 1 mg injection ONCE PRN, Starting on Maggie 03/26/16 at 1105, Until Maggie 03/26/16 at 1148, Cath (Intra-Procedure), Routine nitroGLYcerin (NITROSTAT) SL tablet 0.4 mg [...] to 72 hours., Recovery (Recovery-Hospital Unit), Routine nitroGLYcerin 100 mcg/mL intracoronary Given 03/26/2016 11:11 AM EDT 200 mcg dilution ONCE PRN, Starting on Maggie 03/26/16 at 1111, Until Maggie 03/26/16 at 1148, Cath (Intra-Procedure), Routine perflutren protein-A microspheres (OPTISON) Given 03/26/2016 [...] Maggie 03/26/16 at 1700, Recovery (Recovery-Hospital Unit) verapamil (ISOPTIN) injection Given 03/26/2016 11:11 AM EDT 2.5 mg ONCE PRN, Starting on Maggie 03/26/16 at 1111, Until Maggie 03/26/16 at 1148, Administer over 2 Minutes, Cath (Intra-Procedure) documented in this encounter Active and Recently Administered Medications Times are shown in EDT. Scheduled Medication Order 03/24/2016 03/25/2016 03/26/2016 diphenhydrAMINE (BENADRYL) capsule 25 mg (COMPLETED) 1040 (Given - Provider: Kacey Rod, DAYANA)1100 (Due) 25 mg, Oral, ONCE, 1 dose, Maggie 03/26/16 at 1100, Routine Continuous Medication Order 03/24/2016 03/25/2016 03/26/2016 sodium chloride 0.9% infusion (CANCELED) 1047 (New Bag - Provider: Kacey Rod, DAYANA) 50 mL/hr, at 50 mL/hr, Intravenous, CONT [...] NCELED) 1101 (Given - Provider: Billy Gerardo, RN) ONCE PRN, Starting Maggie 03/26/16 at 1101, Until Maggie 03/26/16 at 1148, Cath (Intra- Procedure), Routine midazolam (PF) (VERSED) 1 mg/mL multi-dose injection (CANCELED) 1105 (Given - Provider: Billy Gerardo, RN) ONCE PRN, Starting Maggie 03/26/16 at 1105, [...] (Intra-Procedure) documented in this encounter Care Teams Commercial Artist Lettering Relationship Specialty Start Date End Date Unknown PCP - General 03/08/16 03/28/16 None documented as of this encounter
--- OUTSIDE RECORDS SUMMARY | 2022-05-22 01:47 | XMS_ITS | Encounter Summary ---
:1955 [place] [address] Care Team Providers Name Role Phone Unknown Primary Care Provider Unavailable Encounter Details Date Type Department Care Team Description 03/25/2016 Orders Only Cardiology at [facility] Dilip Hopkins ASCVD (arteriosclerotic [facility] JACKELINE Lara cardiovascular disease) [place], [place] CENTER [address] CARDIOLOGY DEPT. [phone] [place] [id number] Social History Tobacco Use Types Packs/Day Years Used Date Former Smoker 11 Alcohol Use Standard Drinks/Week Comments No 0 (1 standard drink = 0.6 oz pure alcoho l) Sex Assigned at Date Recorded Not on file documented as of this encounter Plan of Treatment Not on filedocumented as of this encounter Procedures Procedure Name Priority Date/Time Associated Diagnosis Comme nts CARDIAC CATHETERIZATION Routine 03/26/2016 11:39 ASCVD Results for this AM EDT (arteriosclerotic procedure are in cardiovascular the results disease) section. documented in this encounter Results CARDIAC CATHETERIZATION (03/26/2016 11:39 AM EDT) Specimen (Source) Anatomical Location Collection Method / Collectio n Time Received Time / Laterality Volume Narrative CARDIOMAC SYSTEM - 03/26/2016 12:13 PM E DT ?[facility] ? Cardiac Cathete rization/Intervention Report ? Patient Name: Carrie Prieto. ? Procedure Date: 03/26/2016 ? A #: [id number] ? Primary Physician: Paulo Romano W ? Case #: [id number] ? File Name: [id number] ? Catheterization Order Number: [id number] ? [facility] ? Final Report [place], [place] ? Patient Name: ? Carrie J. Richt er ? ID#: ?[id number] ? : ?1955 ? Procedure Date: ? March 26, 2016 ? Case #: ? [id number] ? Room: ? 5 ? Case Physician: ? Paulo W Maxx renae, M.D. ?Start: ?11:00 ?Fellow: ? Ella M Ray felix M.D. ? Admission: ??03/26/2016 ? Discharge: ??03/26/2016 ? Referring Physician: ??Juan Leong ? Procedures: ?* Coronary Angiography ?* Left Heart Catheterization ?* Arterial Blood Gases ? History ?Carrie Prieto is a 60 year o ld woman. She has hypertension. The ?patient has a history of smokin g. She has hypercholesterolemia. The ?patient has insulin dependent d iabetes mellitus. She has stable angina ?and a history of chest pain. Th e patient has a history of dyspnea with ?NYHA functional class III. She has a history of syncope. The patient has ?a remote cerebral vascular acci dent. She has a history of an abnormal ?stress test. The patient also h as a history of renal insufficiency. Prior ?to the initiation of this proce dure, the patient was designated as ASA ?Class IV. ? Patient Status at Catheterization: ?The patient presented with: sta ble angina (w/i 42 days). American ?Cardiovascular Society angina c lass was III. This patient was on beta ?blockers prior to the procedure . A SPECT stress test was performed and ?results were Positive and Inter mediate Risk ischemia assessment. ? Technique: ?A 6 SLFr sheath was inserted in the right radial artery utilizing the ?Seldinger technique. The left c oronary artery was injected utilizing a ?5Fr TIG 4.0 catheter. A 5Fr TIG 4.0 catheter was used to inject the right ?coronary artery. Left ventricle was performed with a 5Fr TIG 4.0 ?catheter. 5,000 units of hepari n were administered. A total of 100cc of ?Omnipaque were opened, 55cc of Omnipaque were administered and 45cc of ?Omnipaque were wasted. Radiatio n: Fluoro time was 5.3 minutes, dose area ?product was 86,512 mGYcm2 and a ir kerma was 1,936 mGY. ?The patient received the follow ing medications prior to and during the ?procedure: Aspirin (any) and Un fractionated Heparin (any). ? Hemodynamics: ?Left Heart Pressures ? Resting: ? Syst D iast ? EDP ?a ?v ? m ?Ao 142 ?? 74 ?98 ?LV 131 ? 19 ? Post Contrast: ? Syst D iast ? EDP ?a ?v ? m ?Ao 134 ?? 61 ?87 ?LV 133 ? 17 ? Coronary Angiography: ?Dominance: Right ?Left Main ? The left main was normal . ?Left Anterior Descending ? There was moderate diffu se disease of the entire vessel segment of ? the left anterior descen ding artery (LAD). ??The proximal segment of ? the LAD had a long segme ntal 95% stenosis. ??Distal flow was normal ? and the distal vessel wa s large. ? There was a 50% diffuse stenosis of the proximal segment of the ? first diagonal branch (D iagonal 1) of the LAD. ??The mid segment of ? the Diagonal 1 had a sin gle discrete 60% stenosis. ??The distal ? vessel was moderate in s sepideh. ?Left Circumflex ? There was mild diffuse d isease of the entire vessel segment of the ? left circumflex artery ( LCX). ? There was a 95% single d iscrete stenosis of the mid segment of the ? second obtuse marginal b ranch (OM2) of the LCX. ??The distal vessel ? was moderate in size. ?Right Coronary Artery ? There was moderate diffu se disease of the entire vessel segment of ? the right coronary arter y (RCA). ??The proximal segment of the RCA ? had a single discrete to nancy occlusion. ??Distal flow was via ? collaterals from the LAD and bridging collaterals. ??The distal ? vessel was moderate in s ize. ? Vascular Access: ?Vascular Access Management: ? Mechanical Compression o f the right radial artery access site was ? performed. ? Point of Care Testing: ?ABG: ? Arterial Blood gasses we re performed using the I-Stat analyzer at ? 11:12: pH: 7.36, pCO2: 4 3.4, pO2: 62.0, sPO2: 90%, HCO3: 24 on FIO2: ? RA. ?I-Stat: ? I-Stat was performed usi ng the I-Stat analyzer at 11:12: Na+: 138, ? K+: 4.1, iCa++: 1.28, Hc t: 45%, Hb: 15.3. ? Conclusions: ?* Three vessel coronary artery disease (LAD, LCX and RCA) ?* Elevated left ventricular end diastolic pressure ? Complications/Events: ?The patient had no complication s during these procedures. ? Recommendations: ?Based upon the results of this procedure, it was recommended that the ?patient be referred for coronar y artery bypass surgery. ?The attending physician was iliana kent for the entire procedure. ?Dr. Paulo Romano M.D. perfor med the coronary angiography, left heart ?catheterization and ABG. ? Paulo W [place], M.D. ? Electronically Signed by: Paulo W Ni les, M.D. ? Report Finalized: 03/26/2016 ??12:02 ? Report Last Ammended: 08/13/2016 ??15:32 ? Procedure Note Paulo Romano II, MD - 08/13/2016Fo rmatting of this note might be different from the original. [facility] Cardiac Catheterization/Intervention Re port Patient Name: Carrie Prieto Procedure Date: 03/26/2016 A #: [id number] Primary Physician: Paulo Romano Case #: [id number] File Name: [id number] Catheterization Order Number: [id number] [facility] [place], [place] Patient Name: Carrie Prieto ID#: [id number] : 1955 Procedure Date: March 26, 2016 Case #: [id number] Room: 5 Case Physician: Paulo Romano M.D. Start: 11:00 Fellow: Ella Fernandez M.D. Admission: 03/26/2016 Discharge: 03/26/2016 Referring Physician: Laurence Leong Procedures: * Coronary Angiography * Left Heart Catheterization * Arterial Blood Gases History Carrie Prieto is a 60 year old woman . She has hypertension. The patient has a history of smoking. She h as hypercholesterolemia. The patient has insulin dependent diabetes mellitus. She has stable angina and a history of chest pain. The patien t has a history of dyspnea with NYHA functional class III. She has a hi story of syncope. The patient has a remote cerebral vascular accident. Sh e has a history of an abnormal stress test. The patient also has a his tory of renal insufficiency. Prior to the initiation of this procedure, th e patient was designated as ASA Class IV. Patient Status at Catheterization: The patient presented with: stable iliana na (w/i 42 days). American Cardiovascular Society angina class was III. This patient was on beta blockers prior to the procedure. A SPEC T stress test was performed and results were Positive and Intermediate Risk ischemia assessment. Technique: A 6 SLFr sheath was inserted in the rig radial artery utilizing the Seldinger technique. The left coronary artery was injected utilizing a 5Fr TIG 4.0 catheter. A 5Fr TIG 4.0 cat heter was used to inject the right coronary artery. Left ventricle was per formed with a 5Fr TIG 4.0 catheter. 5,000 units of heparin were a dministered. A total of 100cc of Omnipaque were opened, 55cc of Omnipaqu e were administered and 45cc of Omnipaque were wasted. Radiation: Fluor o time was 5.3 minutes, dose area product was 86,512 mGYcm2 and air kerma was 1,936 mGY. The patient received the following medi cations prior to and during the procedure: Aspirin (any) and Unfraction ated Heparin (any). Hemodynamics: Left Heart Pressures Resting: Syst Diast EDP a v m Ao 142 74 98 LV 131 19 Post Contrast: Syst Diast EDP a v m Ao 134 61 87 LV 133 17 Coronary Angiography: Dominance: Right Left Main The left main was normal. Left Anterior Descending There was moderate diffuse disease of t he entire vessel segment of the left anterior descending artery (LA D). The proximal segment of the LAD had a long segmental 95% stenos is. Distal flow was normal and the distal vessel was large. There was a 50% diffuse stenosis of the proximal segment of the first diagonal branch (Diagonal 1) of t he LAD. The mid segment of the Diagonal 1 had a single discrete 60 % stenosis. The distal vessel was moderate in size. Left Circumflex There was mild diffuse disease of the e ntire vessel segment of the left circumflex artery (LCX). There was a 95% single discrete stenosi s of the mid segment of the second obtuse marginal branch (OM2) of the LCX. The distal vessel was moderate in size. Right Coronary Artery There was moderate diffuse disease of t he entire vessel segment of the right coronary artery (RCA). The pr oximal segment of the RCA had a single discrete total occlusion. Distal flow was via collaterals from the LAD and bridging c ollaterals. The distal vessel was moderate in size. Vascular Access: Vascular Access Management: Mechanical Compression of the right rad ial artery access site was performed. Point of Care Testing: ABG: Arterial Blood gasses were performed us ing the I-Stat analyzer at 11:12: pH: 7.36, pCO2: 43.4, pO2: 62.0, sPO2: 90%, HCO3: 24 on FIO2: RA. I-Stat: I-Stat was performed using the I-Stat a nalyzer at 11:12: Na+: 138, K+: 4.1, iCa++: 1.28, Hct: 45%, Hb: 15. 3. Conclusions: * Three vessel coronary artery disease (LAD, LCX and RCA) * Elevated left ventricular end diastol ic pressure Complications/Events: The patient had no complications during these procedures. Recommendations: Based upon the results of this procedur e, it was recommended that the patient be referred for coronary artery bypass surgery. The attending physician was present for the entire procedure. Dr. Paulo Romano M.D. performed t he coronary angiography, left heart catheterization and ABG. Paulo Romano M.D. Electronically Signed by: Paulo katz M.D. Report Finalized: 03/26/2016 12:02 Report Last Ammended: 08/13/2016 15:32 Paulo Romano II, MD CARDIAC CATH ORDERABLES Performing Organization Address City/State/ZIP Code Phon e Number CARDIOMAC SYSTEM documented in this encounter Visit Diagnoses Diagnosis ASCVD (arteriosclerotic cardiovascular d isease) Unspecified cardiovascular disease ASCVD (arteriosclerotic cardiovascular d isease) Unspecified cardiovascular disease documented in this encounter Care Teams Websphere Architect Relationship Specialty Start Date End Date Unknown PCP - General 03/08/16 03/28/16 None documented as of this encounter
--- OUTSIDE RECORDS SUMMARY | 2022-05-22 01:47 | XMS_ITS | Encounter Summary ---
:[address] [facility] [place] [address] Care Team Providers Name Role Phone Unknown Primary Care Provider Unavailable Encounter Details Date Type Department Care Team Description 03/26/2016 Orders Only Cardiology at [facility] Narayan Camacho Coronary artery [facility] MD Tasneem disease, angina [facility] presence unspecified, [place], [place] DR unspecified [place] [id number] CARDIOTHORACIC lesion type, SURGERY unspecified whether [place] [id number] [phone] [place] or transplanted [phone] heart (Work) Social History Tobacco Use Types Packs/Day Years Used Date Former Smoker 11 Alcohol Use Standard Drinks/Week Comments No 0 (1 standard drink = 0.6 oz pure alcoho l) Sex Assigned at Date Recorded Not on file documented as of this encounter Miscellaneous Notes Addendum Note - Narayan Camacho MD - 03/26/2016 2:57 PM EDT Addended by: NARAYAN CAMACHO on: 03/26/2016 02:57 PM Modules accepted: Orders documented in this encounter Plan of Treatment Not on filedocumented as of this encounter Procedures Procedure Name Priority Date/Time Associated Diagnosis Comme nts TRANSESOPHAGEAL Routine 04/01/2016 Results for this ECHOCARDIOGRAM (NUNU) procedu re are in the results section. ENDOSCOPIC HARVEST Routine 03/26/2016 2:57 Coronary artery VEIN(S) FOR CABG PM EDT disease, angina presence unspecified, unspecified vessel or lesion type, unspecified whether [place] or transplanted heart @CABG,USING ARTERIAL Routine 03/26/2016 2:57 Coronary artery GRAFT;SINGLE ARTERIAL PM EDT disease, angina GRAFT presence unspecified, unspecified vessel or lesion type, unspecified whether [place] or transplanted heart documented in this encounter Results Transesophageal Echocardiogram (NUNU) (04/01/2016) Specimen (Source) Anatomical Location Collection Method / Collectio n Time Received Time / Laterality Volume 04/01/2016 Narrative HEARTLAB SYSTEM - 04/01/2016 9:39 AM EDT Procedure: ?Transesophageal Echocardiogram Patient: ?Ida Martinez ? (Age): 1955(60y) Med Rec#: ? [id number] ?Sex: ?F ? Site Loc: ? Ht / Wt: ??(cm)/ (kg) ? Pt. Loc: ? Study Date: ?? 03/30/2016 ?Pt. Type: Tape: ? Reading: Jose Luis Montana ??([id number]) Performing: Jose Luis Montana ??([id number]) Diagnosis: SUMMARY: 1. Intraoperative NUNU performed at the [facility] of for the diagnosis and evaluation of hemodynamics , overall cardiac function, and valvular pathologies as indicated. NUNU p shan was passed atraumatically after induction and removed in a similar fashion before emergence. 2. Pre-Bypass: Global LV function is low normal without evidence of regional wall motion abnormalities. LVEF is 50-55%. RV function is normal. ??There are no significant valvu lar abnormalities. 3. Post-Bypass: Global LV and RV functio n is preserved. LVEF is 50-55%. There is no change in valvular pathologi es. There is no evidence of aortic dissection post decannulation. Re mainder of the exam is unchanged from prior. Findings ? : Left Ventricle: ? The left ventricul ar chamber size is normal. ?Borderline concentric left ventric ular hypertrophy is observed. ?There is normal global left ventri cular systolic function. ??Ejection fraction is estimated to be 50%. Left Atrium: ? The left atrium is no rmal in size. ?There is no evidence of spontaneou s echo contrast. ?The left atrial appendage velocity is normal. ?No mass is visualized within the l eft atrium. ?No thrombus is visualized within t he left atrium. ?A patent foramen ovale is visualiz ed. ?There is a patent foramen ovale wi th predominant [id number] shunting. ?The patent foramen ovale is demons trated by color Doppler. Right Ventricle: ? Right ventricular global systolic function is probably normal. ?There are no right ventricular seg mental wall motion abnormalities. Aortic Valve: ? The aortic valve is tricuspid. ?There is no evidence of aortic mattie ve thickening. ?No aortic leaflet calcification is visualized. ?Systolic excursion of the aortic v alve is normal. ?There is no evidence of aortic mattie ve stenosis. ?There is no evidence of aortic reg urgitation. Mitral Valve: ? The mitral valve vadim flets appear normal. ?Mitral valve leaflet mobility appe ars normal. ?There is no evidence of mitral marly nosis. ?There is no evidence of mitral reg urgitation. Tricuspid Valve: ? The tricuspid mattie ve is probably normal. ?There is no evidence of tricuspid valve regurgitation present. Pulmonic Valve: ? The pulmonic valve is probably normal. ?There is trace pulmonic regurgitat ion present. Aorta: ? There is evidence of grade 2 (extensive intimal thickening) atheromatous disease of the ascending ao rta. ?There is evidence of grade 2 (exte nsive intimal thickening) atheromatous disease of the aortic arch. ?There is evidence of grade 2 (exte nsive intimal thickening) atheromatous disease of the descending t horacic aorta. Wall Motion: Segment Name ?Rest ? Base-Anteroseptal ?? Normal ? Base-Anterior ? Normal ? Base-Anterolateral ??Normal ? Base-Posterolateral Normal ? Base-Inferior ? Normal ? Base-Inferoseptal ?? Normal ? Mid-Anteroseptal ?Normal ? Mid-Anterior ?Normal ? Mid-Anterolateral ?? Normal ? Mid-Posterolateral ??Normal ? Mid-Inferior ?Normal ? Mid-Inferoseptal ?Normal ? Mcdonald-Septal ? Normal ? Mcdonald-Anterior ? Normal ? Mcdonald-Lateral ?Normal ? Mcdonald-Inferior ? Normal ? Mcdonald-Tip ?Not Seen ? This report has been electronically sign ed by: _ Jose Luis Montana MD ? 04/01/2016 09 :38:55 Images reviewed and interpretation verif ied [facility] Cardiac Ultrasound Laboratory Procedure Note Jose Luis Montana MD - 04/01/2016Formatt ing of this note might be different from the original. Procedure: Transesophageal Echocardiogra m Patient: Ida Martinez (Age): [birth year](60y) Med Rec#: [id number] Sex: F Site Loc: Ht / Wt: (cm)/ (kg) Pt. Loc: Study Date: 03/30/2016 Pt. Type: Tape: Reading: Jose Luis Montana ([id number]) Performing: Jose Luis Montana ([id number]) Diagnosis: SUMMARY: 1. [facility] for the diagnosis and evaluation of hemodynamics , overall cardiac function, and valvular pathologies as indicated. NUNU p robe was passed atraumatically after induction and removed in a similar fashion before emergence. 2. Pre-Bypass: Global LV function is low normal without evidence of regional wall motion abnormalities. LVEF is 50-55%. RV function is normal. There are no significant valvula r abnormalities. 3. Post-Bypass: Global LV and RV functio n is preserved. LVEF is 50-55%. There is no change in valvular pathologi es. There is no evidence of aortic dissection post decannulation. Re mainder of the exam is unchanged from prior. Findings : Left Ventricle: The left ventricular marky mber size is normal. Borderline concentric left ventricular hypertrophy is observed. There is normal global left ventricular systolic function. Ejection fraction is estimated to be 50%. Left Atrium: The left atrium is normal i n size. There is no evidence of spontaneous ech o contrast. The left atrial appendage velocity is n ormal. No mass is visualized within the left a trium. No thrombus is visualized within the le ft atrium. A patent foramen ovale is visualized. There is a patent foramen ovale with pr edominant [id number]-ifpoz shunting. The patent foramen ovale is demonstrate d by color Doppler. Right Ventricle: Right ventricular globa l systolic function is probably normal. There are no right ventricular segmenta l wall motion abnormalities. Aortic Valve: The aortic valve is tricus pid. There is no evidence of aortic valve th ickening. No aortic leaflet calcification is visu alized. Systolic excursion of the aortic valve is normal. There is no evidence of aortic valve st enosis. There is no evidence of aortic regurgit ation. Mitral Valve: The mitral valve leaflets appear normal. Mitral valve leaflet mobility appears n ormal. There is no evidence of mitral stenosis . There is no evidence of mitral regurgit ation. Tricuspid Valve: The tricuspid valve is probably normal. There is no evidence of tricuspid valve regurgitation present. Pulmonic Valve: The pulmonic valve is pr obably normal. There is trace pulmonic regurgitation p resent. Aorta: There is evidence of grade 2 (ext ensive intimal thickening) atheromatous disease of the ascending ao rta. There is evidence of grade 2 (extensive intimal thickening) atheromatous disease of the aortic arch. There is evidence of grade 2 (extensive intimal thickening) atheromatous disease of the descending t horacic aorta. Wall Motion: Segment Name Rest Base-Anteroseptal Normal Base-Anterior Normal Base-Anterolateral Normal Base-Posterolateral Normal Base-Inferior Normal Base-Inferoseptal Normal Mid-Anteroseptal Normal Mid-Anterior Normal Mid-Anterolateral Normal Mid-Posterolateral Normal Mid-Inferior Normal Mid-Inferoseptal Normal Mcdonald-Septal Normal Mcdonald-Anterior Normal Mcdonald-Lateral Normal Mcdonald-Inferior Normal Mcdonald-Tip Not Seen This report has been electronically sign ed by: _ Jose Luis Montana MD 04/01/2016 09:38:55 Images reviewed and interpretation verif [email or web address] [facility] Cardiac Ultrasound Laboratory Unknown ECHO ORDERABLES Performing Organization Address City/State/ZIP Code Phon e Number HEARTLAB SYSTEM XR Chest PA & Lateral (Generic) (03/26/2016 [...] Narayan Camacho MD IMG DX ORDERABLES (ABNORMAL) Basic Metabolic Panel (non-fasting) (03/26/2016 4:35 PM EDT) athologist Signature Glucose Lvl 135 65 - 199 [facility] mg/dL [facility] Comment: Diabetes: >=200 mg/dL plus symp toms BUN 29 (H) 8 - 18 mg/dL [facility] Creatinine 1.45 (H) 0.70 - 1.20 mg/dL [facility] Comment: Please note that the pediatric reference intervals supplied above were not validated at [facility]. Results from pediatri c patients should be interpreted in conjunction to the patient's age, height and muscle mass. Sodium 138 135 - 145 mmol/L [facility] Potassium 4.6 3.5 - 5.0 mmol/L [facility] Comment: Please note: ??Patients with WBC >100,00 0 may have falsely elevated Potassium levels. ??For accurate Potassium quantif ication in these patients send serum separator tube (gold top) for subsequent determinations. ??Contact the Clinical Chemistry Laboratory if there are any qu estions. Chloride 100 98 - 107 mmol/L [facility] CO2 23 22 - 31 mmol/L [facility] Anion Gap 15 5 - 15 mmol/L [facility] Calcium 9.6 8.5 - 10.5 mg/dL [facility] Estimated GFR 37 (L) >=60 [facility] Comment: This estimated GFR (eGFR) [...] the following links into your internet browser. [email or web address] Specimen Anatomical Collection Method Collection Time Receive d Time (Source) Location / / Volume Laterality Blood specimen 03/26/2016 4:35 PM 016 4:41 (specimen) EDT PM EDT Resulting Agency Comment Spec In Lab Narayan Camacho MD CHEMISTRY ORDERABLES Performing Organization Address City/State/[place] [address] documented in this encounter Visit Diagnoses Diagnosis Coronary artery disease, angina presence unspecified, unspecified vessel or lesion type, unspecified whether [place] or thurman splanted heart documented in this encounter Care Teams Riddler Operator Relationship Specialty Start Date End Date Unknown PCP - General 03/08/16 03/28/16 None documented as of this encounter
--- OUTSIDE RECORDS SUMMARY | 2022-05-22 01:47 | XMS_ITS | Encounter Summary ---
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 CAD Procedures PRO CABG, ARTERY-VEIN, THREE PRO CABG, ARTERIAL, SINGLE PRO ENDOSCOPY W/VIDEO-ASST VEIN HARVEST, CABG @CABG; 3 VENOUS GRAFTS & ARTERIAL GRAFT @CABG, USING ARTERIAL GRAFT;SINGLE ARTERIAL GRAFT ENDOSCOPIC HARVEST VEIN(S) FOR CABG Referral ID Status Reason Start Date Expiration Date Visits Requ ested Visits Authorized [id number] 1 1 Encounter Details Date Type Department Care Team Description 03/30/2016 Surgery Main Operating Room Naaryan Washington, @ CABG, [facility] GRAFTS & ARTERIAL GRAFT Hospital [facility] (WRVU 7.93) [facility] [address] [place] [address] SURGERY [phone] [place], [place] [address] (Wo rk) Social History Tobacco Use Types Packs/Day Years Used Date Former Smoker 11 Alcohol Use Standard Drinks/Week Comments No 0 (1 standard drink = 0.6 oz pure alcoho l) Sex Assigned at Date Recorded Not on file documented as of this encounter Last Filed Vital Signs Vital Sign Reading Time Taken Comments Blood Pressure 180/71 03/30/2016 11:31 right arm BP 15 7/78 AM EDT Pulse 72 03/30/2016 6:15 PM EDT Temperature 36.1 ??C (97 ??F) 03/30/2016 6:15 PM EDT Respiratory Rate 16 03/30/2016 6:15 PM EDT Oxygen Saturation 100% 03/30/2016 6:15 PM EDT Inhaled Oxygen - - Concentration Weight 100 kg (220 lb 6.4 03/30/2016 11:31 oz) AM EDT Height 161.3 cm (5' 3.5) 03/30/2016 11:31 AM EDT Body Mass Index 39.09 03/30/2016 11:31 AM EDT documented in this encounter Discharge Summaries Bronson Olmstead PA - 04/03/2016 2:26 PM EDT Inpatient - Discharge Summary Patient Name: Bernardo Peace Patient Age: 60 y.o. Birthdate: 1955 Language: Montenegrin Race: White Ethnicity: Not nor Admit Date: 03/30/2016 Discharge Date: 04/04/16 Attending Physician: Narayan Washington MD Follow-up Recommendations for Providers: Please continue routine management of cardiovascular risk factors including blood pressure, lipids, glucose, etc. Please note any changes to medications. Patient to follow-up with PCP, JACKELINE BARONE, in 1-2 weeks. Patient to follow-up with Corporate Job Titles, Franky Serna MD, in two weeks. Patient to follow-up with Cardiac Surgery, Dr. Narayan Washington, in ~ 4 weeks with CXR and EKG. Inpatient Provider Contact Information: [facility] Section of Cardiac Surgery [facility] [address] FAX [phone] Discharge Diagnoses (Hospital Problems) Primary Diagnoses: CAD/Stable [...] ??? Iodine Rash History of Presentation: Bernardo Juan Peace is seen at the request of Vipin Paniagua for the evaluation of CAD. She is a 60 year old diabetic woman who has had a history of stable angina. She now is having progressive ESTRADA that is NYHA class III. Recently a stress test was performed and revealed anterior ischemiathat lead to a cath. She has no history of ND and no current rest pain. CATH: severe lad, om2 and occlusion, normal EF. ECHO: no significant valve disease Major Procedures/Operations: 03/30/2016 CABG times 3: MARY to LAD, SVG to diag and svg to pda, EVH from the right leg, and NUNU. Hospital Course: Bernardo Peace was admitted to [facility] on 03/30/2016 vi[facility] Day Program. [...] Narayan Washington and/or the Cardiac Surgery Physician Spreader Team may be reached at . Weight: [...] Dr. Narayan Washington. You may use a Jefferson Track or treadmill but avoid any pulling [...] friends, go to a movie, go to rastafari, etc. Heavy activities: No hunting, skiing, jogging, snow shoveling, snowmobiling, lawn mowing, swimming, golf or tennis until after your return appointment with the surgeon. Do not ride motorcycles, [employer] tractors or horses. Avoid the use of [...] should resume a low fat, low cholesterol, [place] Heart Association Diet/Diabetic diet. Driving: No driving [...] you with your appointment information. Cardiac Rehabilitation: [facility] CARDIAC REHABILITATION Bernardo Peace was seen today regarding participation in the outpatient Phase 2 Cardiac Rehabilitation at [facility] . The patient agrees to a referral to this program. The referral will be sent at discharge and the patient should be contacted by the ?? Program within 1- 2 weeks from discharge. ? Future Appointments and Orders Future Orders Complete By Expires EKG 12 Lead [EKG1 Custom] 05/04/2016 04/03/2017 Process Instructions: Scheduling Instructions: Questions: Which DH location will this be performed?: [place] Is a rhythm strip needed?: No If EKG Reason is Pre-op Evaluation, indicate diagnosis for surgery.: Should this service/procedure be billed to the research sponsor?: XR Chest PA & Lateral (Generic) [[id number] Custom] 05/04/2016 04/03/2017 Process Instructions: Scheduling Instructions: [...] (if performed) 3 - Signed and dated [id number] evaluation documenting the need for Oxygen Scheduling [...] Device (OCD) needed?: Referral to Cardiac Rehab [[id number] Custom] As directed Process Instructions: If no progress note charted, please enter Clinical details in comments. Scheduling Instructions: Questions: My question or request is: CABG- Cardiac rehab at [facility] Referral to Home Health - at DISCHARGE [NCD7856 CPT(R)] As directed Process Instructions: Scheduling Instructions: Comments: DOCUMENTATION FOR VNA SERVICES (INCLUDING THOSE PATIENTS WITH MEDICARE COVERAGE REQUIRING HOME VNA SERVICES AND/OR HOSPICE SERVICES) PATIENT'S LOCATION: Bernardo Peace [address] [facility] [address] (home) No relevant phone numbers on file. Irrigation Manager's Name: self & In discussion with the attending physician, it is certified that this patient is under their care and that they, or a Nurse Practitioner, or Physician Spreader who is working directly with them, had [...] need for servicesas follows: HOME HEALTH AGENCY: [facility] PHONE: [phone] FAX: [phone] RN orders: Cardiopulmonary assessment, incisional assessment, assess [...] please call the Cardiac Surgery Office at [phone] Home Health agencies which cover the area of patient's residence have been reviewed, either verballyor in writing, and patient/family have chosen the agency as noted. Questions: Agency name and contact information: [facility], [place], [place] Patient location post discharge: home What services are requested: Registered Nurse Physical Therapy Occupational Therapy Start date: Responsible MD post discharge contact info: Cardiac Surgery Team, [place], [place] Arrangements for VNA/home care: As above. VN RN OR PCP TO PLEASE REMOVE CHEST TUBE SUTURES ON OR AFTER 04/09/2016. Signed: Bronson Olmstead PA-C [facility] Section of Cardiac Surgery [facility] [address] FAX [phone] Date: 04/04/2016 CC: JACKELINE BARONE Nathaniel W II, MD [facility] [place] [address] documented in this encounter Discharge Instructions Patient [...] Narayan Washington and/or the Cardiac Surgery Physician Spreader Team may be reached at . Weight: [...] Dr. Narayan Washington. You may use a Jefferson Track or treadmill but avoid any pulling [...] friends, go to a movie, go to rastafari, etc. Heavy activities: No hunting, skiing, jogging, snow shoveling, snowmobiling, lawn mowing, swimming, golf or tennis until after your return appointment with the surgeon. Do not ride motorcycles, [employer] tractors or horses. Avoid the use of [...] should resume a low fat, low cholesterol, [place] Heart Association Diet/Diabetic diet. Driving: No driving [...] you with your appointment information. Cardiac Rehabilitation: [facility] CARDIAC REHABILITATION Bernardo Martinez Peace was seen today regarding participation in the outpatient Phase 2 Cardiac Rehabilitation at [facility] . The patient agrees to a referral [...] instructions and follow up visits, patient dischrge [facility] with . Alcon Das - 04/03/2016 4:25 PM EDT Chyron Operator Encounter Note Patient Name: Bernardo Peace : [id number] MR#: [id number] Admit Date: 03/30/2016 6:08 AM Hospital Day 4 days Narrative:Visited in response to request for Chyron Operator services. Pt was awake, alert, oriented and [...] chose [facility]. Orders Pended and shared for SEED DISTRICT SALES MANAGER to sign 1300 SEED DISTRICT SALES MANAGER paged that orders pended. Note routed to for [place] entry DAYANA Jerry,BSN Francisco Bonilla [...] nontender, nondistended. Francisco Bonilla MD [id number] Casandra Geller, SEED DISTRICT SALES MANAGER - 04/03/2016 10:58 AM EDT Cardiac Surgery Progress Note: ID: [id number] with hx of CAD, TIA, DM, [...] ASA 81' Endo: SSI levothyroxine 125mcg' [facility] CAS[facility]DRA GELLER APRN Izabela An PTA - 04/03/2016 9:51 AM EDT Physical Therapy Note Patient off floor for US and possible L pigtail placement secondary to effusion. Weekend plan: increase ambulation, wean O2 and will closer to D/C for stairs and bed mobility. Izabela An PTA Beeper# [id number] Gisele Alvarez RN - 04/03/2016 9:00 AM EDT ANGIO NURSING DATABASE Name: BERNARDO PEACE Date of : 1955 AGE 60 y.o. Address: [address] [address] (home) Mobile: No relevant phone numbers on [...] GRAFT performed by Narayan Washington MD at [facility] MAIN OR ??? Pro cabg, arterial, single N/A 03/30/2016 @CABG, USING ARTERIAL GRAFT;SINGLE ARTERIAL GRAFT performed by Narayan Washington MD at [facility] MAIN OR ??? Pro endoscopy w/video-asst vein harvest, cabg Right 03/30/2016 ENDOSCOPIC HARVEST VEIN(S) FOR CABG performed by Narayan Washington MD at [facility] MAIN OR Date/Procedure Med's given/comments [...] precautions indep. ?? Positioned for comfort ?? KITCHEN UTILITY ASSOCIATE in room for patient to shower. ?? [...] minutes Total timed interventions: 23 minutes Pager: [phone] IZABELA AN PTA Physical Therapy Rehabilitation Department Casandra Geller APRN - 04/02/2016 8:54 AM EDT Cardiac Surgery Progress Note: ID: [id number] with hx of CAD, TIA, DM, [...] using custom sliding scale CF 10 Danna Felder APRN [facility] Endocrinology Diabetes Management 20 minutes of this [...] minutes Total timed interventions: 23 minutes Pager: [phone] IZABELA AN PTA Physical Therapy Rehabilitation Department Flora Huffman PA - 04/01/2016 9:41 AM EDT Cardiac Surgery Progress Note: ID: [id number] with hx of CAD, TIA, DM, [...] Tubes/Lines/Drains: PIV, Kilpatrick LABS: Recent Labs 03/31/16 0340 03/30/16 2300 [...] Gas) No results found for: PHART, PO2ART, CSP8TUD Assessment/Plan: POD#2 s/p CABG x 3. Transferred [...] levothyroxine 125mcg' Dispo: [facility], poss transfer to [facility] this afternoon DW Attending Surgeon on rounds. Signed: JACKELINE Fisher [facility] Section of Cardiac Surgery Date: 04/01/2016 Charisse Burnham RN - 03/31/2016 12:59 PM EDT Office of Care Management (OCM) / Muck Operator(CM)/ Initial Assessment Discussed patient with Provider Team [...] friends. ADVANCE DIRECTIVES: None on file in [facility], pt would like help from FURNITURE SANDER to complete prior to discharge HEALTH /PRESCRIPTION COVERAGE: [facility] CURRENT HOME/COMMUNITY SERVICES/EQUIPMENT: none FURNITURE SANDER REFERRAL: Paola Pantoja Notified for assistance with [place] Advance Directives PRIMARY CARE PHYSICIAN: JACKELINE BARONE [address] / [place] [address] POTENTIAL DISCHARGE NEEDS: Patient will need VNA services at discharge: [facility]. PHONE: [phone] FAX: [phone] ANTICIPATED BARRIERS TO DISCHARGE: none anticipated at this time TRANSPORTATION @ D/C: Private vehicle transport to home with [place] PLAN: CM will continue to monitor progress, follow for continuity of care and assist with discharge planning while hospitalized CM Charisse Burnham, RN, BS, pager [phone] . ONT Abdifatah Montana MD - 03/31/2016 10:44 AM EDT STAFF PROGRESS NOTE Critical Care Medicine Author: ABDIFATAH MONTANA MD Patient seen and examined on critical care rounds. Bernardo J Peace is a 60 y.o. female with [...] AM EDT Cardiac Surgery Progress Note: ID: [id number] EF- 62% 24 Hour Events: Extubated this [...] In: 6469 [I.V.:5869; Other:500; IV Piggyback:100] Out: 1880 [Urine:1610; Other:270] Admit weight 99.97 kg Current [...] moves all extremities. Incisions: C/D/I Tubes/Lines/Drains: PIV, edwina, Kilpatrick, CT's, PW LABS: Recent Labs 03/31/16 0340 [...] Lasix 20 IV'', hydralazine prn. Transfer to [facility] this afternoonif stable and off HFNC. Neuro: Tylenol, Oxy, Celexa CV: Lopressor 25'', hydralazine prn, Resp: HFNC, wean as sukhwinder GI: RBO's, Protonix : Kilpatrick Renal: Cr. 1.46 (at baseline), Lasix 20 IV'' ID: Periop cefuroxime Heme: ASA 81', Endo: Insulin gtt, endocrine consult, levothyroxine 125mcg' Dispo: [facility]CC, poss transfer to [facility] this afternoon DW Attending Surgeon on rounds. Signed: JACKELINE RODRIGUEZ [facility] Section of Cardiac Surgery Date: 03/31/2016 Domingo Flores, [facility] - 03/31/2016 2:31 AM EDT Received PT [...] and has moderate amount of oral secretions. COTTON WRINGER will continue to monitor closely. Vipin Fritz [...] a cath. She has no history of ND and no current rest pain. Problem List: [...] a cath. She has no history of ND and no current rest pain. Problem List: [...] encounter Miscellaneous Notes Plan of Care - Kerry Hamlin RN - 04/04/2016 4:53 AM EDT Problem: Skin Integrity Impairment, Risk/Actual (Adult, Obstetrics) Intervention: Pressure Reduction Techniques 04/04/16 0451 Skin Interventions Pressure Reduction Techniques heels elevated off bed Intervention: Wound Healing Promotion 04/04/16450 Skin Interventions Wound Healing Promotion adequate fluids provided Goal: Skin Integrity/Wound Healing Patient will demonstrate the desired outcomes. 04/04/16 0451 Skin Integrity Impairment, Risk/Actual (Adult, Obstetrics) Skin [...] patient Goal: Fall Prevention-Safe Patient Handling 03/31/16 19404/02/16 0700 04/02/16 2030 Safety Interventions Safety Precautions/Fall [...] Mobley RN - 04/03/2016 10:15 AM EDT [facility] CARD[facility]ATION Bernardo Peace was seen today regarding participation in the outpatient Phase 2 Cardiac Rehabilitation at [facility] . The patient agrees to a referral to this program. The referral will be sent at discharge and the patient should be contacted by the Program within 1- 2 weeks from discharge. Plan of Care - Boubacar, Kerry Gann RN - 04/03/2016 3:12 AM EDT Problem: General Plan of Care Goal: Fall Prevention-Safe Patient Handling 03/31/16 1945 04/02/16 0700 04/02/162029 Safety Interventions Safety Precautions/Fall Reduction -- -- assistive device;lighting adjusted for task/safety;sensory aid;health safety coordinator Activity and Safety Assistive Device -- Standard [...] Ongoing (Interventions Implemented as Appropriate) 03/31/16 0556 04/01/161949 Plan of Care Review Plan of Care [...] Goal: Plan of Care Review 03/31/16 0556 04/01/161949 Plan of Care Review Plan of Care Outcome Status ongoing (interventions implemented as appropriate) -- Coping/Psychosocial Response Interventions Plan of Care Reviewed with -- patient Goal: Fall Prevention-Safe Patient Handling 03/31/16 1945 04/01/16 1400 04/01/161949 Safety Interventions Safety Precautions/Fall Reduction -- -- assistive device;health safety coordinator;low bed Activity and Safety Assistive Device -- Front wheel walker -- Briseno Fall Risk History of [...] support provided -- Goal: Discharge Needs Assessment 04/01/16433 Discharge Needs Assessment Concerns to be [...] comments) (wires removed today) Intervention: Airway/Ventilation Management 04/01/16 1950 Respiratory Interventions Airway/Ventilation Management bronchial hygiene promoted;activity [...] of Human Response Clinical Practice Guideline (CPG) 03/31/16 0556 04/01/16 0434 Skin Integrity Impairment, Risk/Actual Personal Related Risk Factors (Skin Integrity Impairment, Risk/Actual) -- sleep deprivation;stress Physiological Related Risk Factors (Skin Integrity Impairment, Risk/Actual) edema -- Treatment Related Related Risk Factors (Skin Integrity Impairment, Risk/Actual) invasive catheters -- Goal: Skin Integrity/Wound Healing Patient will demonstrate the desired outcomes. 03/31/16 0556 Skin Integrity Impairment, Risk/Actual (Adult, [...] provided, if applicable: Pt. Uses the call ladnis to call for assistance. SBA CPG GOAL OUTCOME EVALUATION: Pt. Vital signs remained stable. Pt. Used the incentive spirometry with encouragement . Today we will begin wean patient off oxygen. Pt. Denies pain. Pt. Pulse Read 95-97 % on ear. Pt. Was sinus rhythm with rare pvc Plan of Care - Tish Kellogg RN - 04/01/2016 4:45 AM EDT Problem: General Plan of Care Goal: Plan of Care Review Outcome: Ongoing (Interventions Implemented as Appropriate) 03/31/16 0556 03/31/16 1945 Plan of Care Review Plan of Care [...] CPG) Outcome: Ongoing (Interventions Implemented as Appropriate) 03/31/16555 Cardiac Surgery Problems Assessed (Cardiac Surgery) acute pain;electrolyte imbalance;hemodynamic instability;hypoxia/hypoxemia Problem: Skin Integrity Impairment, Risk/Actual (Adult, Obstetrics) Goal: Identify Signs and Symptoms and Related Risk Factors Signs and symptoms and related risk factors are identified upon initiation of Human Response Clinical Practice Guideline (CPG) Outcome: Ongoing (Interventions Implemented as Appropriate) 03/31/1655504/01/16433 Skin Integrity Impairment, Risk/Actual Personal Related Risk [...] GRAFT performed by Narayan Washington MD at [facility] MAIN OR ??? Pro cabg, arterial, single N/A 03/30/2016 @CABG, USING ARTERIAL GRAFT;SINGLE ARTERIAL GRAFT performed by Narayan Washington MD at [facility] MAIN OR ??? Pro endoscopy w/video-asst vein harvest, cabg Right 03/30/2016 ENDOSCOPIC HARVEST VEIN(S) FOR CABG performed by Narayan Washington MD at [facility] MAIN OR Social History: Patient [...] timed interventions: 0 minutes ASHLEE MONTANA PT Pager:[phone] Physical Therapy Rehabilitation Department Consult Note - [...] management and to provide a review of nursing home diabetes care. Diabetes History: Bernardo Peace has [...] all extremities. Grossly non-focal Labs: Recent Labs 03/31/1633903/30/16 23003/30/16 1710 03/30/16 1610 03/26/16 1635 WBC 10.2* -- 17.7* -- 6.9 HGB 11.1* 12.2 9.0* -- 15.4 HCT 35.1 -- 28.7* -- 46.6* PLATELET 141* -- 158 161 226 NEUTROABS 8.96* -- -- -- 5.73 Recent Labs 03/31/16 03403/30/16 2300 03/26/16 1635 NA -- -- 138 [...] 427* Recent Labs 03/26/16 1635 GLUCOSE 135 [id number]: Patient is a 60 y.o. years old [...] 40 units tonight 2. 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: Medications - Outpatient treatment regimen [...] Ongoing (Interventions Implemented as Appropriate) 03/31/16 0556 Plan of Care Review Plan of Care [...] EVALUATION: Goal: Fall Prevention-Safe Patient Handling 03/31/16 0556 Safety Interventions Safety Precautions/Fall Reduction environmental modification;nonskid shoes/slippers when out of bed Goal: Infection Control Outcome: Ongoing (Interventions Implemented as Appropriate) 03/31/16 0556 Safety Interventions Isolation Precautions standard precautions maintained [...] - 03/30/2016 5:19 PM EDT 03/30/2016 Bernardo Peace 1955 [id number] Preoperative Diagnosis: Coronary artery disease Unstable Angina Postoperative Diagnosis: Coronary artery diseaseUnstable Angina Procedure: CABG times 3: MARY to LAD, SVG to diag and svg to pda. Endoscopic vein harvest Surgeon: Narayan Washington M.D. Spreader: David PEREZ Anesthesia: General endotracheal anesthesia Drains: [...] the medial aspect of the knee. The FRS XB7 system was used to dissect out [...] applied. The patient was transported to the [facility] on epi. All counts were correct. OR Attestation - Narayan Washington MD - 03/30/2016 5:19 PM EDT Attestation: Case Date: 03/30/2016 I was present and I participated during the entire procedure (does not need to include opening and closing). NARAYAN WASHINGTON MD 03/30/2016 Brief Op Note - Narayan Washington MD - 03/30/2016 5:17 PM EDT Brief Operative Note Patient Name: Bernardo Peace : [id number] MR#: [id number] Case Date: 03/30/2016 Surgeon: Surgeon(s) and Role: * Narayan Washington MD - Primary * Jim Roth III, PA - Physician Spreader Preoperative diagnosis: CAD Postoperative diagnosis: CAD Procedure(s): [...] nts LAB SCAN 04/05/2016 12:00 AM EDT [place] SCAN 04/05/2016 12:00 AM EDT POCT GLUCOSE [...] 03/31/2016 3:40 AM Result s for this ([facility]P) EDT procedure are i n the results [...] unspecified vessel or lesion type, unspecified whether gambell or transplanted heart FIBRINOGEN STAT 03/30/2016 4:10 [...] unspecified vessel or lesion type, unspecified whether gambell or transplanted heart @CABG, USING ARTERIAL 03/30/2016 1:30 PM Coronary matilde ry GRAFT;SINGLE ARTERIAL EDT disease, angina GRAFT (WRVU 33.75) presence unspecified, unspecified vessel or lesion type, unspecified whether gambell or transplanted heart @CABG, TWO VENOUS 03/30/2016 1:30 PM Coronary artery GRAFTS & ARTERIAL EDT disease, angina GRAFT (WRVU 7.93) presence unspecified, unspecified vessel or lesion type, unspecified whether gambell or transplanted heart PREPARE RBC STAT 03/30/2016 [...] 463 ms MUSE SYSTEM (Bezet) Calculated P [place]ub[place] 54 degrees MUSE SYSTEM Calculated R Shubuta -16 degrees MUSE SYSTEM Calculated T [place] 125 degrees MUSE SYSTEM INTERPRETATION Normal sinus [...] interpretation and agree with the findings, Tete Gustafsoncalixto alvarez t 05/26/2016 2:44 PM Narayan Washington MD IMG DX ORDERABLES SCAN DOC: [place] (04/05/2016 12:00 AM EDT) Narrative This result has an attachment that is no t available. Scanning Provider MEDIA MGR SCAN EXT ORDR/RSLT SCAN DOC: LAB (04/05/2016 12:00 AM EDT) Narrative This result has an attachment that is no t available. Scanning Provider MEDIA MGR SCAN EXT ORDR/RSLT POCT Glucose (04/04/2016 12:11 PM EDT) athologist Signature POC Glucose 148 65 - 199 [facility] mg/dL [facility] Comment: Supplemental ranges: <140 mg/dL before meals <180 mg/dL all other times of the day Specimen Anatomical Collection Method Collection Time Receive d Time (Source) Location / / Volume Laterality Blood specimen 04/04/2016 12:11 6 (specimen) PM EDT 12:11 PM EDT Narayan Washington MD POINT OF CARE TEST ORDERABLE S Performing Organization Address City/State/[place] [address] POCT Glucose (04/04/2016 7:32 AM EDT) athologist Signature POC Glucose 96 65 - 199 [facility] mg/dL [facility] Comment: Supplemental ranges: <140 mg/dL before meals <180 mg/dL all other times of the day Specimen Anatomical Collection Method Collection Time Receive d Time (Source) Location / / Volume Laterality Blood specimen 04/04/2016 7:32 AM 016 7:32 (specimen) EDT AM EDT Narayan Washington MD POINT OF CARE TEST ORDERABLE S Performing Organization Address City/[facility]/[place] [address] Potassium (04/04/2016 5:32 AM EDT) athologist Signature Potassium 3.6 3.5 - 5.0 [facility] mmol/L [facility] Comment: Please note: ??Patients with WBC [...] Washington MD CHEMISTRY ORDERABLES Performing Organization Address City/[facility]/ZIP Code Phon e Number [address] POCT Glucose (04/04/2016 5:16 AM EDT) athologist Signature POC Glucose 82 65 - 199 [facility] [place] mg/dL [facility] Comment: Supplemental ranges: <140 mg/dL before meals <180 mg/dL all other times of the day Specimen Anatomical Collection Method Collection Time Receive d Time (Source) Location / / Volume Laterality Blood specimen 04/04/2016 5:16 AM 016 5:16 (specimen) EDT AM EDT Narayan Washington MD POINT OF CARE TEST ORDERABLE S Performing Organization Address City/[facility]/[place] [address] POCT Glucose (04/03/2016 11:23 PM EDT) athologist Signature POC Glucose 149 65 - 199 [place] mg/dL [facility] Comment: Supplemental ranges: <140 mg/dL before meals <180 mg/dL all other times of the day Specimen Anatomical Collection Method Collection Time Receive d Time (Source) Location / / Volume Laterality Blood specimen 04/03/2016 11:23 6 (specimen) PM EDT 11:23 PM EDT Narayan Washington MD POINT OF CARE TEST ORDERABLE S Performing Organization Address City/[facility]/ZIP Code Phon e Number [address] POCT Glucose (04/03/2016 8:32 PM EDT) athologist Signature POC Glucose 180 65 - 199 [place] mg/dL [facility] Comment: Supplemental ranges: <140 mg/dL before meals <180 mg/dL all other times of the day Specimen Anatomical Collection Method Collection Time Receive d Time (Source) Location / / Volume Laterality Blood specimen 04/03/2016 8:32 PM 016 8:32 (specimen) EDT PM EDT Narayan Washington MD POINT OF CARE TEST ORDERABLE S Performing Organization Address City/[facility]/[place] [address] POCT Glucose (04/03/2016 3:28 PM EDT) athologist Signature POC Glucose 100 65 - 199 [place] mg/dL [facility] Comment: Supplemental ranges: <140 mg/dL before meals <180 mg/dL all other times of the day Specimen Anatomical Collection Method Collection Time Receive d Time (Source) Location / / Volume Laterality Blood specimen 04/03/2016 3:28 PM 016 3:28 (specimen) EDT PM EDT Narayan Washington MD POINT OF CARE TEST ORDERABLE S Performing Organization Address City/[facility]/ZIP Code Phon e Number [address] POCT Glucose (04/03/2016 12:12 PM EDT) athologist Signature POC Glucose 92 65 - 199 [place] mg/dL [facility] Comment: Supplemental ranges: <140 mg/dL before meals <180 mg/dL all other times of the day Specimen Anatomical Collection Method Collection Time Receive d Time (Source) Location / / Volume Laterality Blood specimen 04/03/2016 12:12 6 (specimen) PM EDT 12:12 PM EDT Narayan Washington MD POINT OF CARE TEST ORDERABLE S Performing Organization Address [facility]/[place] [address] IR other related procedures [...] volume of left pleural fluid. Discussed with aCsandra Geller, no chest tube placed given small volume of fluid. Fellow: Bari Calvo MD(pager#[phone] ) I, Dr. Rosales, was NOT present throughou t the procedure. Narayan Washington MD IMG IR ORDERABLES POCT Glucose (04/03/2016 8:29 AM EDT) athologist Signature POC Glucose 90 65 - 199 [facility] Comment: Supplemental ranges: <140 mg/dL before meals <180 mg/dL all other times of the day Specimen Anatomical Collection Method Collection Time Receive d Time (Source) Location / / Volume Laterality Blood specimen 04/03/2016 8:29 AM 016 8:29 (specimen) EDT AM EDT Narayan Washington MD POINT OF CARE TEST ORDERABLE S Performing Organization Address City/[facility]/[place] [address] (ABNORMAL) Potassium (04/03/2016 5:34 AM EDT) athologist Signature Potassium 3.3 (L) 3.5 - 5.0 [facility] mmol/L [facility] Comment: Please note: ??Patients with WBC [...] Organization Address City/State/ZIP Code Phon e Number [address] POCT Glucose (04/03/2016 5:27 AM EDT) athologist Signature POC Glucose 108 65 - 199 [place] mg/dL [facility] Comment: Supplemental ranges: <140 mg/dL before meals <180 mg/dL all other times of the day Specimen Anatomical Collection Method Collection Time Receive d Time (Source) Location / / Volume Laterality Blood specimen 04/03/2016 5:27 AM 016 5:27 (specimen) EDT AM EDT Narayan Washington MD POINT OF CARE TEST ORDERABLE S Performing Organization Address City/[facility]/ZIP Code Phon e Number [address] POCT Glucose (04/03/2016 3:58 AM EDT) athologist Signature POC Glucose 72 65 - 199 [facility] [place] mg/dL [facility] Comment: Supplemental ranges: <140 mg/dL before meals <180 mg/dL all other times of the day Specimen Anatomical Collection Method Collection Time Receive d Time (Source) Location / / Volume Laterality Blood specimen 04/03/2016 3:58 AM 016 3:58 (specimen) EDT AM EDT Narayan Washington MD POINT OF CARE TEST ORDERABLE S Performing Organization Address City/State/ZIP Code Phon e Number [address] (ABNORMAL) POCT Glucose (04/03/2016 3:38 AM EDT) athologist Signature POC Glucose 55 (L) 65 - 199 [place] mg/dL [facility] Comment: Supplemental ranges: <140 mg/dL before meals <180 mg/dL all other times of the day Specimen Anatomical Collection Method Collection Time Receive d Time (Source) Location / / Volume Laterality Blood specimen 04/03/2016 3:38 AM 016 3:38 (specimen) EDT AM EDT Narayan Washington MD POINT OF CARE TEST ORDERABLE S Performing Organization Address City/State/ZIP Code Phon e Number [address] POCT Glucose (04/02/2016 11:25 PM EDT) athologist Signature POC Glucose 85 65 - 199 [place] mg/dL [facility] Comment: Supplemental ranges: <140 mg/dL before meals <180 mg/dL all other times of the day Specimen Anatomical Collection Method Collection Time Receive d Time (Source) Location / / Volume Laterality Blood specimen 04/02/2016 11:25 6 (specimen) PM EDT 11:25 PM EDT Narayan Washington MD POINT OF CARE TEST ORDERABLE S Performing Organization Address City/State/ZIP Code Phon e Number [address] POCT Glucose (04/02/2016 8:16 PM EDT) athologist Signature POC Glucose 129 65 - 199 [facility] Comment: Supplemental ranges: <140 mg/dL before meals <180 mg/dL all other times of the day Specimen Anatomical Collection Method Collection Time Receive d Time (Source) Location / / Volume Laterality Blood specimen 04/02/2016 8:16 PM 016 8:16 (specimen) EDT PM EDT Narayan Washington MD POINT OF CARE TEST ORDERABLE S Performing Organization Address City/State/ZIP Code Phon e Number [address] POCT Glucose (04/02/2016 4:15 PM EDT) athologist Signature POC Glucose 81 65 - 199 [place] mg/dL [facility] Comment: Supplemental ranges: <140 mg/dL before meals <180 mg/dL all other times of the day Specimen Anatomical Collection Method Collection Time Receive d Time (Source) Location / / Volume Laterality Blood specimen 04/02/2016 4:15 PM 016 4:15 (specimen) EDT PM EDT Narayan Washington MD POINT OF CARE TEST ORDERABLE S Performing Organization Address City/State/[place] [address] POCT Glucose (04/02/2016 11:47 AM EDT) athologist Signature POC Glucose 113 65 - 199 [place] mg/dL [facility] Comment: Supplemental ranges: <140 mg/dL before meals <180 mg/dL all other times of the day Specimen Anatomical Collection Method Collection Time Receive d Time (Source) Location / / Volume Laterality Blood specimen 04/02/2016 11:47 6 (specimen) AM EDT 11:47 AM EDT Narayan Washington MD POINT OF CARE TEST ORDERABLE S Performing Organization Address City/[facility]/[place] [address] POCT Glucose (04/02/2016 7:41 AM EDT) athologist Signature POC Glucose 91 65 - 199 [facility] Comment: Supplemental ranges: <140 mg/dL before meals <180 mg/dL all other times of the day Specimen Anatomical Collection Method Collection Time Receive d Time (Source) Location / / Volume Laterality Blood specimen 04/02/2016 7:41 AM 016 7:41 (specimen) EDT AM EDT Narayan Washington MD POINT OF CARE TEST ORDERABLE S Performing Organization Address City/State/[place] [address] XR Chest PA & [...] ORDERABLES POCT Glucose (04/02/2016 3:49 AM EDT) athologist Signature POC Glucose 88 65 - 199 [facility] mg/dL [facility] Comment: Supplemental ranges: <140 mg/dL before meals <180 mg/dL all other times of the day Specimen Anatomical Collection Method Collection Time Receive d Time (Source) Location / / Volume Laterality Blood specimen 04/02/2016 3:49 AM 016 3:49 (specimen) EDT AM EDT Narayan Washington MD POINT OF CARE TEST ORDERABLE S Performing Organization Address City/State/[place] [address] (ABNORMAL) Differential, Automated (04/02/2016 3:26 AM EDT) [facility] gist Method Time Signature Neutrophils % 84.0 % [facility] Neutr Abs (ANC) 11.20 (H) 1.50 - [facility] 6.30 [facility] x10(3)/[facility] LABORATORY Lymphocytes % 6.1 % [facility] Lymphocytes Abs 0.8 (L) 1.0 - 3.6 [facility] x10(3)/[facility] LABORATORY Monocytes % 9.5 % [facility] Monocyte Abs 1.3 (H) 0.2 - 1.0 [facility] x10(3)/[facility] LABORATORY Eosinophils % 0.0 % [facility] Eosinophils Abs 0.0 0.0 - 0.5 [facility] x10(3)/[facility] LABORATORY Basophils % 0.1 % [facility] Basophils Abs 0.0 0.0 - 0.2 [facility] x10(3)/[facility] LABORATORY Immature Gran % 0.30 % [facility] Comment: Immature granulocytes(IG's)percentage an d absolute count will include metamyelocytes, myelocytes, and promyelo cytes. Blood smears from CBCs yielding IG's will be scanned manually for concor dance. If this scan disagrees with the automated IG or if promyelocytes are not ed, a manual differential will be performed. Chandni Gran Abs 0.04 0.00 - 0.05 x10(3)/[facility]ORY Specimen Anatomical Collection Method Collection Time Receive d Time (Source) Location / / Volume Laterality Blood specimen 04/02/2016 3:26 AM 016 4:02 (specimen) EDT AM EDT Resulting Agency Comment Spec In Lab Narayan Washington MD HEMATOLOGY ORDERABLES Performing Organization Address City/State/[place] [address] (ABNORMAL) Hemogram (04/02/2016 3:26 AM EDT) P athologist Signature WBC 13.3 (H) 4.0 - 10.0 [facility] x10(3)/[facility] LABORATORY RBC 3.67 (L) 3.93 - [facility] 5.22 [facility] x10(6)/[facility] LABORATORY Hemoglobin 10.3 (L) 11.2 - [facility] 15.7 gm/dL [facility] Hematocrit 33.2 (L) 34.0 - [facility] 45.0 % [facility] MCV 90.5 79.0 - [facility] 94.0 [facility] LABORATORY MCH 28.1 26.6 - [facility] pg [facility] MCHC 31.0 (L) 32.0 - [facility] 36.5 gm/dL [facility] Platelets 152 145 - 370 [facility] x10(3)/[facility] LABORATORY RDWSD 47.3 (H) 35.0 - [facility] 46.0 [facility] LABORATORY RDWCV 14.4 10.9 - [facility] 14.4 % [facility] MPV 11.8 9.0 - 12.0 [facility] LABORATORY Specimen Anatomical Collection Method Collection Time Receive d Time (Source) Location / / Volume Laterality Blood specimen 04/02/2016 3:26 AM 016 4:02 (specimen) EDT AM EDT Resulting Agency Comment Spec In Lab Narayan Washington MD HEMATOLOGY ORDERABLES Performing Organization Address City/State/[place] [address] (ABNORMAL) Basic Metabolic Panel (non-fasting) (04/02/2016 3:26 AM EDT) athologist [facility] Glucose Lvl 92 65 - 199 [facility] mg/dL [facility] Comment: Diabetes: >=200 mg/dL plus symp toms BUN 21 (H) 8 - 18 mg/dL [facility] Creatinine 1.25 (H) 0.70 - 1.20 mg/dL [facility] Comment: Please note that the pediatric reference intervals supplied above were not validated at [facility]. Results from pediatri c patients should be interpreted in conjunction to the patient's age, height and muscle mass. Sodium 142 135 - 145 mmol/L [facility] Potassium 3.5 3.5 - 5.0 mmol/L [facility] Comment: result [id number] Please note: ??Patients with WBC >100,00 0 may have falsely elevated Potassium levels. ??For accurate Potassium quantif ication in these patients send serum separator tube (gold top) for subsequent determinations. ??Contact the Clinical Chemistry Laboratory if there are any qu estions. Chloride 98 98 - 107 mmol/L [facility] CO2 33 (H) 22 - 31 mmol/L [facility] Anion Gap 11 5 - 15 mmol/L [facility] Calcium 8.2 (L) 8.5 - 10.5 mg/dL [facility] Estimated GFR 44 (L) >=60 [facility] Comment: [...] the following links into your internet browser. [email or web address] Specimen Anatomical Collection Method Collection Time Receive d Time (Source) Location / / Volume Laterality Blood specimen 04/02/2016 3:26 AM 016 4:02 (specimen) EDT AM EDT Resulting Agency Comment Spec In Lab Narayan Washington MD CHEMISTRY ORDERABLES Performing Organization Address City/State/[place] [address] POCT Glucose (04/01/2016 11:22 PM EDT) athologist Signature POC Glucose 96 65 - 199 [facility] mg/dL [facility] Comment: Supplemental ranges: <140 mg/dL before meals <180 mg/dL all other times of the day Specimen Anatomical Collection Method Collection Time Receive d Time (Source) Location / / Volume Laterality Blood specimen 04/01/2016 11:22 6 (specimen) PM EDT 11:22 PM EDT Narayan Washington MD POINT OF CARE TEST ORDERABLE S Performing Organization Address City/State/ZIP Code Phon e Number [address] POCT Glucose (04/01/2016 8:04 PM EDT) athologist Signature POC Glucose 87 65 - 199 [place] mg/dL [facility] Comment: Supplemental ranges: <140 mg/dL before meals <180 mg/dL all other times of the day Specimen Anatomical Collection Method Collection Time Receive d Time (Source) Location / / Volume Laterality Blood specimen 04/01/2016 8:04 PM 016 8:04 (specimen) EDT PM EDT Narayan Washington MD POINT OF CARE TEST ORDERABLE S Performing Organization Address City/[facility]/ZIP Code Phon e Number [address] POCT Glucose (04/01/2016 3:43 PM EDT) athologist Signature POC Glucose 179 65 - 199 [place] mg/dL [facility] Comment: Supplemental ranges: <140 mg/dL before meals <180 mg/dL all other times of the day Specimen Anatomical Collection Method Collection Time Receive d Time (Source) Location / / Volume Laterality Blood specimen 04/01/2016 3:43 PM 016 3:43 (specimen) EDT PM EDT Narayan Washington MD POINT OF CARE TEST ORDERABLE S Performing Organization Address City/State/ZIP Code Phon e Number [address] POCT Glucose (04/01/2016 2:34 PM EDT) athologist Signature POC Glucose 192 65 - 199 [place] mg/dL [facility] Comment: Supplemental ranges: <140 mg/dL before meals <180 mg/dL all other times of the day Specimen Anatomical Collection Method Collection Time Receive d Time (Source) Location / / Volume Laterality Blood specimen 04/01/2016 2:34 PM 016 2:34 (specimen) EDT PM EDT Narayan Washington MD POINT OF CARE TEST ORDERABLE S Performing Organization Address City/State/[place] [address] (ABNORMAL) POCT Glucose (04/01/2016 1:36 PM EDT) athologist Signature POC Glucose 205 (H) 65 - 199 [place] mg/dL [facility] Comment: Supplemental ranges: <140 mg/dL before meals <180 mg/dL all other times of the day Specimen Anatomical Collection Method Collection Time Receive d Time (Source) Location / / Volume Laterality Blood specimen 04/01/2016 1:36 PM 016 1:36 (specimen) EDT PM EDT Narayan Washington MD POINT OF CARE TEST ORDERABLE S Performing Organization Address City/[facility]/[place] [address] (ABNORMAL) POCT Glucose (04/01/2016 12:38 PM EDT) athologist Signature POC Glucose 210 (H) 65 - 199 [place] mg/dL [facility] Comment: Supplemental ranges: <140 mg/dL before meals <180 mg/dL all other times of the day Specimen Anatomical Collection Method Collection Time Receive d Time (Source) Location / / Volume Laterality Blood specimen 04/01/2016 12:38 6 (specimen) PM EDT 12:38 PM EDT Narayan Washington MD POINT OF CARE TEST ORDERABLE S Performing Organization Address City/State/[place] [address] (ABNORMAL) POCT Glucose (04/01/2016 11:33 AM EDT) athologist Signature POC Glucose 214 (H) 65 - 199 [place] mg/dL [facility] Comment: Supplemental ranges: <140 mg/dL before meals <180 mg/dL all other times of the day Specimen Anatomical Collection Method Collection Time Receive d Time (Source) Location / / Volume Laterality Blood specimen 04/01/2016 11:33 6 (specimen) AM EDT 11:33 AM EDT Narayan Washington MD POINT OF CARE TEST ORDERABLE S Performing Organization Address City/State/[place] [address] (ABNORMAL) POCT Glucose (04/01/2016 10:33 AM EDT) P athologist Signature POC Glucose 220 (H) 65 - 199 [place] mg/dL [facility] Comment: Supplemental ranges: <140 mg/dL before meals <180 mg/dL all other times of the day Specimen Anatomical Collection Method Collection Time Receive d Time (Source) Location / / Volume Laterality Blood specimen 04/01/2016 10:33 6 (specimen) AM EDT 10:33 AM EDT Narayan Washington MD POINT OF CARE TEST ORDERABLE S Performing Organization Address City/State/[place] [address] (ABNORMAL) POCT Glucose (04/01/2016 9:36 AM EDT) P athologist Signature POC Glucose 213 (H) 65 - 199 [place] mg/dL [facility] Comment: Supplemental ranges: <140 mg/dL before meals <180 mg/dL all other times of the day Specimen Anatomical Collection Method Collection Time Receive d Time (Source) Location / / Volume Laterality Blood specimen 04/01/2016 9:36 AM 016 9:36 (specimen) EDT AM EDT Narayan Washington MD POINT OF CARE TEST ORDERABLE S Performing Organization Address City/State/ZIP Code Phon e Number [address] POCT Glucose (04/01/2016 8:36 AM EDT) P athologist Signature POC Glucose 148 65 - 199 [place] mg/dL [facility] Comment: Supplemental ranges: <140 mg/dL before meals <180 mg/dL all other times of the day Specimen Anatomical Collection Method Collection Time Receive d Time (Source) Location / / Volume Laterality Blood specimen 04/01/2016 8:36 AM 016 8:36 (specimen) EDT AM EDT Narayan Washington MD POINT OF CARE TEST ORDERABLE S Performing Organization Address City/State/ZIP Code Phon e Number [address] POCT Glucose (04/01/2016 7:25 AM EDT) athologist Signature POC Glucose 152 65 - 199 [place] mg/dL [facility] Comment: Supplemental ranges: <140 mg/dL before meals <180 mg/dL all other times of the day Specimen Anatomical Collection Method Collection Time Receive d Time (Source) Location / / Volume Laterality Blood specimen 04/01/2016 7:25 AM 016 7:25 (specimen) EDT AM EDT Narayan Washington MD POINT OF CARE TEST ORDERABLE S Performing Organization Address City/State/ZIP Code Phon e Number [address] POCT Glucose (04/01/2016 6:28 AM EDT) athologist Signature POC Glucose 140 65 - 199 [place] mg/dL [facility] Comment: Supplemental ranges: <140 mg/dL before meals <180 mg/dL all other times of the day Specimen Anatomical Collection Method Collection Time Receive d Time (Source) Location / / Volume Laterality Blood specimen 04/01/2016 6:28 AM 016 6:28 (specimen) EDT AM EDT Narayan Washington MD POINT OF CARE TEST ORDERABLE S Performing Organization Address City/State/ZIP Code Phon e Number [address] POCT Glucose (04/01/2016 5:29 AM EDT) athologist Signature POC Glucose 136 65 - 199 [place] mg/dL [facility] Comment: Supplemental ranges: <140 mg/dL before meals <180 mg/dL all other times of the day Specimen Anatomical Collection Method Collection Time Receive d Time (Source) Location / / Volume Laterality Blood specimen 04/01/2016 5:29 AM 016 5:29 (specimen) EDT AM EDT Narayan Washington MD POINT OF CARE TEST ORDERABLE S Performing Organization Address City/State/ZIP Code Phon e Number [address] POCT Glucose (04/01/2016 4:31 AM EDT) athologist Signature POC Glucose 124 65 - 199 [facility] [place] mg/dL [facility] Comment: Supplemental ranges: <140 mg/dL before meals <180 mg/dL all other times of the day Specimen Anatomical Collection Method Collection Time Receive d Time (Source) Location / / Volume Laterality Blood specimen 04/01/2016 4:31 AM 016 4:31 (specimen) EDT AM EDT Narayan Washington MD POINT OF CARE TEST ORDERABLE S Performing Organization Address City/[facility]/ZIP Code Phon e Number [address] POCT Glucose (04/01/2016 3:33 AM EDT) athologist Signature POC Glucose 142 65 - 199 [place] mg/dL [facility] Comment: Supplemental ranges: <140 mg/dL before meals <180 mg/dL all other times of the day Specimen Anatomical Collection Method Collection Time Receive d Time (Source) Location / / Volume Laterality Blood specimen 04/01/2016 3:33 AM 016 3:33 (specimen) EDT AM EDT Narayan Washington MD POINT OF CARE TEST ORDERABLE S Performing Organization Address City/State/ZIP Code Phon e Number [address] POCT Glucose (04/01/2016 2:28 AM EDT) athologist Signature POC Glucose 180 65 - 199 [place] CAROL mg/dL [facility] Comment: Supplemental ranges: <140 mg/dL before meals <180 mg/dL all other times of the day Specimen Anatomical Collection Method Collection Time Receive d Time (Source) Location / / Volume Laterality Blood specimen 04/01/2016 2:28 AM 016 2:28 (specimen) EDT AM EDT Narayan Washington MD POINT OF CARE TEST ORDERABLE S Performing Organization Address City/State/ZIP Code Phon e Number [address] POCT Glucose (04/01/2016 1:34 AM EDT) athologist Signature POC Glucose 154 65 - 199 [place] CAROL mg/dL [facility] Comment: Supplemental ranges: <140 mg/dL before meals <180 mg/dL all other times of the day Specimen Anatomical Collection Method Collection Time Receive d Time (Source) Location / / Volume Laterality Blood specimen 04/01/2016 1:34 AM 016 1:34 (specimen) EDT AM EDT Narayan Washington MD POINT OF CARE TEST ORDERABLE S Performing Organization Address City/State/ZIP Code Phon e Number [address] POCT Glucose (04/01/2016 12:45 AM EDT) athologist Signature POC Glucose 164 65 - 199 [place] CAROL mg/dL [facility] Comment: Supplemental ranges: <140 mg/dL before meals <180 mg/dL all other times of the day Specimen Anatomical Collection Method Collection Time Receive d Time (Source) Location / / Volume Laterality Blood specimen 04/01/2016 12:45 6 (specimen) AM EDT 12:45 AM EDT Narayan Washington MD POINT OF CARE TEST ORDERABLE S Performing Organization Address City/State/ZIP Code Phon e Number [address] POCT Glucose (03/31/2016 11:28 PM EDT) athologist Signature POC Glucose 184 65 - 199 [place] CAROL mg/dL [facility] Comment: Supplemental ranges: <140 mg/dL before meals <180 mg/dL all other times of the day Specimen Anatomical Collection Method Collection Time Receive d Time (Source) Location / / Volume Laterality Blood specimen 03/31/2016 11:28 6 (specimen) PM EDT 11:28 PM EDT Narayan Washington MD POINT OF CARE TEST ORDERABLE S Performing Organization Address City/State/[place] [address] (ABNORMAL) POCT Glucose (03/31/2016 10:37 PM EDT) athologist Signature POC Glucose 202 (H) 65 - 199 [place] CAROL mg/dL [facility] Comment: Supplemental ranges: <140 mg/dL before meals <180 mg/dL all other times of the day Specimen Anatomical Collection Method Collection Time Receive d Time (Source) Location / / Volume Laterality Blood specimen 03/31/2016 10:37 6 (specimen) PM EDT 10:37 PM EDT Narayan Washington MD POINT OF CARE TEST ORDERABLE S Performing Organization Address City/State/[place] [address] POCT Glucose (03/31/2016 9:23 PM EDT) athologist Signature POC Glucose 193 65 - 199 [place] CAROL mg/dL [facility] Comment: Supplemental ranges: <140 mg/dL before meals <180 mg/dL all other times of the day Specimen Anatomical Collection Method Collection Time Receive d Time (Source) Location / / Volume Laterality Blood specimen 03/31/2016 9:23 PM 016 9:23 (specimen) EDT PM EDT Narayan Washington MD POINT OF CARE TEST ORDERABLE S Performing Organization Address City/State/ZIP Code Phon e Number [address] POCT Glucose (03/31/2016 8:09 PM EDT) athologist Signature POC Glucose 187 65 - 199 [place] CAROL mg/dL [facility] Comment: Supplemental ranges: <140 mg/dL before meals <180 mg/dL all other times of the day Specimen Anatomical Collection Method Collection Time Receive d Time (Source) Location / / Volume Laterality Blood specimen 03/31/2016 8:09 PM 016 8:09 (specimen) EDT PM EDT Narayan Washington MD POINT OF CARE TEST ORDERABLE S Performing Organization Address City/State/ZIP Code Phon e Number [address] POCT Glucose (03/31/2016 6:18 PM EDT) athologist Signature POC Glucose 163 65 - 199 GEOV[place] CAROL mg/dL [facility] Comment: Supplemental ranges: <140 mg/dL before meals <180 mg/dL all other times of the day Specimen Anatomical Collection Method Collection Time Receive d Time (Source) Location / / Volume Laterality Blood specimen 03/31/2016 6:18 PM 016 6:18 (specimen) EDT PM EDT Narayan Washington MD POINT OF CARE TEST ORDERABLE S Performing Organization Address City/State/ZIP Code Phon e Number [address] POCT Glucose (03/31/2016 5:29 PM EDT) athologist Signature POC Glucose 130 65 - 199 GE[place] CAROL mg/dL [facility] Comment: Supplemental ranges: <140 mg/dL before meals <180 mg/dL all other times of the day Specimen Anatomical Collection Method Collection Time Receive d Time (Source) Location / / Volume Laterality Blood specimen 03/31/2016 5:29 PM 016 5:29 (specimen) EDT PM EDT Narayan Washington MD POINT OF CARE TEST ORDERABLE S Performing Organization Address City/State/ZIP Code Phon e Number [address] POCT Glucose (03/31/2016 4:07 PM EDT) athologist Signature POC Glucose 136 65 - 199 GE[place] CAROL mg/dL [facility] Comment: Supplemental ranges: <140 mg/dL before meals <180 mg/dL all other times of the day Specimen Anatomical Collection Method Collection Time Receive d Time (Source) Location / / Volume Laterality Blood specimen 03/31/2016 4:07 PM 016 4:07 (specimen) EDT PM EDT Narayan Washington MD POINT OF CARE TEST ORDERABLE S Performing Organization Address City/State/ZIP Code Phon e Number [address] POCT Glucose (03/31/2016 2:42 PM EDT) athologist Signature POC Glucose 135 65 - 199 GEOV[place]NA CAROL mg/dL [facility] Comment: Supplemental ranges: <140 mg/dL before meals <180 mg/dL all other times of the day Specimen Anatomical Collection Method Collection Time Receive d Time (Source) Location / / Volume Laterality Blood specimen 03/31/2016 2:42 PM 016 2:42 (specimen) EDT PM EDT Narayan Washington MD POINT OF CARE TEST ORDERABLE S Performing Organization Address City/State/[place] [address] POCT Glucose (03/31/2016 12:24 PM EDT) athologist Signature POC Glucose 139 65 - 199 GEOVANNA CAROL mg/dL [facility] Comment: Supplemental ranges: <140 mg/dL before meals <180 mg/dL all other times of the day Specimen Anatomical Collection Method Collection Time Receive d Time (Source) Location / / Volume Laterality Blood specimen 03/31/2016 12:24 6 (specimen) PM EDT 12:24 PM EDT Narayan Washington MD POINT OF CARE TEST ORDERABLE S Performing Organization Address City/State/ZIP Code Phon e Number [address] POCT Glucose (03/31/2016 10:28 AM EDT) athologist Signature POC Glucose 118 65 - 199 GEOV[place]NA CAROL mg/dL [facility] Comment: Supplemental ranges: <140 mg/dL before meals <180 mg/dL all other times of the day Specimen Anatomical Collection Method Collection Time Receive d Time (Source) Location / / Volume Laterality Blood specimen 03/31/2016 10:28 6 (specimen) AM EDT 10:28 AM EDT Narayan Washington MD POINT OF CARE TEST ORDERABLE S Performing Organization Address City/State/ZIP Code Phon e Number [address] POCT Glucose (03/31/2016 8:06 AM EDT) athologist Signature POC Glucose 116 65 - 199 GEOV[place]NA CAROL mg/dL [facility] Comment: Supplemental ranges: <140 mg/dL before meals <180 mg/dL all other times of the day Specimen Anatomical Collection Method Collection Time Receive d Time (Source) Location / / Volume Laterality Blood specimen 03/31/2016 8:06 AM 016 8:06 (specimen) EDT AM EDT Narayan Washington MD POINT OF CARE TEST ORDERABLE S Performing Organization Address City/State/ZIP Code Phon e Number [address] POCT Glucose (03/31/2016 7:03 AM EDT) athologist Signature POC Glucose 128 65 - 199 GEOV[place]NA CAROL mg/dL [facility] Comment: Supplemental ranges: <140 mg/dL before meals <180 mg/dL all other times of the day Specimen Anatomical Collection Method Collection Time Receive d Time (Source) Location / / Volume Laterality Blood specimen 03/31/2016 7:03 AM 016 7:03 (specimen) EDT AM EDT Narayan Washington MD POINT OF CARE TEST ORDERABLE S Performing Organization Address City/State/ZIP Code Phon e Number [address] POCT Glucose (03/31/2016 5:43 AM EDT) athologist Signature POC Glucose 143 65 - 199 [facility] CAROL mg/dL [facility] Comment: Supplemental ranges: <140 mg/dL before meals <180 mg/dL all other times of the day Specimen Anatomical Collection Method Collection Time Receive d Time (Source) Location / / Volume Laterality Blood specimen 03/31/2016 5:43 AM 016 5:43 (specimen) EDT AM EDT Narayan Washington MD POINT OF CARE TEST ORDERABLE S Performing Organization Address City/State/[place] [address] (ABNORMAL) BLOOD GAS 2 ARTERIAL (03/31/2016 4:53 AM EDT) Analysis Performed At Patho logist Time Signature pH Art 7.37 7.35 - [facility] 7.45 [facility] pCO2 Art 48 (H) 35 - 45 [facility] mmHg [facility] pO2 Art 67 (L) 85 - 104 [facility] LABORATORY HCO3 Art 26.7 (H) 20.0 - [facility] 26.0 [facility] mmol/L [facility] BE Art 1.4 -3.0 - 3.0 [facility] mmol/L [facility] Hgb Blood Gas 12.6 11.2 - [facility] 15.7 gm/dL [facility] O2HB Art 90.9 (L) 94.0 - [facility] 97.0 % [facility] COHB Art 0.7 % [facility] Comment: Nonsmokers: 0.5-1.5% COHB Smokers: Variable, but usually less than 10% Toxic: 20-30% COHB Lethal: Greater than 60% COHB METHB Art 0.8 <=1.5 % [facility] Na Whole Blood 141 135 - 145 mmol/L [facility] K Whole Blood 4.4 3.5 - 5.0 mmol/L [facility] Comment: Please note: Patients with WBC >100,000 may have falsely elevated Potassium levels. Contact the Clinical Chemistry L aboratory if there are any questions. ICa Whole Blood 1.10 (L) 1.15 - 1.33 mmol/L [facility] Comment: Note: ??Total bilirubin higher than 20 m g/dL may lead to falsely low ionized calcium. CL Whole Blood 104 98 - 107 mmol/L [facility] Gluc Whole Bld 172 65 - 199 mg/dL [facility] Comment: Diabetes: >=200 mg/dL plus symp toms. Lactate WB 2.9 (H) 0.5 - 2.2 mmol/L [facility] FIO2 Art 40 % [facility] PF Ratio Art 168 [facility] Specimen Anatomical Collection Method Collection Time Receive d Time (Source) Location / / Volume Laterality Blood specimen 03/31/2016 4:53 AM 016 4:53 (specimen) EDT AM EDT Narayan Washington MD CHEMISTRY ORDERABLES Performing Organization Address City/[facility]/ZIP [facility] Phon e Number [address] POCT Glucose (03/31/2016 3:41 AM EDT) P athologist Signature POC Glucose 178 65 - 199 [facility] mg/dL [facility] Comment: Supplemental ranges: <140 mg/dL before meals <180 mg/dL all other times of the day Specimen Anatomical Collection Method Collection Time Receive d Time (Source) Location / / Volume Laterality Blood specimen 03/31/2016 3:41 AM 016 3:41 (specimen) EDT AM EDT Narayan Washington MD POINT OF CARE TEST ORDERABLE S Performing Organization Address City/[facility]/[place] [address] (ABNORMAL) Hemoglobin A1c (03/31/2016 3:40 AM EDT) Analysis Performed At Patho logist Time Signature Hemoglobin A1C 9.3 (H) 4.3 - 5.6 [facility] Comment: Reference Range: 4.3 - 5.6% [...] Mellitus, Diabetes Care 2013; 36: Suppl. 1, S67-74 Est Avg Gluc 220 mg/dL [facility] Comment: eAG equivalents for HbA1c percentages: HbA1c(%) ?eAG(mg/dL) 6.0 ?126 6.5 ?140 7.0 ?154 7.5 ?169 8.0 ?183 8.5 ?197 9.0 ?212 9.5 ?226 10.0 ? 240 Limitations: The eAG calculation has not been validated on women, individuals below 18 years old and above 70 years old, and individuals with hemoglobinopathies. Additional resources are available on [facility] website: [email or web address] TULSAadacalc Kaveh GALLARDO, Cindy J, Uriel R, et al. ??Tr anslating the A1C assay into estimated average glucose values. ??Diabetes Care 2008:31(8):5377-8327. Specimen Anatomical Collection Method Collection Time Receive d Time (Source) Location / / Volume Laterality Blood specimen Venous Draw / 03/31/2016 3:40 AM 2015 (specimen) Unknown EDT 10:39 AM EDT Resulting Agency Comment Spec In Lab Narayan Washington MD CHEMISTRY ORDERABLES Performing Organization Address City/State/[place] [address] (ABNORMAL) Differential, Automated (03/31/2016 3:40 AM EDT) [facility] gist Method Time Signature Neutrophils % 87.6 % [facility] Neutr Abs (ANC) 8.96 (H) 1.50 - [facility] 6.30 [facility] x10(3)/[facility] L LABORATORY Lymphocytes % 4.2 % [facility] Lymphocytes Abs 0.4 (L) 1.0 - 3.6 [facility] x10(3)/[facility] LABORATORY Monocytes % 7.8 % [facility] Monocyte Abs 0.8 0.2 - 1.0 [facility] x10(3)/[facility] LABORATORY Eosinophils % 0.0 % [facility] Eosinophils Abs 0.0 0.0 - 0.5 [facility] x10(3)/[facility] LABORATORY Basophils % 0.2 % [facility] Basophils Abs 0.0 0.0 - 0.2 [facility] x10(3)/[facility] LABORATORY Immature Gran % 0.20 % [facility] Comment: Immature granulocytes(IG's)percentage an d absolute count will include metamyelocytes, myelocytes, and promyelo cytes. Blood smears from CBCs yielding IG's will be scanned manually for concor dance. If this scan disagrees with the automated IG or if promyelocytes are not ed, a manual differential will be performed. Chandni Gran Abs 0.02 0.00 - 0.05 x10(3)/[facility] Specimen Anatomical Collection Method Collection Time Receive d Time (Source) Location / / Volume Laterality Blood specimen 03/31/2016 3:40 AM 016 3:50 (specimen) EDT AM EDT Resulting Agency Comment Spec In Lab Narayan Washington MD HEMATOLOGY ORDERABLES Performing Organization Address City/State/[place] [address] (ABNORMAL) Hemogram (03/31/2016 3:40 AM EDT) athologist Signature WBC 10.2 (H) 4.0 - 10.0 [facility] x10(3)/[facility] LABORATORY RBC 3.98 3.93 - [facility] 5.22 [facility] x10(6)/[facility] LABORATORY Hemoglobin 11.1 (L) 11.2 - [facility] 15.7 gm/dL [facility] Hematocrit 35.1 34.0 - [place] [facility] 45.0 % [facility] MCV 88.2 79.0 - [place] [facility] 94.0 [facility] LABORATORY MCH 27.9 26.6 - [place] [place] 32.2 pg [facility] MCHC 31.6 (L) 32.0 - [place]NA MEDINA 36.5 gm/dL [facility] Platelets 141 (L) 145 - 370 [place]NA MEDINA x10(3)/[facility] LABORATORY RDWSD 44.9 35.0 - [place] 46.0 [facility] LABORATORY RDWCV 13.9 10.9 - [place] 14.4 % [facility] MPV 11.2 9.0 - 12.0 [facility] LABORATORY Specimen Anatomical Collection Method Collection Time Receive d Time (Source) Location / / Volume Laterality Blood specimen 03/31/2016 3:40 AM 016 3:50 (specimen) EDT AM EDT Resulting Agency Comment Spec In Lab Narayan Washington MD HEMATOLOGY ORDERABLES Performing Organization Address City/State/[place] [address] (ABNORMAL) Cardiac Enzymes (03/31/2016 3:40 AM EDT) athologist Signature Troponin-T 1.02 (H) <=0.03 [place] MEDINA ng/mL [facility] Comment: 0.03 ng/mL: Represents the 99th [...] consensus document of the Joint Society of Cardiology/[place] [employer] o f [employer] Committee for the redefinition of myocardial infarction. ? ?Journal of the [place] College [employer] 2000; 36: 959-969] CK, Total 427 (H) 0 - 160 unit/L [facility] Specimen Anatomical Collection Method Collection Time Receive d Time (Source) Location / / Volume Laterality Blood specimen 03/31/2016 3:40 AM 016 3:50 (specimen) EDT AM EDT Resulting Agency Comment Spec In Lab Narayan Washington MD CHEMISTRY ORDERABLES Performing Organization Address [facility] Phon e Number [address] Potassium (03/31/2016 3:40 AM EDT) athologist Signature Potassium 5.0 3.5 - 5.0 [facility] mmol/L [facility] Comment: Please note: ??Patients with WBC [...] Washington MD CHEMISTRY ORDERABLES Performing Organization Address [facility] [place] [address] (ABNORMAL) Glucose, fasting (03/31/2016 3:40 AM EDT) athologist Signature Glucose 200 (H) 65 - 99 [facility] Fasting mg/dL [facility] Comment: ?Fasting* Glucose Interpretive C riteria [...] of Diabetes Mellitus, Position Statement from the [place] [employer] Association. ??Diabete s Care, Volume 33, Supplement 1, Nov 2009 Specimen Anatomical Collection Method Collection Time Receive d Time (Source) Location / / Volume Laterality Blood specimen 03/31/2016 3:40 AM 016 3:50 (specimen) EDT AM EDT Resulting Agency Comment Spec In Lab Narayan Washington MD CHEMISTRY ORDERABLES Performing Organization Address City/[facility]/[place] [address] (ABNORMAL) Creatinine (03/31/2016 3:40 AM EDT) athologist Signature Creatinine 1.46 (H) 0.70 - [facility] 1.20 mg/dL [facility] Comment: Please note that the pediatric reference intervals supplied above were not validated at [facility]. Results from pediatri c patients should be interpreted in conjunction to the patient's age, height and muscle mass. Estimated GFR 37 (L) >=60 [facility] [...] the following links into your internet browser. [email or web address] [email or web address] Specimen Anatomical Collection Method Collection Time Receive d Time (Source) Location / / Volume Laterality Blood specimen 03/31/2016 3:40 AM 016 3:50 (specimen) EDT AM EDT Resulting Agency Comment Spec In Lab Narayan Washington MD CHEMISTRY ORDERABLES Performing Organization Address City/[facility]/[place] [address] [facility] [address] (ABNORMAL) BUN (03/31/2016 3:40 AM EDT) athologist Signature BUN 20 (H) 8 - 18 [facility] mg/dL [facility] Specimen Anatomical Collection Method Collection Time Receive d Time (Source) Location / / Volume Laterality Blood specimen 03/31/2016 3:40 AM 016 3:50 (specimen) EDT AM EDT Resulting Agency Comment Spec In Lab Narayan Washington MD CHEMISTRY ORDERABLES Performing Organization Address City/State/ZIP Code Phon e Number [address] (ABNORMAL) BLOOD GAS 2 ARTERIAL (03/31/2016 3:01 AM EDT) athologist Signature pH Art 7.42 7.35 - [facility] 7.45 [facility] pCO2 Art 39 35 - 45 [facility] LABORATORY pO2 Art 85 85 - 104 [facility] LABORATORY HCO3 Art 24.8 20.0 - [facility] 26.0 [facility] mmol/L [facility] BE Art 0.4 -3.0 - 3.0 [facility] mmol/L [facility] Hgb Blood Gas 12.3 11.2 - [facility] 15.7 gm/dL [facility] O2HB Art 95.1 94.0 - [facility] 97.0 % [facility] COHB Art 0.6 % [facility] Comment: Nonsmokers: 0.5-1.5% COHB Smokers: Variable, but usually less than 10% Toxic: 20-30% COHB Lethal: Greater than 60% COHB METHB Art 0.8 <=1.5 % [facility] Na Whole Blood 139 135 - 145 mmol/L [facility] K Whole Blood 4.9 3.5 - 5.0 mmol/L [facility] Comment: Please note: Patients with WBC >100,000 may have falsely elevated Potassium levels. Contact the Clinical Chemistry L aboratory if there are any questions. ICa Whole Blood 1.07 (L) 1.15 - 1.33 mmol/L [facility] Comment: Note: ??Total bilirubin higher than 20 m g/dL may lead to falsely low ionized calcium. CL Whole Blood 103 98 - 107 mmol/L [facility] Gluc Whole Bld 207 (H) 65 - 199 mg/dL [facility] Comment: Diabetes: >=200 mg/dL plus symp toms. Lactate WB 3.7 (H) 0.5 - 2.2 mmol/L [facility] FIO2 Art 40 % [facility] PF Ratio Art 212 [facility] Specimen Anatomical Collection Method Collection Time Receive d Time (Source) Location / / Volume Laterality Blood specimen 03/31/2016 3:01 AM 016 3:01 (specimen) EDT AM EDT Nraayan Washington MD CHEMISTRY ORDERABLES Performing Organization Address City/[facility]/ZIP Code Phon e Number [address] POCT Glucose (03/31/2016 2:59 AM EDT) athologist Signature POC Glucose 184 65 - 199 [facility]dL [facility] Comment: Supplemental ranges: <140 mg/dL before meals <180 mg/dL all other times of the day Specimen Anatomical Collection Method Collection Time Receive d Time (Source) Location / / Volume Laterality Blood specimen 03/31/2016 2:59 AM 016 2:59 (specimen) EDT AM EDT Narayan Washington MD POINT OF CARE TEST ORDERABLE S Performing Organization Address City/State/[place] [address] (ABNORMAL) POCT Glucose (03/31/2016 2:01 AM EDT) athologist Signature POC Glucose 200 (H) 65 - 199 [facility] mg/dL [facility] Comment: Supplemental ranges: <140 mg/dL before meals <180 mg/dL all other times of the day Specimen Anatomical Collection Method Collection Time Receive d Time (Source) Location / / Volume Laterality Blood specimen 03/31/2016 2:01 AM 016 2:01 (specimen) EDT AM EDT Narayan Washington MD POINT OF CARE TEST ORDERABLE S Performing Organization Address City/[facility]/[place] [address] (ABNORMAL) POCT Glucose (03/31/2016 1:15 AM EDT) athologist Signature POC Glucose 219 (H) 65 - 199 [facility] mg/dL [facility] Comment: Supplemental ranges: <140 mg/dL before meals <180 mg/dL all other times of the day Specimen Anatomical Collection Method Collection Time Receive d Time (Source) Location / / Volume Laterality Blood specimen 03/31/2016 1:15 AM 016 1:15 (specimen) EDT AM EDT Narayan Washington MD POINT OF CARE TEST ORDERABLE S Performing Organization Address City/[facility]/[place] [address] (ABNORMAL) BLOOD GAS 2 VENOUS (03/31/2016 12:33 AM EDT) athologist Signature pH Dequan 7.24 7.32 - [facility] (Critical) 7.42 [facility] Comment: Noted by senior instrumentation engineer. pCO2 Dequan 50 41 - 51 mmHg [facility] pO2 Dequan 39 25 - 40 mmHg [facility] HCO3 Dequan 20.8 mmol/L [facility] BE Dequan -6.7 mmol/L [facility] Hgb Blood Gas 12.7 11.2 - 15.7 gm/dL [facility] Comment: Reference Interval: Total Hemoglobin (in g/dL) Based [facility] He matology Ranges: ? Age Less than [...] ?13.7 ? 17.5 O2HB Dequan 67.4 % [facility] COHB Dequan 1.2 % [facility] Comment: Nonsmokers: 0.5-1.5% COHB Smokers: Variable, but usually less than 10% Toxic: 20-30% COHB Lethal: Greater than 60% COHB METHB Dequan 0.9 <=1.5 % [facility] Na Whole Blood 138 135 - 145 mmol/L [facility] K Whole Blood 4.7 3.5 - 5.0 mmol/L [facility] Comment: Please note: Patients with WBC >100,000 may have falsely elevated Potassium levels. Contact the Clinical Chemistry L aboratory if there are any questions. ICa Whole Blood 1.09 (L) 1.15 - 1.33 mmol/L [facility] Comment: Note: ??Total bilirubin higher than 20 m g/dL may lead to falsely low ionized calcium. CL Whole Blood 103 98 - 107 mmol/L [facility] Gluc Whole Bld 271 (H) 65 - 199 mg/dL [facility] Comment: Diabetes: >=200 mg/dL plus symp toms Lactate WB 5.7 (Critical) 0.5 - 2.2 mmol/L [facility] Comment: Noted by senior instrumentation engineer. FIO2 Dequan 40 % [facility] BGas Source Mixed Venous [facility] Specimen Anatomical Collection Method Collection Time Receive d Time (Source) Location / / Volume Laterality Blood specimen 03/31/2016 12:33 6 (specimen) AM EDT 12:33 AM EDT Narayan Washington MD CHEMISTRY ORDERABLES Performing Organization Address City/[facility]/ZIP Code Phon e Number [address] (ABNORMAL) POCT Glucose (03/31/2016 12:08 AM EDT) athologist Signature POC Glucose 240 (H) 65 - 199 [facility] mg/dL [facility] Comment: Supplemental ranges: <140 mg/dL before meals <180 mg/dL all other times of the day Specimen Anatomical Collection Method Collection Time Receive d Time (Source) Location / / Volume Laterality Blood specimen 03/31/2016 12:08 6 (specimen) AM EDT 12:08 AM EDT Narayan Washington MD POINT OF CARE TEST ORDERABLE S Performing Organization Address City/[facility]/ZIP Code Phon e Number [address] (ABNORMAL) BLOOD GAS 2 ARTERIAL (03/31/2016 12:04 AM EDT) athologist Signature pH Art 7.25 7.35 - [facility] (Critical) 7.45 [facility] Comment: Noted by senior instrumentation engineer. pCO2 Art 45 35 - 45 mmHg [facility] pO2 Art 78 (L) 85 - 104 mmHg [facility] HCO3 Art 19.2 (L) 20.0 - 26.0 mmol/L [facility] BE Art -8.1 (L) -3.0 - 3.0 mmol/L [facility] Hgb Blood Gas 12.8 11.2 - 15.7 gm/dL [facility] O2HB Art 91.9 (L) 94.0 - 97.0 % [facility] COHB Art 1.0 % [facility] Comment: Nonsmokers: 0.5-1.5% COHB Smokers: Variable, but usually less than 10% Toxic: 20-30% COHB Lethal: Greater than 60% COHB METHB Art 0.9 <=1.5 % [facility] Na Whole Blood 138 135 - 145 mmol/L [facility] K Whole Blood 4.7 3.5 - 5.0 mmol/L [facility] Comment: Please note: Patients with WBC >100,000 may have falsely elevated Potassium levels. Contact the Clinical Chemistry L aboratory if there are any questions. ICa Whole Blood 1.09 (L) 1.15 - 1.33 mmol/L [facility] Comment: Note: ??Total bilirubin higher than 20 m g/dL may lead to falsely low ionized calcium. CL Whole Blood 103 98 - 107 mmol/L [facility] Gluc Whole Bld 264 (H) 65 - 199 mg/dL [facility] Comment: Diabetes: >=200 mg/dL plus symp toms. Lactate WB 5.7 (Critical) 0.5 - 2.2 mmol/L [facility] Comment: Noted by senior instrumentation engineer. FIO2 Art 40 % [facility] PF Ratio Art 195 [facility] Temp Art 37.0 Celsius [facility] Specimen Anatomical Collection Method Collection Time Receive d Time (Source) Location / / Volume Laterality Blood specimen 03/31/2016 12:04 6 (specimen) AM EDT 12:04 AM EDT Narayan Washington MD CHEMISTRY ORDERABLES Performing Organization Address City/State/[place] [address] (ABNORMAL) POCT Glucose (03/30/2016 11:04 PM EDT) P athologist Signature POC Glucose 244 (H) 65 - 199 [facility] mg/dL [facility] Comment: Supplemental ranges: <140 mg/dL before meals <180 mg/dL all other times of the day Specimen Anatomical Collection Method Collection Time Receive d Time (Source) Location / / Volume Laterality Blood specimen 03/30/2016 11:04 6 (specimen) PM EDT 11:04 PM EDT Narayan Washington MD POINT OF CARE TEST ORDERABLE S Performing Organization Address City/[facility] [place] [address] Hemoglobin (03/30/2016 11:00 PM EDT) athologist Signature Hemoglobin 12.2 11.2 - 15.7 [facility] Specimen Anatomical Collection Method Collection Time Receive d Time (Source) Location / / Volume Laterality Blood specimen 03/30/2016 11:00 6 (specimen) PM EDT 11:07 PM EDT Resulting Agency Comment Spec In Lab Narayan Washington MD HEMATOLOGY ORDERABLES Performing Organization Address [facility] [place] [address] Potassium (03/30/2016 11:00 PM EDT) athologist Signature Potassium 4.6 3.5 - 5.0 [facility] mmol/L [facility] Comment: Please note: ??Patients with WBC [...] Washington MD CHEMISTRY ORDERABLES Performing Organization Address City/[facility]/ZIP [facility] Phon e Number [address] POCT Glucose (03/30/2016 9:57 PM EDT) athologist Signature POC Glucose 199 65 - 199 [facility] mg/dL [facility] Comment: Supplemental ranges: <140 mg/dL before meals <180 mg/dL all other times of the day Specimen Anatomical Collection Method Collection Time Receive d Time (Source) Location / / Volume Laterality Blood specimen 03/30/2016 9:57 PM 016 9:57 (specimen) EDT PM EDT Narayan Washington MD POINT OF CARE TEST ORDERABLE S Performing Organization Address City/State/[place] [address] (ABNORMAL) BLOOD GAS 2 ARTERIAL (03/30/2016 9:53 PM EDT) athologist Signature pH Art 7.24 7.35 - [facility] (Critical) 7.45 [facility] Comment: Noted by senior instrumentation engineer. pCO2 Art 39 35 - 45 mmHg [facility] pO2 Art 92 85 - 104 mmHg [facility] HCO3 Art 16.3 (L) 20.0 - 26.0 mmol/L [facility] BE Art -11.1 (L) -3.0 - 3.0 mmol/L [facility] Hgb Blood Gas 14.0 11.2 - 15.7 gm/dL [facility] O2HB Art 94.1 94.0 - 97.0 % [facility] COHB Art 1.0 % [facility] Comment: Nonsmokers: 0.5-1.5% COHB Smokers: Variable, but usually less than 10% Toxic: 20-30% COHB Lethal: Greater than 60% COHB METHB Art 0.9 <=1.5 % [facility] Na Whole Blood 137 135 - 145 mmol/L [facility] K Whole Blood 4.2 3.5 - 5.0 mmol/L [facility] Comment: Please note: Patients with WBC >100,000 may have falsely elevated Potassium levels. Contact the Clinical Chemistry L aboratory if there are any questions. ICa Whole Blood 1.10 (L) 1.15 - 1.33 mmol/L [facility] Comment: Note: ??Total bilirubin higher than 20 m g/dL may lead to falsely low ionized calcium. CL Whole Blood 104 98 - 107 mmol/L [facility] Gluc Whole Bld 308 (H) 65 - 199 mg/dL [facility] Comment: Diabetes: >=200 mg/dL plus symp toms. Lactate WB 6.6 (Critical) 0.5 - 2.2 mmol/L [facility] Comment: Noted by senior instrumentation engineer. FIO2 Art 40 % [facility] PF Ratio Art 230 [facility] Specimen Anatomical Collection Method Collection Time Receive d Time (Source) Location / / Volume Laterality Blood specimen 03/30/2016 9:53 PM 016 9:53 (specimen) EDT PM EDT Narayan Washington MD CHEMISTRY ORDERABLES Performing Organization Address City/[facility]/[place] [address] (ABNORMAL) POCT Glucose (03/30/2016 9:23 PM EDT) athologist Signature POC Glucose 255 (H) 65 - 199 [facility] Comment: Supplemental ranges: <140 mg/dL before meals <180 mg/dL all other times of the day Specimen Anatomical Collection Method Collection Time Receive d Time (Source) Location / / Volume Laterality Blood specimen 03/30/2016 9:23 PM 016 9:23 (specimen) EDT PM EDT Narayan Washington MD POINT OF CARE TEST ORDERABLE S Performing Organization Address City/[facility]/[place] [address] (ABNORMAL) POCT Glucose (03/30/2016 8:08 PM EDT) athologist Signature POC Glucose 257 (H) 65 - 199 [facility] mg/dL [facility] Comment: Supplemental ranges: <140 mg/dL before meals <180 mg/dL all other times of the day Specimen Anatomical Collection Method Collection Time Receive d Time (Source) Location / / Volume Laterality Blood specimen 03/30/2016 8:08 PM 016 8:08 (specimen) EDT PM EDT Narayan Washington MD POINT OF CARE TEST ORDERABLE S Performing Organization Address City/State/[place] [address] EKG 12 Lead (03/30/2016 7:03 PM EDT) Component Value Ref Range Test Analysis Performed Pathologis t Method Time At Signature Ventricular rate 81 BPM MUSE SYSTEM Atrial Rate 81 BPM MUSE SYSTEM P-R Interval 182 ms MUSE SYSTEM QRS Duration 94 ms MUSE SYSTEM Q-T Interval 448 ms MUSE SYSTEM QTC Calculated 520 ms MUSE SYSTEM (Bezet) Calculated P Shubuta 55 degrees MUSE SYSTEM Calculated R Shubuta -24 degrees MUSE SYSTEM Calculated T Shubuta 108 degrees MUSE SYSTEM INTERPRETATION Normal sinus [...] cm above the janessa. Right internal jugular [place]-Anton catheter tip terminates in the mid right [...] cm above the janessa. Right internal jugular [place]-Anton catheter tip terminates in the mid right [...] this on follow-up studies i s recommended. Authorizing Provider Result Annie Washington MD IMG DX ORDERABLES (ABNORMAL) BLOOD GAS 2 ARTERIAL (03/30/2016 6:31 PM EDT) [facility] gist Method Time Signature pH Art 7.28 7.35 - [facility] (Critical) 7.45 [facility] pCO2 Art 38 35 - 45 [facility] mmHg [facility] pO2 Art 229 (H) 85 - 104 [facility] LABORATORY HCO3 Art 17.8 (L) 20.0 - [facility] 26.0 [facility] mmol/L [facility] LABORATORY BE Art -8.9 (L) -3.0 - 3.0 [facility] mmol/L [facility] Hgb Blood Gas 13.1 11.2 - [facility] 15.7 gm/dL [facility] O2HB Art 97.4 (H) 94.0 - [facility] 97.0 % [facility] COHB Art 0.7 % [facility] Comment: Nonsmokers: 0.5-1.5% COHB Smokers: Variable, but usually less than 10% Toxic: 20-30% COHB Lethal: Greater than 60% COHB METHB Art 0.9 <=1.5 % [facility] Na Whole Blood 135 135 - 145 mmol/L [facility] K Whole Blood 3.8 3.5 - 5.0 mmol/L [facility] Comment: Please note: Patients with WBC >100,000 may have falsely elevated Potassium levels. Contact the Clinical Chemistry L aboratory if there are any questions. ICa Whole Blood 1.08 (L) 1.15 - 1.33 mmol/L [facility] Comment: Note: ??Total bilirubin higher than 20 m g/dL may lead to falsely low ionized calcium. CL Whole Blood 103 98 - 107 mmol/L [facility] Gluc Whole Bld 262 (H) 65 - 199 mg/dL [facility] Comment: Diabetes: >=200 mg/dL plus symp toms. Lactate WB 2.7 (H) 0.5 - 2.2 mmol/L [facility] FIO2 Art 100 % [facility] PF Ratio Art 229 [facility] Specimen Anatomical Collection Method Collection Time Receive d Time (Source) Location / / Volume Laterality Blood specimen 03/30/2016 6:31 PM 016 6:31 (specimen) EDT PM EDT Narayan Washington MD CHEMISTRY ORDERABLES Performing Organization Address City/State/[place] [address] (ABNORMAL) BLOOD GAS 2 ARTERIAL (03/30/2016 5:11 PM EDT) Analysis Performed At Patho logist Time Signature pH Art 7.33 (L) 7.35 - [facility] 7.45 [facility] pCO2 Art 43 35 - 45 [facility] LABORATORY pO2 Art 74 (L) 85 - 104 [facility] LABORATORY HCO3 Art 22.3 20.0 - [facility] 26.0 [facility] mmol/[facility] LABORATORY BE Art -3.6 (L) -3.0 - 3.0 [facility] mmol/L [facility] Hgb Blood Gas 9.8 (L) 11.2 - [facility] 15.7 gm/dL [facility] O2HB Art 93.1 (L) 94.0 - [facility] 97.0 % [facility] COHB Art 0.5 % [facility] Comment: Nonsmokers: 0.5-1.5% COHB Smokers: Variable, but usually less than 10% Toxic: 20-30% COHB Lethal: Greater than 60% COHB METHB Art 0.2 <=1.5 % [facility]ATORY Na Whole Blood 131 (L) 135 - 145 mmol/L [facility] K Whole Blood 4.2 3.5 - 5.0 mmol/L [facility] Comment: Please note: Patients with WBC >100,000 may have falsely elevated Potassium levels. Contact the Clinical Chemistry L aboratory if there are any questions. ICa Whole Blood 1.13 (L) 1.15 - 1.33 mmol/L [facility] Comment: Note: ??Total bilirubin higher than 20 m g/dL may lead to falsely low ionized calcium. CL Whole Blood 102 98 - 107 mmol/L [facility] Gluc Whole Bld 276 (H) 65 - 199 mg/dL [facility] Comment: Diabetes: >=200 mg/dL plus symp toms. FIO2 Art 71 % [facility] PF Ratio Art 104 [facility] Specimen Anatomical Collection Method Collection Time Receive d Time (Source) Location / / Volume Laterality Blood specimen 03/30/2016 5:11 PM 016 5:11 (specimen) EDT PM EDT Narayan Washington MD CHEMISTRY ORDERABLES Performing Organization Address City/[facility]/[place] [address] (ABNORMAL) Antithrombin (03/30/2016 5:10 PM EDT) athologist Signature Antithrombin 49 (L) 80 - 120 % [facility] Comment: [id number] Called by: IDA, Read back by: GEOVANNA Montano, Date/Time:03/30/16 17:30. Specimen Anatomical Collection Method Collection Time Receive d Time (Source) Location / / Volume Laterality Blood specimen Venous Draw / 03/30/2016 5:10 PM 2015 5:15 (specimen) Unknown EDT PM EDT Resulting Agency Comment Spec In Lab Gentry De Los Santos MD HEMATOLOGY ORDERABLES Performing Organization Address City/[facility]/[place] [address] (ABNORMAL) Hemogram (03/30/2016 5:10 PM EDT) P athologist Signature WBC 17.7 (H) 4.0 - 10.0 [facility] x10(3)/[facility] LABORATORY Comment: WBC, H-H and Plt called to Geovanna Okeefe (OR16) @ 17:21 03-30-16. RBC 3.21 (L) 3.93 - 5.22 x10(6)/[facility] LABORATORY Hemoglobin 9.0 (L) 11.2 - 15.7 gm/dL [facility] Hematocrit 28.7 (L) 34.0 - 45.0 % [facility] MCV 89.4 79.0 - 94.0 fL [facility] MCH 28.0 26.6 - 32.2 pg [facility] MCHC 31.4 (L) 32.0 - 36.5 gm/dL [facility] Platelets 158 145 - 370 x10(3)/mcL [facility] RDWSD 45.4 35.0 - 46.0 fL [facility] RDWCV 13.8 10.9 - 14.4 % [facility] LABORATORY MPV 11.3 9.0 - 12.0 fL [facility] LAB[facility]ORY Specimen Anatomical Collection Method Collection Time Receive d Time (Source) Location / / Volume Laterality Blood specimen 03/30/2016 5:10 PM 016 5:15 (specimen) EDT PM EDT Resulting Agency Comment Spec In Lab Gentry De Los Santos MD HEMATOLOGY ORDERABLES Performing Organization Address City/[facility]/Z[place] [address] APTT (03/30/2016 5:10 PM EDT) athologist [facility] PTT 31 25 - 35 sec [facility] Comment: The recommended therapeutic range for fu ll dose, unfractionated heparin at [facility] is 80 ? 114 seconds. The use [...] Santos MD HEMATOLOGY ORDERABLES Performing Organization Address City/[facility]/[place] [address] (ABNORMAL) Prothrombin Time (03/30/2016 5:10 PM EDT) P athologist Signature PT 19.6 (H) 12.0 - 15.0 [facility] LABORATORY Comment: An INR <2.0 indicates adequate [...] circumstances. INR 1.6 (H) 0.9 - 1.1 [facility] LABORATORY Specimen Anatomical Collection Method Collection Time Receive d Time (Source) Location / / Volume Laterality Blood specimen 03/30/2016 5:10 PM 016 5:15 (specimen) EDT PM EDT Resulting Agency Comment Spec In Lab Gentry De Los Santos MD HEMATOLOGY ORDERABLES Performing Organization Address City/[facility]/[place] [address] (ABNORMAL) Fibrinogen (03/30/2016 5:10 PM EDT) athologist Signature Fibrinogen 162 (L) 175 - 450 [facility] mg/dL [facility] Comment: [id number] Called by: IDA, [...] Organization Address City/State/[place] [address] (ABNORMAL) BLOOD GAS 2 ARTERIAL (03/30/2016 4:31 PM EDT) Analysis Performed At Patho logist Time Signature pH Art 7.35 (L) 7.35 - [facility] 7.45 [facility] LABORATORY pCO2 Art 41 35 - 45 GEOVANNA [facility] LABORATORY pO2 Art 201 (H) 85 - 104 [facility] LABORATORY HCO3 Art 21.8 20.0 - [facility] 26.0 [facility] mmol/L [facility] LABORATORY BE Art -3.9 (L) -3.0 - 3.0 [facility] mmol/L [facility]ORY Hgb Blood Gas 9.3 (L) 11.2 - [facility] 15.7 gm/dL [facility]ORY O2HB Art 98.2 (H) 94.0 - [facility] 97.0 % [facility] LAB[facility]ORY COHB Art 0.7 % [facility]ORY Comment: Nonsmokers: 0.5-1.5% COHB Smokers: Variable, but usually less than 10% Toxic: 20-30% COHB Lethal: Greater than 60% COHB METHB Art 0.2 <=1.5 % [facility] LABORATORY Na Whole Blood 125 (L) 135 - 145 mmol/L [facility] K Whole Blood 6.4 (Critical) 3.5 - 5.0 mmol/L [facility] LABORATORY Comment: Please note: Patients with WBC >100,000 may have falsely elevated Potassium levels. Contact the Clinical Chemistry L aboratory if there are any questions. ICa Whole Blood 1.19 1.15 - 1.33 mmol/L [facility]OR[facility]ORY Comment: Note: ??Total bilirubin higher than 20 m g/dL may lead to falsely low ionized calcium. CL Whole Blood 99 98 - 107 mmol/L [facility]ORY Gluc Whole Bld 282 (H) 65 - 199 mg/dL [facility] Comment: Diabetes: >=200 mg/dL plus symp toms. Specimen Anatomical Collection Method Collection Time Receive d Time (Source) Location / / Volume Laterality Blood specimen 03/30/2016 4:31 PM 016 4:31 (specimen) EDT PM EDT Narayan Washington MD CHEMISTRY ORDERABLES Performing Organization Address City/State/[place] [address] Platelet count (03/30/2016 4:10 PM EDT) athologist Signature Platelets 161 145 - 370 GEOVANNA CAROL x10(3)/[facility] LABORATORY Comment: CALL TO SAM POTTER (OR 16) @ 16:30 03-30-16. Specimen Anatomical Collection Method Collection Time Receive d Time (Source) Location / / Volume Laterality Blood specimen 03/30/2016 4:10 PM 016 4:17 (specimen) EDT PM EDT Resulting Agency Comment Spec In Lab Narayan Washington MD HEMATOLOGY ORDERABLES Performing Organization Address City/[facility]/ZIP Code Phon e Number [address] (ABNORMAL) Fibrinogen (03/30/2016 4:10 PM EDT) athologist Signature Fibrinogen 158 (L) 175 - 450 [facility] mg/dL [facility] Comment: A fibrinogen level >100 mg/dL is adequat e for hemostasis in most patients without underlying bleeding disorders. Specimen Anatomical Collection Method Collection Time Receive d Time (Source) Location / / Volume Laterality Blood specimen 03/30/2016 4:10 PM 016 4:17 (specimen) EDT PM EDT Resulting Agency Comment Spec In Lab Narayan Washington MD HEMATOLOGY ORDERABLES Performing Organization Address City/[facility]/[place] [address] (ABNORMAL) BLOOD GAS 2 ARTERIAL (03/30/2016 3:50 PM EDT) Analysis Performed At Patho logist Time Signature pH Art 7.38 7.35 - [facility] CAROL 7.45 [facility] LABORATORY pCO2 Art 43 35 - 45 [facility] mmHg [facility] LAB[facility]ORY pO2 Art 286 (H) 85 - 104 [facility] mmHg [facility] LABORATORY HCO3 Art 24.4 20.0 - GEOVANNA CAR[facility] 26.0 [facility] mmol/L [facility] LABORATORY BE Art -0.8 -3.0 - 3.0 [facility] mmol/L [facility]ORY Hgb Blood Gas 10.0 (L) 11.2 - [facility] CAROL 15.7 gm/dL [facility] LAB[facility]ORY O2HB Art 98.7 (H) 94.0 - [facility] CAROL 97.0 % [facility] LAB[facility]ORY COHB Art 0.6 % [facility] LAB[facility]ORY Comment: Nonsmokers: 0.5-1.5% COHB Smokers: Variable, but usually less than 10% Toxic: 20-30% COHB Lethal: Greater than 60% COHB METHB Art 0.3 <=1.5 % [facility] Na Whole Blood 129 (L) 135 - 145 mmol/L [facility] K Whole Blood 5.7 (H) 3.5 - 5.0 mmol/L [facility] Comment: Please note: Patients with WBC >100,000 may have falsely elevated Potassium levels. Contact the Clinical Chemistry L aboratory if there are any questions. ICa Whole Blood 0.92 (Critical) 1.15 - 1.33 mmol/L [facility] Comment: Note: ??Total bilirubin higher than 20 m g/dL may lead to falsely low ionized calcium. CL Whole Blood 100 98 - 107 mmol/L [facility] Gluc Whole Bld 217 (H) 65 - 199 mg/dL [facility] Comment: Diabetes: >=200 mg/dL plus symp toms. Specimen Anatomical Collection Method Collection Time Receive d Time (Source) Location / / Volume Laterality Blood specimen 03/30/2016 3:50 PM 016 3:50 (specimen) EDT PM EDT Narayan Washington MD CHEMISTRY ORDERABLES Performing Organization Address City/State/[place] [address] (ABNORMAL) BLOOD GAS 2 ARTERIAL (03/30/2016 3:17 PM EDT) Analysis Performed At Patho logist Time Signature pH Art 7.34 (L) 7.35 - [facility] 7.45 [facility] pCO2 Art 42 35 - 45 [facility] pO2 Art 262 (H) 85 - 104 [facility] HCO3 Art 21.9 20.0 - [facility] 26.0 [facility] mmol/[facility] BE Art -3.8 (L) -3.0 - 3.0 [facility] mmol/L [facility] Hgb Blood Gas 11.8 11.2 - [facility] 15.7 gm/dL [facility] O2HB Art 98.5 (H) 94.0 - [facility] 97.0 % [facility] COHB Art 0.9 % [facility] Comment: Nonsmokers: 0.5-1.5% COHB Smokers: Variable, but usually less than 10% Toxic: 20-30% COHB Lethal: Greater than 60% COHB METHB Art 0.3 <=1.5 % [facility] Na Whole Blood 134 (L) 135 - 145 mmol/L [facility] K Whole Blood 4.1 3.5 - 5.0 mmol/L [facility] Comment: Please note: Patients with WBC >100,000 may have falsely elevated Potassium levels. Contact the Clinical Chemistry L aboratory if there are any questions. ICa Whole Blood 1.04 (L) 1.15 - 1.33 mmol/L [facility] Comment: Note: ??Total bilirubin higher than 20 m g/dL may lead to falsely low ionized calcium. CL Whole Blood 102 98 - 107 mmol/L [facility] Gluc Whole Bld 123 65 - 199 mg/dL [facility] Comment: Diabetes: >=200 mg/dL plus symp toms. Specimen Anatomical Collection Method Collection Time Receive d Time (Source) Location / / Volume Laterality Blood specimen 03/30/2016 3:17 PM 016 3:17 (specimen) EDT PM EDT Narayan Washington MD CHEMISTRY ORDERABLES Performing Organization Address City/State/[place] [address] (ABNORMAL) BLOOD GAS 2 ARTERIAL (03/30/2016 2:12 PM EDT) Analysis Performed At Patho logist Time Signature pH Art 7.40 7.35 - [facility] 7.45 [facility] pCO2 Art 42 35 - 45 [facility] mmHg [facility] pO2 Art 428 (H) 85 - 104 [facility] HCO3 Art 25.4 20.0 - [facility] 26.0 [facility] mmol/[facility] BE Art 0.6 -3.0 - 3.0 [facility] mmol/L [facility] Hgb Blood Gas 15.0 11.2 - [facility] 15.7 gm/dL [facility] O2HB Art 98.6 (H) 94.0 - [facility] 97.0 % [facility] COHB Art 1.0 % [facility] Comment: Nonsmokers: 0.5-1.5% COHB Smokers: Variable, but usually less than 10% Toxic: 20-30% COHB Lethal: Greater than 60% COHB METHB Art 0.3 <=1.5 % [facility] Na Whole Blood 137 135 - 145 mmol/L [facility] K Whole Blood 4.3 3.5 - 5.0 mmol/L [facility] Comment: Please note: Patients with WBC >100,000 may have falsely elevated Potassium levels. Contact the Clinical Chemistry L aboratory if there are any questions. ICa Whole Blood 1.22 1.15 - 1.33 mmol/L [facility] Comment: Note: ??Total bilirubin higher than 20 m g/dL may lead to falsely low ionized calcium. CL Whole Blood 103 98 - 107 mmol/L [facility] Gluc Whole Bld 102 65 - 199 mg/dL [facility] Comment: Diabetes: >=200 mg/dL plus symp toms. FIO2 Art 92 % [facility] PF Ratio Art 465 [facility] Specimen Anatomical Collection Method Collection Time Receive d Time (Source) Location / / Volume Laterality Blood specimen 03/30/2016 2:12 PM 016 2:12 (specimen) EDT PM EDT Narayan Washington MD CHEMISTRY ORDERABLES Performing Organization Address City/State/[place] [address] Prepare RBC (03/30/2016 1:10 PM EDT) athologist Signature Dispensed? Yes [facility] Specimen Anatomical Collection Method Collection Time Receive d Time (Source) Location / / Volume Laterality Blood specimen 03/30/2016 1:10 PM 016 1:09 (specimen) EDT PM EDT Narayan Washington MD BLOOD BANK ORDERABLES Performing Organization Address City/State/[place] [address] POCT Glucose (03/30/2016 11:48 AM EDT) athologist Signature POC Glucose 91 65 - 199 [facility] mg/dL [facility] Comment: Supplemental ranges: <140 mg/dL before meals <180 mg/dL all other times of the day Specimen Anatomical Collection Method Collection Time Receive d Time (Source) Location / / Volume Laterality Blood specimen 03/30/2016 11:48 6 (specimen) AM EDT 11:48 AM EDT Narayan Washington MD POINT OF CARE TEST ORDERABLE S Performing Organization Address City/State/[place] [address] documented in this encounter Visit Diagnoses Diagnosis Coronary artery disease, angina presence unspecified, unspecified vessel or lesion type, unspecified whether gambell or thurman splanted heart S/P CABG x 3 Postsurgical aortocoronary bypass status Coronary artery disease, angina presence unspecified, unspecified vessel or lesion type, unspecified whether gambell or thurman splanted heart S/P CABG x 3 Postsurgical aortocoronary bypass status documented in this encounter Admitting Diagnoses Diagnosis Coronary artery disease Coronary atherosclerosis of unspecified type of vessel, gambell or graft documented in this encounter Administered Medications Inactive Administered Medications - up to 3 most recent administrations Medication Order MAR Action Action Date Dose Rate Site acetaminophen (TYLENOL) tablet Given 04/04/2016 12:31 PM EDT 1,0 00 mg 1,000 mg 1,000 mg, Oral, EVERY 6 HOURS SCHEDULED, First dose on Wed03/31/16 at 0000, Until Discontinued, For pain when taking by mouth , Routine Given 04/04/2016 5:52 AM EDT 1,000 mg Given 04/04/2016 1:17 AM EDT 1,000 mg AMIOdarone (CORDARONE; PACERONE) tablet 400 Given 04/04/2016 8:51 AM EDT 400 mg mg 400 mg, Oral, 2 TIMES DAILY, First dose on Wed04/03/16 at 0945, Until Discontinued, Routine Given 04/03/2016 8:50 PM EDT 400 mg Given 04/03/2016 10:10 AM EDT 400 mg aspirin chewable tablet 81 mg Given 04/04/2016 [...] post-op day 1 in the AM, Routine calcium chloride 100 mg/mL (10 %) Given 03/30/2016 4:23 PM EDT 1 g Central Line injection ONCE PRN, Starting on Wed03/30/16 at 1623, Until 04/04/16 at 1827, Intra-Operative (Intra-Procedure), Routine cardioplegic solution (PLEGISOL) induction Given 03/30/2016 3:19 PM EDT 300 mLs solution ONCE PRN, Starting on Wed03/30/16 at 1519, Until 04/04/16 at 1827, Intra-Operative (Intra-Procedure) cardioplegic solution (PLEGISOL) maintenance Given 4:08 PM EDT 320 mLs solution ONCE PRN, Starting on Wed03/30/16 at 1608, Until 04/04/16 at 1827, Intra-Operative (Intra-Procedure) cardioplegic solution (PLEGISOL) reperfusion Given 4:23 PM EDT 110 mLs solution ONCE PRN, Starting on Wed03/30/16 at 1623, Until 04/04/16 at 1827, Intra-Operative (Intra-Procedure) cefUROXime (ZINACEF) injection 1.5 g Given 03/30/2016 3:09 PM EDT 1 g Centr al Line ONCE PRN, Starting on Wed03/30/16 at 1509, Until 04/04/16 at 1827, Intra-Operative (Intra-Procedure), Routine chlorhexidine (PERIDEX) 0.12 % oral solution Given 8:48 PM EDT 15 mLs 15 mL 15 mL, Oral, EVERY 12 HOURS SCHEDULED (2 times per day), First dose on Wed03/30/16 at 2100, Until Discontinued, Newell teeth, Routine Given 04/03/2016 9:00 AM EDT [...] EVERY 1 HOUR PRN, S tarting on Wed04/01/16 at 1557, Until 04/04/16 at [...] the duration of the active insulin., Routine electrolyte (pH 7.4) (NORMOSOL-R; New Bag 03/30/2016 4:45 PM 500 m Ls Central Line PLASMALYTE-A) injection EDT CONTINUOUS PRN, Starting on Wed03/30/16 at 1509, Until Wed03/30/16 at 1804, Intra-Operative (Intra-Procedure) Restarted 03/30/2016 4:24 PM EDT 500 mLs Centr al Line New Bag 03/30/2016 3:33 PM EDT 500 mLs Centr al Line fentaNYL 50 mcg/mL multi-dose injection 25-50 mcg, Intravenous, EVERY 5 MIN PRN, Starting on Wed04/03/16 at 1114, Until 04/04/16 at 1827, Pain, per unit protocol , [...] for the duration of the active insulin. heparin (porcine) injection Given 03/30/2016 3:44 PM EDT 7,000 Units Centr al Line ONCE PRN, Starting on Wed03/30/16 at 1509, Until 04/04/16 at 1827, Intra-Operative (Intra-Procedure), Routine Given 03/30/2016 3:09 PM EDT 5,000 Units Centr al Line hydrALAZINE (APRESOLINE) injection 10 mg 10 mg, [...] 04/03/2016 8:51 PM EDT 4 Units insulin detemir (LEVEMIR) VIAL injection 30 Given 03/09 8:47 AM EDT 30 Units Units 30 Units, Subcutaneous, EVERY 12 HOURS, First dose (after last modification) on Wed04/03/16 at 2100, Until Discontinued, Please continue insulin infusion, Routine Given 04/03/2016 8:52 PM EDT 30 Units ipratropium-albuterol (DUONEB) 0.5 mg-3 mg(2.5 Given 0 [...] Given 04/02/2016 5:47 AM EDT 125 mcg lidocaine (PF) (XYLOCAINE) 100 Given 03/30/2016 4:19 PM EDT 200 mg Central Line mg/5 mL (2 %) injection ONCE PRN, Starting on Wed03/30/16 at 1619, Until 04/04/16 at 1827, Intra-Operative (Intra-Procedure), Routine magnesium hydroxide (MILK OF MAGNESIA) oral Given 04/03/2016 8:33 AM EDT 10 mLs suspension 10 mL 10 mL, Oral, DAILY, First dose on Wed04/01/16 at 0900, Until Discontinued, Post-op day 2. Do not use with renal insufficiency., Routine Given 04/02/2016 8:11 AM EDT 10 mLs Given 04/01/2016 8:55 AM EDT 10 mLs magnesium sulfate 4 mEq/mL (50 %) Given 03/30/2016 4:19 PM EDT 2 g Central Line injection ONCE PRN, Starting on Wed03/30/16 at 1619, Until Wed04/04/16 at 1827, Intra-Operative (Intra-Procedure), Routine mannitol (50 grams and over) 100 New Bag 03/30/2016 4:08 PM EDT 50 g Central Line g/500 mL (20%) infusion CONTINUOUS PRN, Starting on Wed03/30/16 at 1608, Until Wed03/30/16 at 1804, Intra-Operative (Intra-Procedure) meTOPROLOL tartrate (LOPRESSOR) tablet 2 5 mg [...] of 0.8 mg in tra-procedure. , Routine oxyCODONE (ROXICODONE) immediate release Given 04/01/2016 6:14 P M EDT 10 mg tablet 5-10 mg 5-10 mg, Oral, EVERY 4 HOURS PRN, Starting on Wed03/30/16 at 1812, Until Wed04/04/16 at 1827, Pain, Give 5 mg 1 [...] Given 04/02/2016 8:10 AM EDT 40 mg senna-docusate (PERICOLACE) 8.6-50 mg per Given 2015 8:48 PM EDT 2 tablets tablet 2 tablet 2 tablet, Oral, DAILY, First dose on Wed03/31/16 at 2100, Until Discontinued, Post-op day 1, Routine Given 04/02/2016 8:38 PM EDT 2 tablets Given 04/01/2016 9:10 PM EDT 2 tablets sodium chloride 0.9 % flush 5 mL Given 04/04/2016 5:45 AM EDT 5 mLs 5 mL, Intravenous, EVERY 8 HOURS, First dose on Wed03/31/16 at 1345, Until Discontinued, Routine Given 04/03/2016 8:52 PM EDT 5 mLs Given 04/03/2016 12:51 PM EDT 5 mLs vancomycin (VANCOCIN) injection Given 03/30/2016 4:55 PM EDT 1 g 19- S urgical Site ONCE PRN, Starting on Wed03/30/16 at 1655, Until Wed04/03/16 at 1341, Intra-Operative (Intra-Procedure), Routine verapamil (ISOPTIN) injection Given 03/30/2016 3:44 PM EDT 5 mg 19- S urgical Site ONCE PRN, Starting on Wed03/30/16 at 1544, Until Wed04/04/16 at 1827, Administer over 2 Minutes, Intra-Operative (Intra-Procedure) documented in this encounter Active and [...] Kerry Gann RN)0552 (Given - Provider: Kerry Gann RN)1231 (Given - Provider: Newton Strange RN) 1,000 mg, Oral, EVERY 6 HOURS SCHEDULED, First dose on Wed03/31/16 at 0000, Until Discontinued, For pain when taking by mouth , Routine AMIOdarone (CORDARONE; PACERONE) tablet 400 mg 1010 (Given - Provider: Zaida Rust RN)2050 (Given - Provider: Kerry Gann RN) 0851 (Given - Provider: Newton Strange, DAYANA) 400 mg, Oral, 2 TIMES DAILY, First dose on Wed04/03/16 at 0945, Until Discontinued, Routine aspirin chewable tablet 81 mg(Linked Group 1) 0810 (Gi dequan - Provider: Newton Strange RN) 0832 (Given - Provider: Zaida Rust [...] dose on Wed03/30/16 at 2100, Until Discontinued, Newell teeth, Routine cholecalciferol (Vitamin D3) tablet 1,000 Units 08 ( Given - Provider: Newton Strange RN) 08 (Given - Provider: Zaida Rust RN) 0851 (Give n - Provider: Newton Strange RN) 1,000 Units, Oral, DAILY, First dose on Wed03/31/16 at 0900, Until Discontinued, Routine citalopram (CeleXA) tablet 20 mg 08 (Given - Provider: Suzanne Strange RN) 08 (Given - Provider: Zaida Rust RN) 0851 (Given - Provider: Newton Strange RN) 20 mg, Oral, DAILY, First dose on Wed at 0900, Until Discontinued, Routine cyanocobalamin (vitamin B-12) tablet 500 mcg 08 (Giv en - Provider: Newton Strange RN) 08 (Given - Provider: Zaida Rust RN) 0851 [...] insulin aspart (NovoLOG) VIAL injection 2-12 Units(Jaylin patd Group 2) 0000 (Not Given - Provider: [...] Rust RN - Reason: Order parameters not met)2050 (Given - Provider: Kerry Gann RN) 123 (Given - Provider: Newton Strange RN)1600 (Due) [...] (CAN CELED) 0808 (Given - Provider: Newton Strange, DAYANA) 50 Units, Subcutaneous, EVERY 12 HOURS, First [...] RN) 2.5 mg, Oral, ONCE, 1 dose, Wed04/02/16 at 0900, Routine meTOPROLOL tartrate (LOPRESSOR) tablet 25 mg (CANCELED ) 0811 (Given - Provider: Newton Strange RN)2038 (Given - Provider: Kerry Gann RN) 0831 [...] 10 mg, Rectal, DAILY PRN, Starting Maggie at 0000, Until 04/04/16 at 1827, Constipation, [...] Intravenous, EVERY 2 HOURS PRN, S tarting Wed03/31/16 at 0723, Until 04/04/16 at 1827, for sbp > 150 nalOXone (NARCAN) injection 0.1 mg 0.1 mg, Intravenous, EVERY 2 MIN PRN, St artwed04/03/16 at 1114, Until 04/04/16 at 1827, Opioid [...] Oral, DAILY, First dose on Wed at 1999, Until Discontinued
DO NOT CRUSH OR OPEN If unable to take PO, may give IV
Routine Or pantoprazole (PROTONIX) injection 40 mgJump to med 40 mg, Intravenous, DAILY, First dose on Wed03/30/16 at 1999, Until Discontinued
Reconstitute with 10 mL of [...]
Routine documented in this encounter Care Teams Fitter/Welder Relationship Specialty Start Date End Date Valentino Hernandez PA PCP - General General Internal Medicine 03/29/16 05/12/21 [address] [place] [address] documented as of this encounter
--- OUTSIDE RECORDS SUMMARY | 2022-05-22 01:47 | XMS_ITS | Encounter Summary ---
:1955 Author Organization [facility] [place] [address] Care Team Providers Name Role Phone Unknown Primary Care Provider Unavailable Reason for Visit Auth/Cert Specialty Diagnoses / Procedures Referred By Contact Refer red To Contact Diagnoses Atherosclerotic heart disease of [place] coronary artery without angina pectoris ASCVD Procedures PRO CATH PLMT LEFT HEART CATH & ARTS W/INJ & ANGIO IMG S&I CARDIAC CATHETERIZATION Referral ID Status Reason Start Date Expiration Date Visits Requ ested Visits Authorized [id number] 1 1 Encounter Details Date Type Department Care Team Description 03/26/2016 Laboratory Appointment Lab at [facility] [place] [address] Social History Tobacco Use Types Packs/Day Years Used Date Former Smoker 11 Alcohol Use Standard Drinks/Week Comments No 0 (1 standard drink = 0.6 oz pure alcoho l) Sex Assigned at Date Recorded Not on file documented as of this encounter Plan of Treatment Not on filedocumented as of this encounter Visit Diagnoses Not on filedocumented in this encounter Care Teams Instrument Operator Relationship Specialty Start Date End Date Unknown PCP - General 03/08/16 03/28/16 None documented as of this encounter
--- OUTSIDE RECORDS SUMMARY | 2022-05-22 01:49 | XMS_ITS | Clinical Summary ---
:1955 Demographics Home Phone Preferred Language Unknown Marital Status Unknown Druze Affiliation Unknown Race Unknown Ethnic Group Unknown Author Organization [facility] Address [address] [place] [address] Care Team Providers Name Role Phone Unknown, Provider Primary Care Provider Social History Tobacco Use Types Packs/Day Years Used Date Never Assessed Sex Assigned at Date Recorded Not on file Plan of Treatment Health Maintenance Due Date Last Done Comments Hepatitis C Screen 1955 COVID-19 Vaccine (1) 1962 Care Teams Guest Service Representative Relationship Specialty Start Date End Date Unknown, ProviderMD PCP - General 03/16/16
--- OUTSIDE RECORDS SUMMARY | 2022-05-22 01:49 | XMS_ITS | Encounter Summary ---
:1955 Demographics Home Phone Preferred Language Unknown Marital Status Unknown Jainism Affiliation Unknown Race Unknown Ethnic Group Unknown Author Organization [facility] Address [address] [place] [address] Care Team Providers Name Role Phone Unknown, Provider Primary Care Provider Encounter Details Date Type Department Care Team Description 09/10/2017 Results Only [facility]- Radha Catalan MD [phone] [facility] [place], [place] [id number] (Wo rk) Social History Tobacco Use Types Packs/Day Years Used Date Never Assessed Sex Assigned at Date Recorded Not on file documented as of this encounter Plan of Treatment Not on filedocumented as of this encounter Procedures Procedure Name Priority Date/Time Associated Diagnosis Comme nts PAP TEST- RESULT Routine 09/10/2017 0:00 EDT Resu lts for this ONLY procedure are i n the results section. documented in this encounter Results PAP TEST- RESULT ONLY (09/10/2017 0:00 EDT) Pathology Report: CYTOPATHOLOGY REPORT [facility] Reports generated via electronic interface contain anthony ginal data; SERVICES however they are lacking the format of the original re port. Caution should be taken when reading/interpreting unfo rmatted reports. Name: ? BERNARDO PRIETO ? Accession #: ? [id number] ? : ? 1955 (Age: 8 0) ??F ?Collect Date: ? 09/10/2017 ? Location: ? [facility] ? Receive Date: ? 09/14/20 17 ? Provider: RADHA KIRKPATRICK MD Copy to: ROSS MAYERS PAC ? Final Report SPECIMEN ADEQUACY ? Satisfactory for Evaluation - assessment of transformation zone component not appl icable ( e.g. atrophy, vaginal sample, hysterectomy) - scant squamous epithelial component - obscuring contamination, possibly lubricant GENERAL CATEGORIZATION ? Negative for Intraepithelial Lesion or Malignan cy ?? Hormonal/Contraceptive status: None Specimen/Source: ??Pap Test, Cervix, ThinPrep Imaging System with manual evaluation Document reviewed and electronically signed by: ? Flora Cordero, [facility](ASCP) ? Report ??Date: 09/27/2017 14:43 HPV with Pap Test ? Date Ordered: ? 09/27/2017 ? Status: ?? Signed Out ?Date Complete: ? 09/29/2017 ? By: ??S ystem Interface ? Date Reported: ? 09/29/2017 ? Interpretation RESULT: Negative for HPV. No E6 or E7 mRNA is detected from HPV types 16,18,31,3 3,35, 39,45,51,52,56,58,59,66, and 68 by chief construction inspector media elayne amplification. Comments Document reviewed and electronically signed by: ? System Interface ? Report date: 09/29/2017 By the signature above, the attending physician certif ies that he/she has personally conducted a gross and/or microscopic examin ation of the described specimens and rendered or confirmed the above diagnosi s. 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
--- OUTSIDE RECORDS SUMMARY | 2022-05-22 01:49 | XMS_ITS ---
:1955 Author Care Team Providers Name Role Phone DR. ROSS MAYERS Primary Care Provider [phone] DR. ROSS MAYERS Referring Provider [phone] Allergies Code Code System Name Reaction Severity Status Onset 5933 RxNorm Iodine ? ? Active ? Medications Name Status Start Date Stop Date ? ? aspirin 81 mg tablet,delayed release Active ? Not available Take 2 tablets every day by oral route. atorvastatin 80 mg tablet Active ? Not av ailable Take 1 tablet every day by oral route. citalopram 20 mg tablet Active ? Not avai lable Take 1 tablet every day by oral route. cyanocobalamin (vit B-12) 1,000 mcg tablet Active ? Not available Take 1 tablet every day by oral route. Levemir FlexTouch U-100 Insulin 100 unit/mL (3 mL) subcutaneous pen Active ? Not available Inject 30 units twice a day by subcutaneous route. levothyroxine 125 mcg tablet Active ? Not available Take 1 tablet every day by oral route. lisinopril 20 mg tablet Active ? Not avai lable Take 1 tablet every day by oral route. magnesium 400 mg (as magnesium oxide) capsule Active ? Not available Take 1 capsule 3 times a day by oral route. metoprolol tartrate 25 mg tablet Active ? Not available Take 1 tablet twice a day by oral route. Novolog Flexpen U-100 Insulin aspart 100 unit/mL (3 mL) subcutan eous Active ? Not available Start with 10 units subcutaneously imme diately (0 to 5 min) before Noon meal, adjust by 2 units every four days to goal of two hour post meal BG below 200 (range 8 to 20 units daily, but may add other meals later. Pen [place] 31 X /16 Active ? Not avail able Qvar 40 mcg/actuation Metered Aerosol oral inhaler Active ? Not available Inhale 1 puff twice a day by inhalation route. Tylenol Extra Strength 500 mg tablet Completed ? 10/06/2017 Take 2 tablets every 6 hours by oral route. Vitamin D3 25 mcg (1,000 unit) capsule Active ? Not available Take 1 capsule every day by oral route. Problems Name Status Onset Date Source ? Hypothyroidism Active 09/29/2017 ? Type 2 Diabetes Mellitus Active 09/29/2017 ? Hypercholesterolemia Active 09/29/2017 ? Hypertensive Disorder Active 09/29/2017 ? Coronary Arteriosclerosis Active 09/29/2017 ? Atrial Fibrillation Active 09/29/2017 ? Cerebrovascular Accident Active 09/29/2017 ? Asthma Active 09/29/2017 ? 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 Notes: left ventricle hypertrophy, baldomero vated creatinine, hyperplastic colonic polyp Procedures Date Name Performed by ? 03/30/2016 Cabg Vein Three Information not avai lable Results Lab Results None recorded. Past Encounters None recorded. Social History Tobacco Smoking Status Former Smoker Notes: quit 201 0 Vaccine List None recorded. Plan of Care Reminders Provider Appointments None recorded. ? ? Lab None recorded. ? ? Referral None recorded. ? ? Procedures None recorded. ? ? Surgeries None recorded. ? ? Imaging None recorded. ? ? Vitals Height Weight BMI Blood Pressure 160.02 cm 99.79 kg 39 kg/m2 136/80 mm[Hg]
== END 2022-05-22 01:45 | disposition home or self-care (01) ==
LOC: LBO 01:44
PROVIDERS: PCP Internal Medicine; Visit Provider Internal Medicine
DX: E03.9 Hypothyroidism, unspecified (principal)
CPT/HCPCS: 36415; 84443

== ENCOUNTER → 2022-05-26 09:23 | Outpatient (BNVA) | payer MEDICARE, SELFPAY | PROVIDERS: PCP Internal Medicine; Visit Provider Internal Medicine Cardiovascular Disease | DX: E11.29 Type 2 diabetes mellitus with other diabetic kidney complication (principal); R80.9 Proteinuria, unspecified; N18.30 Chronic kidney disease, stage 3 unspecified; I25.718 Atherosclerosis of autologous vein coronary artery bypass graft(s) with other forms of angina pectoris; I10 Essential (primary) hypertension; E78.00 Pure hypercholesterolemia, unspecified | CPT/HCPCS: 93005; 99214; 99213 ==

== ENCOUNTER 2022-05-26 09:33 | Outpatient (CLI) | payer MEDICARE, SELFPAY ==
--- NOTE | 2022-05-26 09:33 | RT.EKG_ITS ---
APPROVED REPORT Exam: Resting ECG Reason for Exam: CAD Patient Location: O HR:58 bpm ECG Measurements Heart Rate 58 AXIS SD 186 P -9 QRSd 90 QRS -10 QT 429 T 92 QTc 422 Conclusion Sinus rhythm...normal P axis, V-rate 50- 99 Consider anterior infarct...Q >30mS in V2-V5
== END 2022-05-26 09:34 | disposition home or self-care (01) ==
LOC: DI.CARD 09:34
PROVIDERS: PCP Internal Medicine; Visit Provider Internal Medicine Cardiovascular Disease
DX: I25.718 Atherosclerosis of autologous vein coronary artery bypass graft(s) with other forms of angina pectoris (principal); R94.31 Abnormal electrocardiogram [ECG] [EKG]
CPT/HCPCS: 93010

== ENCOUNTER 2023-03-01 01:30 | Outpatient (CLI) | payer MEDICARE, SELFPAY ==
[2023-03-01 11:02] LABS: FREE T4 1.04 ng/dL (0.76-1.46); TSH 2.17 uIU/mL (0.36-3.74)
== END 2023-03-01 01:31 | disposition home or self-care (01) ==
LOC: LBO 01:30
PROVIDERS: PCP Nurse Practitioner Adult Health; Referring Provider Nurse Practitioner Adult Health; Visit Provider Nurse Practitioner Adult Health
DX: E03.9 Hypothyroidism, unspecified (principal); R79.89 Other specified abnormal findings of blood chemistry
CPT/HCPCS: 36415; 84439; 84443

== ENCOUNTER 2023-06-01 03:27 | Outpatient (CLI) | payer MEDICARE, SELFPAY ==
[2023-06-01 09:50] LABS: Hemoglobin A1C 8.9 % (<5.7)
[2023-06-01 09:57] LABS: Anion Gap 9.8 mmol/L (3-11); BUN 21 mg/dL (7-18); CO2 29.2 mmol/L (21.0-32.0); CREATININE 1.6 mg/dL (0.55-1.02); Calcium 9.7 mg/dL (8.5-10.1); Calculated LDL 87 mg/dL (<100); Chloride 100 mmol/L (98-107); Cholesterol 190 mg/dL (<200); Estimated GFR 35.35 (mL/min/1.73m2); Glucose 164 mg/dL (74-106); HDL Cholesterol 61 mg/dL (40-60); Potassium 4.4 mmol/L (3.5-5.1); Sodium 139 mmol/L (136-145); Triglyceride 211 mg/dL (<150)
[2023-06-01 10:12] LABS: COMMENT (LAB VIEW ONLY) 79.31 mg/dL
== END 2023-06-01 03:28 | disposition home or self-care (01) ==
LOC: LBO 03:28
PROVIDERS: PCP Nurse Practitioner Adult Health; Visit Provider Nurse Practitioner Adult Health
DX: E03.9 Hypothyroidism, unspecified (principal); I10 Essential (primary) hypertension; E78.00 Pure hypercholesterolemia, unspecified; I25.718 Atherosclerosis of autologous vein coronary artery bypass graft(s) with other forms of angina pectoris; E11.9 Type 2 diabetes mellitus without complications; Z79.4 Long term (current) use of insulin; N18.9 Chronic kidney disease, unspecified; R80.9 Proteinuria, unspecified
CPT/HCPCS: 36415; 80048; 80061; 82043; 82570; 83036

== ENCOUNTER → 2023-06-11 09:15 | Outpatient (BNVA) | payer MEDICARE, SELFPAY | PROVIDERS: PCP Nurse Practitioner Adult Health; Referring Provider Nurse Practitioner Adult Health; Visit Provider Internal Medicine Cardiovascular Disease | DX: I12.9 Hypertensive chronic kidney disease with stage 1 through stage 4 chronic kidney disease, or unspecified chronic kidney disease (principal); E11.22 Type 2 diabetes mellitus with diabetic chronic kidney disease; N18.9 Chronic kidney disease, unspecified; I25.718 Atherosclerosis of autologous vein coronary artery bypass graft(s) with other forms of angina pectoris; E78.00 Pure hypercholesterolemia, unspecified | CPT/HCPCS: 99214 ==

== ENCOUNTER → 2023-09-13 00:45 | Outpatient (CLI) | payer OTHER, SELFPAY ==
--- NOTE | 2023-09-13 12:38 | DI.MAMMO_ITS ---
Exam(s) MAMMO SCREENING EXAM: MAMMO SCREENING CLINICAL HISTORY: screening,Z12.39 TECHNIQUE: Bilateral full field digital CC and MLO mammographic images were obtained with 3D tomosyn thesis and utilizing computer aided detection (CAD). COMPARISON: Available for comparison. FINDINGS: Masses/Architectural Distortion: None seen. Microcalcifications: No suspicious pleomorphic-type are seen. Skin Thickening/Nipple Retraction: None. IMPRESSION: 1. No significant interval change with no specific features of malignancy noted. 2. Unless there is more urgent need, screening mammography is recommended, as per [employer] guidelines. BI-RADS Category 1 - Negative Breast Density - Category B - Scattered areas of fibroglandular density Breast density category C or D implies that the patient has dense breast tissue. Dense breast tissue is very common and is not abnormal but dense breast tissue can make it harder to find cancer on a ma mmogram. Also, dense breast tissue may increase their breast cancer risk. This information about the result of the mammogram report was provided to the patient to raise their awareness. Use this report when you speak with the patient about their risks for breast cancer, which includes their family hist ory. At that time, you may recommend for more screening tests (Ultrasound or MRI) as they might be us eful based on their risk. A negative radiographic report should not delay biopsy if a dominant or clinically suspicious mass is present. Up to ten percent of cancers are not identified on mammography. A negative report may reinforce clinical impression. Adenosis and dense breasts may obscure an underlying neoplasm. False positive reports average 6 to 10%. Patient will receive a letter notifying them of these results.
== END ==
PROVIDERS: PCP Nurse Practitioner Adult Health; Visit Provider Nurse Practitioner Adult Health
DX: Z12.31 Encounter for screening mammogram for malignant neoplasm of breast (principal); R92.323 Mammographic fibroglandular density, bilateral breasts
CPT/HCPCS: 77063; 77067

== ENCOUNTER 2023-12-08 04:25 | Outpatient (CLI) | payer OTHER, SELFPAY ==
[2023-12-08 13:18] LABS: COMMENT (LAB VIEW ONLY) 81.88 mg/dL
[2023-12-08 13:21] LABS: Anion Gap 11.5 mmol/L (3-11); BUN 23 mg/dL (7-18); CO2 27.5 mmol/L (21.0-32.0); CREATININE 1.8 mg/dL (0.55-1.02); Calcium 9.7 mg/dL (8.5-10.1); Calculated LDL 101 mg/dL (<100); Chloride 101 mmol/L (98-107); Cholesterol 182 mg/dL (<200); Estimated GFR 30.69 (mL/min/1.73m2); Glucose 135 mg/dL (74-106); HDL Cholesterol 54 mg/dL (40-60); Sodium 140 mmol/L (136-145); TSH (W/Ref FT4) 6.29 uIU/mL (0.36-3.74); Triglyceride 136 mg/dL (<150)
[2023-12-08 13:38] LABS: FREE T4 0.95 ng/dL (0.76-1.46)
== END 2023-12-08 04:26 | disposition home or self-care (01) ==
LOC: LBO 04:25
PROVIDERS: PCP Nurse Practitioner Adult Health; Visit Provider Nurse Practitioner Adult Health
DX: E03.9 Hypothyroidism, unspecified (principal); E11.29 Type 2 diabetes mellitus with other diabetic kidney complication; E11.3393 Type 2 diabetes mellitus with moderate nonproliferative diabetic retinopathy without macular edema, bilateral; E78.00 Pure hypercholesterolemia, unspecified; N18.9 Chronic kidney disease, unspecified; R80.9 Proteinuria, unspecified; Z79.4 Long term (current) use of insulin
CPT/HCPCS: 36415; 80048; 80061; 82043; 82570; 84439; 84443

== ENCOUNTER 2024-06-15 09:58 | Outpatient (CLI) | payer OTHER, SELFPAY ==
--- NOTE | 2024-06-15 09:45 | RT.EKG_ITS ---
APPROVED REPORT Exam: Resting ECG Reason for Exam: CAD Patient Location: O HR:85 bpm ECG Measurements Heart Rate 85 AXIS MD 258 P 30 QRSd 94 QRS -12 QT 364 T 146 QTc 433 Conclusion Sinus rhythm...normal P axis, V-rate 50- 99 Prolonged MD interval...MD >220, V-rate 50- 90 Anteroseptal infarct, old...Q >40mS, V1-V2 Nonspecific [address]-T abnormalities
== END 2024-06-15 09:59 | disposition home or self-care (01) ==
LOC: DI.CARD 09:59
PROVIDERS: PCP Nurse Practitioner Adult Health; Visit Provider Internal Medicine Cardiovascular Disease
DX: I25.718 Atherosclerosis of autologous vein coronary artery bypass graft(s) with other forms of angina pectoris (principal)
CPT/HCPCS: 93010

== ENCOUNTER → 2024-06-15 11:08 | Outpatient (BNVA) | payer OTHER, SELFPAY | PROVIDERS: PCP Nurse Practitioner Adult Health; Visit Provider Internal Medicine Cardiovascular Disease | DX: I44.0 Atrioventricular block, first degree (principal); I25.718 Atherosclerosis of autologous vein coronary artery bypass graft(s) with other forms of angina pectoris; I10 Essential (primary) hypertension | CPT/HCPCS: 93005; 99213 ==